=== PATIENT | female | born 1955 | race Caucasian/White ===

== ENCOUNTER 2016-09-21 11:36 | Observation (INO) | payer MEDICARE, BC ==
[2016-09-21] VITALS (11 sets, daily range): BP systolic 104–149; BP diastolic 71–83; PULSE 62–73; RESP 16–20; TEMP 96.6–98; O2SAT 94–98
[~2016-09-21] VITALS: Ht 156.2 cm; Wt 74.0 kg
[~2016-09-21 11:36] MED LIST: ALBUAER3 INH; ATOR20TA15 PO; AZIT500T2 PO; CARV12.52 PO; CHOL1CHW5 CHEW; CLOP75TA PO; DULO1CAP3 PO; FERR325T PO; GABA300C5 PO; LANTUS2P; LISI-515 PO; NIFE15TA PO; NOVOLOGP2 SQ; OMEP40CA2 PO; PRED20 PO; ROPI0.5T PO; TIZA4TAB PO
[2016-09-21] MEDS ORDERED: SODIUM CHLORIDE 0.9% FLUSH 10 ML FLUSH IVF PRN (12:00)
[2016-09-21 12:11] LABS: AUTOMATED NEUTROPHIL # 2.7 TH/MM3 (1.8-7.7); BASOPHIL # 0.1 TH/MM3 (0-0.2); BASOPHIL % 1.2 % (0.0-2.0); EOSINOPHIL # 1.2 TH/MM3 (0-0.4); EOSINOPHIL % 20.8 % (0.0-4.0); HEMATOCRIT 37.7 % (35.0-46.0); HEMO FLAGS DIFF FINAL; LYMPH % 20.9 % (9.0-44.0); LYMPHOCYTE # 1.2 TH/MM3 (1.0-4.8); MEAN CELL VOLUME 84.8 FL (80.0-100.0); MEAN CORPUSCULAR HEMOGLOBIN 28.9 PG (27.0-34.0); MEAN CORPUSCULAR HGB CONC 34.1 % (32.0-36.0); MONO % 7.6 % (0.0-8.0); NEUT % 49.5 % (16.0-70.0); PLATELET COUNT 179 TH/MM3 (150-450); RED BLOOD COUNT 4.45 MIL/MM3 (4.00-5.30); RED CELL DISTRIBUTION WIDTH 13.2 % (11.6-17.2); WHITE BLOOD COUNT 5.6 TH/MM3 (4.0-11.0)
--- NOTE | 2016-09-21 12:12 | PD ---
HPI Chief Complaint: Chest Pain Time Seen by Provider: 11:53 Travel History International Travel<30 days: No Contact w/Intl Traveler<30days: No Traveled to known affect area: No History of Present Illness HPI 60-year-old female states over the past for 5 years she's had multiple syncopal episodes that she has not had worked up for. She states that a couple days ago she felt funny and fell. She states she hit her head and blacked out. She states yesterday a day after she had the fall she developed central chest pain. She states she did not hit her chest when she fell. She states that she has no other concurrent complaints other than mild pain to her left head. Quality is pressure. Severity is moderate. Pain is worse with movement and deep breaths. She states that she had a heart catheterization at [facility] a couple years ago when she was here on vacation that damaged her kidneys and had a small area but they did not place a heart stent. She denies any prior heart stents. She currently moved here from [place] in october and is working on setting up a primary care physician. She has been taking her medications through refills with her prior physician. PFSH Past Medical History Hx Anticoagulant Therapy: Yes (PLAVIX) Cancer: No Cardiovascular Problems: Yes (HTN, CHOL, CHF) Congestive Heart Failure: Yes Cerebrovascular Accident: Yes (TIA) Diabetes: Yes Patient Takes Glucophage: No Diminished Hearing: No Endocrine: No Gastrointestinal Disorders: Yes Genitourinary: No Hypertension: Yes Immune Disorder: No Neurologic: Yes Psychiatric: No Reproductive: No Respiratory: No Immunizations Current: Yes Renal Failure: Yes Ulcer: Yes ?: Not Menopausal: Yes Past Surgical History Abdominal Surgery: Yes (GASTRIC BYPASS) Endocrine Surgery: Yes Gynecologic Surgery: Yes (C SECTIONS) Hysterectomy: No Oral Surgery: Yes (TONSILECTOMY) Other Surgery: Yes Social History Alcohol Use: Yes (occasional) Tobacco Use: No Substance Use: No Allergies-Medications (Allergen,Severity, Reaction): Coded Allergies: Egg Allergy (Verified Allergy, Severe, Swelling, 09/21/16) Sulfa (Verified Allergy, Severe, Swelling, 09/21/16) Reported Meds & Prescriptions Reported Meds & Active Scripts Active Proair Hfa 8.5 GM Inh (Albuterol Sulfate) 90 Mcg/Act Aer 2 Puff INH Q4-6H PRN 108 mcg/actuation Reported Zyrtec Allergy (Cetirizine HCl) 10 Mg Cap 10 Mg PO DAILY Melatonin 5 Mg Tab 5 Mg PO HS Furosemide 40 Mg Tab 40 Mg PO DAILY PRN Novolog Inj (Insulin Aspart) 1,000 Unit/10 Ml Vial 10 Units SQ DAILY Lantus Inj (Insulin Glargine) 100 Unit/Ml Inj 30 Tizanidine (Tizanidine HCl) 4 Mg Tab 4 Mg PO DAILY Ropinirole 0.5 Mg Tab 0.5 Mg PO ONCE Clopidogrel (Clopidogrel Bisulfate) 75 Mg Tab 75 Mg PO DAILY Omeprazole 40 Mg Cap 40 Mg PO DAILY Atorvastatin (Atorvastatin Calcium) 20 Mg Tab 20 Mg PO HS Gabapentin 300 Mg Cap 300 Mg PO DAILY Vitamin D3 (Cholecalciferol) 2,000 Unit Chew 2,000 Units CHEW DAILY Lisinopril 20 Mg Tab 20 Mg PO DAILY Carvedilol 12.5 Mg Tab 12.5 Mg PO BID Ferrous Sulfate 325 Mg Tab 325 Mg PO DAILY Nifedical XL (Nifedipine) 60 Mg Tab 60 Mg PO DAILY Duloxetine DR (Duloxetine HCl) 60 Mg Capdr 60 Mg PO DAILY Review of Systems Except as stated in HPI: all other systems reviewed are Neg Physical Exam Narrative GENERAL: Well-nourished, well-developed patient. SKIN: Warm and dry. HEAD: Normocephalic and small amount of swelling to left forehead EYES: No injection or drainage. Pupils equal ENT: No nasal drainage noted. NECK: Supple, trachea midline. No pain in midline CARDIOVASCULAR: Regular rate and rhythm RESPIRATORY: Breath sounds equal bilaterally. No accessory muscle use. GASTROINTESTINAL: Abdomen soft, non-tender, nondistended. EXTREMITIES: No edema. NEUROLOGICAL: Awake and alert. Motor and sensory grossly within normal limits. Normal speech. Data Data Last Documented VS Vital Signs Date Time Temp Pulse Resp B/P Pulse Ox O2 Delivery O2 Flow Rate FiO2 09/21/16 12:17 66 18 135/82 97 Room Air 09/21/16 11:46 98.0 Orders Electrocardiogram (09/21/16 12:00) Complete Blood Count With Diff (09/21/16 12:00) Comprehensive Metabolic Panel (09/21/16 12:00) Magnesium (Mg) (09/21/16 12:00) B-Type Natriuretic Peptide (09/21/16 12:00) Ckmb (Isoenzyme) Profile (09/21/16 12:00) Troponin I (09/21/16 12:00) Act Partial Throm Time (Ptt) (09/21/16 12:00) Prothrombin Time / Inr (Pt) (09/21/16 12:00) Chest, Single Ap (09/21/16 12:00) Ct Brain W/O Iv Contrast(Rout) (09/21/16 12:00) Ecg Monitoring (09/21/16 12:00) Iv Access Insert/Monitor (09/21/16 12:00) Oximetry (09/21/16 12:00) Sodium Chloride 0.9% Flush (Ns Flush) (09/21/16 12:00) CKMB (09/21/16 12:04) CKMB% (09/21/16 12:04) Aspirin (Aspirin) (09/21/16 13:30) Admit Order (Ed Use Only) (09/21/16 13:31) Labs Laboratory Tests Test 09/21/16 12:04 White Blood Count 5.6 TH/MM3 Red Blood Count 4.45 MIL/MM3 Hemoglobin 12.9 GM/DL Hematocrit 37.7 % Mean Corpuscular Volume 84.8 FL Mean Corpuscular Hemoglobin 28.9 PG Mean Corpuscular Hemoglobin 34.1 % Concent Red Cell Distribution Width 13.2 % Platelet Count 179 TH/MM3 Mean Platelet Volume 8.0 FL Neutrophils (%) (Auto) 49.5 % Lymphocytes (%) (Auto) 20.9 % Monocytes (%) (Auto) 7.6 % Eosinophils (%) (Auto) 20.8 % Basophils (%) (Auto) 1.2 % Neutrophils # (Auto) 2.7 TH/MM3 Lymphocytes # (Auto) 1.2 TH/MM3 Monocytes # (Auto) 0.4 TH/MM3 Eosinophils # (Auto) 1.2 TH/MM3 Basophils # (Auto) 0.1 TH/MM3 CBC Comment DIFF FINAL Differential Comment Prothrombin Time 10.9 SEC Prothromb Time International 1.0 RATIO Ratio Activated Partial 33.3 SEC Thromboplast Time Sodium Level 143 MEQ/L Potassium Level 4.4 MEQ/L Chloride Level 107 MEQ/L Carbon Dioxide Level 23.6 MEQ/L Anion Gap 12 MEQ/L Blood Urea Nitrogen 63 MG/DL Creatinine 3.30 MG/DL Estimat Glomerular Filtration 14 ML/MIN Rate Random Glucose 125 MG/DL Calcium Level 9.5 MG/DL Magnesium Level 2.6 MG/DL Total Bilirubin 0.4 MG/DL Aspartate Amino Transf 38 U/L (AST/SGOT) Alanine Aminotransferase 40 U/L (ALT/SGPT) Alkaline Phosphatase 191 U/L Total Creatine Kinase 176 U/L Creatine Kinase MB 4.8 NG/ML Troponin I LESS THAN 0.02 NG/ML B-Type Natriuretic Peptide 112 PG/ML Total Protein 7.8 GM/DL Albumin 3.7 GM/DL MDM Medical Decision Making Medical Screen Exam Complete: Yes Emergency Medical Condition: Yes Medical Record Reviewed: Yes (past history confirmed) Interpretation(s) EKG shows NSR, no ST elevation or depression, and no arrhythmias. No significant T-wave inversions. Last [address] 09/21/16 1200 Signed Impressions: Service Date/Time: Wednesday, September 21, 2016 12:56 - CONCLUSION: 1. No acute infarct, acute hemorrhage, mass effect or extra-axial fluid collections. 2. Old lacunar infarcts within the head of the left caudate nucleus and anterior limb of the right internal capsule. 3. Calcified extra-axial mass within the left frontal region measuring 1.8 cm consistent with possible meningioma. 4. Mucosal thickening within the right frontal sinus and anterior ethmoid air cells. Cody Gonsales MD Chest X-Ray 09/21/16 1200 Signed Impressions: Service Date/Time: Wednesday, September 21, 2016 12:07 - CONCLUSION: The lungs are clear. Oneil Ervin MD CBC & BMP Diagram 09/21/16 12:04 Differential Diagnosis Intracranial bleed, fracture, pneumothorax, strain, [place], vasovagal Narrative Course Will check blood work, imaging and reevaluate ed workup with mild ckmb elevation with normal troponin, creatinine is near baseline, patient without traumatic injury, will dose with aspirin and nitro and place in observation for further testing, patient agrees to this Physician Communication Physician Communication dr sage agrees to admit Diagnosis Primary Impression: Syncope Qualified Code: R55 - Syncope, unspecified syncope type Additional Impressions: Chest pain Qualified Code: R07.9 - Chest pain, unspecified type Chronic renal insufficiency Qualified Code: N18.9 - Chronic renal insufficiency, unspecified stage Admitting Information Admitting Physician Requests: Observation Kinza Orozco MD Sep 21, 2016 12:11
[2016-09-21] MEDS ORDERED: FURO40TA PO (12:15)
[2016-09-21] MEDS ORDERED: ZYRT10CA PO (12:15)
[2016-09-21] MEDS ORDERED: MELA5TAB15 PO (12:15)
[2016-09-21 12:17] LABS: CHLORIDE 107 MEQ/L (98-107); POTASSIUM 4.4 MEQ/L (3.5-5.1); SODIUM (NA) 143 MEQ/L (136-145)
[2016-09-21 12:21] LABS: ANION GAP 12 MEQ/L (5-15); APTT (PATIENT) 33.3 SEC (24.3-30.1); BICARBONATE 23.6 MEQ/L (21.0-32.0); BLOOD UREA NITROGEN 63 MG/DL (7-18); MAGNESIUM 2.6 MG/DL (1.5-2.5); PROTHROMBIN TIME - PATIENT 10.9 SEC (9.8-11.6)
[2016-09-21 12:24] LABS: ALT (GPT) 40 U/L (10-53); AST (GOT) 38 U/L (15-37); GLOMERULAR FILTRATION RATE 14 ML/MIN (>89)
[2016-09-21 12:25] LABS: TOTAL BILIRUBIN ADULT 0.4 MG/DL (0.2-1.0)
[2016-09-21 12:27] LABS: ALKALINE PHOSPHATASE 191 U/L (45-117); CREATINE KINASE 176 U/L (26-192)
[2016-09-21 12:39] LABS: CKMB 4.8 NG/ML (0.5-3.6)
--- NOTE | 2016-09-21 13:13 | RADHPO ---
EXAM DATE/TIME: 09/21/2016 12:07 [facility] COMPARISON: CHEST SINGLE AP, October 16, 2015, 0:09. INDICATIONS : Chest pain on respiration post fall 1 week ago. MEDICAL HISTORY : Congestive heart failure. Hypertension. Ulcers. Stage 3 Renal failure.Cerebrovascular accident. Neuro courtney. Diabetes. SURGICAL HISTORY : Tonsillectomy. section. Gastric bypass. Endocrine surgery. ENCOUNTER: Initial ACUITY: 1 week PAIN SCORE: 8/10 LOCATION: chest FINDINGS: A single view of the chest demonstrates the lungs to be symmetrically aerated without evidence of mas s, infiltrate or effusion. No evidence of pneumothorax. The cardiomediastinal contours are unremark able. Osseous structures are intact. CONCLUSION: The lungs are clear. Oneil Ervin MD on September 21, 2016 at 13:11 Board Certified Radiologist. This report was verified electronically.
--- NOTE | 2016-09-21 13:22 | RADHPO ---
EXAM DATE/TIME: 09/21/2016 12:56 [facility] COMPARISON: No previous studies available for comparison. INDICATIONS : Fall. Left frontal pain. RADIATION DOSE: 58.72 CTDIvol (mGy) MEDICAL HISTORY : Cerebrovascular disease. Hypertension. SURGICAL HISTORY : Tonsillectomy. ENCOUNTER: Initial ACUITY: 1 day PAIN SCALE: 1/10 LOCATION: Left frontal TECHNIQUE: Multiple contiguous axial images were obtained of the head. Using automated exposure control and adj ustment of the mA and/or kV according to patient size, radiation dose was kept as low as reasonably a chievable to obtain optimal diagnostic quality images. FINDINGS: CEREBRUM: The ventricles are normal for age. No evidence of midline shift, mass lesion, hemorrhage or acute in farction. There are old lacunar infarcts within the head of the left caudate nucleus and the anterio r limb of the right internal capsule. No extra-axial fluid collections are seen. There is a calcified extra-axial mass within the left frontal region measuring 1.8 cm in greatest dimension consistent wi th possible meningioma. POSTERIOR FOSSA: The cerebellum and brainstem are intact. The 4th ventricle is midline. The cerebellopontine angle i s unremarkable. EXTRACRANIAL: The visualized portion of the orbits is intact. Mucosal thickening is noted within the right frontal sinus and anterior ethmoid air cells. SKULL: The calvaria is intact. No evidence of skull fracture. CONCLUSION: 1. No acute infarct, acute hemorrhage, mass effect or extra-axial fluid collections. 2. Old lacunar infarcts within the head of the left caudate nucleus and anterior limb of the right in ternal capsule. 3. Calcified extra-axial mass within the left frontal region measuring 1.8 cm consistent with possibl e meningioma. 4. Mucosal thickening within the right frontal sinus and anterior ethmoid air cells. Cody Gonsales MD on September 21, 2016 at 13:17 Board Certified Radiologist. This report was verified electronically.
[2016-09-21] MEDS ORDERED: ASPIRIN 325 MG TAB PO ONE (13:30)
[2016-09-21] MEDS ORDERED: NITROGLYCERIN 0.4 MG SL 25 TABS/BTL SL ONE (13:45)
[2016-09-21] MEDS ORDERED: DEXTROSE 50% IN WATER 50 ML VIAL(D50) IV PUSH PRN (14:00)
[2016-09-21] MEDS ORDERED: ALBUTEROL SULFATE 90 MCG/ACT HFA 8 GM INHALER INH PRN (14:00)
[2016-09-21] MEDS ORDERED: ACETAMINOPHEN 325 MG TAB PO PRN (14:00)
[2016-09-21] MEDS ORDERED: GLUCAGON 1 MG/ML VIAL OTHER PRN (14:00)
[2016-09-21] MEDS ORDERED: CALCIUM CARBONATE 500 MG CHEWABLE TAB CHEW PRN (14:00)
[2016-09-21] MEDS ORDERED: SODIUM CHLORIDE 0.9% FLUSH 10 ML FLUSH IV FLUSH PRN (14:00)
[2016-09-21] MEDS ORDERED: NITROGLYCERIN 0.4 MG SL 25 TABS/BTL SL PRN (14:00)
[2016-09-21] MEDS ORDERED: DOCUSATE SODIUM 100 MG CAP PO PRN (14:00)
[2016-09-21 15:34] LABS: CREATINE KINASE 107 U/L (26-192)
--- NOTE | 2016-09-21 15:51 | RADHPO ---
EXAM DATE/TIME: 09/21/2016 15:11 [facility] COMPARISON: No previous studies available for comparison. INDICATIONS : Syncope and frequent falls. MEDICAL HISTORY : Diabetes mellitus type 2. Hypertension. SURGICAL HISTORY : section. Tonsillectomy. Gastric bypass. Lumbar surgery. 2 foot surgeries. ENCOUNTER: Subsequent ACUITY: 3 day PAIN SCORE: 0/10 LOCATION: head. TECHNIQUE: Multiplanar, multisequence MRI of the brain was performed without contrast. FINDINGS: CEREBRUM: The ventricles are normal for age. No evidence of midline shift, mass lesion, hemorrhage or acute in farction. No extraaxial fluid collections are seen. The pituitary gland and suprasellar cistern are normal in configuration. WHITE MATTER: Small scattered signal abnormalities are seen in the white matter. POSTERIOR FOSSA: T2 hyperintensity is seen centrally in the brainstem The cerebellum and brainstem are otherwise unrem arkable. The 4th ventricle is midline. The cerebellopontine angle is unremarkable. The cerebellar to nsils are normal in position. DIFFUSION IMAGING: No focal areas of restricted diffusion are seen. No evidence of acute infarction. EXTRACRANIAL: The visualized portions of the orbits and paranasal sinuses are unremarkable. CONCLUSION: T2 hyperintense changes in the cerebral white matter and brain stem characteristic of chronic microvascular ischemic disease. No evidence of acute infarct, hemorrhage, mass or edema. Gary Bentley MD on September 21, 2016 at 15:47 Board Certified Radiologist. This report was verified electronically.
[2016-09-21 15:54] LABS: AMPHETAMINE, URINE NEG (NEG)
[2016-09-21 15:55] LABS: BARBITURATES, URINE NEG (NEG); COCAINE, URINE NEG (NEG)
[2016-09-21] MEDS: INSULIN ASPART SUPPLEMENTAL SCALE SQ SCH ×2 (16:00→21:21)
--- NOTE | 2016-09-21 16:48 | EC ---
Study Study Date:09/21/2016 STUDY CONCLUSIONS SUMMARY - Left ventricle: The cavity size was normal. Wall thickness was normal. Systolic function was normal. The estimated ejection fraction was in the range of 55% to 60%. Wall motion was normal; there were no regional wall motion abnormalities. - Aortic valve: Valve area: 2.13cm^2 (Vmax). If LV function is below 40, please consider prescribing an ACEI or ARB or document rationale for non-use. PROCEDURE DATA STUDY STATUS: Elective. Procedure: Transthoracic echocardiography. Image quality was good. Scanning was performed from the parasternal, apical, and subcostal acoustic windows. Study completion: The patient tolerated the procedure well. Transthoracic echocardiography. M-mode, complete 2D, complete spectral Doppler, and color Doppler. Height: Height: 62in. Weight: Weight: 162.7lb. Body mass index: BMI: 29.8kg/m^2. Body surface area: BSA: 1.75m^2. Patient status: Inpatient. CARDIAC ANATOMY LEFT VENTRICLE: The cavity size was normal. Wall thickness was normal. Systolic function was normal. The estimated ejection fraction was in the range of 55% to 60%. Wall motion was normal; there were no regional wall motion abnormalities. AORTIC VALVE: Trileaflet; normal thickness leaflets. Doppler: Transvalvular velocity was within the normal range. There was no stenosis. No regurgitation. Valve area: 2.13cm^2 (Vmax). Indexed valve area: 1.22cm^2/m^2 (Vmax). AORTA: Aortic root: The aortic root was normal in size. MITRAL VALVE: Structurally normal valve. Doppler: Transvalvular velocity was within the normal range. There was no evidence for stenosis. No regurgitation. LEFT ATRIUM: The atrium was normal in size. RIGHT VENTRICLE: The cavity size was normal. Wall thickness was normal. PULMONIC VALVE: Doppler: Transvalvular velocity was within the normal range. There was no evidence for stenosis. No regurgitation. TRICUSPID VALVE: Structurally normal valve. Doppler: Transvalvular velocity was within the normal range. Trace regurgitation. PULMONARY ARTERY: The main pulmonary artery was normal-sized. Systolic pressure was within the normal range. RIGHT ATRIUM: The atrium was normal in size. PERICARDIUM: There was no pericardial effusion. SYSTEMIC VEINS: Inferior vena cava: The vessel was normal in size. Patient weight: 162.7lb _Ejection fraction:_ 65-75% _Fractional shortening:_ 32% up to 5Kg 5-11.5Kg 11.6-22.9Kg 23-45Kg 45-57Kg Aortic Root 7-13 <17 13-22 17-27 17-27 LA diam 6-13 <23 24-38 33-47 37-40 RVID 10-17 7-15 7-15 7-18 8-17 LVIDd 12-22 <32 24-38 33-47 37-40 LVPW 2-4 3-6 5-7 6-8 7-8 IVS 2-4 3-6 5-7 6-8 7-8 BASIC MEASUREMENTS ADULT NORMAL Left ventricle LV internal dimension, ED, chordal *42.4 mm 43-52 level, PLAX LV internal dimension, ES, chordal 32.3 mm 23-38 level, PLAX Fractional shortening, chordal level, *24 % >29 PLAX LV posterior wall thickness, ED 10.6 mm IVS/LVPW ratio, ED 1.01 <1.3 Ventricular septum Septal thickness, ED 10.7 mm Aortic valve Leaflet separation 18 mm 15-26 BASIC MEASUREMENTS ADULT NORMAL Aortic valve Leaflet separation 18 mm 15-26 Aorta Root diameter, ED 27 mm 20-37 Left atrium Anterior-posterior dimension, ES 33 mm 19-40 Anterior-posterior dimension index, ES 1.89 cm/m^2 <2.2 LA/aortic root ratio 1.22 DOPPLER MEASUREMENTS ADULT NORMAL Main pulmonary artery Pressure, S 27 mm Hg =30 Aortic valve Peak velocity, S 126 cm/s Valve area, Vmax 2.13 cm^2 Valve area index, Vmax 1.22 cm^2/m^2 Mitral valve Peak E-wave velocity 57.8 cm/s Peak A-wave velocity 92.3 cm/s Deceleration time *275 ms 150-230 Peak E/A ratio 0.6 Tricuspid valve Regurgitant peak velocity 194 cm/s Peak RV-RA gradient, S 15 mm Hg Maximal regurgitant velocity 194 cm/s Systemic veins Estimated CVP 10 mm Hg Right ventricle RV pressure, S *32 mm Hg <30 Pulmonic valve Peak velocity, S 110 cm/s LEGEND: Mean values are shown as u=mean value. Asterisk (*) jones values outside specified normal range. Prepared and signed by Avis Lucio [id number]
--- NOTE | 2016-09-21 16:55 | RADHPO ---
EXAM DATE/TIME: 09/21/2016 14:17 [facility] COMPARISON: No previous studies available for comparison. INDICATIONS : TIA. MEDICAL HISTORY : Hypercholesterolemia. Hypertension. Congestive heart failure. CVA. Neuropathy. Ulcer. Renal failure. Diabetes. TIA. SURGICAL HISTORY : Tonsillectomy. Gastric bypass. Back surgery. ENCOUNTER: Initial ACUITY: 1 week PAIN SCORE: 2/10 LOCATION: Bilateral neck PEAK SYSTOLIC VELOCITIES (cm/sec): ICA/CCA RATIO: Right: 0.9 Left: 1.2 ICA: Right: 98 Left: 103 CCA: Right: 114 Left: 87 ECA: Right: 69 Left: 63 VERTEBRAL: Right: 63 antegrade Left: 32 antegrade Elevated flow velocities and ICA/CCA ratios have been found to correlate with increased degrees of vessel stenosis, calculated as percentage of diameter relative to a normal segment of distal ICA/CCA FINDINGS: RIGHT CAROTID: Minimal calcified plaque in the carotid bulb. The waveforms are within normal limits. LEFT CAROTID: No significant stenosis is visualized. The waveforms are within normal limits. VERTEBRAL ARTERIES: Antegrade flow is seen in both vertebral arteries. MISCELLANEOUS: None. CONCLUSION: 1. Minimal calcified plaquing in the right carotid bulb with no sonographic or Doppler findings of a hemodynamically significant stenosis in either carotid. 2. Antegrade flow in both vertebral arteries. High resistance waveform on the left suggest distal occ lusion or termination in a PICA branch. Ryan Ernst MD on September 21, 2016 at 16:51 Board Certified Radiologist. This report was verified electronically.
[2016-09-21] MEDS ORDERED: LANTUS2P (17:10)
--- NOTE | 2016-09-21 17:29 | HHI.HP ---
[facility] No Primary Care Physician Admission Diagnosis chest pain, syncope Diagnoses: Chief Complaint: Falls with chest wall pain Travel History International Travel<30 Days: No Contact w/Intl Traveler <30 Da: No Traveled to Known Affected Are: No History of Present Illness 60-year-old female with a past medical history of CKD/5, HTN, HLD, DM, TIA, CHF , neuropathy who presented with chest wall pain after a fall 1 week ago. The patient states that last week she had a fall where she felt faint, tried to catch herself on the refrigerator, and fell to the ground. She denies any loss of consciousness. She states this is the third episode with falling after she has a "funny feeling" with associated lightheadedness, blurred vision, poor balance, but never any loss of consciousness. The patient states she presented because after her most recent fall she's been having midsternal chest discomfort that hurts when she moves or when she touches her chest. She doesn' t recall any direct chest trauma whenever she fell last. She denies any associated shortness of breath. Of note, she also reports waking up in the middle of the night with episodes of hallucinations and seeing things and people that she knows are not there. She denies any depression. She does take Requip and Zanaflex at night before she goes to sleep. She takes aspirin for history of TIA, and unable to take aspirin due to gastric bypass. Review of Systems Except as stated in HPI: all other systems reviewed are Neg Past Family Social History Past Medical History CKD stage V Hypertension Hyperlipidemia Diabetes mellitus TIA CHF Peripheral neuropathy Past Surgical History Gastric bypass Tonsillectomy Reported Medications Proair Hfa 8.5 GM Inh (Albuterol Sulfate) 90 Mcg/Act Aer 2 Puff INH Q4-6H PRN 108 mcg/actuation Lantus Inj (Insulin Glargine) 100 Unit/Ml Inj Units Zyrtec Allergy (Cetirizine HCl) 10 Mg Cap 10 Mg PO DAILY Melatonin 5 Mg Tab 5 Mg PO HS Furosemide 40 Mg Tab 40 Mg PO DAILY PRN Novolog Inj (Insulin Aspart) 1,000 Unit/10 Ml Vial 10 Units SQ DAILY Tizanidine (Tizanidine HCl) 4 Mg Tab 4 Mg PO DAILY Ropinirole 0.5 Mg Tab 0.5 Mg PO ONCE Clopidogrel (Clopidogrel Bisulfate) 75 Mg Tab 75 Mg PO DAILY Omeprazole 40 Mg Cap 40 Mg PO DAILY Atorvastatin (Atorvastatin Calcium) 20 Mg Tab 20 Mg PO HS Gabapentin 300 Mg Cap 300 Mg PO DAILY Vitamin D3 (Cholecalciferol) 2,000 Unit Chew 2,000 Units CHEW DAILY Lisinopril 20 Mg Tab 20 Mg PO DAILY Carvedilol 12.5 Mg Tab 12.5 Mg PO BID Ferrous Sulfate 325 Mg Tab 325 Mg PO DAILY Nifedical XL (Nifedipine) 60 Mg Tab 60 Mg PO DAILY Duloxetine DR (Duloxetine HCl) 60 Mg Capdr 60 Mg PO DAILY Allergies: Coded Allergies: Egg Allergy (Verified Allergy, Severe, Swelling, 09/21/16) Sulfa (Verified Allergy, Severe, Swelling, 09/21/16) Active Ordered Medications Current Medications Medications (Trade) Dose Ordered Sig/Barbara Route Start Time Stop Time Status Last Admin (NS Flush) 2 ml UNSCH PRN IVF 09/21/16 12:00 (D50w (Vial) Inj) 25 ml UNSCH PRN IV PUSH 09/21/16 14:00 (Glucagon Inj) 1 mg UNSCH PRN OTHER 09/21/16 14:00 (Aspirin) 325 mg DAILY PO 09/23/16 09:00 (Nitrostat Sl) 0.4 mg Q5M PRN SL 09/21/16 14:00 (NS Flush) 2 ml UNSCH PRN IV FLUSH 09/21/16 14:00 (NS Flush) 2 ml BID IV FLUSH 09/21/16 21:00 (Tylenol) 650 mg Q4H PRN PO 09/21/16 14:00 (Colace) 100 mg BID PRN PO 09/21/16 14:00 (Tums Chew) 1,000 mg TID PRN CHEW 09/21/16 14:00 (Proair Hfa Inh) 2 puff Q4HR PRN INH 09/21/16 14:00 (Lipitor) 20 mg HS PO 09/21/16 21:00 (Coreg) 12.5 mg BID PO 09/21/16 21:00 (ZyrTEC) 10 mg DAILY PO 09/22/16 09:00 (Plavix) 75 mg DAILY PO 09/22/16 09:00 (Cymbalta Dr) 60 mg DAILY PO 09/22/16 09:00 (Ferrous Sulfate) 325 mg DAILY PO 09/22/16 09:00 (Neurontin) 300 mg DAILY PO 09/22/16 09:00 (Procardia Xl) 60 mg DAILY PO 09/22/16 09:00 (Zanaflex) 4 mg DAILY PO 09/22/16 09:00 (Melatonin) 5 mg HS PO 09/21/16 21:00 Pantoprazole Sodium 40 mg 40 mg DAILY PO 09/22/16 09:00 (NS 1000 ml Inj) 1,000 ml @ 42 mls/hr [id number] IV 09/21/16 17:15 UNV Family History Father and mother had heart problems Social History Rare alcohol use Denies any tobacco or drug use Physical Exam Vital Signs Vital Signs Date Time Temp Pulse Resp B/P Pulse Ox O2 Delivery O2 Flow Rate FiO2 09/21/16 16:41 97.3 63 18 110/76 95 09/21/16 16:10 96 21 09/21/16 16:00 96.6 64 20 116/75 96 09/21/16 14:46 62 18 131/79 96 Room Air 09/21/16 13:34 64 18 149/83 98 Room Air 09/21/16 12:17 66 18 135/82 97 Room Air 09/21/16 12:07 98 Room Air 09/21/16 11:53 98 Room Air 09/21/16 11:46 98.0 71 16 125/76 98 Physical Exam GENERAL: Well-developed well-nourished. In no acute distress. SKIN: Warm and dry. No lesions noted. HEENT: Normocephalic. Pupils equal and round. Mucous membranes pink and moist. CARDIOVASCULAR: Regular rate and rhythm. No murmur appreciated. Chest wall around the sternum is exquisitely TTP. RESPIRATORY: No accessory muscle use. Clear to auscultation. Breath sounds equal bilaterally. GASTROINTESTINAL: Abdomen soft, non-tender, nondistended. Bowel sounds x4. MUSCULOSKELETAL: No obvious deformities. No clubbing or cyanosis. No edema. NEUROLOGICAL: Awake and alert. No focal neurological deficits. Moves upper and lower extremities spontaneously. Normal speech. PSYCHIATRIC: Appropriate mood and affect; insight and judgment normal. Laboratory Laboratory Tests Test 09/21/16 09/21/16 09/21/16 12:04 14:56 15:30 White Blood Count 5.6 Red Blood Count 4.45 Hemoglobin 12.9 Hematocrit 37.7 Mean Corpuscular Volume 84.8 Mean Corpuscular Hemoglobin 28.9 Mean Corpuscular Hemoglobin 34.1 Concent Red Cell Distribution Width 13.2 Platelet Count 179 Mean Platelet Volume 8.0 Neutrophils (%) (Auto) 49.5 Lymphocytes (%) (Auto) 20.9 Monocytes (%) (Auto) 7.6 Eosinophils (%) (Auto) 20.8 Basophils (%) (Auto) 1.2 Neutrophils # (Auto) 2.7 Lymphocytes # (Auto) 1.2 Monocytes # (Auto) 0.4 Eosinophils # (Auto) 1.2 Basophils # (Auto) 0.1 CBC Comment DIFF FINAL Differential Comment Prothrombin Time 10.9 Prothromb Time International 1.0 Ratio Activated Partial 33.3 Thromboplast Time Sodium Level 143 Potassium Level 4.4 Chloride Level 107 Carbon Dioxide Level 23.6 Anion Gap 12 Blood Urea Nitrogen 63 Creatinine 3.30 Estimat Glomerular Filtration 14 Rate Random Glucose 125 Calcium Level 9.5 Magnesium Level 2.6 Total Bilirubin 0.4 Aspartate Amino Transf 38 (AST/SGOT) Alanine Aminotransferase 40 (ALT/SGPT) Alkaline Phosphatase 191 Total Creatine Kinase 176 107 Creatine Kinase MB 4.8 Troponin I LESS THAN 0.02 LESS THAN 0.02 B-Type Natriuretic Peptide 112 Total Protein 7.8 Albumin 3.7 Urine Opiates Screen NEG Urine Barbiturates Screen NEG Urine Amphetamines Screen NEG Urine Benzodiazepines Screen NEG Urine Cocaine Screen NEG Urine Cannabinoids Screen NEG Result Diagram: 09/21/16 1204 09/21/16 1204 Imaging Last Impressions Head CT 09/21/16 1200 Signed Impressions: Service Date/Time: Wednesday, September 21, 2016 12:56 - CONCLUSION: 1. No acute infarct, acute hemorrhage, mass effect or extra-axial fluid collections. 2. Old lacunar infarcts within the head of the left caudate nucleus and anterior limb of the right internal capsule. 3. Calcified extra-axial mass within the left frontal region measuring 1.8 cm consistent with possible meningioma. 4. Mucosal thickening within the right frontal sinus and anterior ethmoid air cells. Cody Gonsales MD Chest X-Ray 09/21/16 1200 Signed Impressions: Service Date/Time: Wednesday, September 21, 2016 12:07 - CONCLUSION: The lungs are clear. Oneil Ervin MD Carotid Artery Ultrasound 09/21/16 0000 Signed Impressions: Service Date/Time: Wednesday, September 21, 2016 14:17 - CONCLUSION: 1. Minimal calcified plaquing in the right carotid bulb with no sonographic or Doppler findings of a hemodynamically significant stenosis in either carotid. 2. Antegrade flow in both vertebral arteries. High resistance waveform on the left suggest distal occlusion or termination in a PICA branch. Ryan Ernst MD Brain MRI 09/21/16 0000 Signed Impressions: Service Date/Time: Wednesday, September 21, 2016 15:11 - CONCLUSION: T2 hyperintense changes in the cerebral white matter and brain stem characteristic of chronic microvascular ischemic disease. No evidence of acute infarct, hemorrhage, mass or edema. Gary Bentley MD Assessment and Plan Assessment and Plan 60-year-old female with a past medical history of CKD/5, HTN, HLD, DM, TIA, CHF , neuropathy who presented with chest wall pain after a fall 1 week ago Near syncope: Unclear etiology, possibly multifactorial; med effect vs uremia/ dehydration vs neuropathy vs orthostasis vs other. Reviewed: Brain MRI with chronic ischemic disease, no acute changes. Carotid ultrasound with suggestion of distal occlusion in a PICA branch. Echocardiogram with normal systolic function EF 5560 %. BUN 63. UDS clean. Plan: Gentle IVF. Check orthostatics. Consult neurology. PT eval. Check brain MRA. Monitor on telemetry. Chest wall pain: Suspect muscle strain secondary to recent fall. Troponin negative 2. EKG reviewed with no ischemic changes. Chest x-ray clear. Check rib x-ray. CKD stage V: Creatinine 3.3, previously 3.4 on 10/17/15. BUN 63, previously 50 on 10/17/15. Gentle IVF. Follow-up BMP. Diabetes mellitus: Resume home baseline insulin 56 units at night. Monitor Accu -Cheks. Cover with SSI. History of TIA/HLD: Continue continue Plavix, statin. Hallucinations: Suspect secondary to medication effect. Counseled on use regarding Requip and Zanaflex. We would avoid abrupt discontinuing of these medications, follow-up with PCP. History of CHF/HTN: Continue carvedilol. Continue nifedipine. DVT prophylaxis: SCDs Written by Geoff Birch, acting as scribe for Dr. Del Rio on 09/21/16 at 17:29. This note was transcribed by scribe []. I, Dr. Brodie Del Rio personally performed the history, physical exam, and medical decision making; and confirmed the accuracy of the information in the transcribed note. Authenticated by Dr. Brodie Del Rio on 09/21/16 at 21:53. Discussed Condition With Patient with and RN at bedside Geoff Birch Sep 21, 2016 17:29 Brodie Del Rio MD Sep 21, 2016 21:53
[2016-09-21] MEDS ORDERED: INSULIN DETEMIR 100 UNITS/ML VIAL SQ SCH (21:00)
[2016-09-21] MEDS: CARVEDILOL 12.5 MG TAB PO SCH (21:20)
[2016-09-21] MEDS: ATORVASTATIN 20 MG TAB PO SCH (21:20)
[2016-09-21] MEDS: MELATONIN 5 MG TAB PO SCH (21:20)
[2016-09-21] MEDS: SODIUM CHLORIDE 0.9% FLUSH 10 ML FLUSH IV FLUSH SCH (21:23)
[2016-09-21] MEDS: SODIUM CHLOR 0.9% 1000 ML INJ 1,000 ML IV SCH (21:24)
--- NOTE | 2016-09-21 21:45 | RADHPO ---
EXAM DATE/TIME: 09/21/2016 20:35 [facility] COMPARISON: No previous studies available for comparison. INDICATIONS : Upper rib pain in center of chest. Patient states she fell one week ago. MEDICAL HISTORY : Congestive heart failure. Hypertension Diabetes mellitus type II. SURGICAL HISTORY : None. ENCOUNTER: Initial ACUITY: 1 week PAIN SCORE: 7/10 LOCATION: Bilateral upper chest FINDINGS: Multiple views of both ribs were performed. There is no evidence of displaced fracture. No destruct apurva lesions or areas of periosteal thickening are seen. Expiratory view of the chest is negative for pneumothorax. The mediastinal structures are midline. CONCLUSION: Unremarkable examination of the ribs and chest. Isak Turk MD on September 21, 2016 at 21:41 Board Certified Radiologist. This report was verified electronically.
--- NOTE | 2016-09-21 22:33 | MG ---
cc: ADRIANNA BROOKS M.D. Sex: F DATE OF STUDY: 09/21/2016 REQUESTING PHYSICIAN: Dr. Del Rio HISTORY: An EEG was obtained on this 60 year-old being evaluated for fainting and dizziness. DESCRIPTION The patient is described as awake. Hyperventilation was performed. There are no real significant change during hyperventilation. The study shows a lot of low amplitude fast alpha rhythms intermixed with a beta activity. The background appears to be reactive. There is low amplitude beta activity frontally. Photic stimulation shows some bilateral driving response. INTERPRETATION Normal predominantly awake EEG. Adrianna Brooks MD [facility] /9:35 PM /10:31 PM
--- NOTE | 2016-09-21 22:54 | EKG ---
Date Performed: 09/21/2016 Time Performed: 21:00:24 PTAGE: 60 years EKG: Sinus rhythm Possible left anterior fascicular block Borderline ECG PREVIOUS TRACING : 09/21/2016 14.53 Compared to prior tracing no significant change DOCTOR: Parmjit Willoughby Interpretating Date/Time 09/21/2016 22:53:55
--- NOTE | 2016-09-21 23:30 | EKG ---
Date Performed: 09/21/2016 Time Performed: 14:53:02 PTAGE: 60 years EKG: Sinus rhythm Leftward axis Low QRS voltages in precordial leads Borderline ECG PREVIOUS TRACING : 09/21/2016 11.52 Compared to prior tracing no significant change DOCTOR: Parmjit Willoughby Interpretating Date/Time 09/21/2016 23:30:04
--- NOTE | 2016-09-21 23:56 | EKG ---
Date Performed: 09/21/2016 Time Performed: 11:52:24 PTAGE: 60 years EKG: Sinus rhythm Leftward axis Borderline ECG PREVIOUS TRACING : 10/16/2015 00.18 Compared to prior tracing no significant change DOCTOR: Parmjit Willoughby Interpretating Date/Time 09/21/2016 23:54:13
[2016-09-22] VITALS (9 sets, daily range): BP systolic 100–132; BP diastolic 59–87; PULSE 55–90; RESP 16–20; TEMP 96.5–98.5; O2SAT 93–98
[2016-09-22] MEDS: INSULIN ASPART SUPPLEMENTAL SCALE SQ SCH ×4 (06:29→21:22)
[2016-09-22 06:45] LABS: POTASSIUM 4.4 MEQ/L (3.5-5.1)
[2016-09-22 06:52] LABS: BICARBONATE 24.2 MEQ/L (21.0-32.0); MAGNESIUM 2.5 MG/DL (1.5-2.5)
[2016-09-22] MEDS: DULoxetine HCl DR 60 MG CAP PO SCH (08:53)
[2016-09-22] MEDS: GABAPENTIN 300 MG CAP PO SCH (08:54)
[2016-09-22] MEDS: CETIRIZINE HCL 10 MG TAB PO SCH (08:54)
[2016-09-22] MEDS: FERROUS SULFATE 325 MG (65 MG ELEMENTAL IRON) TAB PO SCH (08:54)
[2016-09-22] MEDS: CARVEDILOL 12.5 MG TAB PO SCH ×2 (08:54→21:17)
[2016-09-22] MEDS: CLOPIDOGREL 75 MG TAB PO SCH (08:54)
[2016-09-22] MEDS: PANTOPRAZOLE SOD 40 MG DELAYED RELEASE TAB PO SCH (08:55)
[2016-09-22] MEDS: SODIUM CHLORIDE 0.9% FLUSH 10 ML FLUSH IV FLUSH SCH ×2 (09:00→21:00)
--- NOTE | 2016-09-22 09:24 | HHI.PR ---
Subjective Remarks Follow-up near syncope. No recurrence. She complained of restless leg did not receive Requip last night. No hallucinations refused Zanaflex last night. She wants to go home. Discussed with and RN Objective Vitals Vital Signs Date Time Temp Pulse Resp B/P Pulse Ox O2 Delivery O2 Flow Rate FiO2 09/22/16 08:00 97.6 62 18 95 09/22/16 04:00 97.7 60 16 118/74 93 09/22/16 00:00 98.0 64 16 100/59 98 09/21/16 20:20 94 21 09/21/16 20:08 73 09/21/16 20:00 97.8 64 18 117/80 94 116/78 104/71 09/21/16 16:41 97.3 63 18 110/76 95 09/21/16 16:10 96 21 09/21/16 16:00 96.6 64 20 116/75 96 09/21/16 14:46 62 18 131/79 96 Room Air 09/21/16 13:34 64 18 149/83 98 Room Air 09/21/16 12:17 66 18 135/82 97 Room Air 09/21/16 12:07 98 Room Air 09/21/16 11:53 98 Room Air 09/21/16 11:46 98.0 71 16 125/76 98 I/O 09/21/16 09/21/16 09/21/16 09/22/16 09/22/16 09/22/16 07:00 15:00 23:00 07:00 15:00 23:00 Intake Total 483 ml 368 ml Output Total 450 ml Balance 33 ml 368 ml Intake Oral 400 ml IV Total 83 ml 368 ml Output Urine Total 450 ml # Voids 2 # Bowel Movements 0 Result Diagram: 09/21/16 1204 09/22/16 0520 Imaging Last Impressions Head Magnetic Resonance Angiography 09/22/16 0000 Signed Impressions: Service Date/Time: Thursday, September 22, 2016 11:21 - CONCLUSION: Negative MRA [place] [facility] [place]. Oneil Ervin MD Head CT 09/21/16 1200 Signed Impressions: Service Date/Time: Wednesday, September 21, 2016 12:56 - CONCLUSION: 1. No acute infarct, acute hemorrhage, mass effect or extra-axial fluid collections. 2. Old lacunar infarcts within the head of the left caudate nucleus and anterior limb of the right internal capsule. 3. Calcified extra-axial mass within the left frontal region measuring 1.8 cm consistent with possible meningioma. 4. Mucosal thickening within the right frontal sinus and anterior ethmoid air cells. Cody Gonsales MD Chest X-Ray 09/21/16 1200 Signed Impressions: Service Date/Time: Wednesday, September 21, 2016 12:07 - CONCLUSION: The lungs are clear. Oneil Ervin MD Ribs X-Ray 09/21/16 0000 Signed Impressions: Service Date/Time: Wednesday, September 21, 2016 20:35 - CONCLUSION: Unremarkable examination of the ribs and chest. Isak Turk MD Carotid Artery Ultrasound 09/21/16 0000 Signed Impressions: Service Date/Time: Wednesday, September 21, 2016 14:17 - CONCLUSION: 1. Minimal calcified plaquing in the right carotid bulb with no sonographic or Doppler findings of a hemodynamically significant stenosis in either carotid. 2. Antegrade flow in both vertebral arteries. High resistance waveform on the left suggest distal occlusion or termination in a PICA branch. Ryan Ernst MD Brain MRI 09/21/16 0000 Signed Impressions: Service Date/Time: Wednesday, September 21, 2016 15:11 - CONCLUSION: T2 hyperintense changes in the cerebral white matter and brain stem characteristic of chronic microvascular ischemic disease. No evidence of acute infarct, hemorrhage, mass or edema. Gary Bentley MD Objective Remarks GENERAL: Well-developed well-nourished. In no acute distress. SKIN: Warm and dry. No lesions noted. HEENT: Normocephalic. Pupils equal and round. Mucous membranes pink and moist. CARDIOVASCULAR: Regular rate and rhythm. No murmur appreciated. Chest wall around the sternum is exquisitely TTP. RESPIRATORY: No accessory muscle use. Clear to auscultation. Breath sounds equal bilaterally. GASTROINTESTINAL: Abdomen soft, non-tender, nondistended. Bowel sounds x4. MUSCULOSKELETAL: No obvious deformities. No clubbing or cyanosis. No edema. NEUROLOGICAL: Awake and alert. No focal neurological deficits. Moves upper and lower extremities spontaneously. Normal speech. PSYCHIATRIC: Appropriate mood and affect; insight and judgment normal. Procedures none A/P Problem List: (1) Near syncope ICD Code: R55 Status: Acute Assessment and Plan 60-year-old female with a past medical history of CKD/5, HTN, HLD, DM, TIA, CHF , neuropathy who presented with chest wall pain after a fall 1 week ago Near syncope: Unclear etiology, possibly multifactorial; med effect vs uremia/ dehydration vs neuropathy vs orthostasis vs other. Reviewed: Brain MRI with chronic ischemic disease, no acute changes. Carotid ultrasound with suggestion of distal occlusion in a PICA branch. MRA negative. Echocardiogram with normal systolic function EF 5560 %. BUN 63. UDS clean. She is not orthostatic No recurrence likely this is secondary to medicine Zanaflex and or Requip. Plan: Gentle IVF. Await Consult to neurology. PT eval. Monitor on telemetry unremarkable. Chest wall pain: Suspect muscle strain secondary to recent fall. Troponin negative 2. EKG reviewed with no ischemic changes. Chest x-ray clear. Negative rib x-ray. CKD stage V: Creatinine 3.3, previously 3.4 on 10/17/15. BUN 63, previously 50 on 10/17/15. Improving creatinine down to 2.9 on Gentle IVF. Follow-up BMP. Diabetes mellitus: Hypoglycemic this morning decrease Lantus to 54 units at night. Monitor Accu-Cheks. Cover with SSI. History of TIA/HLD: Continue continue Plavix, statin. Hallucinations: Suspect secondary to medication effect. Counseled on use regarding Requip. She does not want to be on Zanaflex. We would avoid abrupt discontinuing of these medications, follow-up with PCP. History of CHF/HTN: Continue carvedilol. Continue nifedipine. DVT prophylaxis: SCDs Discharge Planning Discharge patient to home Condition on discharge: Improved Regular Diet as tolerated Ad Vika activity Rx written: None Follow-up with primary care physician in one week Spent over 35 minutes arranging discharge jessica RN and Brodie Calixto MD Sep 22, 2016 09:24
[2016-09-22] MEDS: NIFEdipine 60 MG SUSTAINED RELEASE TAB PO SCH (11:11)
--- NOTE | 2016-09-22 11:58 | RADHPO ---
EXAM DATE/TIME: 09/22/2016 11:21 [facility] COMPARISON: US CAROTID ARTERIES, September 21, 2016, 14:17. MRI BRAIN W/O CONTRAST, September 21, 2016, 15:11. INDICATIONS : Abnormal ultrasound. MEDICAL HISTORY : Diabetes mellitus type 2. Hypertension. SURGICAL HISTORY : Tonsillectomy. Gastric bypass. Fusion, lumbar. ENCOUNTER: Initial ACUITY: 2 day PAIN SCORE: 0/10 LOCATION: head Please note a normal MRA of the brain does not entirely exclude the possibility of a small aneurysm, nor the possibility of distal intracranial vessel disease. TECHNIQUE: 3D time of flight MRA was performed. Source images, multiplanar STS MIP, and 3D volume MIP reconstru ctions were reviewed. FINDINGS: There is excellent visualization of the major intracranial arteries out to the second-order branch ve ssels. There is no evidence for aneurysm, vessel truncation or stenosis, and no evidence for vascula r malformation. Thin amount of flow in the left PCOM. No flow the right PCOM. The anterior communi cating artery is not definitively identified. The basilar artery is normal in dimension. Symmetric appearance to the PICA and superior cerebellar arteries. CONCLUSION: Negative MRA [place] [facility] [place]. Oneil Ervin MD on September 22, 2016 at 11:53 Board Certified Radiologist. This report was verified electronically.
--- NOTE | 2016-09-22 13:06 | HHI.DCPOC ---
Discharge Care Plan Diagnosis: (1) Near syncope Your Health Problems Are: Difficulty with ADL Exercise Tolerance Goals to Promote Your Health * To prevent worsening of your condition and complications * To maintain your health at the optimal level Directions to Meet Your Goals Take your medications as prescribed Follow your dietary instruction Follow activity as directed Keep your appointments as scheduled Take your immunizations and boosters as scheduled If your symptoms worsen call your PCP, if no PCP go to Urgent Care Center or Emergency Room Smoking is Dangerous to Your Health. Avoid second hand smoke Call the 24-hour hour crisis hotline for domestic abuse at Brodie Del Rio MD Sep 22, 2016 13:06
[2016-09-22] MEDS: SODIUM CHLOR 0.9% 1000 ML INJ 1,000 ML IV SCH (17:18)
[2016-09-22] MEDS ORDERED: INSULIN DETEMIR 100 UNITS/ML VIAL SQ SCH (21:00)
[2016-09-22] MEDS: ATORVASTATIN 20 MG TAB PO SCH (21:17)
[2016-09-22] MEDS: MELATONIN 5 MG TAB PO SCH (21:17)
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
[2016-09-23] VITALS: BP 110/81; PULSE 70; RESP 20; TEMP 98; O2SAT 92
[2016-09-23 00:25] LABS: FREE T4 0.79 NG/DL (0.76-1.46); HDL CHOLESTEROL 33.1 MG/DL (40.0-60.0)
[2016-09-23 00:33] LABS: BLOOD, URINE NEG (NEG); GLUCOSE,URINE 100 mg/dL (NEG); KETONE, URINE NEG (NEG); NITRITE,URINE NEG (NEG)
[2016-09-23 00:45] LABS: URINE COLOR YELLOW (YELLW/STRAW)
[2016-09-23 00:46] LABS: WBC, URINE 0-2 /hpf (0-5)
[2016-09-23 00:47] LABS: COMMENT (UR) CULT NOT INDICATED; CULTURE IF INDICATED CULT NOT INDICATED; RBC, URINE 0-2 /hpf (0-3); SQUAMOUS EPITHELIAL CELL URINE 0-5 /hpf (0-5)
[2016-09-23 04:00] VITALS: BP 141/81; PULSE 59; RESP 20; TEMP 97.7; O2SAT 96
[2016-09-23] MEDS: INSULIN ASPART SUPPLEMENTAL SCALE SQ SCH (05:50)
[2016-09-23 08:54] VITALS: BP 168/99; PULSE 66; RESP 16; TEMP 97.2; O2SAT 95
[2016-09-23] MEDS: FERROUS SULFATE 325 MG (65 MG ELEMENTAL IRON) TAB PO SCH (08:59)
[2016-09-23] MEDS: CETIRIZINE HCL 10 MG TAB PO SCH (08:59)
[2016-09-23] MEDS: NIFEdipine 60 MG SUSTAINED RELEASE TAB PO SCH (08:59)
[2016-09-23] MEDS: PANTOPRAZOLE SOD 40 MG DELAYED RELEASE TAB PO SCH (08:59)
[2016-09-23] MEDS: CARVEDILOL 12.5 MG TAB PO SCH (09:00)
[2016-09-23] MEDS ORDERED: ASPIRIN 325 MG TAB PO SCH (09:00)
[2016-09-23] MEDS: SODIUM CHLORIDE 0.9% FLUSH 10 ML FLUSH IV FLUSH SCH (09:00)
[2016-09-23] MEDS: GABAPENTIN 300 MG CAP PO SCH (09:01)
[2016-09-23] MEDS: DULoxetine HCl DR 60 MG CAP PO SCH (09:01)
[2016-09-23] MEDS: CLOPIDOGREL 75 MG TAB PO SCH (09:04)
--- NOTE | 2016-09-23 09:34 | HHI.PR ---
Subjective Remarks Follow-up near syncope. No recurrence of syncope. Slept better last night no restless leg. Discussed with cardiology, cleared for discharge and will see patient in one week. Discussed with RN in case management Objective Vitals Vital Signs Date Time Temp Pulse Resp B/P Pulse Ox O2 Delivery O2 Flow Rate FiO2 09/23/16 08:54 09/23/16 08:54 97.2 66 16 168/99 95 09/23/16 04:00 97.7 59 20 141/81 96 09/23/16 00:00 98.0 70 20 110/81 92 09/22/16 20:00 98.1 68 20 120/87 94 09/22/16 20:00 90 09/22/16 19:22 94 Nasal Cannula 21 09/22/16 16:00 98.5 72 20 102/73 96 09/22/16 12:00 96.5 55 16 132/87 97 09/22/16 11:19 96.5 55 18 132/87 97 09/22/16 11:00 96 21 I/O 09/22/16 09/22/16 09/22/16 09/23/16 09/23/16 09/23/16 07:00 15:00 23:00 07:00 15:00 23:00 Intake Total 368 ml 625 ml 599 ml 603 ml Output Total 1150 ml Balance 368 ml 625 ml 599 ml -547 ml Intake Oral 625 ml 0 ml 240 ml IV Total 368 ml 599 ml 363 ml Output Urine Total 1150 ml # Voids 3 1 1 # Bowel Movements 0 0 Result Diagram: 09/21/16 1204 09/22/16 0520 Imaging Last Impressions Head Magnetic Resonance Angiography 09/22/16 0000 Signed Impressions: Service Date/Time: Thursday, September 22, 2016 11:21 - CONCLUSION: Negative MRA [place]. Oneil Ervin MD Head CT 09/21/16 1200 Signed Impressions: Service Date/Time: Wednesday, September 21, 2016 12:56 - CONCLUSION: 1. No acute infarct, acute hemorrhage, mass effect or extra-axial fluid collections. 2. Old lacunar infarcts within the head of the left caudate nucleus and anterior limb of the right internal capsule. 3. Calcified extra-axial mass within the left frontal region measuring 1.8 cm consistent with possible meningioma. 4. Mucosal thickening within the right frontal sinus and anterior ethmoid air cells. Cody Gonsales MD Chest X-Ray 09/21/16 1200 Signed Impressions: Service Date/Time: Wednesday, September 21, 2016 12:07 - CONCLUSION: The lungs are clear. Oneil Ervin MD Ribs X-Ray 09/21/16 0000 Signed Impressions: Service Date/Time: Wednesday, September 21, 2016 20:35 - CONCLUSION: Unremarkable examination of the ribs and chest. Isak Turk MD Carotid Artery Ultrasound 09/21/16 0000 Signed Impressions: Service Date/Time: Wednesday, September 21, 2016 14:17 - CONCLUSION: 1. Minimal calcified plaquing in the right carotid bulb with no sonographic or Doppler findings of a hemodynamically significant stenosis in either carotid. 2. Antegrade flow in both vertebral arteries. High resistance waveform on the left suggest distal occlusion or termination in a PICA branch. Ryan Ernst MD Brain MRI 09/21/16 0000 Signed Impressions: Service Date/Time: Wednesday, September 21, 2016 15:11 - CONCLUSION: T2 hyperintense changes in the cerebral white matter and brain stem characteristic of chronic microvascular ischemic disease. No evidence of acute infarct, hemorrhage, mass or edema. Gary Bentley MD Objective Remarks GENERAL: Well-developed well-nourished. In no acute distress. SKIN: Warm and dry. No lesions noted. HEENT: Normocephalic. Pupils equal and round. Mucous membranes pink and moist. CARDIOVASCULAR: Regular rate and rhythm. No murmur appreciated. Chest wall around the sternum is exquisitely TTP. RESPIRATORY: No accessory muscle use. Clear to auscultation. Breath sounds equal bilaterally. GASTROINTESTINAL: Abdomen soft, non-tender, nondistended. Bowel sounds x4. MUSCULOSKELETAL: No obvious deformities. No clubbing or cyanosis. No edema. NEUROLOGICAL: Awake and alert. No focal neurological deficits. Moves upper and lower extremities spontaneously. Normal speech. Nonfocal PSYCHIATRIC: Appropriate mood and affect; insight and judgment normal. Procedures none A/P Problem List: (1) Near syncope ICD Code: R55 Status: Acute Assessment and Plan 60-year-old female with a past medical history of CKD/5, HTN, HLD, DM, TIA, CHF , neuropathy who presented with chest wall pain after a fall 1 week ago Near syncope: Unclear etiology, possibly multifactorial; med effect vs uremia/ dehydration vs neuropathy vs orthostasis vs other. Reviewed: Brain MRI with chronic ischemic disease, no acute changes. Carotid ultrasound with suggestion of distal occlusion in a PICA branch. MRA negative. Echocardiogram with normal systolic function EF 5560 %. BUN 63. UDS clean. She is not orthostatic No recurrence likely this is secondary to medicine Zanaflex and or Requip. Plan: Gentle IVF. Monitor on telemetry unremarkable. Discussed with neurology cleared for discharge but recommended cardiology consult. Discussed with Dr. Coy, he also cleared patient for discharge and will see her in one week Chest wall pain: Suspect muscle strain secondary to recent fall. Troponin negative 2. EKG reviewed with no ischemic changes. Chest x-ray clear. Negative rib x-ray. CKD stage V: Creatinine 3.3, previously 3.4 on 10/17/15. BUN 63, previously 50 on 10/17/15. Improving creatinine down to 2.9 on Gentle IVF. Follow-up BMP. Diabetes mellitus: Hypoglycemic this morning further decrease Lantus. Hypoglycemia protocol. Monitor Accu-Cheks. Cover with SSI. History of TIA/HLD: Continue continue Plavix, statin. Hallucinations: Suspect secondary to medication effect. Counseled on use regarding Requip. She does not want to be on Zanaflex. We would avoid abrupt discontinuing of these medications, follow-up with PCP. History of CHF/HTN: Continue carvedilol. Continue nifedipine. DVT prophylaxis: SCDs Discharge Planning Stable for discharge Brodie Del Rio MD Sep 23, 2016 09:34
--- NOTE | 2016-09-23 10:50 | HHI.DS ---
Discharge Summary Admission Date Sep 21, 2016 at 13:31 Discharge Date: Sep 23, 2016 Admitting Diagnosis chest pain, syncope (1) Near syncope ICD Code: R55 Diagnosis: Principal Procedures none Brief History - From Admission 60-year-old female with a past medical history of CKD/5, HTN, HLD, DM, TIA, CHF , neuropathy who presented with chest wall pain after a fall 1 week ago. The patient states that last week she had a fall where she felt faint, tried to catch herself on the refrigerator, and fell to the ground. She denies any loss of consciousness. She states this is the third episode with falling after she has a "funny feeling" with associated lightheadedness, blurred vision, poor balance, but never any loss of consciousness. The patient states she presented because after her most recent fall she's been having midsternal chest discomfort that hurts when she moves or when she touches her chest. She doesn' t recall any direct chest trauma whenever she fell last. She denies any associated shortness of breath. Of note, she also reports waking up in the middle of the night with episodes of hallucinations and seeing things and people that she knows are not there. She denies any depression. She does take Requip and Zanaflex at night before she goes to sleep. She takes aspirin for history of TIA, and unable to take aspirin due to gastric bypass. CBC/BMP: 09/21/16 1204 09/22/16 0520 Significant Findings Laboratory Tests Test 09/21/16 09/21/16 09/22/16 09/22/16 12:04 14:56 05:20 19:10 Eosinophils (%) (Auto) 20.8 % (0.0-4.0) Eosinophils # (Auto) 1.2 TH/MM3 (0-0.4) Activated Partial 33.3 SEC Thromboplast Time (24.3-30.1) Blood Urea Nitrogen 63 MG/DL (7-18) 66 MG/DL (7-18) Creatinine 3.30 MG/DL 2.90 MG/DL (0.50-1.00) (0.50-1.00) Estimat Glomerular Filtration 14 ML/MIN (>89) 16 ML/MIN (>89) Rate Random Glucose 125 MG/DL 52 MG/DL (74-106) (74-106) Magnesium Level 2.6 MG/DL (1.5-2.5) Aspartate Amino Transf 38 U/L (15-37) (AST/SGOT) Alkaline Phosphatase 191 U/L (45-117) Creatine Kinase MB 4.8 NG/ML (0.5-3.6) Troponin I LESS THAN 0.02 LESS THAN 0.02 NG/ML NG/ML (0.02-0.05) (0.02-0.05) B-Type Natriuretic Peptide 112 PG/ML (0-100) Sodium Level 147 MEQ/L (136-145) Chloride Level 111 MEQ/L (98-107) Erythrocyte Sedimentation Rate 53 mm/hr (0-30) Triglycerides Level 394 MG/DL (42-150) HDL Cholesterol 33.1 MG/DL (40.0-60.0) Test 09/23/16 00:05 Urine Protein 100 mg/dL (NEG-TRACE) Urine Glucose (UA) 100 mg/dL (NEG) Imaging Last Impressions Head Magnetic Resonance Angiography 09/22/16 0000 Signed Impressions: Service Date/Time: Thursday, September 22, 2016 11:21 - CONCLUSION: Negative MRA [facility] [facility] [place]. Oneil Ervin MD Head CT 09/21/16 1200 Signed Impressions: Service Date/Time: Wednesday, September 21, 2016 12:56 - CONCLUSION: 1. No acute infarct, acute hemorrhage, mass effect or extra-axial fluid collections. 2. Old lacunar infarcts within the head of the left caudate nucleus and anterior limb of the right internal capsule. 3. Calcified extra-axial mass within the left frontal region measuring 1.8 cm consistent with possible meningioma. 4. Mucosal thickening within the right frontal sinus and anterior ethmoid air cells. Cody Gonsales MD Chest X-Ray 09/21/16 1200 Signed Impressions: Service Date/Time: Wednesday, September 21, 2016 12:07 - CONCLUSION: The lungs are clear. Oneil Ervin MD Ribs X-Ray 09/21/16 0000 Signed Impressions: Service Date/Time: Wednesday, September 21, 2016 20:35 - CONCLUSION: Unremarkable examination of the ribs and chest. Isak Turk MD Carotid Artery Ultrasound 09/21/16 0000 Signed Impressions: Service Date/Time: Wednesday, September 21, 2016 14:17 - CONCLUSION: 1. Minimal calcified plaquing in the right carotid bulb with no sonographic or Doppler findings of a hemodynamically significant stenosis in either carotid. 2. Antegrade flow in both vertebral arteries. High resistance waveform on the left suggest distal occlusion or termination in a PICA branch. Ryan Ernst MD Brain MRI 09/21/16 0000 Signed Impressions: Service Date/Time: Wednesday, September 21, 2016 15:11 - CONCLUSION: T2 hyperintense changes in the cerebral white matter and brain stem characteristic of chronic microvascular ischemic disease. No evidence of acute infarct, hemorrhage, mass or edema. Gary Bentley MD PE at Discharge GENERAL: Well-developed well-nourished. In no acute distress. SKIN: Warm and dry. No lesions noted. HEENT: Normocephalic. Pupils equal and round. Mucous membranes pink and moist. CARDIOVASCULAR: Regular rate and rhythm. No murmur appreciated. Chest wall around the sternum is exquisitely TTP. RESPIRATORY: No accessory muscle use. Clear to auscultation. Breath sounds equal bilaterally. GASTROINTESTINAL: Abdomen soft, non-tender, nondistended. Bowel sounds x4. MUSCULOSKELETAL: No obvious deformities. No clubbing or cyanosis. No edema. NEUROLOGICAL: Awake and alert. No focal neurological deficits. Moves upper and lower extremities spontaneously. Normal speech. Nonfocal PSYCHIATRIC: Appropriate mood and affect; insight and judgment normal. Hospital Course 60-year-old female with a past medical history of CKD/5, HTN, HLD, DM, TIA, CHF , neuropathy who presented with chest wall pain after a fall 1 week ago Near syncope: Unclear etiology, possibly multifactorial; med effect vs uremia/ dehydration vs neuropathy vs orthostasis vs other. Reviewed: Brain MRI with chronic ischemic disease, no acute changes. Carotid ultrasound with suggestion of distal occlusion in a PICA branch. MRA negative. Echocardiogram with normal systolic function EF 5560 %. BUN 63. UDS clean. She is not orthostatic No recurrence likely this is secondary to medicine Zanaflex and or Requip. Plan: Gentle IVF. Monitor on telemetry unremarkable. Discussed with neurology cleared for discharge but recommended cardiology consult. Discussed with Dr. Coy, he also cleared patient for discharge and will see her in one week Chest wall pain: Suspect muscle strain secondary to recent fall. Troponin negative 2. EKG reviewed with no ischemic changes. Chest x-ray clear. Negative rib x-ray. CKD stage V: Creatinine 3.3, previously 3.4 on 10/17/15. BUN 63, previously 50 on 10/17/15. Improving creatinine down to 2.9 on Gentle IVF. Follow-up BMP. Diabetes mellitus: Hypoglycemic this morning further decrease Lantus. Hypoglycemia protocol. Monitor Accu-Cheks. Cover with SSI. History of TIA/HLD: Continue continue Plavix, statin. Hallucinations: Suspect secondary to medication effect. Counseled on use regarding Requip. She does not want to be on Zanaflex. We would avoid abrupt discontinuing of these medications, follow-up with PCP. History of CHF/HTN: Continue carvedilol. Continue nifedipine. DVT prophylaxis: SCDs Pt Condition on Discharge: Stable Discharge Disposition: Discharge Home Discharge Time: > 30 minutes Discharge Instructions DIET: Follow Instructions for: Heart Healthy Diet, Diabetic Diet Activities you can perform: Regular-No Restrictions Activities to Avoid: Driving Follow up Referrals: Cardiology - 1 Week with Yolanda Trinidad MD PCP Follow-up - 1 Week Continued Medications: Albuterol 8.5 GM Inh (Proair Hfa 8.5 GM Inh) 90 Mcg/Act Aer 2 PUFF INH Q4-6H 108 mcg/actuation PRN SHORTNESS OF BREATH #1 Ref 0 INHALER Atorvastatin (Atorvastatin) 20 Mg Tab 20 MG PO HS Cholesterol Management #30 Ref 0 TAB Carvedilol (Carvedilol) 12.5 Mg Tab 12.5 MG PO BID #60 Ref 0 TAB Cetirizine (Zyrtec Allergy) 10 Mg Cap 10 MG PO DAILY Allergies Ref 0 CAP Cholecalciferol (Vitamin D3) 2,000 Unit Chew 2000 UNITS CHEW DAILY #1 BOTTLE Clopidogrel (Clopidogrel) 75 Mg Tab 75 MG PO DAILY Blood Clot Prevention #30 Ref [address] (Dul[address]etine [address]) 60 Mg Capdr 60 MG PO DAILY #30 Ref 0 CAP Ferrous Sulfate (Ferrous Sulfate) 325 Mg Tab 325 MG PO DAILY Nutritional Supplement #30 Ref 0 TAB Furosemide (Furosemide) 40 Mg Tab 40 MG PO DAILY PRN EDEMA #30 Ref 0 TAB Gabapentin (Gabapentin) 300 Mg Cap 300 MG PO DAILY #90 Ref 0 CAP Insulin Aspart Inj (Novolog Inj) 1,000 Unit/10 Ml Vial 10 UNITS SQ DAILY Blood Sugar Management #10 Ref 0 ML Insulin Glargine Inj (Lantus Inj) 100 Unit/Ml Inj UNITS Melatonin (Melatonin) 5 Mg Tab 5 MG PO HS Provide Good Sleep Ref 0 TAB Nifedipine ER 24 HR (Nifedical XL) 60 Mg Tab 60 MG PO DAILY #30 Ref 0 TAB Omeprazole (Omeprazole) 40 Mg Cap 40 MG PO DAILY #30 Ref 0 CAP Ropinirole (Ropinirole) 0.5 Mg Tab 0.5 MG PO ONCE #1 Ref 0 TAB Brodie Del Rio MD Sep 23, 2016 10:50
--- NOTE | 2016-09-26 15:00 | HM ---
Date Performed: 09/22/2016 Time Performed: 19:06:00 HOOKUP DATE: 09/22/16 07:06:00 PM Wed ANALYSIS START TIME: 09/22/2016 7:11:00 PM ANALYSIS END TIME: 09/23/2016 7:15:00 PM PATIENT AGE: 60 PATIENT HEIGHT PATIENT WEIGHT DRUG LIST PATIENT DIAGNOSIS TEST NARRATIVE: The patient's average heart rate was 69 BPM. No episodes of tachycardia wer e noted. No episodes of bradycardia were noted. No pauses exceeding 2.0 seconds were noted. 2 ventricular ectopics, which represented < 1% of the total beat count, were noted. The highest vent ricular ectopic frequency occurred from 01:00 AM to 02:00 AM Leslie. During this time 1 VE(s) occurred. Ventricular ectopics were observed as 2 isolated beat(s) only. No couplets or runs were noted. 28 supraventricular ectopics, which represented < 1% of the total beat count, were noted. The highe st supraventricular ectopic frequency occurred from 05:00 PM to 06:00 PM Leslie. During this time 18 SV E(s) occurred. No episodes of ST depression (defined as -1.0 mm or more) were noted in channel 1. No episodes of ST depression (defined as -1.0 mm or more) were noted in channel 2. No episodes of ST depression (defined as -1.0 mm or more) were noted in channel 3. PT DIARY WAS NOT RETURNED WITH HO LTER MONITOR. TEST INTERPRETATION: Patient's underlying rhythm is Sinus rhythm , running from 53 to 107 beats per minute. There are rare isolated PVCs (2) and relatively few superv entricular ectopic events and 2 couplets. There are no dropped beats or prolonged pauses. Signed by : Karthikeyan Sanders
== END 2016-09-23 10:45 | disposition home or self-care (01) ==
LOC: PHED 11:36 → PHEDA 13:31 → PH3A 15:27
PROVIDERS: ADMIT Internal Medicine; ATTEND Internal Medicine
DX: R07.9 Chest pain, unspecified (principal); R55 Syncope and collapse; W18.30XA Fall on same level, unspecified, initial encounter; Z79.01 Long term (current) use of anticoagulants; I50.9 Heart failure, unspecified; Z86.73 Personal history of transient ischemic attack (TIA), and cerebral infarction without residual deficits; Z79.4 Long term (current) use of insulin; Z79.899 Other long term (current) drug therapy; E78.5 Hyperlipidemia, unspecified; R44.3 Hallucinations, unspecified; E11.22 Type 2 diabetes mellitus with diabetic chronic kidney disease; N18.5 Chronic kidney disease, stage 5; G62.9 Polyneuropathy, unspecified; R42 Dizziness and giddiness; H53.8 Other visual disturbances; I12.0 Hypertensive chronic kidney disease with stage 5 chronic kidney disease or end stage renal disease
CPT/HCPCS: 70450; 70544; 70551; 71010; 71111; 80048; 80053; 80061; 80307; 81001; 82550; 82552; 82607; 82948; 83735; 83880; 84425; 84439; 84443; 84484; 85025; 85610; 85652; 85730; 86038; 93005; 93225; 93226; 93306; 93880; 95819; 97163; 99285; G0378; G8987; G8988; J1815; J7030

== ENCOUNTER 2017-08-01 16:18 | Inpatient (IN) | payer MEDICARE, BC ==
[~2017-08-01 16:18] MED LIST changes: -AZIT500T2 PO; +FURO40TA PO; -LANTUS2P; +LANTUS2P SQ; +MELA5 PO; -PRED20 PO; +ZYRT10CA PO
[2017-08-01 16:32] VITALS: BP 245/109; PULSE 75; RESP 18; TEMP 98.8; O2SAT 99
[2017-08-01 17:30] VITALS: BP 177/84; PULSE 72; RESP 18; O2SAT 96; O2SAT 98
[2017-08-01] MEDS ORDERED: FERR325T18 PO (17:53)
[2017-08-01] MEDS ORDERED: NIFE60TA58 PO (17:53)
[2017-08-01] MEDS ORDERED: VITA100064 PO (17:53)
[2017-08-01] MEDS ORDERED: OLOP.1%O EACH EYE (17:53)
[2017-08-01] MEDS ORDERED: diphenhydrAMINE HCL 50 MG/ML VIAL IV PUSH ONE (18:00)
--- NOTE | 2017-08-01 18:12 | RADRPT ---
EXAM DATE/TIME: 08/01/2017 17:47 [facility] COMPARISON: CHEST SINGLE AP, September 21, 2016, 12:07. INDICATIONS : Short of breath. MEDICAL HISTORY : Diabetes mellitus type II. Hypertension SURGICAL HISTORY : Tonsillectomy. Fusion, lumbar. Gastric bypass. ENCOUNTER: Initial ACUITY: 1 day PAIN SCORE: 0/10 LOCATION: Bilateral chest FINDINGS: A single view of the chest demonstrates the lungs to be symmetrically aerated without evidence of mas s, infiltrate or effusion. The cardiomediastinal contours are unremarkable. Osseous structures are intact. CONCLUSION: 1. No active disease. Isak Turk MD on August 01, 2017 at 18:11 Board Certified Radiologist. This report was verified electronically.
[2017-08-01 18:25] LABS: AUTOMATED NEUTROPHIL # 2.9 TH/MM3 (1.8-7.7); BASOPHIL # 0.1 TH/MM3 (0-0.2); BASOPHIL % 1.9 % (0.0-2.0); EOSINOPHIL # 0.2 TH/MM3 (0-0.4); EOSINOPHIL % 5.3 % (0.0-4.0); HEMATOCRIT 38.3 % (35.0-46.0); HEMOGLOBIN 12.9 GM/DL (11.6-15.3); LYMPH % 17.6 % (9.0-44.0); LYMPHOCYTE # 0.8 TH/MM3 (1.0-4.8); MEAN CELL VOLUME 89.1 FL (80.0-100.0); MEAN CORPUSCULAR HEMOGLOBIN 30.1 PG (27.0-34.0); MEAN CORPUSCULAR HGB CONC 33.7 % (32.0-36.0); MONO % 9.8 % (0.0-8.0); MONOCYTE # 0.4 TH/MM3 (0-0.9); NEUT % 65.4 % (16.0-70.0); PLATELET COUNT 167 TH/MM3 (150-450); RED CELL DISTRIBUTION WIDTH 14.7 % (11.6-17.2); WHITE BLOOD COUNT 4.4 TH/MM3 (4.0-11.0)
[2017-08-01 18:27] VITALS: BP 155/83; PULSE 84; RESP 18; O2SAT 92
[2017-08-01 18:42] LABS: ALKALINE PHOSPHATASE 377 U/L (45-117); TOTAL BILIRUBIN ADULT 0.7 MG/DL (0.2-1.0); TOTAL PROTEIN 7.2 GM/DL (6.4-8.2)
[2017-08-01 18:58] LABS: ALT (GPT) 79 U/L (10-53); AST (GOT) 62 U/L (15-37); BICARBONATE 22.1 MEQ/L (21.0-32.0); BLOOD UREA NITROGEN 50 MG/DL (7-18); CALCIUM 9.5 MG/DL (8.5-10.1); CHLORIDE 113 MEQ/L (98-107); CREATININE 4.39 MG/DL (0.50-1.00); GLOMERULAR FILTRATION RATE 10 ML/MIN (>89); GLUCOSE,RANDOM 73 MG/DL (74-106); SODIUM (NA) 142 MEQ/L (136-145)
--- NOTE | 2017-08-01 19:04 | PD ---
HPI Chief Complaint: Abnormal Results Time Seen by Provider: 17:16 Travel History International Travel<30 days: No Contact w/Intl Traveler<30days: No Traveled to known affect area: No History of Present Illness HPI 61-year-old female with history of stage IV kidney disease, liver disease, who presents here at the request of her equipment service associate, Dr. Efren Casanova for admission for worsening kidney function. The creatinine is for the patient's gone from 2.56-4.39. She was called by Dr. Edilberto Rain's nurse practitioner and told to come for admission. She denies any fluid overload. She does report that she has had severe urticaria over the last several days. There is no other complaints at the time of my examination. PFSH Past Medical History Hx Anticoagulant Therapy: Yes (PLAVIX) Arthritis: Yes Cancer: No Cardiovascular Problems: Yes High Cholesterol: Yes Chest Pain: Yes (for 1 week) Congestive Heart Failure: Yes Cerebrovascular Accident: Yes Diabetes: Yes Patient Takes Glucophage: No Diminished Hearing: No Endocrine: No Gastrointestinal Disorders: Yes Genitourinary: No Headaches: Yes Hypertension: Yes Immune Disorder: No Implanted Vascular Access Dvce: No Musculoskeletal: Yes Neurologic: Yes Psychiatric: No Reproductive: No Respiratory: Yes Immunizations Current: Yes Renal Failure: Yes Seizures: No Ulcer: Yes ?: Not Menopausal: Yes Past Surgical History Abdominal Surgery: Yes (GASTRIC BYPASS) Endocrine Surgery: Yes Gynecologic Surgery: Yes (C SECTIONS) Hysterectomy: No Oral Surgery: Yes (TONSILECTOMY) Other Surgery: Yes Social History Alcohol Use: Yes (occasional) Tobacco Use: No Substance Use: No Allergies-Medications (Allergen,Severity, Reaction): Coded Allergies: Sulfa (Sulfonamide Antibiotics) (Unverified Allergy, Severe, Swelling, ) egg (Unverified Allergy, Severe, Swelling, 01/18/17) Reported Meds & Prescriptions Reported Meds & Active Scripts Active Reported Nifedipine ER 24 HR (Nifedipine) 60 Mg Tab 60 Mg PO DAILY Vitamin D3 (Cholecalciferol) 1,000 Unit Tab 1,000 Units PO DAILY Ferrous Sulfate 325 Mg (65 Mg Iron) Tablet 325 Mg PO DAILY Patanol Opth 0.1% (Olopatadine HCl) 0.1 % Drops 1 Drop EACH EYE BID Lantus Inj (Insulin Glargine) 100 Unit/Ml Inj 52 Units SQ HS Melatonin 5 Mg Tab 5 Mg PO HS PRN Furosemide 40 Mg Tab 40 Mg PO DAILY Novolog Inj (Insulin Aspart) 1,000 Unit/10 Ml Vial 8 Units SQ TID With Meals Ropinirole 0.5 Mg Tab 0.5 Mg PO HS Clopidogrel (Clopidogrel Bisulfate) 75 Mg Tab 75 Mg PO DAILY Omeprazole 40 Mg Cap 40 Mg PO DAILY Atorvastatin (Atorvastatin Calcium) 20 Mg Tab 20 Mg PO HS Gabapentin 300 Mg Cap 300 Mg PO BID Lisinopril 20 Mg Tab 20 Mg PO DAILY Carvedilol 12.5 Mg Tab 12.5 Mg PO DAILY Duloxetine DR (Duloxetine HCl) 60 Mg Capdr 60 Mg PO DAILY Review of Systems Except as stated in HPI: all other systems reviewed are Neg General / Constitutional: No: Fever, Chills Eyes: No: Diploplia, Blurred Vision HENT: No: Headaches, Lightheadedness, Neck Pain Cardiovascular: No: Chest Pain or Discomfort, Palpitations, Irregular Rhythm Respiratory: No: Cough, Shortness of Breath Gastrointestinal: Positive: Nausea, No: Vomiting, Abdominal Pain Genitourinary: No: Dysuria, Decreased Urinary Output Musculoskeletal: Positive: Weakness, No: Pain Skin: Positive Itching, No Rash Neurologic: No: Weakness Psychiatric: No: Anxiety, Mood Disorder Physical Exam Narrative GENERAL: Well-developed well nourished female in no acute respiratory distress. SKIN: Focused skin assessment warm/dry. HEAD: Atraumatic. Normocephalic. EYES: Pupils equal and round. No scleral icterus. No injection or drainage. ENT: No nasal bleeding or discharge. Mucous membranes pink and moist. NECK: Trachea midline. Supple. CARDIOVASCULAR: Regular rate and rhythm. No murmur appreciated. RESPIRATORY: No accessory muscle use. Clear to auscultation. Breath sounds equal bilaterally. GASTROINTESTINAL: Abdomen soft, non-tender, nondistended. Hepatic and splenic margins not palpable. MUSCULOSKELETAL: No obvious deformities. No clubbing. No cyanosis. No edema. Multiple ecchymotic areas to her arms that appear old. NEUROLOGICAL: Awake and alert. No obvious cranial nerve deficits. Motor grossly within normal limits. Normal speech. PSYCHIATRIC: Appropriate mood and affect; insight and judgment normal. Data Data Last Documented VS Vital Signs Date Time Temp Pulse Resp B/P (MAP) Pulse Ox O2 Delivery O2 Flow Rate FiO2 08/01/17 18:27 84 18 155/83 (107) 92 Room Air 08/01/17 16:32 98.8 Orders Orders Complete Blood Count With Diff (08/01/17 17:18) Comprehensive Metabolic Panel (08/01/17 17:18) Chest, Single Ap (08/01/17 17:18) Iv Access Insert/Monitor (08/01/17 17:18) Ecg Monitoring (08/01/17 17:18) Oximetry (08/01/17 17:18) Diphenhydramine Inj (Benadryl Inj) (08/01/17 18:00) Admit Order (Ed Use Only) (08/01/17 19:08) Labs Laboratory Tests Test 08/01/17 17:20 White Blood Count 4.4 TH/MM3 Red Blood Count 4.30 MIL/MM3 Hemoglobin 12.9 GM/DL Hematocrit 38.3 % Mean Corpuscular Volume 89.1 FL Mean Corpuscular Hemoglobin 30.1 PG Mean Corpuscular Hemoglobin Concent 33.7 % Red Cell Distribution Width 14.7 % Platelet Count 167 TH/MM3 Mean Platelet Volume 8.0 FL Neutrophils (%) (Auto) 65.4 % Lymphocytes (%) (Auto) 17.6 % Monocytes (%) (Auto) 9.8 % Eosinophils (%) (Auto) 5.3 % Basophils (%) (Auto) 1.9 % Neutrophils # (Auto) 2.9 TH/MM3 Lymphocytes # (Auto) 0.8 TH/MM3 Monocytes # (Auto) 0.4 TH/MM3 Eosinophils # (Auto) 0.2 TH/MM3 Basophils # (Auto) 0.1 TH/MM3 CBC Comment DIFF FINAL Differential Comment Blood Urea Nitrogen 50 MG/DL Creatinine 4.39 MG/DL Random Glucose 73 MG/DL Total Protein 7.2 GM/DL Albumin 3.0 GM/DL Calcium Level 9.5 MG/DL Alkaline Phosphatase 377 U/L Aspartate Amino Transf (AST/SGOT) 62 U/L Alanine Aminotransferase (ALT/SGPT) 79 U/L Total Bilirubin 0.7 MG/DL Sodium Level 142 MEQ/L Potassium Level 4.7 MEQ/L Chloride Level 113 MEQ/L Carbon Dioxide Level 22.1 MEQ/L Anion Gap 7 MEQ/L Estimat Glomerular Filtration Rate 10 ML/MIN MDM Medical Decision Making Medical Screen Exam Complete: Yes Emergency Medical Condition: Yes Differential Diagnosis Acute on chronic kidney injury versus elevated liver enzymes versus metabolic derangement. Narrative Course 61-year-old female presents at the request of her renal doctors nurse practitioner. Patient evidently had labs drawn that showed a significant increase in her creatinine from her baseline. Patient was noted to have a creatinine of 4.39. This is up from her baseline of 2.5 level. The patient's BUN is also elevated at 50. She has been given a 500 cc fluid bolus. She will be admitted to the hospital with a renal consult. The case was discussed with Dr. Nuria Cortes, [facility], who is agreeable to the admission. Given her significant change in creatinine, this will be an inpatient admission. Diagnosis Primary Impression: [id number] kidney injury Additional Impressions: Weakness Urticaria Diabetes Hyperlipidemia Admitting Information Admitting Physician Requests: Admit Bashir Casey MD Aug 01, 2017 19:04
[2017-08-01] MEDS ORDERED: GLUCAGON 1 MG/ML VIAL OTHER PRN (19:30)
[2017-08-01] MEDS ORDERED: ACETAMINOPHEN 325 MG TAB PO PRN (19:30)
[2017-08-01] MEDS ORDERED: ONDANSETRON HCL 4 MG/2 ML VIAL IVP PRN (19:30)
[2017-08-01] MEDS ORDERED: MELATONIN 5 MG TAB PO PRN (19:30)
[2017-08-01] MEDS ORDERED: SODIUM CHLORIDE 0.9% FLUSH 10 ML FLUSH IV FLUSH PRN (19:30)
[2017-08-01] MEDS ORDERED: NALOXONE HCL 0.4 MG/ML AMP IV PUSH PRN (19:30)
--- NOTE | 2017-08-01 20:49 | HHI.HP ---
HPI Service [facility] Primary Care Physician Thaddeus Maynard MD Admission Diagnosis acute on chronic kidney injury, uticaria, weakness. Diagnoses: Travel History International Travel<30 Days: No Contact w/Intl Traveler <30 Da: No Traveled to Known Affected Are: No History of Present Illness 60-year-old female with a past medical history of CKD/5, HTN, HLD, DM, TIA, CHF , neuropathy, and newly diagnosed liver failure presents to the emergency department at the request of her clinical manager home care, Dr. Casanova. The patient reports she had lab work done and it showed a creatinine of 4. She states her baseline is usually 2.1 she also reports a two-week history of being incredibly itchy. She denies any other symptoms. No fever/chills. No chest pain or shortness of breath. No edema. No fatigue. Review of Systems Except as stated in HPI: all other systems reviewed are Neg Past Family Social History Past Medical History 60-year-old female with a past medical history of CKD/5, HTN, HLD, DM, TIA, CHF , neuropathy, and newly diagnosed liver failure (the patient does not know the etiology of her liver failure and states she was just informed on Tuesday by her primary care physician that she has liver failure) Past Surgical History 2 Gastric bypass Back surgery Tonsillectomy Allergies: Coded Allergies: Sulfa (Sulfonamide Antibiotics) (Unverified Allergy, Severe, Swelling, ) egg (Unverified Allergy, Severe, Swelling, 01/18/17) Physical Exam Vital Signs Vital Signs Date Time Temp Pulse Resp B/P (MAP) Pulse Ox O2 Delivery O2 Flow Rate FiO2 08/01/17 18:27 84 18 155/83 (107) 92 Room Air 08/01/17 17:30 72 18 177/84 (115) 96 Room Air 08/01/17 17:30 18 98 Room Air 08/01/17 16:32 98.8 75 18 245/109 (154) 99 Physical Exam GENERAL: female lying in bed SKIN: No rashes, ecchymoses or lesions. Cool and dry. HEAD: Atraumatic. Normocephalic. No temporal or scalp tenderness. EYES: Pupils equal round and reactive. Extraocular motions intact. No scleral icterus. No injection or drainage. ENT: Nose without bleeding, purulent drainage or septal hematoma. Throat without erythema, tonsillar hypertrophy or exudate. Uvula midline. Airway patent. NECK: Trachea midline. No JVD or lymphadenopathy. Supple, nontender, no meningeal signs. CARDIOVASCULAR: Regular rate and rhythm without murmurs, gallops, or rubs. RESPIRATORY: Clear to auscultation. Breath sounds equal bilaterally. No wheezes , rales, or rhonchi. GASTROINTESTINAL: Abdomen protuberant, soft, non-tender, nondistended. No hepato -splenomegaly, or palpable masses. No guarding. MUSCULOSKELETAL: Extremities without clubbing, cyanosis, or edema. No joint tenderness, effusion, or edema noted. No calf tenderness. NEUROLOGICAL: Awake and alert. Cranial nerves II through XII intact. Motor and sensory grossly within normal limits. Normal speech. Laboratory Laboratory Tests Test 08/01/17 17:20 White Blood Count 4.4 Red Blood Count 4.30 Hemoglobin 12.9 Hematocrit 38.3 Mean Corpuscular Volume 89.1 Mean Corpuscular Hemoglobin 30.1 Mean Corpuscular Hemoglobin Concent 33.7 Red Cell Distribution Width 14.7 Platelet Count 167 Mean Platelet Volume 8.0 Neutrophils (%) (Auto) 65.4 Lymphocytes (%) (Auto) 17.6 Monocytes (%) (Auto) 9.8 Eosinophils (%) (Auto) 5.3 Basophils (%) (Auto) 1.9 Neutrophils # (Auto) 2.9 Lymphocytes # (Auto) 0.8 Monocytes # (Auto) 0.4 Eosinophils # (Auto) 0.2 Basophils # (Auto) 0.1 CBC Comment DIFF FINAL Differential Comment Blood Urea Nitrogen 50 Creatinine 4.39 Random Glucose 73 Total Protein 7.2 Albumin 3.0 Calcium Level 9.5 Alkaline Phosphatase 377 Aspartate Amino Transf (AST/SGOT) 62 Alanine Aminotransferase (ALT/SGPT) 79 Total Bilirubin 0.7 Sodium Level 142 Potassium Level 4.7 Chloride Level 113 Carbon Dioxide Level 22.1 Anion Gap 7 Estimat Glomerular Filtration Rate 10 Result Diagram: 08/01/17 1720 08/01/17 1720 Caprini VTE Risk Assessment Caprini VTE Risk Assessment: Mod/High Risk (score >= 2) Caprini Risk Assessment Model Point Value = 1 Point Value = 2 Point Value = 3 Point Value = 5 Age 41-60 Minor surgery BMI > 25 kg/m2 Swollen legs Varicose veins or History of unexplained or recurrent spontaneous Oral contraceptives or hormone replacement Sepsis (< 1 month) Serious lung disease, including pneumonia (< 1 month) Abnormal pulmonary function Acute myocardial infarction Congestive heart failure (< 1 month) History of inflammatory bowel disease Medical patient at bed rest Age 61-74 Arthroscopic surgery Major open surgery (> 45 min) Laparoscopic surgery (> 45 min) Malignancy Confined to bed (> 72 hours) Immobilizing plaster cast Central venous access Age >= 75 History of VTE Family history of VTE Factor V Leiden Prothrombin [id number] Lupus anticoagulant Anticardiolipin antibodies Elevated serum homocysteine Heparin-induced thrombocytopenia Other congenital or acquired thrombophilia Stroke (< 1 month) Elective arthroplasty Hip, pelvis, or leg fracture Acute spinal cord injury (< 1 month) Prophylaxis Regimen Total Risk Factor Score Risk Level Prophylaxis Regimen 0-1 Low Early ambulation 2 Moderate Order ONE of the following: *Sequential Compression Device (SCD) *Heparin 5000 units SQ BID 3-4 Higher Order ONE of the following medications: *Heparin 5000 units SQ TID *Enoxaparin/Lovenox 40 mg SQ daily (WT < 150 kg, CrCl > 30 mL/min) *Enoxaparin/Lovenox 30 mg SQ daily (WT < 150 kg, CrCl > 10-29 mL/min) *Enoxaparin/Lovenox 30 mg SQ BID (WT < 150 kg, CrCl > 30 mL/min) AND/OR *Sequential Compression Device (SCD) 5 or more Highest Order ONE of the following medications: *Heparin 5000 units SQ TID (Preferred with Epidurals) *Enoxaparin/Lovenox 40 mg SQ daily (WT < 150 kg, CrCl > 30 mL/min) *Enoxaparin/Lovenox 30 mg SQ daily (WT < 150 kg, CrCl > 10-29 mL/min) *Enoxaparin/Lovenox 30 mg SQ BID (WT < 150 kg, CrCl > 30 mL/min) AND *Sequential Compression Device (SCD) Assessment and Plan Assessment and Plan Assessment/plan: 1. Acute on chronic renal insufficiency Creatinine in the ED 4.39, per patient her baseline is 2.1 Patient's clinical manager home care, Dr. Casanova, consulted. Appreciate recommendations 2. Liver failure Diagnosed by patient's PCP Patient with a transaminitis Monitor Continue outpatient workup 3. Diabetes mellitus Continue home Levemir Sliding scale insulin Monitor blood glucose 4. Hypertension/hyperlipidemia/CHF Continue home medications FEN Renal diet Electrolytes: Monitor and replete when necessary Heparin Physician Certification 2 Midnight Certification Type: Admission for Inpatient Services Order for Inpatient Services The services are ordered in accordance with Medicare regulations or non- Medicare payer requirements, as applicable. In the case of services not specified as inpatient-only, they are appropriately provided as inpatient services in accordance with the 2-midnight benchmark. Estimated LOS (days): 2 2 days is the estimated time the patient will need to remain in the hospital, assuming treatment plan goals are met and no additional complications. Post-Hospital Plan: Not yet determined Nuria Cortes MD Aug 01, 2017 20:49
[2017-08-01] MEDS: OLOPATADINE HCL 0.1% OPHT SOLN 5 ML BTL EACH EYE SCH (21:00)
[2017-08-01] MEDS ORDERED: ATORVASTATIN 20 MG TAB PO SCH (21:00)
[2017-08-01 21:13] VITALS: BP 150/90; PULSE 66; RESP 22; TEMP 96.5; O2SAT 95
[2017-08-01] MEDS: GABAPENTIN 300 MG CAP PO SCH (23:57)
[2017-08-01] MEDS: HEPARIN SODIUM - SQ 10,000 UNITS/ML VIAL SQ SCH (23:57)
[2017-08-01] MEDS: INSULIN DETEMIR 100 UNITS/ML VIAL SQ SCH (23:58)
[2017-08-01] MEDS: INSULIN ASPART SUPPLEMENTAL SCALE SQ SCH (23:59)
[2017-08-02] VITALS: BP 165/78; PULSE 64; RESP 20; TEMP 96.5; O2SAT 97
[2017-08-02 04:00] VITALS: BP 179/91; PULSE 60; RESP 18; TEMP 96.3; O2SAT 97
[2017-08-02] MEDS: DEXTROSE 50% IN WATER 50 ML VIAL(D50) IV PUSH PRN ×2 (06:45→08:29)
[2017-08-02] MEDS: HEPARIN SODIUM - SQ 10,000 UNITS/ML VIAL SQ SCH ×3 (06:46→21:31)
[2017-08-02 07:39] LABS: AUTOMATED NEUTROPHIL # 2.2 TH/MM3 (1.8-7.7); BASOPHIL % 1.4 % (0.0-2.0); EOSINOPHIL # 0.2 TH/MM3 (0-0.4); EOSINOPHIL % 5.5 % (0.0-4.0); HEMATOCRIT 35.2 % (35.0-46.0); HEMOGLOBIN 11.8 GM/DL (11.6-15.3); LYMPH % 20.9 % (9.0-44.0); LYMPHOCYTE # 0.7 TH/MM3 (1.0-4.8); MEAN CELL VOLUME 88.5 FL (80.0-100.0); MEAN CORPUSCULAR HEMOGLOBIN 29.6 PG (27.0-34.0); MEAN CORPUSCULAR HGB CONC 33.4 % (32.0-36.0); MEAN PLATELET VOLUME 7.7 FL (7.0-11.0); MONOCYTE # 0.4 TH/MM3 (0-0.9); NEUT % 62.2 % (16.0-70.0); PLATELET COUNT 139 TH/MM3 (150-450); RED BLOOD COUNT 3.98 MIL/MM3 (4.00-5.30); RED CELL DISTRIBUTION WIDTH 14.7 % (11.6-17.2); WHITE BLOOD COUNT 3.5 TH/MM3 (4.0-11.0)
--- NOTE | 2017-08-02 07:41 | PD.CONS ---
HPI Service Nephrology Consult Requested By Reason for Consult Acute on chronic kidney disease Primary Care Physician Thaddeus Maynard MD History of Present Illness Ms. Matthews is a 61 year old with history of stage IV CKD, thought to be due to diabetic nephropathy. She had been seen by our LANCE CREWMEMBER in our office in June when her creatinine was around 2, with GFR of 25. She has been admitted with history of itching, elevated LFTS and nausea. Her creatinine has increased to 4.39. Patient complaints of frequent bowel movements and poor appetite, some abdominal pain and nausea. No vomiting. No history of use of NSAIDs. Review of Systems Constitutional: COMPLAINS OF: Fatigue, DENIES: Fever, Weight gain Endocrine: DENIES: Abnorml menstrual pattern, Heat/cold intolerance Ears, nose, mouth, throat: DENIES: Hearing loss Respiratory: DENIES: Cough, Wheezing, Hemoptysis, Sputum production, Shortness of breath Cardiovascular: DENIES: Chest pain, Palpitations Gastrointestinal: COMPLAINS OF: Abdominal pain, Nausea, DENIES: Black stools, Bloody stools, Vomiting, Difficulty Swallowing Genitourinary: DENIES: Abnormal vaginal bleeding Integumentary: DENIES: Abnormal pigmentation Hematologic/lymphatic: DENIES: Bruising Neurologic: DENIES: Localized weakness Past Family Social History Allergies: Coded Allergies: Sulfa (Sulfonamide Antibiotics) (Unverified Allergy, Severe, Swelling, ) egg (Unverified Allergy, Severe, Swelling, 01/18/17) Past Medical History CKD Type 2 diabetes Hypertension History of TIA Depression CHF Past Surgical History Gastric bypass in 2005 C section x 2 tonsillectomy Foot surgery Back surgery Reported Medications Nifedipine ER 24 HR (Nifedipine) 60 Mg Tab 60 Mg PO DAILY Vitamin D3 (Cholecalciferol) 1,000 Unit Tab 1,000 Units PO DAILY Ferrous Sulfate 325 Mg (65 Mg Iron) Tablet 325 Mg PO DAILY Patanol Opth 0.1% (Olopatadine HCl) 0.1 % Drops 1 Drop EACH EYE BID Lantus Inj (Insulin Glargine) 100 Unit/Ml Inj 52 Units SQ HS Melatonin 5 Mg Tab 5 Mg PO HS PRN Furosemide 40 Mg Tab 40 Mg PO DAILY Novolog Inj (Insulin Aspart) 1,000 Unit/10 Ml Vial 8 Units SQ TID With Meals Ropinirole 0.5 Mg Tab 0.5 Mg PO HS Clopidogrel (Clopidogrel Bisulfate) 75 Mg Tab 75 Mg PO DAILY Omeprazole 40 Mg Cap 40 Mg PO DAILY Atorvastatin (Atorvastatin Calcium) 20 Mg Tab 20 Mg PO HS Gabapentin 300 Mg Cap 300 Mg PO BID Lisinopril 20 Mg Tab 20 Mg PO DAILY Carvedilol 12.5 Mg Tab 12.5 Mg PO DAILY Duloxetine DR (Duloxetine HCl) 60 Mg Capdr 60 Mg PO DAILY Active Ordered Medications Current Medications Medications (Trade) Dose Ordered Sig/Barbara Route Start Time Stop Time Status Last Admin (NS Flush) 2 ml UNSCH PRN IV FLUSH 08/01/17 19:30 08/02/17 06:45 (NS Flush) 2 ml BID IV FLUSH 08/01/17 21:00 08/02/17 00:00 (Tylenol) 650 mg Q4H PRN PO 08/01/17 19:30 (Zofran Inj) 4 mg Q6H PRN IVP 08/01/17 19:30 (Heparin Inj) 5,000 units Q8H SQ 08/01/17 22:00 08/02/17 06:46 (Narcan Inj) 0.4 mg UNSCH PRN IV PUSH 08/01/17 19:30 (Lipitor) 20 mg HS PO 08/01/17 21:00 08/01/17 23:57 (Coreg) 12.5 mg DAILY PO 08/02/17 09:00 (Plavix) 75 mg DAILY PO 08/02/17 09:00 (Cymbalta Dr) 60 mg DAILY PO 08/02/17 09:00 (Ferrous Sulfate) 325 mg DAILY PO 08/02/17 09:00 (Lasix) 40 mg DAILY PO 08/02/17 09:00 (Neurontin) 300 mg BID PO 08/01/17 21:00 08/01/17 23:57 (Levemir Inj) 52 units HS SQ 08/01/17 21:00 08/01/17 23:58 (Prinivil) 20 mg DAILY PO 08/02/17 09:00 (Melatonin) 5 mg HS PRN PO 08/01/17 19:30 (Procardia Xl) 60 mg DAILY PO 08/02/17 09:00 (Patanol 0.1% Opth) 1 drop BID EACH EYE 08/01/17 21:00 (Requip) 0.5 mg HS PO 08/01/17 21:00 (Protonix) 40 mg DAILY PO 08/02/17 09:00 (D50w (Vial) Inj) 50 ml UNSCH PRN IV PUSH 08/01/17 19:30 08/02/17 06:45 (Glucagon Inj) 1 mg UNSCH PRN OTHER 08/01/17 19:30 (NovoLOG SUPPLEMENTAL SCALE) 1 ACHS SLIDING SCALE SQ 08/01/17 21:00 08/01/17 23:59 Family History sibling: diabetes mother, and father with CAD Father had CABG x 5 Social History , moved to [facility] from [place] No smoking or ETOH Physical Exam Vital Signs Vital Signs Date Time Temp Pulse Resp B/P (MAP) Pulse Ox O2 Delivery O2 Flow Rate FiO2 08/02/17 04:00 96.3 60 18 179/91 (120) 97 08/02/17 00:00 96.5 64 20 165/78 (107) 97 08/01/17 21:13 96.5 66 22 150/90 (110) 95 08/01/17 18:27 84 18 155/83 (107) 92 Room Air 08/01/17 17:30 72 18 177/84 (115) 96 Room Air 08/01/17 17:30 18 98 Room Air 08/01/17 16:32 98.8 75 18 245/109 (154) 99 Physical Exam GENERAL: alert, oriented, no distress. SKIN: Warm and dry. HEAD: Normocephalic. EYES: No scleral icterus. No injection or drainage. NECK: Supple, trachea midline. No JVD or lymphadenopathy. CARDIOVASCULAR: Regular rate and rhythm without murmurs, gallops, or rubs. RESPIRATORY: Breath sounds equal bilaterally. No accessory muscle use. GASTROINTESTINAL: Abdomen soft, non-tender, nondistended. MUSCULOSKELETAL: No cyanosis, or edema. BACK: Nontender without obvious deformity. No CVA tenderness. Laboratory Laboratory Tests Test 08/01/17 17:20 White Blood Count 4.4 Red Blood Count 4.30 Hemoglobin 12.9 Hematocrit 38.3 Mean Corpuscular Volume 89.1 Mean Corpuscular Hemoglobin 30.1 Mean Corpuscular Hemoglobin Concent 33.7 Red Cell Distribution Width 14.7 Platelet Count 167 Mean Platelet Volume 8.0 Neutrophils (%) (Auto) 65.4 Lymphocytes (%) (Auto) 17.6 Monocytes (%) (Auto) 9.8 Eosinophils (%) (Auto) 5.3 Basophils (%) (Auto) 1.9 Neutrophils # (Auto) 2.9 Lymphocytes # (Auto) 0.8 Monocytes # (Auto) 0.4 Eosinophils # (Auto) 0.2 Basophils # (Auto) 0.1 CBC Comment DIFF FINAL Differential Comment Blood Urea Nitrogen 50 Creatinine 4.39 Random Glucose 73 Total Protein 7.2 Albumin 3.0 Calcium Level 9.5 Alkaline Phosphatase 377 Aspartate Amino Transf (AST/SGOT) 62 Alanine Aminotransferase (ALT/SGPT) 79 Total Bilirubin 0.7 Sodium Level 142 Potassium Level 4.7 Chloride Level 113 Carbon Dioxide Level 22.1 Anion Gap 7 Estimat Glomerular Filtration Rate 10 Result Diagram: 08/01/17 1720 08/01/17 1720 Assessment and Plan Problem List: (1) [id number] kidney injury ICD Codes: N17.9 - Acute kidney failure, unspecified; N18.9 - Chronic kidney disease, unspecified Status: Acute Plan: Renal function has declined rapidly in the past 1 month. Etiology is not known. We will obtain abdominal US. Avoid nephrotoxic agents. Cautious IVF, suspend Lasix for the time being. Obtain UA. Monitor renal function. May need to initiate dialysis if no improvement in renal function. (2) Transaminitis ICD Codes: R74.0 - Nonspecific elevation of levels of transaminase and lactic acid dehydrogenase [LDH] Plan: Suspend potential hepatotoxic agents. I have suspended Lipitor and acetaminophen. She likely has PETERS: apparently liver biopsies were taken when she had gastric bypass surgery in 2005. Obtain hepatitis profile. (3) Diabetes ICD Codes: E11.9 - Type 2 diabetes mellitus without complications Status: Acute Plan: she is hypoglycemic this morning. Start D51/2NS. Monitor. (4) Hypertension ICD Codes: I10 - Essential (primary) hypertension Status: Acute Plan: BP is high, continue her home medications. Assessment and Plan Thanks for the consult. Mj Shelley MD Aug 02, 2017 07:41
[2017-08-02 08:00] VITALS: BP 184/91; PULSE 57; RESP 17; TEMP 95.8; O2SAT 97
[2017-08-02] MEDS: INSULIN ASPART SUPPLEMENTAL SCALE SQ SCH ×4 (08:00→21:29)
[2017-08-02] MEDS ORDERED: DEXT 5%-NACL 0.45% 500 ML INJ 500 ML IV SCH (08:00)
[2017-08-02 08:06] LABS: ALBUMIN 2.7 GM/DL (3.4-5.0); ALT (GPT) 60 U/L (10-53); AST (GOT) 47 U/L (15-37); BICARBONATE 24.9 MEQ/L (21.0-32.0); BLOOD UREA NITROGEN 48 MG/DL (7-18); CALCIUM 9.5 MG/DL (8.5-10.1); CHLORIDE 112 MEQ/L (98-107); CREATININE 3.36 MG/DL (0.50-1.00); GLOMERULAR FILTRATION RATE 14 ML/MIN (>89); SODIUM (NA) 145 MEQ/L (136-145)
[2017-08-02 08:10] LABS: GLUCOSE,RANDOM 39 MG/DL (74-106)
[2017-08-02 08:12] LABS: ALKALINE PHOSPHATASE 342 U/L (45-117); TOTAL BILIRUBIN ADULT 0.6 MG/DL (0.2-1.0); TOTAL PROTEIN 6.2 GM/DL (6.4-8.2)
[2017-08-02] MEDS: SODIUM CHLORIDE 0.9% FLUSH 10 ML FLUSH IV FLUSH SCH ×3 (08:29→21:33)
[2017-08-02] MEDS: OLOPATADINE HCL 0.1% OPHT SOLN 5 ML BTL EACH EYE SCH ×2 (09:00→21:00)
[2017-08-02] MEDS ORDERED: FUROSEMIDE 40 MG TAB PO SCH (09:00)
[2017-08-02] MEDS: DULoxetine HCl DR 60 MG CAP PO SCH (10:06)
[2017-08-02] MEDS: LISINOPRIL 20 MG TAB PO SCH (10:07)
[2017-08-02] MEDS: PANTOPRAZOLE SOD 40 MG DELAYED RELEASE TAB PO SCH (10:07)
[2017-08-02] MEDS: CARVEDILOL 12.5 MG TAB PO SCH (10:07)
[2017-08-02] MEDS: FERROUS SULFATE 325 MG (65 MG ELEMENTAL IRON) TAB PO SCH (10:07)
[2017-08-02] MEDS: CLOPIDOGREL 75 MG TAB PO SCH (10:07)
[2017-08-02] MEDS: NIFEdipine 60 MG SUSTAINED RELEASE TAB PO SCH (10:07)
[2017-08-02] MEDS: GABAPENTIN 300 MG CAP PO SCH ×2 (10:07→21:32)
[2017-08-02] MEDS: DEXT 5%-NACL 0.45% 1000 ML INJ 1,000 ML IV SCH (11:07)
[2017-08-02 12:00] VITALS: BP 167/79; PULSE 65; RESP 18; TEMP 96.5; O2SAT 97
[2017-08-02] MEDS ORDERED: hydrALAZINE HCL 25 MG TAB PO PRN (15:00)
--- NOTE | 2017-08-02 15:01 | HHI.PR ---
Subjective Remarks Follow-up acute on chronic kidney disease stage IV/transaminitis 08/02/17-patient seen and examined, she had episode of hypoglycemia without any symptoms overnight. Currently complaining of itchy. Objective Vitals Vital Signs Date Time Temp Pulse Resp B/P (MAP) Pulse Ox O2 Delivery O2 Flow Rate FiO2 08/02/17 12:00 96.5 65 18 167/79 (108) 97 08/02/17 08:00 95.8 57 17 184/91 (122) 97 08/02/17 04:00 96.3 60 18 179/91 (120) 97 08/02/17 00:00 96.5 64 20 165/78 (107) 97 08/01/17 21:13 96.5 66 22 150/90 (110) 95 08/01/17 18:27 84 18 155/83 (107) 92 Room Air 08/01/17 17:30 72 18 177/84 (115) 96 Room Air 08/01/17 17:30 18 98 Room Air 08/01/17 16:32 98.8 75 18 245/109 (154) 99 I/O 08/01/17 08/01/17 08/01/17 08/02/17 08/02/17 08/02/17 07:00 15:00 23:00 07:00 15:00 23:00 Intake Total 360 ml Balance 360 ml Intake Oral 360 ml # Voids 1 # Bowel Movements 0 Result Diagram: 08/02/17 0512 08/02/17 0512 Imaging Last Impressions Chest X-Ray 08/01/17 1718 Signed Impressions: Service Date/Time: Tuesday, August 01, 2017 17:47 - CONCLUSION: 1. No active disease. Isak Turk MD Objective Remarks GENERAL: NAD SKIN: Warm and dry. HEAD: Normocephalic. EYES: No scleral icterus. No injection or drainage. NECK: Supple, trachea midline. No JVD or lymphadenopathy. CARDIOVASCULAR: Regular rate and rhythm without murmurs, gallops, or rubs. RESPIRATORY: Breath sounds equal bilaterally. No accessory muscle use. GASTROINTESTINAL: Abdomen soft, non-tender, nondistended. MUSCULOSKELETAL: No cyanosis, or edema. BACK: Nontender without obvious deformity. No CVA tenderness. A/P Problem List: (1) [id number] kidney injury ICD Code: N17.9 - Acute kidney failure, unspecified; N18.9 - Chronic kidney disease, unspecified Status: Acute (2) Transaminitis ICD Code: R74.0 - Nonspecific elevation of levels of transaminase and lactic acid dehydrogenase [LDH] (3) Hypertension ICD Code: I10 - Essential (primary) hypertension Status: Acute (4) Hyperlipidemia ICD Code: E78.5 - Hyperlipidemia, unspecified Status: Acute (5) Diabetes ICD Code: E11.9 - Type 2 diabetes mellitus without complications Status: Acute Assessment and Plan 61-year-old female with 1. Acute on chronic renal insufficiency Appreciate input from nephrology Hold all nephrotoxic drugs 2. Liver failure/elevated transaminitis Check hepatitis profile, autoimmune Hold Lipitor 3. Diabetes mellitus with episode of hypoglycemia Secondary to episode of hypoglycemia, hold Levemir for blood glucose less than 110 Continue with insulin sliding scale, D5 water 4. Hypertension/hyperlipidemia/CHF Continue home medications Dung Vazquez MD Aug 02, 2017 15:01
[2017-08-02] MEDS: diphenhydrAMINE HCL 25 MG CAP PO PRN ×2 (15:13→21:32)
[2017-08-02 16:00] VITALS: BP 173/85; PULSE 67; RESP 17; TEMP 97.1; O2SAT 98
[2017-08-02 20:00] VITALS: BP 172/92; PULSE 82; RESP 17; TEMP 97.8; O2SAT 98
[2017-08-02] MEDS: INSULIN DETEMIR 100 UNITS/ML VIAL SQ SCH (21:29)
[2017-08-02 22:10] LABS: BACTERIA, URINE RARE /hpf; BILIRUBIN, URINE NEG (NEG); BLOOD, URINE SMALL (NEG); GLUCOSE,URINE 1000 mg/dL (NEG); KETONE, URINE NEG (NEG); NITRITE,URINE NEG (NEG); SQUAMOUS EPITHELIAL CELL URINE 7 /hpf (0-5); URINE COLOR YELLOW (YELLW/STRAW); URINE LEUKOCYTE ESTERASE NEG (NEG)
[2017-08-03] VITALS: BP 144/77; PULSE 69; RESP 17; TEMP 96.3; O2SAT 96
[2017-08-03 04:00] VITALS: BP 158/86; PULSE 60; RESP 16; TEMP 96.4; O2SAT 100
[2017-08-03] MEDS: diphenhydrAMINE HCL 25 MG CAP PO PRN ×3 (04:21→21:38)
[2017-08-03] MEDS: DEXT 5%-NACL 0.45% 1000 ML INJ 1,000 ML IV SCH (04:21)
[2017-08-03] MEDS: HEPARIN SODIUM - SQ 10,000 UNITS/ML VIAL SQ SCH ×3 (06:47→21:31)
[2017-08-03 08:00] VITALS: BP 184/91; PULSE 59; PULSE 65; PULSE 70; RESP 16; TEMP 96.4; O2SAT 96
[2017-08-03] MEDS: INSULIN ASPART SUPPLEMENTAL SCALE SQ SCH ×4 (08:00→21:39)
[2017-08-03] MEDS: LISINOPRIL 20 MG TAB PO SCH (08:40)
[2017-08-03] MEDS: SODIUM CHLORIDE 0.9% FLUSH 10 ML FLUSH IV FLUSH SCH ×2 (08:41→21:30)
[2017-08-03] MEDS: CLOPIDOGREL 75 MG TAB PO SCH (08:41)
[2017-08-03] MEDS: NIFEdipine 60 MG SUSTAINED RELEASE TAB PO SCH (08:41)
[2017-08-03] MEDS: GABAPENTIN 300 MG CAP PO SCH ×2 (08:41→21:29)
[2017-08-03] MEDS: PANTOPRAZOLE SOD 40 MG DELAYED RELEASE TAB PO SCH (08:41)
[2017-08-03] MEDS: FERROUS SULFATE 325 MG (65 MG ELEMENTAL IRON) TAB PO SCH (08:41)
[2017-08-03] MEDS: DULoxetine HCl DR 60 MG CAP PO SCH (08:41)
[2017-08-03] MEDS: OLOPATADINE HCL 0.1% OPHT SOLN 5 ML BTL EACH EYE SCH ×3 (08:41→21:30)
[2017-08-03] MEDS: CARVEDILOL 12.5 MG TAB PO SCH (08:41)
[2017-08-03 08:48] LABS: ALBUMIN 2.6 GM/DL (3.4-5.0); ALKALINE PHOSPHATASE 350 U/L (45-117); ALT (GPT) 58 U/L (10-53); AST (GOT) 51 U/L (15-37); BICARBONATE 26.7 MEQ/L (21.0-32.0); BLOOD UREA NITROGEN 37 MG/DL (7-18); CALCIUM 9.1 MG/DL (8.5-10.1); CHLORIDE 109 MEQ/L (98-107); CREATININE 2.51 MG/DL (0.50-1.00); GLOMERULAR FILTRATION RATE 19 ML/MIN (>89); GLUCOSE,RANDOM 61 MG/DL (74-106); SODIUM (NA) 141 MEQ/L (136-145); TOTAL BILIRUBIN ADULT 0.6 MG/DL (0.2-1.0); TOTAL PROTEIN 6.3 GM/DL (6.4-8.2)
[2017-08-03] MEDS: DILTIAZEM-CD 120 MG CAP ER PO SCH (10:28)
[2017-08-03 11:43] LABS: HEPATITIS A AB IGM NEGATIVE (NEGATIVE); HEPATITIS B CORE AB IGM NEGATIVE (NEGATIVE); HEPATITIS B SURFACE ANTIGEN NEGATIVE (NEGATIVE); HEPATITIS C AB IgG NEGATIVE (NEGATIVE)
--- NOTE | 2017-08-03 12:24 | HHI.NPPN ---
Subjective Renal Failure: Chronic, Stage IV Interval History Renal function is much better. Still on IVF, NPO for US today. Not in distress. Making adequate urine. (Alexandra Lizarraga) Review of Systems Gastrointestinal Gastrointestinal: Nausea & Vomiting (Alexandra Lizarraga) Objective Data Data Vital Signs Date Time Temp Pulse Resp B/P (MAP) Pulse Ox O2 Delivery O2 Flow Rate FiO2 08/03/17 08:00 65 08/03/17 08:00 96.4 70 16 184/91 (122) 96 08/03/17 04:00 96.4 60 16 158/86 (110) 100 08/03/17 00:00 96.3 69 17 144/77 (99) 96 08/02/17 20:00 97.8 82 17 172/92 (118) 98 08/02/17 16:00 97.1 67 17 173/85 (114) 98 (Alexandra Lizarraga) -: 08/02/17 0512 08/03/17 0739 Imaging Last 72 hours Impressions Chest X-Ray 08/01/17 1718 Signed Impressions: Service Date/Time: Tuesday, August 01, 2017 17:47 - CONCLUSION: 1. No active disease. Isak Turk MD (Alexandra Lizarraga) Physical Exam General Appearance: Well Developed, Well Nourished, Comfortable (Alexandra Lizarraga) Eyes Eye Exam: Pupils Equal (Alexandra Lizarraga) Throat Throat Exam: Oral Mucosa [place] & Moist (Alexandra Lizarraga) Pulmonary Resp Exam: Clear Bilaterally, Breath Sounds Equal (Alexandra Lizarraga) Cardiology CV Exam: Regular, Normal Sinus Rhythm (Alexandra Lizarraga) Gastrointestinal/Abdomen GI Exam: Soft, Non-Tender, Bowel Sounds Present (Alexandra Lizarraga) Musculoskeletal MS Exam: Joints Intact, Normal Gait, Normal Tone (Alexandra Lizarraga) Integumentary Skin Exam: Clear, Warm, Dry (Alexandra Lizarraga) Extremeties Extremities Exam: No Edema, Pedal Pulses Palpable (Alexandra Lizarraga) Neurologic Neuro Exam: Alert, Awake, Oriented, Speech Clear, Moving All Extremities (Alexandra Lizarraga) Psychiatric Psych Exam: Appropriate Responses (Alexandra Lizarraga) Assessment/Plan Discussed Condition With: Patient Assessment Summary: ROZINA/Acute Renal Failure, Proteinuria, Hypertension, Diabetes Mellitus, CKD Stage IV Problem List: (1) Tgovp-mo-muotfnw kidney injury ICD Codes: N17.9 - Acute kidney failure, unspecified; N18.9 - Chronic kidney disease, unspecified Status: Acute Plan: Basline CKD 4, creatinine 2.05, GFR 25; Underlying diabetic nephropathy, 5 g proteinuria ROZINA from prerenal azotemia. She is improving with IVF US done last week with no evidence of obstruction. Continue IVF until no longer NPO Avoid nephrotoxic agents. Repeat labs in AM Repeat UA as it reported over 1000 glucose although she is hypoglycemic Also check uric acid. May have proximal RTA (2) Transaminitis ICD Codes: R74.0 - Nonspecific elevation of levels of transaminase and lactic acid dehydrogenase [LDH] Plan: Suspend potential hepatotoxic agents including Lipitor and acetaminophen. She likely has PETERS: apparently liver biopsies were taken when she had gastric bypass surgery in 2005. Hepatitis profile in process. Has gall stones on imaging, may need cholecystectomy. (3) Diabetes ICD Codes: E11.9 - Type 2 diabetes mellitus without complications Status: Acute Plan: she has been hypoglycemic PO intake encouraged. On D51/2NS. Monitor. (4) Hypertension ICD Codes: I10 - Essential (primary) hypertension Status: Acute Plan: BP is still high. On Coreg. Lisinopril dose increased. Also on Nifedipine. Add Cardizem CD 120 daily. (Alexandra Lizarraga) Plan patient was seen and examined. Renal function has improved. Taper off fluids. Repeat UA ordered as she has glucosuria in spite of normal blood sugar. (Mj Shelley MD) Problem Qualifiers (1) Diabetes: Alexandra Lizarraga Aug 03, 2017 12:24 Mj Shelley MD Aug 04, 2017 10:12
--- NOTE | 2017-08-03 13:42 | HHI.PR ---
Subjective Remarks Follow-up acute on chronic kidney disease stage IV/transaminitis 08/02/17-patient seen and examined, she had episode of hypoglycemia without any symptoms overnight. Currently complaining of itchy. 08/03/17-patient seen and examined, Currently nothing by mouth pending abdominal ultrasound. Renal indices improving Objective Vitals Vital Signs Date Time Temp Pulse Resp B/P (MAP) Pulse Ox O2 Delivery O2 Flow Rate FiO2 08/03/17 08:00 65 08/03/17 08:00 96.4 70 16 184/91 (122) 96 08/03/17 04:00 96.4 60 16 158/86 (110) 100 08/03/17 00:00 96.3 69 17 144/77 (99) 96 08/02/17 20:00 97.8 82 17 172/92 (118) 98 08/02/17 16:00 97.1 67 17 173/85 (114) 98 I/O 08/02/17 08/02/17 08/02/17 08/03/17 08/03/17 08/03/17 07:00 15:00 23:00 07:00 15:00 23:00 Intake Total 360 ml 660 ml 0 ml Output Total 600 ml Balance 360 ml 60 ml 0 ml Intake Oral 360 ml 660 ml 0 ml Output Urine Total 600 ml # Voids 1 2 # Bowel Movements 0 0 0 Result Diagram: 08/02/17 0512 08/03/17 0739 Imaging Last Impressions Chest X-Ray 08/01/17 1718 Signed Impressions: Service Date/Time: Tuesday, August 01, 2017 17:47 - CONCLUSION: 1. No active disease. Isak Turk MD Objective Remarks GENERAL: NAD SKIN: Warm and dry. HEAD: Normocephalic. EYES: No scleral icterus. No injection or drainage. NECK: Supple, trachea midline. No JVD or lymphadenopathy. CARDIOVASCULAR: Regular rate and rhythm without murmurs, gallops, or rubs. RESPIRATORY: Breath sounds equal bilaterally. No accessory muscle use. GASTROINTESTINAL: Abdomen soft, non-tender, nondistended. MUSCULOSKELETAL: No cyanosis, or edema. BACK: Nontender without obvious deformity. No CVA tenderness. A/P Problem List: (1) Rslgo-sq-unfnmer kidney injury ICD Code: N17.9 - Acute kidney failure, unspecified; N18.9 - Chronic kidney disease, unspecified Status: Acute (2) Transaminitis ICD Code: R74.0 - Nonspecific elevation of levels of transaminase and lactic acid dehydrogenase [LDH] (3) Hypertension ICD Code: I10 - Essential (primary) hypertension Status: Acute (4) Hyperlipidemia ICD Code: E78.5 - Hyperlipidemia, unspecified Status: Acute (5) Diabetes ICD Code: E11.9 - Type 2 diabetes mellitus without complications Status: Acute Assessment and Plan 61-year-old female with 1. Acute on chronic renal insufficiency Renal indices improving with IV fluid hydration Appreciate input from nephrology Hold all nephrotoxic drugs 2. Liver failure/elevated transaminitis Check hepatitis profile, abdominal ultrasound. May likely need cholecystectomy Hold Lipitor 3. Diabetes mellitus with episode of hypoglycemia Decrease Levemir to 42 units at bedtime Continue with insulin sliding scale, D5 water 4. Hypertension/hyperlipidemia/CHF Continue home medications Problem Qualifiers (1) Diabetes: Dung Vazquez MD Aug 03, 2017 13:42
--- NOTE | 2017-08-03 17:13 | RADRPT ---
EXAM DATE/TIME: 08/03/2017 16:04 [facility] COMPARISON: No previous studies available for comparison. INDICATIONS : Abdomen pain. MEDICAL HISTORY : Congestive heart failure. Hypercholesterolemia. Hypertension. Neuropathy. Gallbladder disease. Chroni c renal failure. UTI. Diabetes. Neuropathy. SURGICAL HISTORY : section. Bilateral cateracts. Back surgery. Gastric Bypass. ENCOUNTER: Initial ACUITY: 1 day PAIN SCORE: 5/10 LOCATION: abdomen. MEASUREMENTS: LIVER: 17.1 cm length COMMON DUCT: 6 mm RIGHT KIDNEY: 10.8 x 5.2 x 4.5 cm LEFT KIDNEY: 10.1 x 4.7 x 5.2 cm SPLEEN: 10.3 cm length AORTA: 2.4 cm maximal FINDINGS: LIVER: Normal echotexture without focal lesion or ductal dilatation. COMMON DUCT: No intraluminal mass or stone visualized. GALLBLADDER: Multiple tiny stones. PANCREAS: The visualized portions are within normal limits. RIGHT KIDNEY: No hydronephrosis, stone or mass. LEFT KIDNEY: No hydronephrosis, stone or mass. SPLEEN: No focal lesion. AORTA: Non aneurysmal. IVC: Within normal limits. CONCLUSION: Gallstones. Otherwise focal unremarkable sonographic appearance of the abdomen Wesley Sherwood MD on August 03, 2017 at 17:10 Board Certified Radiologist. This report was verified electronically.
[2017-08-03 17:55] LABS: BACTERIA, URINE RARE /hpf; BILIRUBIN, URINE NEG (NEG); BLOOD, URINE TRACE (NEG); GLUCOSE,URINE 150 mg/dL (NEG); HYALINE CAST, URINE 1 /lpf (RARE); KETONE, URINE NEG (NEG); NITRITE,URINE NEG (NEG); SQUAMOUS EPITHELIAL CELL URINE 1 /hpf (0-5); URINE COLOR YELLOW (YELLW/STRAW); URINE LEUKOCYTE ESTERASE NEG (NEG)
[2017-08-03 20:00] VITALS: BP 146/84; PULSE 77; RESP 16; TEMP 97.3; O2SAT 100
[2017-08-03] MEDS ORDERED: INSULIN DETEMIR 100 UNITS/ML VIAL SQ SCH (21:00)
[2017-08-04] VITALS: BP 126/76; PULSE 72; PULSE 84; RESP 16; TEMP 97.4; O2SAT 95
[2017-08-04] MEDS: DEXT 5%-NACL 0.45% 1000 ML INJ 1,000 ML IV SCH (02:03)
[2017-08-04 04:00] VITALS: BP 126/67; PULSE 71; RESP 16; TEMP 97.4; O2SAT 91
[2017-08-04] MEDS: HEPARIN SODIUM - SQ 10,000 UNITS/ML VIAL SQ SCH ×2 (04:48→14:10)
[2017-08-04] MEDS: diphenhydrAMINE HCL 25 MG CAP PO PRN (04:50)
[2017-08-04 07:17] LABS: ALBUMIN 2.7 GM/DL (3.4-5.0); BICARBONATE 23.1 MEQ/L (21.0-32.0); CALCIUM 9.1 MG/DL (8.5-10.1); CREATININE 2.57 MG/DL (0.50-1.00); PHOSPHORUS 2.9 MG/DL (2.5-4.9)
[2017-08-04] MEDS: INSULIN ASPART SUPPLEMENTAL SCALE SQ SCH ×2 (07:26→12:00)
[2017-08-04 08:00] VITALS: BP 127/67; PULSE 71; RESP 16; TEMP 97.9; O2SAT 92
[2017-08-04] MEDS: GABAPENTIN 300 MG CAP PO SCH (08:29)
[2017-08-04] MEDS: DILTIAZEM-CD 120 MG CAP ER PO SCH (08:29)
[2017-08-04] MEDS: CARVEDILOL 12.5 MG TAB PO SCH (08:29)
[2017-08-04] MEDS: FERROUS SULFATE 325 MG (65 MG ELEMENTAL IRON) TAB PO SCH (08:29)
[2017-08-04] MEDS: DULoxetine HCl DR 60 MG CAP PO SCH (08:29)
[2017-08-04] MEDS: CLOPIDOGREL 75 MG TAB PO SCH (08:29)
[2017-08-04] MEDS: NIFEdipine 60 MG SUSTAINED RELEASE TAB PO SCH (08:29)
[2017-08-04] MEDS: PANTOPRAZOLE SOD 40 MG DELAYED RELEASE TAB PO SCH (08:29)
[2017-08-04] MEDS: SODIUM CHLORIDE 0.9% FLUSH 10 ML FLUSH IV FLUSH SCH (08:29)
[2017-08-04] MEDS: OLOPATADINE HCL 0.1% OPHT SOLN 5 ML BTL EACH EYE SCH (08:31)
[2017-08-04] MEDS ORDERED: LISINOPRIL 20 MG TAB PO SCH (09:00)
--- NOTE | 2017-08-04 11:07 | HHI.PR ---
Subjective Remarks Follow-up acute on chronic kidney disease stage IV/transaminitis 08/02/17-patient seen and examined, she had episode of hypoglycemia without any symptoms overnight. Currently complaining of itchy. 08/03/17-patient seen and examined, Currently nothing by mouth pending abdominal ultrasound. Renal indices improving 08/04/17-patient seen and examined, denies any abdominal pain, no acute event overnight. Plan for HIDA scan Objective Vitals Vital Signs Date Time Temp Pulse Resp B/P (MAP) Pulse Ox O2 Delivery O2 Flow Rate FiO2 08/04/17 08:00 97.9 71 16 127/67 (87) 92 08/04/17 04:00 71 08/04/17 04:00 97.4 71 16 126/67 (86) 91 08/04/17 00:00 84 08/04/17 00:00 97.4 72 16 126/76 (93) 95 08/03/17 20:00 97.3 77 16 146/84 (104) 100 I/O 08/03/17 08/03/17 08/03/17 08/04/17 08/04/17 08/04/17 07:00 15:00 23:00 07:00 15:00 23:00 Intake Total 0 ml 920 ml 0 ml Balance 0 ml 920 ml 0 ml Intake Oral 0 ml 120 ml 0 ml IV Total 800 ml # Voids 2 3 3 # Bowel Movements 0 1 1 Result Diagram: 08/02/17 0512 08/04/17 0533 Objective Remarks GENERAL: NAD SKIN: Warm and dry. HEAD: Normocephalic. EYES: No scleral icterus. No injection or drainage. NECK: Supple, trachea midline. No JVD or lymphadenopathy. CARDIOVASCULAR: Regular rate and rhythm without murmurs, gallops, or rubs. RESPIRATORY: Breath sounds equal bilaterally. No accessory muscle use. GASTROINTESTINAL: Abdomen soft, non-tender, nondistended. MUSCULOSKELETAL: No cyanosis, or edema. BACK: Nontender without obvious deformity. No CVA tenderness. A/P Problem List: (1) Ejduo-nj-duwxyrq kidney injury ICD Code: N17.9 - Acute kidney failure, unspecified; N18.9 - Chronic kidney disease, unspecified Status: Acute (2) Transaminitis ICD Code: R74.0 - Nonspecific elevation of levels of transaminase and lactic acid dehydrogenase [LDH] (3) Hypertension ICD Code: I10 - Essential (primary) hypertension Status: Acute (4) Hyperlipidemia ICD Code: E78.5 - Hyperlipidemia, unspecified Status: Acute (5) Diabetes ICD Code: E11.9 - Type 2 diabetes mellitus without complications Status: Acute Assessment and Plan 61-year-old female with 1. Acute on chronic renal insufficiency Renal indices improving with IV fluid hydration Appreciate input from nephrology Hold all nephrotoxic drugs 2. Liver failure/elevated transaminitis Hepatitis profile negative Hold Lipitor 3. Diabetes mellitus with episode of hypoglycemia Continue Levemir 42 units at bedtime Continue with insulin sliding scale, D5 water 4. Hypertension/hyperlipidemia/CHF Continue home medications 5. Cholelithiasis per abdominal ultrasound General surgery has been consulted for evaluation for possible elective cholecystectomy Plan for HIDA today Problem Qualifiers (1) Diabetes: Dung Vazquez MD Aug 04, 2017 11:07
--- NOTE | 2017-08-04 11:41 | HHI.NPPN ---
Subjective Renal Failure: Chronic, Stage IV Interval History Stable renal function. NPO for HIDA scan today. (Alexandra Lizarraga) Review of Systems Gastrointestinal Gastrointestinal: Nausea & Vomiting (Alexandra Lizarraga) Objective Data Data Vital Signs Date Time Temp Pulse Resp B/P (MAP) Pulse Ox O2 Delivery O2 Flow Rate FiO2 08/04/17 08:00 97.9 71 16 127/67 (87) 92 08/04/17 04:00 71 08/04/17 04:00 97.4 71 16 126/67 (86) 91 08/04/17 00:00 84 08/04/17 00:00 97.4 72 16 126/76 (93) 95 08/03/17 20:00 97.3 77 16 146/84 (104) 100 (Alexandra Lizarraga) -: 08/02/17 0512 08/04/17 0533 Physical Exam General Appearance: Well Developed, Well Nourished, Comfortable (Alexandra Lizarraga) Eyes Eye Exam: Pupils Equal (Alexandra Lizarraga) Throat Throat Exam: Oral Mucosa [place] & Moist (Alexandra Lizarraga) Pulmonary Resp Exam: Clear Bilaterally, Breath Sounds Equal (Alexandra Lizarraga) Cardiology CV Exam: Regular, Normal Sinus Rhythm (Alexandra Lizarraga) Gastrointestinal/Abdomen GI Exam: Soft, Non-Tender, Bowel Sounds Present (Alexandra Lizarraga) Musculoskeletal MS Exam: Joints Intact, Normal Gait, Normal Tone (Alexandra Lizarraga) Integumentary Skin Exam: Clear, Warm, Dry (Alexandra Lizarraga) Extremeties Extremities Exam: No Edema, Pedal Pulses Palpable (Alexandra Lizarraga) Neurologic Neuro Exam: Alert, Awake, Oriented, Speech Clear, Moving All Extremities (Alexandra Lizarraga) Psychiatric Psych Exam: Appropriate Responses (Alexandra Lizarraga) Assessment/Plan Discussed Condition With: Patient Assessment Summary: ROZINA/Acute Renal Failure, Proteinuria, Hypertension, Diabetes Mellitus, CKD Stage IV Problem List: (1) Teala-ou-xyemcqk kidney injury ICD Codes: N17.9 - Acute kidney failure, unspecified; N18.9 - Chronic kidney disease, unspecified Status: Acute Plan: Baseline CKD 4, creatinine 2.05, GFR 25; Underlying diabetic nephropathy , 5 g proteinuria ROZINA from prerenal azotemia. Stable renal function Continue IVF until no longer NPO Avoid nephrotoxic agents. Repeat labs daily. Repeat UA still with less glucose but still high for her serum glucose levels. May have proximal tubule disorder. If discharged, we will follow in CKD clinic. (2) Transaminitis ICD Codes: R74.0 - Nonspecific elevation of levels of transaminase and lactic acid dehydrogenase [LDH] Plan: Suspend potential hepatotoxic agents including Lipitor and acetaminophen. She likely has PETERS: apparently liver biopsies were taken when she had gastric bypass surgery in 2005. Hepatitis profile negative. Has gall stones on imaging, pending HIDA scan today. May need surgery vs. outpatient follow up. (3) Diabetes ICD Codes: E11.9 - Type 2 diabetes mellitus without complications Status: Acute Plan: she has been hypoglycemic PO intake encouraged. On D51/2NS. Monitor. (4) Hypertension ICD Codes: I10 - Essential (primary) hypertension Status: Acute Plan: BP improved. On Coreg, Lisinopril, Nifedipine, and Cardizem. Plan Cleared for discharge from renal perspective. (Alexandra Lizarraga) Plan patient was seen and examined. Renal function has stabilized. No plans for dialysis. She can be discharged from my standpoint. (Mj Shelley MD) Problem Qualifiers (1) Diabetes: Alexandra Lizarraga Aug 04, 2017 11:41 Mj Shelley MD Aug 04, 2017 20:45
[2017-08-04 12:00] VITALS: BP 128/77; PULSE 65; RESP 17; TEMP 96.7; O2SAT 93
[2017-08-04] MEDS ORDERED: SINCALIDE 5 MCG/5 ML VIAL IV ONE (12:23)
--- NOTE | 2017-08-04 12:38 | MB ---
cc: Yakov Barillas MD DATE OF CONSULT: 08/03/2017 PERSON REQUESTING CONSULTATION: Dung Vazquez MD REASON FOR CONSULTATION: Gallstones. HISTORY OF PRESENT ILLNESS: The patient is a 61-year-old female who was admitted to [facility] with acute on chronic renal failure. The patient states that she has CHF and chronic renal failure and was taking Lasix as needed for swelling. The patient developed increasing swelling that was refractory to Lasix and she continued to take it. The patient was sent to the hospital per her rewards consultant, Dr. Casanova. Since that time, the patient has undergone IV rehydration, as well as Renal consultation. The patient has had improvement in her creatinine. Her baseline creatinine is low 2s. The patient states that during the time of her admission and currently, she has not had any abdominal pain. She does give a history of a week ago having 24 hours of epigastric abdominal pain that was not relieved with antacids, but was self-limited. She denies that the pain was caused by any fatty food or intake. She describes the pain as epigastric in nature, without radiation. She has had the pain in prior episodes. She has never had it evaluated before. REVIEW OF SYSTEMS: A 12-point review of systems was conducted with the patient and was negative, except for the pertinent positives and negatives as mentioned above in the HPI. PAST MEDICAL HISTORY: Chronic kidney disease, hypertension, hyperlipidemia, diabetes mellitus, history of TIA, CHF. PAST SURGICAL HISTORY: section, gastric bypass and abdominoplasty. ALLERGIES: EGGS AND SULFA. SOCIAL HISTORY: The patient denies alcohol, tobacco or illicit drug use. FAMILY HISTORY: Noncontributory. PHYSICAL EXAMINATION: VITAL SIGNS: Temperature 97.3 degrees, heart rate 77, blood pressure 146/84. GENERAL: The patient is a well developed, well nourished female, in no acute distress. HEENT: Head is normocephalic, atraumatic. Pupils round, reactive and accommodate to light. Sclerae is anicteric. Oral cavity is clear. Airway is patent. NECK: Supple, no JVD. PULMONARY: Breath sounds present bilaterally, nonlabored breathing pattern. CARDIOVASCULAR: Regular rate and rhythm. No murmurs. ABDOMEN: Soft, nontender to palpation. No organomegaly, no ascites. Negative Murray sign. Normal bowel sounds. BACK: No CVA tenderness. EXTREMITIES: Some chronic and acute edema, 1+. NEUROLOGIC: The patient is awake, alert and oriented x 3. Mood, judgement and insight are intact. Cranial nerves II through XII are grossly intact. Nonfocal peripheral exam. LABORATORY VALUES: Last creatinine is 2.51, white blood cell count is 3.5, hemoglobin 11.8. IMAGING: Ultrasound shows a gallstone, with no inflammation or paracystic fluid or signs of cholecystitis. ASSESSMENT AND PLAN: The patient is a 61-year-old female who likely had some symptomatic cholelithiasis per history, with no evidence acute cholecystitis at this time. The patient is at high risk for surgery and again has acute medical decompensation, so elective surgery would be poorly timed at this time. I will go ahead an order a HIDA scan to evaluate the patient's gallbladder more specifically. I discussed this with her and the rationale for this. If the HIDA scan were to show signs of an acute process, inpatient medical optimization and either cholecystostomy tube or possibly cholecystectomy should be considered. If the patient has symptomatic gallstones with no signs of acute cholecystitis, the patient could be discharged for continued outpatient optimization and consideration of elective cholecystectomy when the patient is optimized medically. She is in agreement with this plan. We will follow along with the patient. Thank you very much for this consultation. MD DEBI Olsen/JAVIER , 11:45 PM , 12:38 AM
--- NOTE | 2017-08-04 14:04 | RADRPT ---
EXAM DATE/TIME: 08/04/2017 10:52 [facility] COMPARISON: No previous studies available for comparison. INDICATIONS : Abdominal pain. DOSE: 4.3 mCi Tc99m Mebrofenin IV MEDICATION: 1.5 mcg Cholecystokinin IV; No symptomatic response. Cholecystokinin was administered by slow infusion over 8 minutes beginning at 90 minutes. MEDICAL HISTORY : Congestive hearrt failure. Hypercholesterolemia. Renal failure, chronic. Diabetes. Hypertension. Gall stones. SURGICAL HISTORY : section. Gastric bypass. Back. ENCOUNTER: Initial ACUITY: 1 day PAIN SCALE: 5/10 LOCATION: Right upper quadrant TECHNIQUE: Following the intravenous administration of radiotracer, dynamic sequential image were performed with continuous acquisition. Time-activity curves were generated. FINDINGS: HEPATIC KINETICS: There is prompt uptake of radiotracer in the liver. No focal defects are seen. There is normal rate of washout from the hepatic parenchyma. BILIARY CLEARANCE: Activity is first seen in the extrahepatic biliary system at 55 minutes. There is normal excretion i nto the small bowel. GALLBLADDER: Activity is first seen in the gallbladder at 25 minutes. POST CHOLECYSTOKININ: After Cholecystokinin administration, there is prompt emptying of the gallbladder with a 50 % ejectio n fraction. Common bile duct kinetics are normal and there is no evidence of biliary obstruction. BILIARY ENTERIC REFLUX: None observed. CLINICAL: The patient was asymptomatic after Cholecystokinin administration. CONCLUSION: 1. Negative biliary scan Alvarado Stark MD on August 04, 2017 at 14:02 Board Certified Radiologist. This report was verified electronically.
--- NOTE | 2017-08-04 15:06 | HHI.DS ---
Discharge Summary Admission Date Aug 01, 2017 at 19:10 Discharge Date: Aug 04, 2017 Admitting Diagnosis acute on chronic kidney injury, uticaria, weakness. (1) [id number] kidney injury ICD Code: N17.9 - Acute kidney failure, unspecified; N18.9 - Chronic kidney disease, unspecified Status: Acute (2) Transaminitis ICD Code: R74.0 - Nonspecific elevation of levels of transaminase and lactic acid dehydrogenase [LDH] (3) Hypertension ICD Code: I10 - Essential (primary) hypertension Status: Acute (4) Hyperlipidemia ICD Code: E78.5 - Hyperlipidemia, unspecified Status: Acute (5) Diabetes ICD Code: E11.9 - Type 2 diabetes mellitus without complications Status: Acute Procedures None Brief History - From Admission 60-year-old female with a past medical history of CKD/5, HTN, HLD, DM, TIA, CHF , neuropathy, and newly diagnosed liver failure presents to the emergency department at the request of her merchandise coordinator, Dr. Casanova. The patient reports she had lab work done and it showed a creatinine of 4. She states her baseline is usually 2.1 she also reports a two-week history of being incredibly itchy. She denies any other symptoms. No fever/chills. No chest pain or shortness of breath. No edema. No fatigue. CBC/BMP: 08/02/17 0512 08/04/17 0533 Significant Findings Laboratory Tests Test 08/01/17 17:20 08/02/17 05:12 08/02/17 16:46 08/02/17 21:45 Monocytes (%) (Auto) 9.8 % (0.0-8.0) 10.0 % (0.0-8.0) Eosinophils (%) (Auto) 5.3 % (0.0-4.0) 5.5 % (0.0-4.0) Lymphocytes # (Auto) 0.8 TH/MM3 (1.0-4.8) 0.7 TH/MM3 (1.0-4.8) Blood Urea Nitrogen 50 MG/DL (7-18) 48 MG/DL (7-18) Creatinine 4.39 MG/DL (0.50-1.00) 3.36 MG/DL (0.50-1.00) Random Glucose 73 MG/DL (74-106) 39 MG/DL (74-106) Albumin 3.0 GM/DL (3.4-5.0) 2.7 GM/DL (3.4-5.0) Alkaline Phosphatase 377 U/L (45-117) 342 U/L (45-117) Aspartate Amino Transf (AST/SGOT) 62 U/L (15-37) 47 U/L (15-37) Alanine Aminotransferase (ALT/SGPT) 79 U/L (10-53) 60 U/L (10-53) Chloride Level 113 MEQ/L (98-107) 112 MEQ/L (98-107) Estimat Glomerular Filtration Rate 10 ML/MIN (>89) 14 ML/MIN (>89) White Blood Count 3.5 TH/MM3 (4.0-11.0) Red Blood Count 3.98 MIL/MM3 (4.00-5.30) Platelet Count 139 TH/MM3 (150-450) Total Protein 6.2 GM/DL (6.4-8.2) Urine Turbidity HAZY (CLEAR) Urine Protein 300 mg/dL (NEG-TRACE) Urine Glucose (UA) 1000 mg/dL (NEG) Urine Occult Blood SMALL (NEG) Urine WBC 7 /hpf (0-5) Urine Bacteria RARE /hpf (NONE) Urine Random Total Protein 347 MG/DL (0-11.8) Urine Protein/Creatinine Ratio 5.03 (0.00-0.14) Test 08/03/17 07:39 08/03/17 15:20 08/04/17 05:33 Blood Urea Nitrogen 37 MG/DL (7-18) 42 MG/DL (7-18) Creatinine 2.51 MG/DL (0.50-1.00) 2.57 MG/DL (0.50-1.00) Random Glucose 61 MG/DL (74-106) Total Protein 6.3 GM/DL (6.4-8.2) Albumin 2.6 GM/DL (3.4-5.0) 2.7 GM/DL (3.4-5.0) Alkaline Phosphatase 350 U/L (45-117) Aspartate Amino Transf (AST/SGOT) 51 U/L (15-37) Alanine Aminotransferase (ALT/SGPT) 58 U/L (10-53) Chloride Level 109 MEQ/L (98-107) 110 MEQ/L (98-107) Estimat Glomerular Filtration Rate 19 ML/MIN (>89) 19 ML/MIN (>89) Uric Acid 7.3 MG/DL (2.6-6.0) Urine Protein 300 mg/dL (NEG-TRACE) Urine Glucose (UA) 150 mg/dL (NEG) Urine Occult Blood TRACE (NEG) Urine Bacteria RARE /hpf (NONE) Imaging Last Impressions Hepatobiliary Scan Nuclear Medicine 08/03/17 0000 Signed Impressions: Service Date/Time: August 10:52 - CONCLUSION: 1. Negative biliary scan Alvarado Stark MD Abdomen Ultrasound 08/03/17 0000 Signed Impressions: Service Date/Time: Thursday, August 03, 2017 16:04 - CONCLUSION: Gallstones. Otherwise focal unremarkable sonographic appearance of the abdomen Wesley Sherwood MD Chest X-Ray 08/01/17 1718 Signed Impressions: Service Date/Time: Tuesday, August 01, 2017 17:47 - CONCLUSION: 1. No active disease. Isak Turk MD PE at Discharge GENERAL: NAD SKIN: Warm and dry. HEAD: Normocephalic. EYES: No scleral icterus. No injection or drainage. NECK: Supple, trachea midline. No JVD or lymphadenopathy. CARDIOVASCULAR: Regular rate and rhythm without murmurs, gallops, or rubs. RESPIRATORY: Breath sounds equal bilaterally. No accessory muscle use. GASTROINTESTINAL: Abdomen soft, non-tender, nondistended. MUSCULOSKELETAL: No cyanosis, or edema. BACK: Nontender without obvious deformity. No CVA tenderness. Hospital Course While in hospital, patient was treated for 1. Acute on chronic renal insufficiency Renal indices improved with IV fluid hydration Nephrology was consulted Hold all nephrotoxic drugs 2. Liver failure/elevated transaminitis Hepatitis profile negative Lipitor was discontinued 3. Diabetes mellitus with episode of hypoglycemia Patient had episode of hypoglycemia for which she was treated per protocol. Her regiment of basal insulin was subsequently resumed however adjusted accordingly 4. Hypertension/hyperlipidemia/CHF Her medication for other chronic medical conditions were continued 5. Cholelithiasis per abdominal ultrasound General surgery was consulted for evaluation for possible elective cholecystectomy, however patient had a normal HIDA and she will follow outpatient with general surgery. Pt Condition on Discharge: Good Discharge Disposition: Discharge Home Discharge Time: <= 30 minutes Discharge Instructions DIET: Follow Instructions for: Diabetic Diet Activities you can perform: Regular-No Restrictions Follow up Referrals: Nephrology PCP Follow-up - 1 Week Surgical Continued Medications: Carvedilol (Carvedilol) 12.5 Mg Tab 12.5 MG PO DAILY, #60 TAB 0 Refills Cholecalciferol (Vitamin D3) 1,000 Unit Tab 1000 UNITS PO DAILY for Nutritional Supplement, #1 BOTTLE 0 Refills Clopidogrel (Clopidogrel) 75 Mg Tab 75 MG PO DAILY for Blood Clot Prevention, #30 TAB [address] (Duloxetine DR) 60 Mg Capdr 60 MG PO DAILY, #30 CAP 0 Refills Ferrous Sulfate (Ferrous Sulfate) 325 Mg (65 Mg Iron) Tablet 325 MG PO DAILY for Nutritional Supplement, #30 TAB 0 Refills Furosemide (Furosemide) 40 Mg Tab 40 MG PO DAILY, #30 TAB 0 Refills Gabapentin (Gabapentin) 300 Mg Cap 300 MG PO BID, #90 CAP 0 Refills Insulin Aspart Inj (Novolog Inj) 1,000 Unit/10 Ml Vial 8 UNITS SQ TID for Blood Sugar Management, #10 ML 0 Refills With Meals Insulin Glargine Inj (Lantus Inj) 100 Unit/Ml Inj 52 UNITS SQ HS Lisinopril (Lisinopril) 20 Mg Tab 20 MG PO DAILY, #30 TAB 0 Refills Melatonin (Melatonin) 5 Mg Tab 5 MG PO HS PRN for SLEEP, TAB 0 Refills Nifedipine ER 24 HR (Nifedipine ER 24 HR) 60 Mg Tab 60 MG PO DAILY, #30 TAB 0 Refills Olopatadine Opth 0.1% (Patanol Opth 0.1%) 0.1 % Drops 1 DROP EACH EYE BID for Allergies, #1 BOTTLE 0 Refills Omeprazole (Omeprazole) 40 Mg Cap 40 MG PO DAILY, #30 CAP 0 Refills Ropinirole (Ropinirole) 0.5 Mg Tab 0.5 MG PO HS, #1 TAB 0 Refills Discontinued Medications: Atorvastatin (Atorvastatin) 20 Mg Tab 20 MG PO HS for Cholesterol Management, #30 TAB 0 Refills Dung Vazquez MD Aug 04, 2017 15:06
[2017-08-04 16:00] VITALS: BP 125/70; PULSE 72; RESP 16; TEMP 96.3; O2SAT 92
== END 2017-08-04 17:03 | disposition home or self-care (01) | DRG 683 ==
LOC: NEPC 16:18 → NEDA 19:10 → N07B 21:05
PROVIDERS: ADMIT Hospitalist; ATTEND Hospitalist
DX: N17.9 Acute kidney failure, unspecified (principal); I13.0 Hypertensive heart and chronic kidney disease with heart failure and stage 1 through stage 4 chronic kidney disease, or unspecified chronic kidney disease; I50.9 Heart failure, unspecified; E11.21 Type 2 diabetes mellitus with diabetic nephropathy; E11.40 Type 2 diabetes mellitus with diabetic neuropathy, unspecified; E11.22 Type 2 diabetes mellitus with diabetic chronic kidney disease; N18.4 Chronic kidney disease, stage 4 (severe); L50.9 Urticaria, unspecified; M19.90 Unspecified osteoarthritis, unspecified site; E78.5 Hyperlipidemia, unspecified; K72.90 Hepatic failure, unspecified without coma; K80.20 Calculus of gallbladder without cholecystitis without obstruction; K75.81 Nonalcoholic steatohepatitis (NASH); E11.649 Type 2 diabetes mellitus with hypoglycemia without coma; F32.9 Major depressive disorder, single episode, unspecified; Z79.4 Long term (current) use of insulin; Z83.3 Family history of diabetes mellitus; Z86.73 Personal history of transient ischemic attack (TIA), and cerebral infarction without residual deficits; Z88.2 Allergy status to sulfonamides; Z91.012 Allergy to eggs; Z98.84 Bariatric surgery status
CPT/HCPCS: 71045; 76700; 78227; 80053; 80069; 80074; 81001; 82570; 82948; 84100; 84156; 84550; 85025; 96374; A9537; J1200; J1644; J1815; J2805

== ENCOUNTER 2017-08-19 09:28 | Inpatient (IN) | payer MEDICARE, BC ==
[~2017-08-19] VITALS: Ht 154.9 cm; Wt 79.5 kg
[~2017-08-19 09:28] MED LIST changes: -ALBUAER3 INH; -ATOR20TA15 PO; -CHOL1CHW5 CHEW; -FERR325T PO; +FERR325T18 PO; -NIFE15TA PO; +NIFE60TA58 PO; +OLOP.1%O EACH EYE; -TIZA4TAB PO; +VITA100064 PO; -ZYRT10CA PO
[2017-08-19] MEDS ORDERED: DEXTROSE 50% IN WATER 50 ML SYRINGE ONE ×2 (10:11→14:24)
[2017-08-19] MEDS ORDERED: CHLORHEXIDINE GLUCONATE 2 % 1 PACK (2 CLOTHS) TOPICAL PRN (10:30)
[2017-08-19] MEDS ORDERED: METOPROLOL TARTRATE 25 MG TAB PO PRN (10:30)
[2017-08-19] MEDS ORDERED: SODIUM CHLORID 0.9% 500 ML IV PRN (10:30)
[2017-08-19] MEDS ORDERED: ceFAZolin 2 GM PREMIX 50 ML IV SCH (10:30)
[2017-08-19] MEDS ORDERED: POVIDONE IODINE 5% (ANTISEPSIS KIT) 4 APPLICATIONS EACH NARE PRN (10:30)
[2017-08-19] MEDS ORDERED: LACTATED RINGER'S 1000 ML IV PRN (10:30)
[2017-08-19 10:40] LABS: AUTOMATED NEUTROPHIL # 6.5 TH/MM3 (1.8-7.7); BASOPHIL # 0.1 TH/MM3 (0-0.2); BASOPHIL % 1.1 % (0.0-2.0); EOSINOPHIL # 0.2 TH/MM3 (0-0.4); EOSINOPHIL % 2.4 % (0.0-4.0); HEMATOCRIT 38.3 % (35.0-46.0); HEMOGLOBIN 13.1 GM/DL (11.6-15.3); LYMPH % 10.2 % (9.0-44.0); LYMPHOCYTE # 0.8 TH/MM3 (1.0-4.8); MEAN CELL VOLUME 87.4 FL (80.0-100.0); MEAN CORPUSCULAR HEMOGLOBIN 29.8 PG (27.0-34.0); MEAN CORPUSCULAR HGB CONC 34.1 % (32.0-36.0); MEAN PLATELET VOLUME 7.6 FL (7.0-11.0); MONO % 7.6 % (0.0-8.0); MONOCYTE # 0.6 TH/MM3 (0-0.9); NEUT % 78.7 % (16.0-70.0); PLATELET COUNT 248 TH/MM3 (150-450); RED BLOOD COUNT 4.39 MIL/MM3 (4.00-5.30); RED CELL DISTRIBUTION WIDTH 14.6 % (11.6-17.2); WHITE BLOOD COUNT 8.3 TH/MM3 (4.0-11.0)
[2017-08-19 11:09] LABS: ALBUMIN 2.9 GM/DL (3.4-5.0); ALKALINE PHOSPHATASE 297 U/L (45-117); ALT (GPT) 66 U/L (10-53); BICARBONATE 23.7 MEQ/L (21.0-32.0); BLOOD UREA NITROGEN 35 MG/DL (7-18); CALCIUM 9.4 MG/DL (8.5-10.1); CHLORIDE 107 MEQ/L (98-107); CREATININE 2.11 MG/DL (0.50-1.00); GLOMERULAR FILTRATION RATE 24 ML/MIN (>89); SODIUM (NA) 140 MEQ/L (136-145); TOTAL BILIRUBIN ADULT 0.7 MG/DL (0.2-1.0); TOTAL PROTEIN 7.1 GM/DL (6.4-8.2)
[2017-08-19 11:14] LABS: AST (GOT) 82 U/L (15-37)
[2017-08-19 11:16] LABS: GLUCOSE,RANDOM 42 MG/DL (74-106)
[2017-08-19] MEDS ORDERED: ePHEDrine/NS 25 MG/5 ML SYRINGE IV ONE (12:00)
[2017-08-19] MEDS ORDERED: ROCURONIUM INJ 50 MG/5 ML SYRINGE IV PUSH ONE (12:00)
[2017-08-19] MEDS ORDERED: NEOSTIGMINE 5 MG/5 ML SYRINGE IV PUSH ONE (12:00)
[2017-08-19] MEDS ORDERED: ONDANSETRON HCL 4 MG/2 ML VIAL IV ONE (12:00)
[2017-08-19] MEDS ORDERED: DEXAMETHASONE SOD PHOS 4 MG/ML VIAL IV ONE (12:00)
[2017-08-19] MEDS ORDERED: GLYCOPYRROLATE 1 MG/5 ML SYRINGE IV PUSH ONE (12:00)
[2017-08-19] MEDS ORDERED: LIDOCAINE HCL 1% PF 5 ML SYRINGE OTHER ONE (12:00)
[2017-08-19] MEDS ORDERED: SODIUM CHLORID 0.9% 500 ML INJ 1,500 ML IV ONE (12:00)
[2017-08-19] MEDS ORDERED: ceFAZolin INJ 1,000 MG VIAL IV ONE (12:00)
[2017-08-19] MEDS ORDERED: PROPOFOL 200 MG/20 ML AMP IV ONE (12:00)
[2017-08-19] MEDS ORDERED: ACETAMINOPHEN 1000 MG/100 ML 100 ML IV ONE (12:53)
[2017-08-19] MEDS ORDERED: HYDROmorphone HCL PF 2 MG/ML VIAL ONE (12:53)
[2017-08-19] MEDS ORDERED: KETAMINE HCL 500 MG/5 ML VIAL ONE (12:53)
[2017-08-19] MEDS ORDERED: BUPIVACAINE/EPINEPHRINE 0.5% PF 30 ML VIAL ONE (12:57)
[2017-08-19] MEDS ORDERED: GLUCAGON 1 MG/ML VIAL IV ONE (16:45)
[2017-08-19] MEDS: ceFAZolin 2 GM PREMIX 50 ML IV ONE ×2 (17:17→17:48)
[2017-08-19] MEDS ORDERED: DO NOT ADM ANY ANTICOAGULANT DRUGS PRN (19:00)
[2017-08-19] MEDS ORDERED: MIDAZOLAM HCL 2 MG/2 ML VIAL ONE (19:02)
[2017-08-19] MEDS: SODIUM CHLOR 0.9% 1000 ML INJ 1,000 ML IV SCH (19:52)
[2017-08-19] MEDS: ACETAMINOPHEN 1000 MG/100 ML 100 ML IV SCH (20:00)
[2017-08-19] MEDS ORDERED: GLUCAGON 1 MG/ML VIAL OTHER PRN ×2 (20:00→22:30)
[2017-08-19] MEDS ORDERED: BENZOCAINE 20% ORAL SPR 60 ML CAN MT PRN (20:00)
[2017-08-19] MEDS ORDERED: NALOXONE HCL 0.4 MG/ML AMP IV PUSH PRN ×2 (20:00)
[2017-08-19] MEDS ORDERED: SODIUM CHLORIDE 0.9% FLUSH 10 ML FLUSH IV FLUSH PRN (20:00)
[2017-08-19] MEDS ORDERED: Post-op Orders (for Pharmacy) XX ONE (20:00)
[2017-08-19] MEDS ORDERED: diphenhydrAMINE HCL 50 MG/ML VIAL IV PUSH PRN (20:00)
[2017-08-19] MEDS ORDERED: ONDANSETRON HCL 4 MG/2 ML VIAL IV PUSH PRN (20:00)
[2017-08-19] MEDS ORDERED: DEXTROSE 50% IN WATER 50 ML VIAL(D50) IV PUSH PRN ×2 (20:00→22:30)
--- NOTE | 2017-08-19 20:18 | PD.CONS ---
HPI Service Critical Care Medicine Consult Requested By Primary Care Physician Thaddeus Maynard MD History of Present Illness 61-year-old female with past medical history of CKD/5, HTN, HLD, DM, TIA, CHF, neuropathy, and newly diagnosed liver failure underwent Laparoscopic cholecystectomy, Intraoperative cholangiogram, Laparoscopic common bile duct exploration with removal of multiple choledocholithiasis, Converted to open common bile duct exploration and Open liver biopsy. The procedure was uncomplicated and the patient is admitted to ICU postoperatively. Review of Systems Constitutional: DENIES: Diaphoretic episodes, Fatigue, Fever, Weight gain, Weight loss, Chills, Dizziness, Change in appetite, Night Sweats Endocrine: DENIES: Abnorml menstrual pattern, Heat/cold intolerance, Polydipsia , Polyuria, Polyphagia Eyes: DENIES: Blurred vision, Diplopia, Eye inflammation, Eye pain, Vision loss , Photosensitivity, Double Vision Ears, nose, mouth, throat: DENIES: Tinnitus, Hearing loss, Vertigo, Nasal discharge, Oral lesions, Throat pain, Hoarseness, Ear Pain, Running Nose, Epistaxis, Sinus Pain, Toothache, Odynophagia Respiratory: DENIES: Apneas, Cough, Snoring, Wheezing, Hemoptysis, Sputum production, Shortness of breath Cardiovascular: DENIES: Chest pain, Palpitations, Syncope, Dyspnea on Exertion , PND, Lower Extremity Edema, Orthopnea, Claudication Gastrointestinal: COMPLAINS OF: Abdominal pain, DENIES: Black stools, Bloody stools, Constipation, Diarrhea, Nausea, Vomiting, Difficulty Swallowing, Anorexia Genitourinary: DENIES: Abnormal vaginal bleeding, Dysmenorrhea, Dyspareunia, Sexual dysfunction, Urinary frequency, Urinary incontinence, Urgency, Hematuria , Dysuria, Nocturia, Vaginal discharge Musculoskeletal: DENIES: Joint pain, Muscle aches, Stiffness, Joint Swelling, Back pain, Neck pain Integumentary: DENIES: Abnormal pigmentation, Pruritus, Rash, Nail changes, Breast masses, Breast skin changes, Nipple discharge Hematologic/lymphatic: DENIES: Bruising, Lymphadenopathy Immunologic/allergic: DENIES: Eczema, Urticaria Neurologic: DENIES: Abnormal gait, Headache, Localized weakness, Paresthesias, Seizures, Speech Problems, Tremor, Poor Balance Psychiatric: DENIES: Anxiety, Confusion, Mood changes, Depression, Hallucinations, Agitation, Suicidal Ideation, Homicidal Ideation, Delusions Past Family Social History Allergies: Coded Allergies: Sulfa (Sulfonamide Antibiotics) (Unverified Allergy, Severe, Swelling, ) egg (Unverified Allergy, Severe, Swelling, 01/18/17) Past Medical History Chronic kidney disease Hypertension Dyslipidemia Diabetes mellitus TIA Congestive heart failure Neuropathy Newly diagnosed liver failure Past Surgical History 2 Gastric bypass Back surgery Tonsillectomy Reported Medications Reported Meds & Active Scripts Active Reported Nifedipine ER 24 HR (Nifedipine) 60 Mg Tab 60 Mg PO DAILY Vitamin D3 (Cholecalciferol) 1,000 Unit Tab 1,000 Units PO DAILY Ferrous Sulfate 325 Mg (65 Mg Iron) Tablet 325 Mg PO DAILY Patanol Opth 0.1% (Olopatadine HCl) 0.1 % Drops 1 Drop EACH EYE BID Lantus Inj (Insulin Glargine) 100 Unit/Ml Inj 52 Units SQ HS Melatonin 5 Mg Tab 5 Mg PO HS PRN Furosemide 40 Mg Tab 40 Mg PO DAILY Novolog Inj (Insulin Aspart) 1,000 Unit/10 Ml Vial 8 Units SQ TID With Meals Ropinirole 0.5 Mg Tab 0.5 Mg PO HS Clopidogrel (Clopidogrel Bisulfate) 75 Mg Tab 75 Mg PO DAILY Omeprazole 40 Mg Cap 40 Mg PO DAILY Gabapentin 300 Mg Cap 300 Mg PO BID Lisinopril 20 Mg Tab 20 Mg PO DAILY Carvedilol 12.5 Mg Tab 12.5 Mg PO DAILY Duloxetine DR (Duloxetine HCl) 60 Mg Capdr 60 Mg PO DAILY Active Ordered Medications Current Medications Medications (Trade) Dose Ordered Sig/Barbara Route PRN Reason Start Time Stop Time Status Last Admin Dose Admin Sodium Chloride 1,000 ml @ 100 mls/hr Q10H IV 08/19/17 19:52 08/19/17 19:52 Sodium Chloride (NS Flush) 2 ml UNSCH PRN IV FLUSH FLUSH AFTER USING IV ACCESS 08/19/17 20:00 Sodium Chloride (NS Flush) 2 ml BID IV FLUSH 08/19/17 21:00 Ondansetron HCl (Zofran Inj) 4 mg Q6H PRN IV PUSH NAUSEA OR VOMITING 08/19/17 20:00 Famotidine (Pepcid Inj) 20 mg Q12HR IV PUSH 08/19/17 21:00 Diphenhydramine HCl (Benadryl Inj) 25 mg Q6H PRN IV PUSH ITCHING 08/19/17 20:00 Benzocaine (Hurricaine 20% Oral Spr) 1 spray UNSCH X1 PRN MT SEE LABEL COMMENTS 08/19/17 20:00 08/21/17 19:59 Acetaminophen 100 ml @ 400 mls/hr Q6H IV 08/19/17 20:00 08/20/17 14:14 08/19/17 20:00 Naloxone HCl (Narcan Inj) 0.4 mg UNSCH PRN IV PUSH SEE LABEL COMMENTS 08/19/17 20:00 Enoxaparin Sodium (Lovenox Inj) 30 mg Q24H SQ 08/20/17 18:00 Naloxone HCl (Narcan Inj) 0.4 mg UNSCH PRN IV PUSH RESPIRATORY RATE LESS THAN 10 08/19/17 20:00 Morphine Sulfate (Morphine 1 Mg/ ml ENDODONTICS DENTIST) 30 mg UNSCH IV 08/19/17 20:00 08/19/17 20:24 ENDODONTICS DENTIST Dosage Infused (Pha) 1 Q8HR .XX 08/19/17 22:00 Carvedilol (Coreg) 12.5 mg DAILY PO 08/20/17 09:00 Duloxetine HCl (Cymbalta Dr) 60 mg DAILY PO 08/20/17 09:00 Gabapentin (Neurontin) 300 mg BID PO 08/19/17 21:00 Nifedipine (Procardia Xl) 60 mg DAILY PO 08/20/17 09:00 Olopatadine HCl (Patanol 0.1% Opth) 1 drop BID EACH EYE 08/19/17 21:00 Ropinirole HCl (Requip) 0.5 mg HS PO 08/19/17 21:00 Dextrose (D50w (Vial) Inj) 50 ml UNSCH PRN IV PUSH HYPOGLYCEMIA-SEE COMMENTS 08/19/17 20:00 Glucagon (Glucagon Inj) 1 mg UNSCH PRN OTHER HYPOGLYCEMIA-SEE COMMENTS 08/19/17 20:00 Insulin Human Regular (NovoLIN R SUPPLEMENTAL SCALE) 1 ACHS SLIDING SCALE SQ 08/19/17 21:00 Miscellaneous Information ALL NURSING DEPARTME... UNSCH PRN .XX SEE LABEL COMMENTS 08/19/17 19:00 08/20/17 18:59 Family History No family history significant of malignancy Social History Denies alcohol or illicit drug abuse Physical Exam Vital Signs Vital Signs Date Time Temp Pulse Resp B/P (MAP) Pulse Ox O2 Delivery O2 Flow Rate FiO2 08/19/17 19:46 98.2 84 16 112/72 (85) 98 Nasal Cannula 4 08/19/17 10:20 98.5 64 16 196/99 (131) 96 Physical Exam GENERAL: Well-nourished, well-developed patient. SKIN: Warm and dry. HEAD: Normocephalic. EYES: No scleral icterus. No injection or drainage. NECK: Supple, trachea midline. No JVD or lymphadenopathy. CARDIOVASCULAR: Regular rate and rhythm without murmurs, gallops, or rubs. RESPIRATORY: Breath sounds equal bilaterally. No accessory muscle use. GASTROINTESTINAL: Abdomen soft, non-tender, nondistended. MUSCULOSKELETAL: No cyanosis, or edema. BACK: Nontender without obvious deformity. NEURO EXAM: GCS: 15 Mental Status: The patient is alert and oriented to person, place, and time with normal speech. Cranial Nerves: Visual acuity intact bilaterally. Visual hernandez normal in all quadrants. Pupils are round, reactive to light. Extraocular movements are intact without ptosis. Hearing is normal bilaterally. Voice is normal. Tongue protrudes midline and moves symmetrically. Laboratory Laboratory Tests Test 08/19/17 10:10 White Blood Count 8.3 Red Blood Count 4.39 Hemoglobin 13.1 Hematocrit 38.3 Mean Corpuscular Volume 87.4 Mean Corpuscular Hemoglobin 29.8 Mean Corpuscular Hemoglobin Concent 34.1 Red Cell Distribution Width 14.6 Platelet Count 248 Mean Platelet Volume 7.6 Neutrophils (%) (Auto) 78.7 Lymphocytes (%) (Auto) 10.2 Monocytes (%) (Auto) 7.6 Eosinophils (%) (Auto) 2.4 Basophils (%) (Auto) 1.1 Neutrophils # (Auto) 6.5 Lymphocytes # (Auto) 0.8 Monocytes # (Auto) 0.6 Eosinophils # (Auto) 0.2 Basophils # (Auto) 0.1 CBC Comment DIFF FINAL Differential Comment Blood Urea Nitrogen 35 Creatinine 2.11 Random Glucose 42 Total Protein 7.1 Albumin 2.9 Calcium Level 9.4 Alkaline Phosphatase 297 Aspartate Amino Transf (AST/SGOT) 82 Alanine Aminotransferase (ALT/SGPT) 66 Total Bilirubin 0.7 Sodium Level 140 Potassium Level 5.4 Chloride Level 107 Carbon Dioxide Level 23.7 Anion Gap 9 Estimat Glomerular Filtration Rate 24 Result Diagram: 08/19/17 1010 08/19/17 1010 Imaging Last 24 hours Impressions Cholangiogram 08/19/17 0000 Signed Impressions: Service Date/Time: Saturday, August 19, 2017 15:16 - CONCLUSION: 1. Questionable distal hepatic duct stone just above the cystic duct. 2. Distended common bile duct. Wesley Weems MD Septic Shock Reassessment Septic shock perfusion: reassessment completed Assessment and Plan Assessment and Plan Acute cholecystitis - Status post Laparoscopic cholecystectomy - Intraoperative cholangiogram - Laparoscopic common bile duct exploration with removal of multiple choledocholithiasis - Converted to open common bile duct exploration - Open liver biopsy - Further management per general surgery Chronic kidney disease - Strict I's and O's - Monitor electrolytes and creatinine levels Hypertension - Coreg - Procardia Dyslipidemia - Hold statins due to liver failure Diabetes mellitus - Hold long acting insulins due to hypoglycemia - Insulin sliding scale Neuropathy - Gabapentin Newly diagnosed liver failure - Status post open liver biopsy - Pathology pending DVT GI prophylaxis - Teds SCDs - Pharmacological DVT prophylaxis per surgeon - Pepcid Critical Care: The total critical care time was 35 minutes. Time to perform other separately billable procedures was not included in the critical care time. Josr Sullivan MD Aug 19, 2017 8:18 pm
[2017-08-19] MEDS: MORPHINE SULFATE 30 MG/30 ML PCA IV SCH (20:24)
--- NOTE | 2017-08-19 20:42 | MP ---
cc: Yakov Barillas MD DATE OF OPERATION: 08/19/2017 PREOPERATIVE DIAGNOSES: 1. Cholecystitis. 2. Elevated bilirubin and transaminases concerning for choledocholithiasis. 3. History of gastric bypass surgery. POSTOPERATIVE DIAGNOSES: 1. Cholelithiasis. 2. Multiple choledocholithiasis. 3. History of gastric bypass surgery. PROCEDURE PERFORMED: 1. Laparoscopic cholecystectomy. 2. Intraoperative cholangiogram. 3. Laparoscopic common bile duct exploration with removal of multiple choledocholithiasis. 4. Converted to open common bile duct exploration. 5. Open liver biopsy. ATTENDING SURGEON: Yakov Barillas MD [employer] SALES: Bandar Pate MD ESTIMATED BLOOD LOSS: 300 mL COMPLICATIONS: None. FINDINGS: 1. Cirrhotic appearing liver. 2. Gallbladder with multiple gallstones. 3. Choledocholithiasis, multiple on cholangiogram. INDICATIONS FOR PROCEDURE: The patient is a 61-year-old female who was experiencing severe right upper quadrant pain with fatty food intake. The patient underwent evaluation including ultrasound and laboratory values, which showed some elevated T bilirubin and elevated transaminases. Also, common bile duct was over 2 cm on ultrasound concerning for choledocholithiasis. The patient has history of Jose David-en-Y gastric bypass surgery and was not a candidate for ERCP. I discussed with the patient the treatment options including laparoscopic cholecystectomy with IOC. If her liver function tests were normalized the patient would likely have passed the stone. Preoperatively, the patient did have almost normal or more normal LFTs and bilirubin and proceeded with laparoscopic cholecystectomy, possible cholangiogram, possible common bile duct exploration if choledocholithiasis was found. DESCRIPTION OF PROCEDURE: After the risks, benefits, alternatives were discussed with the patient, the patient was brought to the operating room, placed in a supine position and placed under general endotracheal anesthesia. The patient's abdomen was prepped and draped in sterile fashion. Timeout was performed. The abdomen was entered through a Fanny type entry just below the umbilicus. I opened the fascia under direct visualization and placed a 10 mm trocar into the abdomen under direct visualization. We insufflated the abdomen and surveyed the abdomen with a 5 mm camera. There was no evidence of complication from our entry. We placed multiple ports, which were approximately three 5 mm ports in the epigastric area under direct visualization. We proceeded with a cholecystectomy. I did notice that the liver did have some cirrhotic changes. We dissected the gallbladder and it was very redundant and dilated. We did perform a dome down technique using the Harmonic scalpel ultimately to take the gallbladder. We just came down to what looked like a very wide infundibulum and the anatomy was unclear as we were in the area of the kenneth hepatis. We did perform initial cholangiogram, which showed that we were in the infundibulum and there was a relatively normal anatomy other than a long redundant gallbladder. We continued our dissection until we reached the cystic duct and cystic artery. These were separately dissected with the [place] dissector and the critical view of safety was obtained. We did divide the artery with two clips proximal and one clip distal and divided this with Harmonic scalpel. We made a small ductotomy in the cystic duct and did a cholangiogram a second time and did show that we were in the cystic duct. There was a short cystic duct, but well defined and we showed multiple choledocholithiasis in the distal common bile duct with a dilated common bile duct. Of note, the cholangiogram was performed with a Cook catheter through a separate needle incision. At this point in time, we did place a separate 5 mm port in the left upper quadrant and used a Sophie-Flex retractor that tracked up to liver to gain better exposure. We did a laparoscopic common bile duct exploration. We took down the cystic duct and opened this longitudinally. This started to widen as it entered into the common bile duct. We were able to pass the choledochoscope initially down this limb through one of the port sites and this confirmed that multiple stones, including pigment stones as well as one large yellow type stone. We were able to use the basket with several sweeps and were able to remove all of the pigment stones, however, the large yellow type stone was so large the basket was not able to extract this, despite it being the largest size available. We did also try 2 other catheters, one of which was the ERCP choledochal balloon sweep and the other was the Duy balloon. Again, this seemed to initially possibly clear the duct or potentially push the stone distally so we performed a third cholangiogram at this time. This did show that all small stones were removed with a large stone remained in the common bile duct. At this point in time, we exhausted reasonable efforts laparoscopically to remove the stone and felt it was in the patient's best interest to have the stone removed even with conversion to open. So we then unfortunately had to convert to an open procedure. A right upper quadrant Toña type incision was made with a 10 blade scalpel in a standard fashion. I dissected the subcutaneous tissue and through the fascia on the lateral rectus sheath laterally with the Bovie electrocautery. Kade extra large retractor was placed. We placed the Bookwalter retractor to gain better exposure of the liver and retract down the transverse colon. We were able to then divide the cystic duct basically just at the common bile duct with the Harmonic scalpel and the gallbladder was passed off for permanent processing as specimen. We did open up the cystic duct common bile duct junction further with the Bovie electrocautery approximately 5 mm. This gave us a common bile duct ductotomy in longitudinal fashion. We were able to pass a Duy balloon as well as some forceps proximally and distally until we were able to retract the stone into the field and the forceps were used to remove the choledocholithiasis. We irrigated out the bile duct, and we had again confirmed that there was only one remaining stone which was removed so felt an additional cholangiogram was not necessary and increased the patient's risk for pancreatitis. We then closed the common bile duct ductotomy with a running 4-0 PDS suture. We placed a 19-Algerian round Ziyad drain in the right upper quadrant through a separate stab incision. Surgicel was used at the surgical site for hemostasis. We had excellent hemostasis. We then did a small liver biopsy of the left lobe using the Harmonic scalpel and sent this for processing as the patient had an abnormal appearing liver grossly and this was a new diagnosis and was not in her history. We closed the Toña incision with two #1 looped PDS sutures. We closed the skin and all port sites with allegra. The NEHAL dressing was applied to the right upper quadrant incision. We placed a Ziyad drain to bulb suction and sutured this in place with a nylon suture. The patient tolerated the procedure well and was taken to the PACU in stable condition. No apparent complications. All counts were correct. Myself and Dr. Pate was present and scrubbed for the entire procedure. MD DEBI Olsen/rt , 07:51 PM , 08:40 PM TIFF
[2017-08-19] MEDS: SODIUM CHLORIDE 0.9% FLUSH 10 ML FLUSH IV FLUSH SCH (21:00)
--- NOTE | 2017-08-19 21:26 | RADRPT ---
EXAM DATE/TIME: 08/19/2017 15:16 [facility] COMPARISON: BILIARY QUANTITATIVE (HIDA), August 04, 2017, 10:52. US ABDOMEN - COMPLETE, August 03, 2017, 16:04. INDICATIONS : Gallstones. Cholecystectomy. FLUORO TIME: 1.18 minutes IMAGE COUNT: 7 MEDICAL HISTORY : Hypertension. Diabetes mellitus type II. Renal failure, chronic. Congestive Heart Failure. SURGICAL HISTORY : Cholecystectomy. section. Gastric bypass. ENCOUNTER: Initial ACUITY: 1 day PAIN SCORE: Non-responsive. LOCATION: Abdomen. PROCEDURE: CHOLANGIOGRAM, OPERATIVE 1. Intraoperative cholangiogram. In the operating room, the cystic duct stump was injected and radiographs obtained. The examination demonstrates questionable filling defect in the distal hepatic duct just above the cy stic duct. No other filling defects are demonstrated. The common bile duct is distended. Contrast pas ses into the duodenum. CONCLUSION: 1. Questionable distal hepatic duct stone just above the cystic duct. 2. Distended common bile duct. Wesley Weems MD on August 19, 2017 at 21:22 Board Certified Radiologist. This report was verified electronically.
[2017-08-19] MEDS: PCA - TOTAL MG MORPHINE DELIVERED PER SHIFT SCH (22:00)
[2017-08-19] MEDS: GABAPENTIN 300 MG CAP PO SCH (22:30)
[2017-08-19] MEDS: INSULIN NovoLIN REGULAR SUPPLEMENTAL SCALE SQ SCH (22:30)
[2017-08-19] MEDS: OLOPATADINE HCL 0.1% OPHT SOLN 5 ML BTL EACH EYE SCH (22:50)
[2017-08-19] MEDS: FAMOTIDINE 20 MG/2 ML VIAL IV PUSH SCH (22:50)
[2017-08-20] VITALS (12 sets, daily range): BP systolic 95–146; BP diastolic 65–85; PULSE 68–84; RESP 9–18; TEMP 96–99; O2SAT 92–99
[2017-08-20] MEDS: ACETAMINOPHEN 1000 MG/100 ML 100 ML IV SCH ×3 (02:52→13:29)
[2017-08-20] MEDS: MORPHINE SULFATE 30 MG/30 ML PCA IV SCH (03:07)
[2017-08-20] MEDS: SODIUM CHLOR 0.9% 1000 ML INJ 1,000 ML IV SCH ×2 (05:04→13:29)
[2017-08-20 06:00] LABS: AUTOMATED NEUTROPHIL # 17.4 TH/MM3 (1.8-7.7); BASOPHIL % 0.2 % (0.0-2.0); HEMOGLOBIN 12.8 GM/DL (11.6-15.3); LYMPH % 1.3 % (9.0-44.0); LYMPHOCYTE # 0.2 TH/MM3 (1.0-4.8); MEAN CELL VOLUME 90.1 FL (80.0-100.0); MEAN CORPUSCULAR HEMOGLOBIN 29.7 PG (27.0-34.0); MEAN CORPUSCULAR HGB CONC 32.9 % (32.0-36.0); MONO % 4.6 % (0.0-8.0); MONOCYTE # 0.9 TH/MM3 (0-0.9); NEUT % 93.9 % (16.0-70.0); PLATELET COUNT 236 TH/MM3 (150-450); RED BLOOD COUNT 4.32 MIL/MM3 (4.00-5.30); RED CELL DISTRIBUTION WIDTH 15.4 % (11.6-17.2); WHITE BLOOD COUNT 18.5 TH/MM3 (4.0-11.0)
[2017-08-20] MEDS: PCA - TOTAL MG MORPHINE DELIVERED PER SHIFT SCH ×3 (06:00→21:50)
[2017-08-20 07:03] LABS: ALBUMIN 2.3 GM/DL (3.4-5.0); ALKALINE PHOSPHATASE 216 U/L (45-117); ALT (GPT) 62 U/L (10-53); AST (GOT) 88 U/L (15-37); BICARBONATE 21.4 MEQ/L (21.0-32.0); BLOOD UREA NITROGEN 37 MG/DL (7-18); CALCIUM 7.9 MG/DL (8.5-10.1); CHLORIDE 111 MEQ/L (98-107); CREATININE 2.37 MG/DL (0.50-1.00); DIRECT BILIRUBIN ADULT 0.2 MG/DL (0.0-0.2); GLOMERULAR FILTRATION RATE 21 ML/MIN (>89); GLUCOSE,RANDOM 103 MG/DL (74-106); MAGNESIUM 1.9 MG/DL (1.5-2.5); PHOSPHORUS 5.9 MG/DL (2.5-4.9); SODIUM (NA) 143 MEQ/L (136-145); TOTAL BILIRUBIN ADULT 0.5 MG/DL (0.2-1.0)
[2017-08-20] MEDS: INSULIN ASPART SUPPLEMENTAL SCALE SQ SCH ×4 (08:00→22:04)
[2017-08-20] MEDS: INSULIN NovoLIN REGULAR SUPPLEMENTAL SCALE SQ SCH (08:00)
[2017-08-20] MEDS: OLOPATADINE HCL 0.1% OPHT SOLN 5 ML BTL EACH EYE SCH ×2 (09:00→21:00)
[2017-08-20] MEDS: SODIUM CHLORIDE 0.9% FLUSH 10 ML FLUSH IV FLUSH SCH ×2 (09:00→21:50)
[2017-08-20] MEDS: NIFEdipine 60 MG SUSTAINED RELEASE TAB PO SCH (09:47)
[2017-08-20] MEDS: DULoxetine HCl DR 60 MG CAP PO SCH (09:47)
[2017-08-20] MEDS: GABAPENTIN 300 MG CAP PO SCH ×2 (09:47→21:48)
[2017-08-20] MEDS: CARVEDILOL 12.5 MG TAB PO SCH (09:47)
[2017-08-20] MEDS: FAMOTIDINE 20 MG/2 ML VIAL IV PUSH SCH ×2 (09:48→21:49)
--- NOTE | 2017-08-20 16:25 | HHI.PR ---
Subjective Remarks The patient said that she has been rather sleepy. She says this is a chronic problem for her. She says her pain is well-controlled. Her family was at bedside. Their questions were answered. Objective Vitals Vital Signs Date Time Temp Pulse Resp B/P (MAP) Pulse Ox O2 Delivery O2 Flow Rate FiO2 08/20/17 13:30 97.1 79 18 142/81 (101) 95 08/20/17 13:29 18 08/20/17 13:18 Nasal Cannula 2.00 08/20/17 12:00 81 08/20/17 10:18 12 08/20/17 10:00 82 08/20/17 09:58 99 Nasal Cannula 3.00 08/20/17 08:00 83 08/20/17 08:00 99.0 83 9 146/85 (105) 97 08/20/17 07:00 97 Nasal Cannula 3.00 08/20/17 06:00 84 08/20/17 06:00 16 08/20/17 04:00 98.5 78 18 137/65 (89) 96 08/20/17 04:00 78 08/20/17 03:56 18 08/20/17 03:07 18 08/20/17 02:00 80 08/20/17 00:27 96 Nasal Cannula 3.00 08/20/17 00:00 82 08/20/17 00:00 98.1 82 18 139/72 (94) 95 08/19/17 23:46 97.8 82 14 139/68 (91) 96 Nasal Cannula 4 08/19/17 23:00 81 18 137/73 (94) 97 Nasal Cannula 4 08/19/17 22:00 18 08/19/17 22:00 74 14 126/70 (88) 95 Nasal Cannula 4 08/19/17 21:15 73 14 131/74 (93) 95 Nasal Cannula 4 08/19/17 21:00 74 14 132/74 (93) 95 Nasal Cannula 4 08/19/17 20:30 75 16 138/58 (84) 94 Nasal Cannula 4 08/19/17 20:24 16 08/19/17 20:15 77 18 133/57 (82) 93 Nasal Cannula 4 08/19/17 20:00 79 18 132/80 (97) 94 Nasal Cannula 4 08/19/17 19:46 98.2 84 16 112/72 (85) 98 Nasal Cannula 4 I/O 08/19/17 08/19/17 08/19/17 08/20/17 08/20/17 08/20/17 07:00 15:00 23:00 07:00 15:00 23:00 Intake Total 2200 ml 1806 ml Output Total 500 ml 530 ml 25 ml Balance 1700 ml 1276 ml -25 ml Intake IV Total 1806 ml Other 2200 ml Output Urine Total 200 ml 240 ml Drainage Total 290 ml 25 ml Estimated Blood Loss 300 ml Result Diagram: 08/20/17 0504 08/20/17 0504 Imaging Last Impressions Cholangiogram 08/19/17 0000 Signed Impressions: Service Date/Time: Saturday, August 19, 2017 15:16 - CONCLUSION: 1. Questionable distal hepatic duct stone just above the cystic duct. 2. Distended common bile duct. Wesley Weems MD Objective Remarks GENERAL: Well-nourished, well-developed patient. SKIN: Warm and dry. HEAD: Normocephalic. EYES: No scleral icterus. No injection or drainage. NECK: Supple, trachea midline. No JVD or lymphadenopathy. CARDIOVASCULAR: Regular rate and rhythm without murmurs, gallops, or rubs. RESPIRATORY: Breath sounds equal bilaterally. No accessory muscle use. GASTROINTESTINAL: Abdomen soft, non-tender, nondistended. MUSCULOSKELETAL: No cyanosis, or edema. BACK: Nontender without obvious deformity. NEURO: No gross deficits. Medications and IVs Current Medications Medications (Trade) Dose Ordered Sig/Barbara Route Start Time Stop Time Status Last Admin Sodium Chloride 1,000 ml @ 100 mls/hr Q10H IV 08/19/17 19:52 08/20/17 13:29 (NS Flush) 2 ml UNSCH PRN IV FLUSH 08/19/17 20:00 (NS Flush) 2 ml BID IV FLUSH 08/19/17 21:00 08/20/17 09:00 (Zofran Inj) 4 mg Q6H PRN IV PUSH 08/19/17 20:00 (Benadryl Inj) 25 mg Q6H PRN IV PUSH 08/19/17 20:00 (Hurricaine 20% Oral Spr) 1 spray UNSCH X1 PRN MT 08/19/17 20:00 08/21/17 19:59 (Narcan Inj) 0.4 mg UNSCH PRN IV PUSH 08/19/17 20:00 (Lovenox Inj) 30 mg Q24H SQ 08/20/17 18:00 (Narcan Inj) 0.4 mg UNSCH PRN IV PUSH 08/19/17 20:00 (Morphine 1 Mg/ ml SERVICE OPERATIONS MANAGER) 30 mg UNSCH IV 08/19/17 20:00 08/20/17 03:07 SERVICE OPERATIONS MANAGER Dosage Infused (Pha) 1 Q8HR .XX 08/19/17 22:00 08/20/17 13:29 (Coreg) 12.5 mg DAILY PO 08/20/17 09:00 08/20/17 09:47 (Cymbalta Dr) 60 mg DAILY PO 08/20/17 09:00 08/20/17 09:47 (Neurontin) 300 mg BID PO 08/19/17 21:00 08/20/17 09:47 (Procardia Xl) 60 mg DAILY PO 08/20/17 09:00 08/20/17 09:47 (Patanol 0.1% Opth) 1 drop BID EACH EYE 08/19/17 21:00 08/20/17 09:00 (Requip) 0.5 mg HS PO 08/19/17 21:00 08/19/17 22:30 Miscellaneous Information ALL NURSING DEPARTME... UNSCH PRN .XX 08/19/17 19:00 08/20/17 18:59 (D50w (Vial) Inj) 50 ml UNSCH PRN IV PUSH 08/19/17 22:30 (Glucagon Inj) 1 mg UNSCH PRN OTHER 08/19/17 22:30 (NovoLOG SUPPLEMENTAL SCALE) 1 ACHS SLIDING SCALE SQ 08/20/17 08:00 (Pepcid Inj) 10 mg Q12HR IV PUSH 08/20/17 21:00 A/P Assessment and Plan Acute cholecystitis Status post laparoscopic cholecystectomy, intraoperative cholangiogram and laparoscopic common bile duct exploration with removal of multiple choledocholithiasis by general surgery. It was converted to an open common bile duct exploration and liver biopsy. - Further management per general surgery. - Pain control with a bowel regimen. Currently on a SERVICE OPERATIONS MANAGER. - incentive spirometry. - Physical therapy. Newly diagnosed liver failure Status post open liver biopsy. - Pathology pending. - check an INR and follow LFTs. Chronic kidney disease Creatinine appears stable. - Monitor BMP and avoid nephrotoxins. Lethargy Chronic problem. - check B12 level and TSH. Hypertension Blood pressure exacerbated by pain. - Continue Coreg and Procardia. - Pain control. Dyslipidemia On a statin. - Hold statin due to liver failure. Diabetes mellitus Glucose has been well controlled and low at times. - Insulin sliding scale. - Check a hemoglobin A1c. - Continue gabapentin for neuropathy. Leukocytosis Afebrile. Likely reactive secondary to surgery. - Check a chest x-ray and UA. - Follow CBC. PPx: Per surgery Alverto Kingston DO Aug 20, 2017 16:25
[2017-08-20] MEDS: DOCUSATE SODIUM 50 MG/SENNA 8.6 MG TAB PO SCH ×2 (16:49→21:49)
[2017-08-20 17:27] LABS: BACTERIA, URINE MOD /hpf; BILIRUBIN, URINE NEG (NEG); BLOOD, URINE MOD (NEG); GLUCOSE,URINE TRACE mg/dL (NEG); KETONE, URINE NEG (NEG); MUCUS URINE FEW /lpf (OCC); NITRITE,URINE NEG (NEG); PH, URINE 5.5 (5.0-8.5); SQUAMOUS EPITHELIAL CELL URINE 17 /hpf (0-5); URINE COLOR YELLOW (YELLW/STRAW); URINE LEUKOCYTE ESTERASE LARGE (NEG); WHITE BLOOD CELL CLUMPS MANY
--- NOTE | 2017-08-20 17:50 | RADRPT ---
EXAM DATE/TIME: 08/20/2017 17:08 [facility] COMPARISON: CHEST SINGLE AP, August 01, 2017, 17:47. INDICATIONS : Evaluate for pneumonia. MEDICAL HISTORY : Diabetes mellitus type II. Hypertension. SURGICAL HISTORY : Tonsillectomy. Fusion, lumbar. Gastric bypass. ENCOUNTER: Subsequent ACUITY: 2 days PAIN SCORE: 0/10 LOCATION: chest FINDINGS: There is linear scarring or atelectasis at the lung bases. No effusion. No pneumothorax. Heart size m ildly enlarged. CONCLUSION: 1. Cardiomegaly. Linear atelectasis or scarring at the bases. Isak Turk MD on August 20, 2017 at 17:46 Board Certified Radiologist. This report was verified electronically.
[2017-08-20] MEDS ORDERED: ENOXAPARIN SODIUM 30 MG/0.3 ML SYRINGE SQ SCH (18:00)
--- NOTE | 2017-08-20 18:06 | EKG ---
Date Performed: 08/19/2017 Time Performed: 10:33:13 PTAGE: 61 years EKG: SINUS BRADYCARDIA BORDERLINE LEFT AXIS DEVIATION VOLTAGE CRITERIA FOR LVH NONSPECIFIC T-WAV E ABNORMALITY ABNORMAL ECG Compared to PREVIOUS TRACING , QRS voltage is more prominent otherwise no significant change. PREVIOU S TRACIN09/21/2016 21.00 DOCTOR: Serjio Rodgers Interpretating Date/Time 08/20/2017 18:06:05
--- NOTE | 2017-08-20 20:10 | HHI.PR ---
Subjective Subjective Notes Still painful, sleepy Objective Vitals/I&O Vital Signs Date Time Temp Pulse Resp B/P (MAP) Pulse Ox O2 Delivery O2 Flow Rate FiO2 08/20/17 16:59 Room Air 08/20/17 16:00 96.0 69 16 95/67 (76) 94 08/20/17 13:18 2.00 Labs Laboratory Tests Test 08/20/17 00:15 08/20/17 05:04 08/20/17 16:54 Nasal Screen MRSA (PCR) MRSA NOT DETECTED White Blood Count 18.5 Red Blood Count 4.32 Hemoglobin 12.8 Hematocrit 39.0 Mean Corpuscular Volume 90.1 Mean Corpuscular Hemoglobin 29.7 Mean Corpuscular Hemoglobin Concent 32.9 Red Cell Distribution Width 15.4 Platelet Count 236 Mean Platelet Volume 8.0 Neutrophils (%) (Auto) 93.9 Lymphocytes (%) (Auto) 1.3 Monocytes (%) (Auto) 4.6 Eosinophils (%) (Auto) 0.0 Basophils (%) (Auto) 0.2 Neutrophils # (Auto) 17.4 Lymphocytes # (Auto) 0.2 Monocytes # (Auto) 0.9 Eosinophils # (Auto) 0.0 Basophils # (Auto) 0.0 CBC Comment DIFF FINAL Differential Comment Blood Urea Nitrogen 37 Creatinine 2.37 Random Glucose 103 Total Protein 6.0 Albumin 2.3 Calcium Level 7.9 Phosphorus Level 5.9 Magnesium Level 1.9 Alkaline Phosphatase 216 Aspartate Amino Transf (AST/SGOT) 88 Alanine Aminotransferase (ALT/SGPT) 62 Total Bilirubin 0.5 Direct Bilirubin 0.2 Sodium Level 143 Potassium Level 4.7 Chloride Level 111 Carbon Dioxide Level 21.4 Anion Gap 11 Estimat Glomerular Filtration Rate 21 Vitamin B12 Level 1309 Thyroid Stimulating Hormone 3rd Gen 1.810 Urine Color YELLOW Urine Turbidity CLOUDY Urine pH 5.5 Urine Specific [place] 1.027 Urine Protein 300 Urine Glucose (UA) TRACE Urine Ketones NEG Urine Occult Blood MOD Urine Nitrite NEG Urine Bilirubin NEG Urine Urobilinogen LESS THAN 2.0 Urine Leukocyte Esterase LARGE Urine RBC 147 Urine WBC Urine WBC Clumps MANY Urine Squamous Epithelial Cells 17 Urine Bacteria MOD Urine Mucus FEW Microscopic Urinalysis Comment CULTURE INDICATED Date/Time Source Procedure Growth Status 08/20/17 16:54 Urine Clean Catch Urine Culture Pending Received Abdomen: Non-distended, Post-op tenderness Narrative Exam NEHAL dressing intact and dry A/P Assessment and Plan POD #1 cholecystectomy with CBD exploration and stone extraction; Stable Slowly recovering Start diet Monitor NANY output (reddish-green) Alverto Young MD Aug 20, 2017 20:10
[2017-08-21] VITALS (8 sets, daily range): BP systolic 117–147; BP diastolic 65–80; PULSE 75–88; RESP 16–18; TEMP 97–97.9; O2SAT 93–97
[2017-08-21] MEDS: SODIUM CHLOR 0.9% 1000 ML INJ 1,000 ML IV SCH ×3 (01:52→21:43)
[2017-08-21] MEDS: PCA - TOTAL MG MORPHINE DELIVERED PER SHIFT SCH ×3 (06:00→21:42)
[2017-08-21 07:12] LABS: INTERNATIONAL NORMALIZED RATIO 1.1 RATIO; PROTHROMBIN TIME - PATIENT 10.8 SEC (9.8-11.6)
[2017-08-21 07:31] LABS: HEMATOCRIT 34.3 % (35.0-46.0); HEMOGLOBIN 11.2 GM/DL (11.6-15.3); MEAN CELL VOLUME 91.1 FL (80.0-100.0); MEAN CORPUSCULAR HEMOGLOBIN 29.8 PG (27.0-34.0); MEAN CORPUSCULAR HGB CONC 32.8 % (32.0-36.0); MEAN PLATELET VOLUME 8.1 FL (7.0-11.0); PLATELET COUNT 192 TH/MM3 (150-450); RED BLOOD COUNT 3.77 MIL/MM3 (4.00-5.30); RED CELL DISTRIBUTION WIDTH 15.5 % (11.6-17.2); WHITE BLOOD COUNT 13.9 TH/MM3 (4.0-11.0)
[2017-08-21 07:37] LABS: ALBUMIN 2.3 GM/DL (3.4-5.0); BICARBONATE 20.2 MEQ/L (21.0-32.0); CALCIUM 8.2 MG/DL (8.5-10.1); CREATININE 3.37 MG/DL (0.50-1.00); DIRECT BILIRUBIN ADULT 0.3 MG/DL (0.0-0.2); INDIRECT BILIRUBIN 0.3 MG/DL (0.0-0.8); MAGNESIUM 2.1 MG/DL (1.5-2.5); TOTAL BILIRUBIN ADULT 0.6 MG/DL (0.2-1.0); TOTAL PROTEIN 6.2 GM/DL (6.4-8.2)
[2017-08-21] MEDS: MORPHINE SULFATE 30 MG/30 ML PCA IV SCH (07:57)
[2017-08-21] MEDS: FAMOTIDINE 20 MG/2 ML VIAL IV PUSH SCH ×2 (08:00→21:41)
[2017-08-21] MEDS: NIFEdipine 60 MG SUSTAINED RELEASE TAB PO SCH (08:00)
[2017-08-21] MEDS: DULoxetine HCl DR 60 MG CAP PO SCH (08:00)
[2017-08-21] MEDS: DOCUSATE SODIUM 50 MG/SENNA 8.6 MG TAB PO SCH ×2 (08:00→21:40)
[2017-08-21] MEDS: GABAPENTIN 300 MG CAP PO SCH (08:00)
[2017-08-21] MEDS: CARVEDILOL 12.5 MG TAB PO SCH (08:00)
[2017-08-21] MEDS: INSULIN ASPART SUPPLEMENTAL SCALE SQ SCH ×4 (08:00→21:40)
[2017-08-21] MEDS: OLOPATADINE HCL 0.1% OPHT SOLN 5 ML BTL EACH EYE SCH ×2 (08:01→21:00)
[2017-08-21] MEDS: SODIUM CHLORIDE 0.9% FLUSH 10 ML FLUSH IV FLUSH SCH ×2 (08:01→21:43)
[2017-08-21 10:05] LABS: HEMOGLOBIN A1C 8.8 % (4.3-6.0)
[2017-08-21] MEDS ORDERED: SODIUM POLYSTYRENE SULFONATE SUSP 15 GM/60 ML CUP PO ONE (10:30)
--- NOTE | 2017-08-21 11:08 | HHI.PR ---
Subjective Subjective Notes resting comfortably, pain controlled, no flatus Objective Vitals/I&O Vital Signs Date Time Temp Pulse Resp B/P (MAP) Pulse Ox O2 Delivery O2 Flow Rate FiO2 08/21/17 08:13 Nasal Cannula 2.00 08/21/17 08:00 97.9 88 16 147/80 (102) 96 Labs Laboratory Tests Test 08/20/17 16:54 08/21/17 06:15 Urine Color YELLOW Urine Turbidity CLOUDY Urine pH 5.5 Urine Specific [place] 1.027 Urine Protein 300 Urine Glucose (UA) TRACE Urine Ketones NEG Urine Occult Blood MOD Urine Nitrite NEG Urine Bilirubin NEG Urine Urobilinogen LESS THAN 2.0 Urine Leukocyte Esterase LARGE Urine RBC 147 Urine WBC Urine WBC Clumps MANY Urine Squamous Epithelial Cells 17 Urine Bacteria MOD Urine Mucus FEW Microscopic Urinalysis Comment CULTURE INDICATED White Blood Count 13.9 Red Blood Count 3.77 Hemoglobin 11.2 Hematocrit 34.3 Mean Corpuscular Volume 91.1 Mean Corpuscular Hemoglobin 29.8 Mean Corpuscular Hemoglobin Concent 32.8 Red Cell Distribution Width 15.5 Platelet Count 192 Mean Platelet Volume 8.1 Prothrombin Time 10.8 Prothromb Time International Ratio 1.1 Blood Urea Nitrogen 56 Creatinine 3.37 Random Glucose 155 Total Protein 6.2 Albumin 2.3 Calcium Level 8.2 Magnesium Level 2.1 Alkaline Phosphatase 185 Aspartate Amino Transf (AST/SGOT) 55 Alanine Aminotransferase (ALT/SGPT) 26 Total Bilirubin 0.6 Direct Bilirubin 0.3 Sodium Level 139 Potassium Level 5.3 Chloride Level 107 Carbon Dioxide Level 20.2 Anion Gap 12 Estimat Glomerular Filtration Rate 14 Indirect Bilirubin 0.3 Date/Time Source Procedure Growth Status 08/20/17 16:54 Urine Clean Catch Urine Culture Pending Received Abdomen: Other (small yovani leak, delisa bile, soft incisional tenderness ) A/P Assessment and Plan POD #2 cholecystectomy with CBD exploration and stone extraction; Stable, clinically looks good, cr increasing cr increasing, avoid nephrotoxic agents- nephro following Slowly recovering keep clears Monitor DELISA output bilious pain control dvt ppx await bx results Bandar Pate MD Aug 21, 2017 11:08
[2017-08-21] MEDS: cefTRIAXone INJ 1,000 MG in SODIUM CHLORIDE 0.9% INJ 100 ML IV SCH (11:26)
--- NOTE | 2017-08-21 12:45 | RADRPT ---
EXAM DATE/TIME: 08/21/2017 12:12 [facility] COMPARISON: US ABDOMEN - COMPLETE, August 03, 2017, 16:04. EXTERNAL COMPARISON : [facility], US ABDOMEN COMPLETE, July 27, 2017 INDICATIONS : Increased BUN/creatinine. MEDICAL HISTORY : Congestive heart failure. Hypercholesterolemia. Neuropathy. HTN. GERD. Ulcer. Gallstones. Stage IV renal failure. UTI. Degenerative disc disease. Liver disease. Diabetes. Anticoagulant therapy, Plavix . SURGICAL HISTORY : section. Bilateral cataract surgery. Cardiac cath. Gastric bypass. Lumber laminectomy. M ultiple foot surgeries. Back surgery. ENCOUNTER: Initial ACUITY: 1 day PAIN SCORE: 0/10 LOCATION: Bilateral flank MEASUREMENTS: RIGHT KIDNEY: 10.1 x 4.9 x 4.5 cm LEFT KIDNEY: 10.6 x 5.0 x 5.2 cm FINDINGS: RIGHT KIDNEY: The kidney appears normal in size. There is no hydronephrosis. The echogenicity of the renal cortex a ppears within normal limits. No mass is seen. LEFT KIDNEY: Renal cortex is normal in thickness and echotexture. No hydronephrosis, stone, or mass. BLADDER: Within normal limits given the degree of distension. CONCLUSION: 1. No hydronephrosis identified. 2. Echogenicity of the renal cortex appears to be at the upper limits of normal. Jimy Rosario MD on August 21, 2017 at 12:42 Board Certified Radiologist. This report was verified electronically.
[2017-08-21] MEDS: HEPARIN SODIUM - SQ 10,000 UNITS/ML VIAL SQ SCH ×2 (13:41→21:42)
--- NOTE | 2017-08-21 16:06 | HHI.PR ---
Subjective Remarks The patient was resting comfortably in bed. She denied any shortness of breath. She said she worked with physical therapy. She has been sleeping at night. She had questions pertaining to her liver. Discussed with nursing. Objective Vitals Vital Signs Date Time Temp Pulse Resp B/P (MAP) Pulse Ox O2 Delivery O2 Flow Rate FiO2 08/21/17 11:35 Nasal Cannula 1.00 08/21/17 11:29 97.4 87 16 129/71 (90) 97 08/21/17 11:26 16 08/21/17 09:47 96 Nasal Cannula 2.00 08/21/17 08:13 Nasal Cannula 2.00 08/21/17 08:00 97.9 88 16 147/80 (102) 96 08/21/17 07:57 16 08/21/17 06:00 17 08/21/17 04:35 97.5 79 18 141/75 (97) 94 08/21/17 00:30 97.4 75 18 117/69 (85) 94 08/20/17 21:50 18 08/20/17 20:30 96.8 68 17 101/65 (77) 92 08/20/17 16:59 Room Air I/O 08/20/17 08/20/17 08/20/17 08/21/17 08/21/17 08/21/17 07:00 15:00 23:00 07:00 15:00 23:00 Intake Total 1806 ml 100 ml 360 ml Output Total 530 ml 25 ml 140 ml 300 ml 205 ml Balance 1276 ml 75 ml -140 ml 60 ml -205 ml Intake Oral 360 ml IV Total 1806 ml 100 ml Output Urine Total 240 ml 300 ml Drainage Total 290 ml 25 ml 140 ml 205 ml # Bowel Movements 0 Result Diagram: 08/21/17 0615 08/21/17 0615 Imaging Last Impressions Chest X-Ray 08/20/17 0000 Signed Impressions: Service Date/Time: Sunday, August 20, 2017 17:08 - CONCLUSION: 1. Cardiomegaly. Linear atelectasis or scarring at the bases. Isak Turk MD Cholangiogram 08/19/17 0000 Signed Impressions: Service Date/Time: Saturday, August 19, 2017 15:16 - CONCLUSION: 1. Questionable distal hepatic duct stone just above the cystic duct. 2. Distended common bile duct. Wesley Weems MD Objective Remarks GENERAL: Well-nourished, well-developed patient. SKIN: Warm and dry. HEAD: Normocephalic. EYES: No scleral icterus. No injection or drainage. NECK: Supple, trachea midline. No JVD or lymphadenopathy. CARDIOVASCULAR: Regular rate and rhythm without murmurs, gallops, or rubs. RESPIRATORY: Breath sounds equal bilaterally. No accessory muscle use. GASTROINTESTINAL: Abdomen soft, non-tender, nondistended. MUSCULOSKELETAL: No cyanosis, or edema. BACK: Nontender without obvious deformity. NEURO: No gross deficits. Medications and IVs Current Medications Medications (Trade) Dose Ordered Sig/Barbara Route Start Time Stop Time Status Last Admin Sodium Chloride 1,000 ml @ 100 mls/hr Q10H IV 08/19/17 19:52 08/21/17 07:58 (NS Flush) 2 ml UNSCH PRN IV FLUSH 08/19/17 20:00 (NS Flush) 2 ml BID IV FLUSH 08/19/17 21:00 08/20/17 21:50 (Zofran Inj) 4 mg Q6H PRN IV PUSH 08/19/17 20:00 (Benadryl Inj) 25 mg Q6H PRN IV PUSH 08/19/17 20:00 (Hurricaine 20% Oral Spr) 1 spray UNSCH X1 PRN MT 08/19/17 20:00 08/21/17 19:59 (Narcan Inj) 0.4 mg UNSCH PRN IV PUSH 08/19/17 20:00 (Morphine 1 Mg/ ml SENIOR PROJECT ENGINEER) 30 mg UNSCH IV 08/19/17 20:00 08/21/17 07:57 SENIOR PROJECT ENGINEER Dosage Infused (Pha) 1 Q8HR .XX 08/19/17 22:00 08/21/17 11:26 (Coreg) 12.5 mg DAILY PO 08/20/17 09:00 08/21/17 08:00 (Cymbalta Dr) 60 mg DAILY PO 08/20/17 09:00 08/21/17 08:00 (Neurontin) 300 mg BID PO 08/19/17 21:00 Future Hold 08/21/17 08:00 (Procardia Xl) 60 mg DAILY PO 08/20/17 09:00 08/21/17 08:00 (Patanol 0.1% Opth) 1 drop BID EACH EYE 08/19/17 21:00 08/21/17 08:01 (Requip) 0.5 mg HS PO 08/19/17 21:00 08/20/17 21:00 (D50w (Vial) Inj) 50 ml UNSCH PRN IV PUSH 08/19/17 22:30 (Glucagon Inj) 1 mg UNSCH PRN OTHER 08/19/17 22:30 (NovoLOG SUPPLEMENTAL SCALE) 1 ACHS SLIDING SCALE SQ 08/20/17 08:00 08/21/17 11:34 (Pepcid Inj) 10 mg Q12HR IV PUSH 08/20/17 21:00 08/21/17 08:00 (Charity-Colace) 1 tab BID PO 08/20/17 16:15 08/21/17 08:00 Ceftriaxone Sodium 1000 mg/ Sodium Chloride 100 ml @ 200 mls/hr Q24H IV 08/21/17 11:00 08/21/17 11:26 (Heparin Inj) 5,000 units Q8HR SQ 08/21/17 14:00 08/21/17 13:41 A/P Assessment and Plan Acute cholecystitis Status post laparoscopic cholecystectomy, intraoperative cholangiogram and laparoscopic common bile duct exploration with removal of multiple choledocholithiasis by general surgery. It was converted to an open common bile duct exploration and liver biopsy. - Further management per general surgery. - Pain control with a bowel regimen. Currently on a SENIOR PROJECT ENGINEER. Add oxycodone. - incentive spirometry. - Physical therapy. Newly diagnosed liver failure Status post open liver biopsy. INR 1.1. Albumin is low. - Pathology pending. - follow LFTs. Acute on chronic kidney disease Creatinine increased overnight. Possibly prerenal. Renal ultrasound unremarkable. - Monitor BMP and avoid nephrotoxins. - Continue IV fluids. - Calculate FENa. - nephrology consult requested. - Kayexalate for hyperkalemia. Lethargy Chronic problem. B12 and TSH within normal limits. - Encourage ambulation. - Advance diet as tolerated. Hypertension Blood pressure exacerbated by pain. Well-controlled at this time. - Continue Coreg and Procardia. - Pain control. Dyslipidemia On a statin. - Hold statin due to liver failure. Diabetes mellitus Glucose has been well controlled and low at times. A1c 8.8%. - Insulin sliding scale. Add Levemir 10 units daily. - Continue gabapentin for neuropathy. Leukocytosis Afebrile. Likely reactive secondary to surgery. Chest x-ray unremarkable. UA indicative of an infection. - IV ceftriaxone. - Follow urine culture. - Follow CBC. PPx: Per surgery Alverto Kingston DO Aug 21, 2017 16:06
[2017-08-21] MEDS ORDERED: INSULIN DETEMIR 100 UNITS/ML VIAL SQ SCH (16:15)
[2017-08-21] MEDS ORDERED: FUROSEMIDE 40 MG/4 ML VIAL IV PUSH ONE (16:45)
[2017-08-21] MEDS: ALBUMIN HUMAN 25% 25 GM/100 ML BAGP IV SCH (16:52)
--- NOTE | 2017-08-21 17:26 | MB ---
cc: Jimy Casanova MD DATE OF CONSULT: 08/21/2017 REASON FOR CONSULTATION: [id number] renal failure management. HISTORY OF PRESENT ILLNESS: This is a 61-year-old female with history of CKD stage 4-5. She has followed up with Dr. Shelley in the past. She also has history of liver disease, which is a relatively new diagnosis. This was attributed to PETERS in the past. She also has history of hypertension, diabetes, TIA and CHF. The patient was admitted here on 08/19. On that day, she underwent a laparoscopic cholecystectomy and had a laparoscopic common bile duct exploration with multiple stone removals. This was converted to an open bile duct exploration and open stone removal. At the time, she also had a liver biopsy. The patient had an uncomplicated procedure otherwise. Her blood pressure remained relatively stable. She did have a slight drop in her systolic blood pressure to the 90s postoperatively; however, this improved to a level in the 130s to 140s now. She is resting in bed comfortably; however, over the course of her hospital stay, she has had deteriorating renal function. Her creatinine at time of admission on 08/19 was 2.11 corresponding to a GFR of 24. His creatinine steadily decreased from a level of 2.1-2.3 down to 3.3 today. The patient is only on 300 mL of urine output over the last 24 hours. She continues on IV fluids with normal saline at 100 mL per hour. At this point, the patient is resting in bed comfortably. She complains of some soreness and some throat soreness postoperatively; however, otherwise has been relatively stable post surgery. She otherwise has been somewhat lethargic post surgery. Her diabetes has been controlled with insulin sliding scale. She continues on antibiotic coverage with ceftriaxone at this time. Nephrology was consulted for further evaluation. REVIEW OF SYSTEMS: The patient reports having some fatigue and some soreness from surgery. No nausea, no vomiting, no diarrhea. No chest pains. No dizziness or loss of consciousness. Otherwise, review of systems negative. The patient has a Owens catheter in place with clear yellow drainage. PAST MEDICAL HISTORY: Includes CKD stage 4-[address] Shelley, hypertension, dyslipidemia, diabetes, TIA, CHF, neuropathy, apparent new diagnosis of liver failure, which has been attributed to possible PETERS in the past. PAST SURGICAL HISTORY: Includes x2, gastric bypass, back surgery and tonsillectomy. MEDICATIONS: At home, included: 1. Nifedipine ER 60 mg daily. 2. Ferrous sulfate. 3. Vitamin D3. 4. Lantus 52 units subcutaneously at bedtime. 5. Melatonin. 6. Lasix 40 mg p.o. daily. 7. NovoLog insulin. 8. Ropinirole. 9. Plavix. 10. Omeprazole. 11. Gabapentin. 12. Lisinopril 20 mg p.o. daily. 13. Coreg. 14. Duloxetine. SOCIAL HISTORY: No alcohol or drug use. FAMILY HISTORY: Noncontributory. No history of malignancy. PHYSICAL EXAMINATION: VITAL SIGNS: At time of evaluation, temperature 97.4, pulse 87, respiratory rate 16, blood pressure 129/71 with pulse oximetry 97% on 1 liter nasal cannula. GENERAL: Awake, alert, oriented, in no apparent distress. NECK: Soft, supple. CARDIAC: Regular rate and rhythm. PULMONARY: Clear to auscultation. Decreased breath sounds at bases. ABDOMEN: Soft. Mild tenderness. EXTREMITIES: No edema. LABORATORY DATA: Sodium 139, potassium 5.3, chloride 107, bicarbonate 20.2, BUN of 56, creatinine 3.3, glucose 155. White count 13.9, hemoglobin 11.2, hematocrit 34.3 with a platelet count of 192,000. ASSESSMENT AND PLAN: 1. Acute kidney injury on chronic kidney disease stage 4-5. The patient had chronic kidney disease attributed to diabetic nephropathy in the past. follows up with Dr. Shelley. The patient was recently admitted here At that time, she had acute renal failure with a creatinine that nallely as high as a level of 4.3. This improved down to a level of 2.57 at time of discharge on 08/04. Upon presentation here for surgery, her creatinine was 2.1. This steadily increased over several days up to a level of 3.3 with diminishing urine output and only 300 mL of urine output in the last 24 hours. At this point, I suspect the patient may have some acute kidney injury postoperatively with some relative hypotension. She had a systolic blood pressure that dropped to the 90s post surgery, however, this has improved to a level of 130s. This may be contributing to some element of her renal dysfunction with some possible acute tubular necrosis here. She has poor underlying renal function to begin, and it had been discussed with her she may be a candidate for dialysis in the past. At this point, continue to monitor closely. She has remained on IV fluids since surgery with 100 mL of normal saline per hour. She has no signs of any volume overload at this point, it is possible thate she may be developing some sort of hepatorenal syndrome. The etiology for her liver dysfunction is unclear at this point, and a liver biopsy was performed. Those results are pending. She also has a slightly low albumin, which suggests some poor nutrition versus intrinsic hepatic disease. At this point, I will go ahead and give a trial of some Lasix. I will give 40 mg of Lasix IV x1 and start an infusion of albumin. This may further help with renal perfusion and help draw fluid within the vascular space. We will go ahead and keep the IV fluids running for now and continue to monitor. She is still tolerating only limited p.o. intake. Should her p.o. intake improve, IV fluids may be stopped. Continue to closely monitor renal function. No immediate need for any hemodialysis at this point; however, continue medical management. 2. Status post cholecystectomy with open bile duct exploration and open liver biopsy and removal of stones. The patient is doing well postoperatively. Continue with pain management. Avoid any NSAIDs. Continue to closely monitor. 3. Diabetes. Continue with glucose control with insulin. 4. Hypertension. Blood pressure stable. Continue to monitor. SRINIVASAN inhibitors are on hold given renal failure. 5. Hyperkalemia. The patient had some mild hyperkalemia with a potassium of 5.3. She was given Kayexalate earlier. Continue to closely monitor. Hopefully, urine output will improve and this should improve. MD MICHAEL Nichols/CLARITA , 04:50 PM , 05:24 PM TIFF
[2017-08-22] VITALS (8 sets, daily range): BP systolic 133–181; BP diastolic 72–87; PULSE 81–94; RESP 17–19; TEMP 96.1–97.8; O2SAT 91–94
[2017-08-22] MEDS: SODIUM CHLOR 0.9% 1000 ML INJ 1,000 ML IV SCH (05:11)
[2017-08-22] MEDS: ALBUMIN HUMAN 25% 25 GM/100 ML BAGP IV SCH ×2 (05:53→17:00)
[2017-08-22] MEDS: PCA - TOTAL MG MORPHINE DELIVERED PER SHIFT SCH ×3 (05:53→22:00)
[2017-08-22] MEDS: HEPARIN SODIUM - SQ 10,000 UNITS/ML VIAL SQ SCH ×3 (05:53→22:13)
[2017-08-22 07:56] LABS: AUTOMATED NEUTROPHIL # 9.6 TH/MM3 (1.8-7.7); BASOPHIL % 0.5 % (0.0-2.0); EOSINOPHIL # 0.1 TH/MM3 (0-0.4); EOSINOPHIL % 0.9 % (0.0-4.0); HEMATOCRIT 33.5 % (35.0-46.0); HEMOGLOBIN 11.1 GM/DL (11.6-15.3); LYMPHOCYTE # 0.4 TH/MM3 (1.0-4.8); MEAN CELL VOLUME 89.9 FL (80.0-100.0); MEAN CORPUSCULAR HEMOGLOBIN 29.7 PG (27.0-34.0); MEAN CORPUSCULAR HGB CONC 33.1 % (32.0-36.0); MEAN PLATELET VOLUME 8.3 FL (7.0-11.0); MONO % 5.6 % (0.0-8.0); MONOCYTE # 0.6 TH/MM3 (0-0.9); PLATELET COUNT 173 TH/MM3 (150-450); RED BLOOD COUNT 3.73 MIL/MM3 (4.00-5.30); RED CELL DISTRIBUTION WIDTH 15.2 % (11.6-17.2); WHITE BLOOD COUNT 10.8 TH/MM3 (4.0-11.0)
[2017-08-22] MEDS: INSULIN ASPART SUPPLEMENTAL SCALE SQ SCH ×4 (08:00→22:15)
[2017-08-22 08:30] LABS: ALBUMIN 2.7 GM/DL (3.4-5.0); ALKALINE PHOSPHATASE 155 U/L (45-117); ALT (GPT) 20 U/L (10-53); AST (GOT) 32 U/L (15-37); BLOOD UREA NITROGEN 57 MG/DL (7-18); CALCIUM 8.4 MG/DL (8.5-10.1); CHLORIDE 109 MEQ/L (98-107); CREATININE 2.99 MG/DL (0.50-1.00); GLOMERULAR FILTRATION RATE 16 ML/MIN (>89); GLUCOSE,RANDOM 103 MG/DL (74-106); MAGNESIUM 2.1 MG/DL (1.5-2.5); SODIUM (NA) 142 MEQ/L (136-145); TOTAL BILIRUBIN ADULT 0.6 MG/DL (0.2-1.0); TOTAL PROTEIN 6.9 GM/DL (6.4-8.2)
[2017-08-22] MEDS: INSULIN DETEMIR 100 UNITS/ML VIAL SQ SCH (08:52)
[2017-08-22] MEDS: SODIUM CHLORIDE 0.9% FLUSH 10 ML FLUSH IV FLUSH SCH ×2 (08:54→21:00)
[2017-08-22] MEDS: NIFEdipine 60 MG SUSTAINED RELEASE TAB PO SCH (08:54)
[2017-08-22] MEDS: OLOPATADINE HCL 0.1% OPHT SOLN 5 ML BTL EACH EYE SCH ×2 (08:54→21:00)
[2017-08-22] MEDS: DULoxetine HCl DR 60 MG CAP PO SCH (08:54)
[2017-08-22] MEDS: DOCUSATE SODIUM 50 MG/SENNA 8.6 MG TAB PO SCH ×2 (08:54→22:14)
[2017-08-22] MEDS: CARVEDILOL 12.5 MG TAB PO SCH (08:54)
[2017-08-22] MEDS: FAMOTIDINE 20 MG/2 ML VIAL IV PUSH SCH ×2 (08:57→22:14)
--- NOTE | 2017-08-22 11:00 | HHI.NPPN ---
Subjective Complaints: Abdominal Pain Renal Failure: Chronic, Acute, Stage IV Interval History She is awake, alert. Having some drainage from drain site. Creatinine improved. (Alexandra Lizarraga) Objective Data Data Vital Signs Date Time Temp Pulse Resp B/P (MAP) Pulse Ox O2 Delivery O2 Flow Rate FiO2 08/22/17 08:25 93 Nasal Cannula 2.00 08/22/17 07:31 97.3 88 19 160/72 (101) 91 08/22/17 04:10 97.1 84 17 154/76 (102) 94 08/22/17 00:35 96.9 81 18 133/73 (93) 93 08/21/17 21:42 17 08/21/17 20:40 97.4 82 17 133/70 (91) 93 08/21/17 19:44 94 21 08/21/17 18:03 Room Air 08/21/17 17:07 94 Room Air 08/21/17 16:46 97.0 78 16 122/65 (84) 94 08/21/17 11:35 Nasal Cannula 1.00 08/21/17 11:29 97.4 87 16 129/71 (90) 97 08/21/17 11:26 16 (Alexandra Lizarraga) -: 08/22/17 0555 08/22/17 0555 Imaging Last 72 hours Impressions Renal Ultrasound 08/21/17 0000 Signed Impressions: Service Date/Time: Monday, August 21, 2017 12:12 - CONCLUSION: 1. No hydronephrosis identified. 2. Echogenicity of the renal cortex appears to be at the upper limits of normal. Jimy Rosario MD Chest X-Ray 08/20/17 0000 Signed Impressions: Service Date/Time: Sunday, August 20, 2017 17:08 - CONCLUSION: 1. Cardiomegaly. Linear atelectasis or scarring at the bases. Isak Turk MD Tubes & Lines Comment GB drain (Alexandra Lizarraga) Physical Exam General Appearance: Well Developed, Well Nourished, Comfortable (Alexandra Lizarraga) Eyes Eye Exam: Pupils Equal (Alexandra Lizarraga) Throat Throat Exam: Oral Mucosa [place] & Moist (Alexandra Lizarraga) Neck Neck Exam: Neck Supple (Alexandra Lizarraga) Cardiology CV Exam: Regular, Normal Sinus Rhythm (Alexandra Lizarraga) Gastrointestinal/Abdomen GI Exam: Soft, Non-Tender (Alexandra Lizarraga) Musculoskeletal MS Exam: Joints Intact, Normal Gait, Normal Tone (Alexandra Lizarraga) Integumentary Skin Exam: Warm, Dry (Alexandra Lizarraga) Extremeties Extremities Exam: No Edema, Pedal Pulses Palpable (Alexandra Lizarraga) Neurologic Neuro Exam: Alert, Awake, Oriented, Speech Clear, Moving All Extremities (Alexandra Lizarraga) Psychiatric Psych Exam: Appropriate Responses (Alexandra Lizarraga) Assessment/Plan Discussed Condition With: Patient Assessment Summary: ROZINA/Acute Renal Failure, Hypertension, Diabetes Mellitus, CKD Stage III Problem List: (1) Acute renal failure ICD Codes: N17.9 - Acute kidney failure, unspecified Status: Acute Plan: Baseline CKD 4, creatinine 2.05-2.1, GFR 25; Underlying diabetic nephropathy, 5 g proteinuria ROZINA may be due to post operative hypotension Renal function is improving Reduce IVF (NS) to 50 cc/hr She is making urine Repeat labs in am Avoid nephrotoxic agents PO fluids encouraged (2) Cholelithiasis ICD Codes: K80.20 - Calculus of gallbladder without cholecystitis without obstruction Plan: s/p lap cholecystectomy Drain in place, surgery to follow (Alexandra Lizarraga) Plan patient was seen and examined. Renal function has improved. Taper off fluids. Agree with above assessment and plan. (Mj Shelley MD) Alexandra Lizarraga Aug 22, 2017 10:59 Mj Shelley MD Aug 22, 2017 19:50
[2017-08-22] MEDS: cefTRIAXone INJ 1,000 MG in SODIUM CHLORIDE 0.9% INJ 100 ML IV SCH (12:35)
[2017-08-22] MEDS: cloNIDine HCL 0.1 MG TAB PO PRN (14:33)
--- NOTE | 2017-08-22 15:59 | HHI.PR ---
Subjective Remarks The patient was resting comfortably in bed. She had family at the bedside. She was complaining of some abdominal swelling and some increased shortness of breath with ambulation. She says the breathing treatments have been helpful. Otherwise she had no acute complaints. Objective Vitals Vital Signs Date Time Temp Pulse Resp B/P (MAP) Pulse Ox O2 Delivery O2 Flow Rate FiO2 08/22/17 15:38 96.1 81 19 140/72 (94) 91 08/22/17 13:16 18 08/22/17 11:27 97.8 94 19 181/87 (118) 92 08/22/17 08:25 93 Nasal Cannula 2.00 08/22/17 07:31 97.3 88 19 160/72 (101) 91 08/22/17 04:10 97.1 84 17 154/76 (102) 94 08/22/17 00:35 96.9 81 18 133/73 (93) 93 08/21/17 21:42 17 08/21/17 20:40 97.4 82 17 133/70 (91) 93 08/21/17 19:44 94 21 08/21/17 18:03 Room Air 08/21/17 17:07 94 Room Air 08/21/17 16:46 97.0 78 16 122/65 (84) 94 I/O 08/21/17 08/21/17 08/21/17 08/22/17 08/22/17 08/22/17 07:00 15:00 23:00 07:00 15:00 23:00 Intake Total 360 ml 100 ml 360 ml 1500 ml Output Total 300 ml 205 ml 60 ml 990 ml 80 ml Balance 60 ml -105 ml -60 ml -630 ml 1420 ml Intake Oral 360 ml 360 ml 700 ml IV Total 100 ml 800 ml Output Urine Total 300 ml 950 ml Drainage Total 205 ml 60 ml 40 ml 80 ml # Voids 3 # Bowel Movements 0 0 Result Diagram: 08/22/17 0555 08/22/17 0555 Imaging Last Impressions Renal Ultrasound 08/21/17 0000 Signed Impressions: Service Date/Time: Monday, August 21, 2017 12:12 - CONCLUSION: 1. No hydronephrosis identified. 2. Echogenicity of the renal cortex appears to be at the upper limits of normal. Jimy Rosario MD Chest X-Ray 08/20/17 0000 Signed Impressions: Service Date/Time: Sunday, August 20, 2017 17:08 - CONCLUSION: 1. Cardiomegaly. Linear atelectasis or scarring at the bases. Isak Turk MD Cholangiogram 08/19/17 0000 Signed Impressions: Service Date/Time: Saturday, August 19, 2017 15:16 - CONCLUSION: 1. Questionable distal hepatic duct stone just above the cystic duct. 2. Distended common bile duct. Wesley Weems MD Objective Remarks GENERAL: Well-nourished, well-developed patient. SKIN: Warm and dry. HEAD: Normocephalic. EYES: No scleral icterus. No injection or drainage. NECK: Supple, trachea midline. No JVD or lymphadenopathy. CARDIOVASCULAR: Regular rate and rhythm without murmurs, gallops, or rubs. RESPIRATORY: Breath sounds equal bilaterally. No accessory muscle use. GASTROINTESTINAL: Abdomen distended but soft, non-tender. MUSCULOSKELETAL: No cyanosis, or edema. BACK: Nontender without obvious deformity. NEURO: No gross deficits. PSYCH: Mood and affect appropriate. Medications and IVs Current Medications Medications (Trade) Dose Ordered Sig/Barbara Route Start Time Stop Time Status Last Admin (NS Flush) 2 ml UNSCH PRN IV FLUSH 08/19/17 20:00 (NS Flush) 2 ml BID IV FLUSH 08/19/17 21:00 08/21/17 21:43 (Zofran Inj) 4 mg Q6H PRN IV PUSH 08/19/17 20:00 (Benadryl Inj) 25 mg Q6H PRN IV PUSH 08/19/17 20:00 08/21/17 21:41 (Narcan Inj) 0.4 mg UNSCH PRN IV PUSH 08/19/17 20:00 (Morphine 1 Mg/ ml WIRER HELPER) 30 mg UNSCH IV 08/19/17 20:00 08/21/17 07:57 WIRER HELPER Dosage Infused (Pha) 1 Q8HR .XX 08/19/17 22:00 08/22/17 13:16 (Coreg) 12.5 mg DAILY PO 08/20/17 09:00 08/22/17 08:54 (Cymbalta Dr) 60 mg DAILY PO 08/20/17 09:00 08/22/17 08:54 (Neurontin) 300 mg BID PO 08/19/17 21:00 Future Hold 08/21/17 08:00 (Procardia Xl) 60 mg DAILY PO 08/20/17 09:00 08/22/17 08:54 (Patanol 0.1% Opth) 1 drop BID EACH EYE 08/19/17 21:00 08/21/17 08:01 (Requip) 0.5 mg HS PO 08/19/17 21:00 08/21/17 21:40 (D50w (Vial) Inj) 50 ml UNSCH PRN IV PUSH 08/19/17 22:30 (Glucagon Inj) 1 mg UNSCH PRN OTHER 08/19/17 22:30 (NovoLOG SUPPLEMENTAL SCALE) 1 ACHS SLIDING SCALE SQ 08/20/17 08:00 08/22/17 12:36 (Pepcid Inj) 10 mg Q12HR IV PUSH 08/20/17 21:00 08/22/17 08:57 (Charity-Colace) 1 tab BID PO 08/20/17 16:15 08/22/17 08:54 Ceftriaxone Sodium 1000 mg/ Sodium Chloride 100 ml @ 200 mls/hr Q24H IV 08/21/17 11:00 08/22/17 12:35 (Heparin Inj) 5,000 units Q8HR SQ 08/21/17 14:00 08/22/17 12:35 (Roxicodone) 5 mg Q4H PRN PO 08/21/17 16:00 (Roxicodone) 10 mg Q4H PRN PO 08/21/17 16:00 (Levemir Inj) 10 units DAILY SQ 08/22/17 09:00 (Albumin 25% Inj) 25 gm Q12H IV 08/21/17 17:00 08/22/17 05:53 (Catapres) 0.1 mg Q6H PRN PO 08/22/17 14:00 08/22/17 14:33 A/P Assessment and Plan Acute cholecystitis Status post laparoscopic cholecystectomy, intraoperative cholangiogram and laparoscopic common bile duct exploration with removal of multiple choledocholithiasis by general surgery. It was converted to an open common bile duct exploration and liver biopsy. - Further management per general surgery. - Pain control with a bowel regimen. - incentive spirometry. - Physical therapy. Newly diagnosed liver failure Status post open liver biopsy. INR 1.1. Albumin is low. - Pathology pending. - follow LFTs. Acute on chronic kidney disease Appreciate nephrology consult. Creatinine improved. - Monitor BMP and avoid nephrotoxins. - d/c IV fluids as patient appears somewhat overloaded. - Calculate FENa. - nephrology following. Lethargy Chronic problem. B12 and TSH within normal limits. - Encourage ambulation. - Advance diet as tolerated. Hypertension Blood pressure exacerbated by pain. - Continue Coreg and Procardia. - Pain control. - Clonidine as needed. Dyslipidemia On a statin. - Hold statin due to liver failure. Diabetes mellitus Glucose has been well controlled. A1c 8.8%. - Insulin sliding scale. Added Levemir 10 units daily. - Continue gabapentin for neuropathy. Leukocytosis Afebrile. Likely reactive secondary to surgery. Chest x-ray unremarkable. UA indicative of an infection. Urine culture was negative. Leukocytosis resolved. - d/c ceftriaxone. PPx: Per surgery Discharge Planning Per surgery Alverto Kingston DO Aug 22, 2017 15:59
--- NOTE | 2017-08-22 17:03 | HHI.PR ---
Subjective Subjective Notes Resting in bed Has been OOB today Objective Vitals/I&O Vital Signs Date Time Temp Pulse Resp B/P (MAP) Pulse Ox O2 Delivery O2 Flow Rate FiO2 08/22/17 15:38 96.1 81 19 140/72 (94) 91 08/22/17 08:25 Nasal Cannula 2.00 08/21/17 19:44 21 Labs Laboratory Tests Test 08/22/17 05:55 White Blood Count 10.8 Red Blood Count 3.73 Hemoglobin 11.1 Hematocrit 33.5 Mean Corpuscular Volume 89.9 Mean Corpuscular Hemoglobin 29.7 Mean Corpuscular Hemoglobin Concent 33.1 Red Cell Distribution Width 15.2 Platelet Count 173 Mean Platelet Volume 8.3 Neutrophils (%) (Auto) 89.0 Lymphocytes (%) (Auto) 4.0 Monocytes (%) (Auto) 5.6 Eosinophils (%) (Auto) 0.9 Basophils (%) (Auto) 0.5 Neutrophils # (Auto) 9.6 Lymphocytes # (Auto) 0.4 Monocytes # (Auto) 0.6 Eosinophils # (Auto) 0.1 Basophils # (Auto) 0.0 CBC Comment DIFF FINAL Differential Comment Blood Urea Nitrogen 57 Creatinine 2.99 Random Glucose 103 Total Protein 6.9 Albumin 2.7 Calcium Level 8.4 Phosphorus Level 5.0 Magnesium Level 2.1 Alkaline Phosphatase 155 Aspartate Amino Transf (AST/SGOT) 32 Alanine Aminotransferase (ALT/SGPT) 20 Total Bilirubin 0.6 Sodium Level 142 Potassium Level 3.9 Chloride Level 109 Carbon Dioxide Level 22.0 Anion Gap 11 Estimat Glomerular Filtration Rate 16 Date/Time Source Procedure Growth Status 08/20/17 16:54 Urine Clean Catch Urine Culture - Final NO GROWTH IN 48 HOURS. Complete Cardiovascular: Regular Lungs: Clear Abdomen: Other (NEHAL in place to RUQ; NANY with bilious output ), Post-op tenderness Extremities: No edema A/P Assessment and Plan 61 year old female POD3 cholecystectomy with CBD exploration and stone extraction -Acute on chronic renal failure-- numbers improving -Clear liquids -OOB as tolerated -Continue routine NANY care -IS -Repeat labs tomorrow Micheline Tadeo. TAMIE/First Cj WILLETT Aug 22, 2017 17:03
[2017-08-23] VITALS (9 sets, daily range): BP systolic 148–182; BP diastolic 74–89; PULSE 74–90; RESP 16–19; TEMP 96.2–97.2; O2SAT 90–93
[2017-08-23] MEDS: PCA - TOTAL MG MORPHINE DELIVERED PER SHIFT SCH ×3 (05:27→21:47)
[2017-08-23] MEDS: ALBUMIN HUMAN 25% 25 GM/100 ML BAGP IV SCH ×2 (05:27→17:31)
[2017-08-23] MEDS: HEPARIN SODIUM - SQ 10,000 UNITS/ML VIAL SQ SCH ×3 (05:28→21:48)
[2017-08-23 06:18] LABS: AUTOMATED NEUTROPHIL # 6.1 TH/MM3 (1.8-7.7); BASOPHIL % 0.3 % (0.0-2.0); EOSINOPHIL # 0.1 TH/MM3 (0-0.4); EOSINOPHIL % 1.6 % (0.0-4.0); HEMATOCRIT 29.6 % (35.0-46.0); LYMPH % 5.3 % (9.0-44.0); LYMPHOCYTE # 0.4 TH/MM3 (1.0-4.8); MEAN CELL VOLUME 88.9 FL (80.0-100.0); MEAN CORPUSCULAR HGB CONC 33.8 % (32.0-36.0); MEAN PLATELET VOLUME 8.2 FL (7.0-11.0); MONO % 6.5 % (0.0-8.0); MONOCYTE # 0.5 TH/MM3 (0-0.9); NEUT % 86.3 % (16.0-70.0); PLATELET COUNT 155 TH/MM3 (150-450); RED BLOOD COUNT 3.33 MIL/MM3 (4.00-5.30); RED CELL DISTRIBUTION WIDTH 14.7 % (11.6-17.2); WHITE BLOOD COUNT 7.1 TH/MM3 (4.0-11.0)
[2017-08-23 06:22] LABS: ALBUMIN 2.9 GM/DL (3.4-5.0); BICARBONATE 20.5 MEQ/L (21.0-32.0); CALCIUM 9.1 MG/DL (8.5-10.1); CREATININE 2.5 MG/DL (0.50-1.00)
[2017-08-23 06:32] LABS: DIRECT BILIRUBIN ADULT 0.3 MG/DL (0.0-0.2); INDIRECT BILIRUBIN 0.4 MG/DL (0.0-0.8); PHOSPHORUS 3.8 MG/DL (2.5-4.9); TOTAL BILIRUBIN ADULT 0.7 MG/DL (0.2-1.0); TOTAL PROTEIN 6.7 GM/DL (6.4-8.2)
[2017-08-23] MEDS: INSULIN ASPART SUPPLEMENTAL SCALE SQ SCH ×4 (08:00→21:00)
[2017-08-23] MEDS: DOCUSATE SODIUM 50 MG/SENNA 8.6 MG TAB PO SCH ×2 (08:26→21:46)
[2017-08-23] MEDS: FAMOTIDINE 20 MG/2 ML VIAL IV PUSH SCH ×2 (08:26→21:46)
[2017-08-23] MEDS: CARVEDILOL 12.5 MG TAB PO SCH (08:26)
[2017-08-23] MEDS: NIFEdipine 60 MG SUSTAINED RELEASE TAB PO SCH (08:26)
[2017-08-23] MEDS: DULoxetine HCl DR 60 MG CAP PO SCH (08:26)
[2017-08-23] MEDS: INSULIN DETEMIR 100 UNITS/ML VIAL SQ SCH (08:27)
[2017-08-23] MEDS: SODIUM CHLORIDE 0.9% FLUSH 10 ML FLUSH IV FLUSH SCH ×2 (08:27→21:00)
[2017-08-23] MEDS: OLOPATADINE HCL 0.1% OPHT SOLN 5 ML BTL EACH EYE SCH ×2 (08:27→21:00)
[2017-08-23] MEDS ORDERED: POTASSIUM CHLORIDE 20 MEQ CONTROLLED RELEASE TAB PO ONE (09:15)
--- NOTE | 2017-08-23 10:19 | HHI.PR ---
Subjective Remarks Follow-up visit cholecystitis, status post lap cholecystectomy, liver failure, acute and chronic kidney disease. Patient seen and examined today laying in bed. Reports she is doing slightly better. Complaints of shortness of breath but now worsening. Complaints of constipation states she has small bowel movement yesterday but states she continues to feel constipated. She has been tolerating clear liquid diet. Continues to be on CYBER SECURITY ADMINISTRATOR. Denies chest pain, palpitations, headaches, dizziness. Denies nausea, vomiting. Denies dysuria. Continues to be on Owens catheter. Objective Vitals Vital Signs Date Time Temp Pulse Resp B/P (MAP) Pulse Ox O2 Delivery O2 Flow Rate FiO2 08/23/17 08:42 93 Nasal Cannula 2.00 08/23/17 07:47 97.0 77 19 152/78 (102) 91 08/23/17 05:27 18 08/23/17 03:35 97.0 83 17 148/80 (102) 90 08/23/17 00:10 97.2 85 16 150/74 (99) 91 08/22/17 22:13 Nasal Cannula 2.00 21 08/22/17 22:00 18 08/22/17 21:21 93 2.00 08/22/17 20:25 96.4 82 17 146/76 (99) 91 08/22/17 17:00 92 Nasal Cannula 2.00 08/22/17 15:38 96.1 81 19 140/72 (94) 91 08/22/17 13:16 18 08/22/17 11:27 97.8 94 19 181/87 (118) 92 I/O 08/22/17 08/22/17 08/22/17 08/23/17 08/23/17 08/23/17 07:00 15:00 23:00 07:00 15:00 23:00 Intake Total 360 ml 1500 ml 413 ml 960 ml Output Total 990 ml 730 ml 170 ml 90 ml 650 ml Balance -630 ml 770 ml -170 ml 323 ml 310 ml Intake Oral 360 ml 700 ml 960 ml IV Total 800 ml 413 ml Output Urine Total 950 ml 650 ml 650 ml Drainage Total 40 ml 80 ml 170 ml 90 ml # Bowel Movements 0 2 Result Diagram: 08/23/17 0445 08/23/17 0445 Imaging Last Impressions Renal Ultrasound 08/21/17 0000 Signed Impressions: Service Date/Time: Monday, August 21, 2017 12:12 - CONCLUSION: 1. No hydronephrosis identified. 2. Echogenicity of the renal cortex appears to be at the upper limits of normal. Jimy Rosario MD Chest X-Ray 08/20/17 0000 Signed Impressions: Service Date/Time: Sunday, August 20, 2017 17:08 - CONCLUSION: 1. Cardiomegaly. Linear atelectasis or scarring at the bases. Isak Turk MD Cholangiogram 08/19/17 0000 Signed Impressions: Service Date/Time: Saturday, August 19, 2017 15:16 - CONCLUSION: 1. Questionable distal hepatic duct stone just above the cystic duct. 2. Distended common bile duct. Wesley Weems MD Objective Remarks GENERAL: This is an obese, well-developed patient, in no apparent distress. SKIN: Warm and dry. HEENT: Normocephalic. Pupils equal round and reactive. Nose without bleeding. Airway patent. NECK: Trachea midline. No JVD. Supple. CARDIOVASCULAR: Regular rate and rhythm without murmurs, gallops, or rubs. RESPIRATORY: Diminished bases, no wheezes, rales, or rhonchi. GASTROINTESTINAL: Abdomen nondistended. Bowel Sounds hypoactive. Abdominal incision in place with dressing clean dry and intact. NANY right quadrant draining bilious drain moderate amount. MUSCULOSKELETAL: Extremities without clubbing, cyanosis, or edema. NEUROLOGICAL: Awake and alert. Oriented to place, person. No focal neuro deficit. Moves all extremities. Normal speech. Procedures Status post laparoscopic cholecystectomy, intraoperative cholangiogram and laparoscopic common bile duct exploration with removal of multiple choledocholithiasis by general surgery. It was converted to an open common bile duct exploration and liver biopsy. A/P Problem List: (1) Acute renal failure ICD Code: N17.9 - Acute kidney failure, unspecified Status: Acute (2) Cholelithiasis ICD Code: K80.20 - Calculus of gallbladder without cholecystitis without obstruction (3) Transaminitis ICD Code: R74.0 - Nonspecific elevation of levels of transaminase and lactic acid dehydrogenase [LDH] (4) Hypertension ICD Code: I10 - Essential (primary) hypertension Status: Acute (5) Hyperlipidemia ICD Code: E78.5 - Hyperlipidemia, unspecified Status: Acute (6) Diabetes ICD Code: E11.9 - Type 2 diabetes mellitus without complications Status: Acute Assessment and Plan Patient is a 61-year-old female with primary medical history of HTN, CKD who came into the hospital for laparoscopic cholecystectomy. Acute cholecystitis Status post laparoscopic cholecystectomy, intraoperative cholangiogram and laparoscopic common bile duct exploration with removal of multiple choledocholithiasis by general surgery. It was converted to an open common bile duct exploration and liver biopsy. - Further management per general surgery. - Pain control with a bowel regimen. - Incentive spirometry. Duonebs. - Physical therapy increase activity Newly diagnosed liver failure Status post open liver biopsy. INR 1.1. Albumin is low. - Pathology pending. - follow LFTs. Acute on chronic kidney disease Appreciate nephrology consult. Creatinine improved. - Monitor BMP and avoid nephrotoxins. - d/c IV fluids as patient appears somewhat overloaded. - Calculate FENa. - Nephrology following, appreciate recommendation - Renal ultrasound does not show hydronephrosis Lethargy Chronic problem. B12 and TSH within normal limits. - Encourage ambulation. - Advance diet as tolerated. Hypertension Blood pressure exacerbated by pain. - Continue Coreg and Procardia. - Pain control. On CYBER SECURITY ADMINISTRATOR pump - Clonidine as needed. Dyslipidemia On a statin. - Hold statin due to liver failure. Diabetes mellitus Glucose has been well controlled. A1c 8.8%. -Insulin sliding scale. Levemir 10 units daily. -Continue gabapentin for neuropathy. -Monitor Accu-Cheks Leukocytosis Afebrile. Likely reactive secondary to surgery. Chest x-ray unremarkable. UA indicative of an infection. Urine culture was negative. -Leukocytosis resolved. -DC Owens DVT heparin GI famotidine Pam Menjivar Aug 23, 2017 10:18 am
--- NOTE | 2017-08-23 12:19 | HHI.NPPN ---
Subjective Complaints: Abdominal Pain Renal Failure: Chronic, Acute, Stage IV Interval History She is doing better. Renal function improved. Tolerating diet. Still with NANY output. (Alexandra Lizarraga) Objective Data Data 08/23/17 08/24/17 19:00 07:00 Intake Total 960 ml Output Total 650 ml Balance 310 ml Intake Oral 960 ml Output Urine Total 650 ml # Bowel Movements 2 Vital Signs Date Time Temp Pulse Resp B/P (MAP) Pulse Ox O2 Delivery O2 Flow Rate FiO2 08/23/17 11:31 96.7 77 19 173/84 (113) 91 08/23/17 08:42 93 Nasal Cannula 2.00 08/23/17 07:47 97.0 77 19 152/78 (102) 91 08/23/17 05:27 18 08/23/17 03:35 97.0 83 17 148/80 (102) 90 08/23/17 00:10 97.2 85 16 150/74 (99) 91 08/22/17 22:13 Nasal Cannula 2.00 21 08/22/17 22:00 18 08/22/17 21:21 93 2.00 08/22/17 20:25 96.4 82 17 146/76 (99) 91 08/22/17 17:00 92 Nasal Cannula 2.00 08/22/17 15:38 96.1 81 19 140/72 (94) 91 08/22/17 13:16 18 (Alexandra Lizarraga) -: 08/23/17 0445 08/23/17 0445 Imaging Last 72 hours Impressions Renal Ultrasound 08/21/17 0000 Signed Impressions: Service Date/Time: Monday, August 21, 2017 12:12 - CONCLUSION: 1. No hydronephrosis identified. 2. Echogenicity of the renal cortex appears to be at the upper limits of normal. Jimy Rosario MD Tubes & Lines: Riddle Tubes & Lines Comment NANY drain (Alexandra Lizarraga) Physical Exam General Appearance: Well Developed, Well Nourished, Comfortable (Alexandra Lizarraga) Eyes Eye Exam: Pupils Equal (Alexandra Lizarraga) Throat Throat Exam: Oral Mucosa [place] & Moist (Alexandra Lizarraga) Neck Neck Exam: Neck Supple (Alexandra Lizarraga) Cardiology CV Exam: Regular, Normal Sinus Rhythm (Alexandra Lizarraga) Gastrointestinal/Abdomen GI Exam: Soft, Non-Tender (Alexandra Lizarraga) Musculoskeletal MS Exam: Joints Intact, Normal Gait, Normal Tone (Alexandra Lizarraga) Integumentary Skin Exam: Warm, Dry (Alexandra Lizarraga) Extremeties Extremities Exam: No Edema, Pedal Pulses Palpable (Alexandra Lizarraga) Neurologic Neuro Exam: Alert, Awake, Oriented, Speech Clear, Moving All Extremities (Alexandra Lizarraga) Psychiatric Psych Exam: Appropriate Responses (Alexandra Lizarraga) Assessment/Plan Discussed Condition With: Patient Assessment Summary: ROZINA/Acute Renal Failure, Hypertension, Diabetes Mellitus, CKD Stage III Problem List: (1) Acute renal failure ICD Codes: N17.9 - Acute kidney failure, unspecified Status: Acute Plan: Baseline CKD 4, creatinine 2.05-2.1, GFR 25; Underlying diabetic nephropathy, 5 g proteinuria ROZINA may be due to post operative hypotension Renal function is improving Off IVF Remove riddle , non oliguric currently Replace Potassium orally Repeat labs daily Avoid nephrotoxic agents PO fluids encouraged We will follow in CKD clinic when discharged, cleared from our perspective (2) Cholelithiasis ICD Codes: K80.20 - Calculus of gallbladder without cholecystitis without obstruction Plan: s/p lap cholecystectomy Drain in place, surgery to follow (Alexandra Lizarraga) Plan patient was seen and examined. Agree with above assessment and plan. Renal function has improved. She can be discharged from renal standpoint. (Mj Shelley MD) Alexandra Lizarraga Aug 23, 2017 12:19 Mj Shelley MD Aug 23, 2017 20:45
--- NOTE | 2017-08-23 17:37 | HHI.PR ---
Subjective Subjective Notes Resting in bed Has been OOB several times today Not feeling too hungry; would like to try some cream of wheat Objective Vitals/I&O Vital Signs Date Time Temp Pulse Resp B/P (MAP) Pulse Ox O2 Delivery O2 Flow Rate FiO2 08/23/17 15:37 96.2 74 19 151/80 (103) 92 08/23/17 08:42 Nasal Cannula 2.00 08/22/17 22:13 21 Labs Laboratory Tests Test 08/23/17 04:45 White Blood Count 7.1 Red Blood Count 3.33 Hemoglobin 10.0 Hematocrit 29.6 Mean Corpuscular Volume 88.9 Mean Corpuscular Hemoglobin 30.0 Mean Corpuscular Hemoglobin Concent 33.8 Red Cell Distribution Width 14.7 Platelet Count 155 Mean Platelet Volume 8.2 Neutrophils (%) (Auto) 86.3 Lymphocytes (%) (Auto) 5.3 Monocytes (%) (Auto) 6.5 Eosinophils (%) (Auto) 1.6 Basophils (%) (Auto) 0.3 Neutrophils # (Auto) 6.1 Lymphocytes # (Auto) 0.4 Monocytes # (Auto) 0.5 Eosinophils # (Auto) 0.1 Basophils # (Auto) 0.0 CBC Comment DIFF FINAL Differential Comment Blood Urea Nitrogen 54 Creatinine 2.50 Random Glucose 197 Total Protein 6.7 Albumin 2.9 Calcium Level 9.1 Phosphorus Level 3.8 Alkaline Phosphatase 128 Aspartate Amino Transf (AST/SGOT) 19 Alanine Aminotransferase (ALT/SGPT) 16 Total Bilirubin 0.7 Direct Bilirubin 0.3 Sodium Level 142 Potassium Level 3.4 Chloride Level 109 Carbon Dioxide Level 20.5 Anion Gap 13 Estimat Glomerular Filtration Rate 19 Indirect Bilirubin 0.4 Date/Time Source Procedure Growth Status 08/20/17 16:54 Urine Clean Catch Urine Culture - Final NO GROWTH IN 48 HOURS. Complete Cardiovascular: Regular Lungs: Clear Abdomen: Other (distended; dressing in place; NANY with bilious output ) Extremities: No edema A/P Assessment and Plan 61 year old female POD4 cholecystectomy with CBD exploration and stone extraction -Acute on chronic renal failure-- numbers improving -Owens out -Advance to full liquid---okay for crackers too -OOB as tolerated -Continue routine NANY care -IS Attending Statement The exam, history, and the medical decision-making described in the above note were completed with the assistance of the mid-level provider. I reviewed and agree with the findings presented. I attest that I had a [id number] encounter with the patient on the same day, and personally performed and documented my assessment and findings in the medical record. abdomen soft, postop tenderness NANY bile likely small bile leak from CBD closure s/p open CBD exploration keep drain await bowel function Micheline Tadeo/Oil Field Roustabout WIRE COILER Aug 23, 2017 17:37 Yakov Barillas MD Aug 24, 2017 09:54
[2017-08-24] MEDS: cloNIDine HCL 0.1 MG TAB PO PRN ×2 (02:25→08:03)
[2017-08-24 04:10] VITALS: BP 191/84; PULSE 78; RESP 17; TEMP 97; O2SAT 94
[2017-08-24] MEDS: HEPARIN SODIUM - SQ 10,000 UNITS/ML VIAL SQ SCH ×3 (05:30→22:39)
[2017-08-24] MEDS: ALBUMIN HUMAN 25% 25 GM/100 ML BAGP IV SCH (05:32)
[2017-08-24] MEDS: PCA - TOTAL MG MORPHINE DELIVERED PER SHIFT SCH ×3 (05:37→22:00)
[2017-08-24 08:00] VITALS: BP_SYST 187; BP_SYST 213; BP_DIAS 86; BP_DIAS 95; PULSE 100; PULSE 71; RESP 16; RESP 19; TEMP 95.7; TEMP 98.4; O2SAT 92
[2017-08-24] MEDS: INSULIN ASPART SUPPLEMENTAL SCALE SQ SCH ×4 (08:00→21:00)
[2017-08-24] MEDS: DULoxetine HCl DR 60 MG CAP PO SCH (08:02)
[2017-08-24] MEDS: CARVEDILOL 12.5 MG TAB PO SCH ×2 (08:02→22:39)
[2017-08-24] MEDS: FAMOTIDINE 20 MG/2 ML VIAL IV PUSH SCH ×2 (08:03→22:39)
[2017-08-24] MEDS: DOCUSATE SODIUM 50 MG/SENNA 8.6 MG TAB PO SCH ×2 (08:03→21:00)
[2017-08-24] MEDS: NIFEdipine 60 MG SUSTAINED RELEASE TAB PO SCH (08:03)
[2017-08-24] MEDS: SODIUM CHLORIDE 0.9% FLUSH 10 ML FLUSH IV FLUSH SCH ×2 (08:03→21:00)
[2017-08-24] MEDS: OLOPATADINE HCL 0.1% OPHT SOLN 5 ML BTL EACH EYE SCH ×2 (08:04→21:00)
[2017-08-24] MEDS: INSULIN DETEMIR 100 UNITS/ML VIAL SQ SCH (09:00)
[2017-08-24 11:24] VITALS: BP 192/92; PULSE 68; RESP 19; TEMP 98.7; O2SAT 92
[2017-08-24 12:00] VITALS: BP 170/84; PULSE 66; RESP 17; TEMP 98; O2SAT 88
--- NOTE | 2017-08-24 12:13 | HHI.NPPN ---
Subjective Complaints: Abdominal Pain Renal Failure: Chronic, Acute, Stage IV Interval History NANY drain in place. Labs from today are pending. She is ambulatory in room and down hallway, had BM. No difficulty urinating. (Aleaxndra Lizarraga) Objective Data Data Vital Signs Date Time Temp Pulse Resp B/P (MAP) Pulse Ox O2 Delivery O2 Flow Rate FiO2 08/24/17 11:24 98.7 68 19 192/92 (125) 92 08/24/17 08:00 95.7 100 19 187/86 (119) 92 08/24/17 04:10 97.0 78 17 191/84 (119) 94 08/23/17 23:45 96.9 84 17 182/89 (120) 92 08/23/17 21:35 Room Air 08/23/17 20:00 97.2 90 17 165/87 (113) 92 08/23/17 19:50 92 Nasal Cannula 2.00 08/23/17 15:37 96.2 74 19 151/80 (103) 92 (Alexandra Lizarraga) -: 08/23/17 0445 08/23/17 0445 Tubes & Lines: Riddle Tubes & Lines Comment NANY drain (Alexandra Lizarraga) Physical Exam General Appearance: Well Developed, Well Nourished, Comfortable (Alexandra Lizarraga) Eyes Eye Exam: Pupils Equal (Alexandra Lizarraga) Throat Throat Exam: Oral Mucosa [place] & Moist (Alexandra Lizarraga) Neck Neck Exam: Neck Supple (Alexandra Lizarraga) Cardiology CV Exam: Regular, Normal Sinus Rhythm (Alexandra Lizarraga) Gastrointestinal/Abdomen GI Exam: Soft, Non-Tender (Alexandra Lizarraga) Musculoskeletal MS Exam: Joints Intact, Normal Gait, Normal Tone (Alexandra Lizarraga) Integumentary Skin Exam: Warm, Dry (Alexandra Lizarraga) Extremeties Extremities Exam: No Edema, Pedal Pulses Palpable (Alexandra Lizarraga) Neurologic Neuro Exam: Alert, Awake, Oriented, Speech Clear, Moving All Extremities (Alexandra Lizarraga) Psychiatric Psych Exam: Appropriate Responses (Alexandra Lizarraga) Assessment/Plan Discussed Condition With: Patient Assessment Summary: ROZINA/Acute Renal Failure, Hypertension, Diabetes Mellitus, CKD Stage III Electrolyte Assessment: Hypokalemia Problem List: (1) Acute renal failure ICD Codes: N17.9 - Acute kidney failure, unspecified Status: Acute Plan: Baseline CKD 4, creatinine 2.05-2.1, GFR 25; Underlying diabetic nephropathy, 5 g proteinuria ROZINA may be due to post operative hypotension Pending repeat labs from today Off IVF non oliguric without riddle Repeat labs daily Avoid nephrotoxic agents PO fluids encouraged Stop Albumin We will follow in CKD clinic when discharged, cleared from our perspective (2) Cholelithiasis ICD Codes: K80.20 - Calculus of gallbladder without cholecystitis without obstruction Plan: s/p lap cholecystectomy Drain in place, surgery to follow advance diet as tolerated on MACHINE OPERATOR CANE CUTTER (3) Hypertension ICD Codes: I10 - Essential (primary) hypertension Status: Acute Plan: Increase nifedipine to 90 mg increase Coreg to BID follow blood pressure (Alexandra Lizarraga) Plan patient was seen and examined. Renal function has improved. BP is high, Coreg increased to twice daily, the dose of Nifedipine increased. She can be discharged from renal standpoint. Replace potassium. (Mj Shelley MD) Alexandra Lizarraga Aug 24, 2017 12:13 Mj Shelley MD Aug 24, 2017 21:03
--- NOTE | 2017-08-24 13:02 | HHI.PR ---
Subjective Subjective Notes Doing well; no issues Feels hungry Objective Vitals/I&O Vital Signs Date Time Temp Pulse Resp B/P (MAP) Pulse Ox O2 Delivery O2 Flow Rate FiO2 08/24/17 11:24 98.7 68 19 192/92 (125) 92 08/23/17 21:35 Room Air 08/23/17 19:50 2.00 08/22/17 22:13 21 Labs Date/Time Source Procedure Growth Status 08/20/17 16:54 Urine Clean Catch Urine Culture - Final NO GROWTH IN 48 HOURS. Complete Cardiovascular: Regular Lungs: Clear Abdomen: Other (NEHAL in place; NANY with bilious drainage ) Extremities: No edema A/P Assessment and Plan 61 year old female POD5 cholecystectomy with CBD exploration and stone extraction -Acute on chronic renal failure-- numbers improving -Owens out -Renal diet -OOB as tolerated -Continue routine NANY care -IS -CM consult for HHC -Likely home tomorrow Micheline Tadeo/Special Class Welder TAMIE Aug 24, 2017 13:02
--- NOTE | 2017-08-24 13:03 | HHI.FF ---
Face to Face Verification Diagnosis: (1) Cholecystitis with cholelithiasis (2) Chronic kidney disease Home Health Nursing Order: Wound care and dressing changes Nursing assessment with vital signs Instructions: Routine NANY care I have seen patient Caitlin Matthews on 08/24/17. My clinical findings support the need for the requested home health care services because: Limited ability to care for self High risk of falls I certify that my clinical findings support that this patient is homebound because: Post-op weakness Micheline Tadeo/Pulp Operator TAMIE Aug 24, 2017 13:03
[2017-08-24 13:50] LABS: ALBUMIN 3.9 GM/DL (3.4-5.0); BICARBONATE 22.3 MEQ/L (21.0-32.0); CALCIUM 9.5 MG/DL (8.5-10.1); CREATININE 1.93 MG/DL (0.50-1.00); PHOSPHORUS 2.3 MG/DL (2.5-4.9)
[2017-08-24] MEDS ORDERED: POTASSIUM CHLORIDE 20 MEQ CONTROLLED RELEASE TAB PO ONE (15:15)
[2017-08-24 15:30] VITALS: BP 195/93; PULSE 74; RESP 19; TEMP 96.1; O2SAT 92
[2017-08-24] MEDS: cloNIDine HCL 0.1 MG TAB PO SCH ×2 (16:42→22:39)
[2017-08-24] MEDS ORDERED: NIFEdipine 30 MG SUSTAINED RELEASE TAB PO ONE (22:15)
[2017-08-24] MEDS ORDERED: GABAPENTIN 400 MG CAP PO ONE (22:15)
--- NOTE | 2017-08-24 22:19 | HHI.PR ---
Subjective Remarks Patient says that shortness of breath is improving, still with some global distention denies any nausea or vomiting. Objective Vital Signs Date Time Temp Pulse Resp B/P (MAP) Pulse Ox O2 Delivery O2 Flow Rate FiO2 08/24/17 15:30 96.1 74 19 195/93 (127) 92 08/24/17 11:24 98.7 68 19 192/92 (125) 92 08/24/17 08:00 95.7 100 19 187/86 (119) 92 08/24/17 04:10 97.0 78 17 191/84 (119) 94 08/23/17 23:45 96.9 84 17 182/89 (120) 92 I/O 08/23/17 08/23/17 08/23/17 08/24/17 08/24/17 08/24/17 07:00 15:00 23:00 07:00 15:00 23:00 Intake Total 413 ml 1910 ml 720 ml 850 ml Output Total 90 ml 1250 ml 150 ml 200 ml Balance 323 ml 660 ml 570 ml 650 ml Intake Oral 1910 ml 720 ml 850 ml IV Total 413 ml Output Urine Total 1100 ml Drainage Total 90 ml 150 ml 150 ml 200 ml # Voids 2 4 # Bowel Movements 2 1 Result Diagram: 08/23/17 0445 08/24/17 1216 Objective Remarks GENERAL: patient sitting up in bed. Appears comfortable. SKIN: Warm and dry. HEAD: Normocephalic. EYES: No scleral icterus. No injection or drainage. NECK: Supple, trachea midline. No JVD. CARDIOVASCULAR: Regular rate and rhythm without murmurs, gallops, or rubs. RESPIRATORY: Breath sounds equal bilaterally. No accessory muscle use. GASTROINTESTINAL: Abdomen soft, non-tender, nondistended. MUSCULOSKELETAL: No cyanosis, or edema. abdominal NANY drain in place BACK: Nontender without obvious deformity. No CVA tenderness. A/P Assessment and Plan Patient is a 61-year-old female with primary medical history of HTN, CKD who came into the hospital for laparoscopic cholecystectomy. //Acute cholecystitis Status post laparoscopic cholecystectomy, intraoperative cholangiogram and laparoscopic common bile duct exploration with removal of multiple choledocholithiasis by general surgery. It was converted to an open common bile duct exploration and liver biopsy. - Further management per general surgery. - Pain control with a bowel regimen. - Incentive spirometry. Duonebs. - Physical therapy increase activity //Newly diagnosed liver failure Status post open liver biopsy. INR 1.1. Albumin is low. - Pathology pending. - follow LFTs. //Acute on chronic kidney disease Appreciate nephrology consult. Creatinine improved. - Monitor BMP and avoid nephrotoxins. - d/c IV fluids as patient appears somewhat overloaded. - Calculate FENa. - Nephrology following, appreciate recommendation - Renal ultrasound does not show hydronephrosis //Lethargy Chronic problem. B12 and TSH within normal limits. - Encourage ambulation. - Advance diet as tolerated. //Hypertension Blood pressure exacerbated by pain. - Continue Coreg and Procardia. - Pain control. On FOXPRO DEVELOPER pump - Clonidine as needed. = 08/24. Increase nifedipine. Restart gabapentin due to possible withdrawal. Continue to monitor. //Dyslipidemia On a statin. - Hold statin due to liver failure. //Diabetes mellitus Glucose has been well controlled. A1c 8.8%. -Insulin sliding scale. Levemir 10 units daily. -Continue gabapentin for neuropathy. -Monitor Accu-Cheks = 08/24. Hyperglycemic in the 200s. Start diabetic diet. Increase Levemir. //Leukocytosis Afebrile. Likely reactive secondary to surgery. Chest x-ray unremarkable. UA indicative of an infection. Urine culture was negative. -Leukocytosis resolved. -DC Owens //Hypokalemia = 08/24. Potassium 3.2. Replace. Continue to monitor //DVT heparin GI famotidine Discharge Planning we will continue to follow. Samy South MD Aug 24, 2017 22:19
[2017-08-24 22:32] VITALS: BP 186/82
[2017-08-24] MEDS: GABAPENTIN 300 MG CAP PO SCH (22:38)
[2017-08-25 00:22] VITALS: BP 213/95; PULSE 71; RESP 16; TEMP 98.4; O2SAT 92
[2017-08-25 04:00] VITALS: BP 167/85; PULSE 68; RESP 16; TEMP 97.5; O2SAT 86
[2017-08-25] MEDS: PCA - TOTAL MG MORPHINE DELIVERED PER SHIFT SCH ×3 (06:00→20:10)
[2017-08-25] MEDS: HEPARIN SODIUM - SQ 10,000 UNITS/ML VIAL SQ SCH ×3 (06:41→22:33)
[2017-08-25] MEDS: cloNIDine HCL 0.1 MG TAB PO SCH ×3 (06:41→22:32)
[2017-08-25 07:07] LABS: AUTOMATED NEUTROPHIL # 4.7 TH/MM3 (1.8-7.7); BASOPHIL % 0.3 % (0.0-2.0); EOSINOPHIL # 0.1 TH/MM3 (0-0.4); EOSINOPHIL % 2.3 % (0.0-4.0); HEMOGLOBIN 10.2 GM/DL (11.6-15.3); LYMPH % 8.9 % (9.0-44.0); LYMPHOCYTE # 0.5 TH/MM3 (1.0-4.8); MEAN CELL VOLUME 87.5 FL (80.0-100.0); MEAN CORPUSCULAR HEMOGLOBIN 29.8 PG (27.0-34.0); MEAN CORPUSCULAR HGB CONC 34.1 % (32.0-36.0); MEAN PLATELET VOLUME 8.6 FL (7.0-11.0); MONO % 9.1 % (0.0-8.0); MONOCYTE # 0.5 TH/MM3 (0-0.9); NEUT % 79.4 % (16.0-70.0); PLATELET COUNT 136 TH/MM3 (150-450); RED BLOOD COUNT 3.43 MIL/MM3 (4.00-5.30); RED CELL DISTRIBUTION WIDTH 14.3 % (11.6-17.2); WHITE BLOOD COUNT 5.9 TH/MM3 (4.0-11.0)
[2017-08-25 07:31] LABS: ALBUMIN 2.9 GM/DL (3.4-5.0); BICARBONATE 23.7 MEQ/L (21.0-32.0); CREATININE 1.65 MG/DL (0.50-1.00); MAGNESIUM 1.9 MG/DL (1.5-2.5); PHOSPHORUS 1.9 MG/DL (2.5-4.9)
[2017-08-25] MEDS: INSULIN ASPART SUPPLEMENTAL SCALE SQ SCH ×4 (07:39→20:10)
[2017-08-25 08:00] VITALS: BP 188/92; PULSE 59; RESP 18; TEMP 96; O2SAT 95
[2017-08-25] MEDS ORDERED: POTASSIUM PHOSPHATE INJ 15 MMOL in SODIUM CHLORIDE 0.9% INJ 150 ML IV ONE (09:00)
[2017-08-25] MEDS ORDERED: INSULIN DETEMIR 100 UNITS/ML VIAL SQ SCH (09:00)
[2017-08-25] MEDS: OLOPATADINE HCL 0.1% OPHT SOLN 5 ML BTL EACH EYE SCH ×2 (09:00→20:09)
[2017-08-25] MEDS: DOCUSATE SODIUM 50 MG/SENNA 8.6 MG TAB PO SCH ×2 (09:00→20:09)
[2017-08-25] MEDS ORDERED: SODIUM CHLOR 0.45% 1000 ML INJ 1,000 ML IV SCH (09:00)
[2017-08-25] MEDS ORDERED: POTASSIUM PHOSPHATE MONOBASIC 500 MG TAB PO ONE (09:15)
[2017-08-25] MEDS: CARVEDILOL 12.5 MG TAB PO SCH ×2 (09:23→20:09)
[2017-08-25] MEDS: cloNIDine HCL 0.1 MG TAB PO PRN (09:23)
[2017-08-25] MEDS: GABAPENTIN 300 MG CAP PO SCH ×2 (09:23→20:09)
[2017-08-25] MEDS: NIFEdipine 90 MG SUSTAINED RELEASE TAB PO SCH (09:23)
[2017-08-25] MEDS: DULoxetine HCl DR 60 MG CAP PO SCH (09:23)
[2017-08-25] MEDS: SODIUM CHLORIDE 0.9% FLUSH 10 ML FLUSH IV FLUSH SCH ×2 (09:24→20:09)
[2017-08-25] MEDS: FAMOTIDINE 20 MG/2 ML VIAL IV PUSH SCH ×2 (09:27→20:09)
[2017-08-25] MEDS ORDERED: SODIUM CHLOR 0.45% IV ONE (09:30)
[2017-08-25] MEDS ORDERED: LEVOFLOXACIN 500 MG TAB PO ONE (10:00)
[2017-08-25 12:00] VITALS: BP 187/89; PULSE 60; RESP 20; TEMP 96; O2SAT 95
[2017-08-25] MEDS: LOSARTAN 25 MG TAB PO SCH (12:00)
--- NOTE | 2017-08-25 12:41 | HHI.NPPN ---
Subjective Complaints: Abdominal Pain Renal Failure: Chronic, Acute, Stage IV Interval History IV access was lost. Placed on IVF for mild hypernatremia. However her water intake has improved. Renal function has improved. Now with unilateral (R) lower ext edema, atraumatic. Most likely will be discharged tomorrow. NANY drain in place. (Alexandra Lizarraga) Review of Systems Musculoskeletal MS Remarks right leg edema (Alexandra Lizarraga) Objective Data Data 08/25/17 08/26/17 19:00 07:00 Output Total 50 ml Balance -50 ml Drainage Total 50 ml Vital Signs Date Time Temp Pulse Resp B/P (MAP) Pulse Ox O2 Delivery O2 Flow Rate FiO2 08/25/17 08:00 96.0 59 18 188/92 (124) 95 08/25/17 04:00 97.5 68 16 167/85 (112) 86 08/25/17 00:22 98.4 71 16 213/95 (134) 92 08/24/17 22:32 Room Air 08/24/17 22:32 186/82 (116) Automatic Cuff 08/24/17 22:18 21 08/24/17 15:30 96.1 74 19 195/93 (127) 92 (Alexandra Lizarraga) -: 08/25/17 0534 08/25/17 0534 Tubes & Lines: Owens Tubes & Lines Comment NANY drain (Alexandra Lizarraga) Physical Exam General Appearance: Well Developed, Well Nourished, Comfortable (Alexandra Lizarraga) Eyes Eye Exam: Pupils Equal (Alexandra Lizarraga) Throat Throat Exam: Oral Mucosa [place] & Moist (Alexandra Lizarraga) Neck Neck Exam: Neck Supple (Alexandra Lizarraga) Cardiology CV Exam: Regular, Normal Sinus Rhythm (Alexandra Lizarraga) Gastrointestinal/Abdomen GI Exam: Soft, Non-Tender, Bowel Sounds Present (Alexandra Lizarraga) Musculoskeletal MS Exam: Joints Intact, Normal Gait, Normal Tone MS Remarks RLE 1-2+ edema (Alexandra Lizarraga) Integumentary Skin Exam: Warm, Dry (Alexandra Lizarraga) Extremeties Extremities Exam: No Edema, Pedal Pulses Palpable (Alexandra Lizarraga) Neurologic Neuro Exam: Alert, Awake, Oriented, Speech Clear, Moving All Extremities (Alexandra Lizarraga) Psychiatric Psych Exam: Appropriate Responses (Alexandra Lizarraga) VTE Prophylaxis Meds: Heparin (Alexandra Lizarraga) Assessment/Plan Discussed Condition With: Patient Assessment Summary: ROZINA/Acute Renal Failure, Hypertension, Diabetes Mellitus, CKD Stage III Electrolyte Assessment: Hypokalemia Problem List: (1) Acute renal failure ICD Codes: N17.9 - Acute kidney failure, unspecified Status: Acute Plan: Baseline CKD 4, creatinine 2.05-2.1, GFR 25; Underlying diabetic nephropathy, 5 g proteinuria ROZINA may be due to post operative hypotension Renal function is improving Phosphorus and potassium are low, most likely due to poor food intake, appetite is sub par IV access is lost. Change IV K Phos to PO. Advised to increase PO fluids, IVF not required, repeoat sodium level in AM non oliguric Repeat labs daily Avoid nephrotoxic agents We will follow in CKD clinic when discharged (2) Cholelithiasis ICD Codes: K80.20 - Calculus of gallbladder without cholecystitis without obstruction Plan: s/p lap cholecystectomy Drain in place, surgery to follow advance diet as tolerated off SWITCH BOX INSTALLER check doppler RLE given post op status, immobility to rule out DVT (3) Hypertension ICD Codes: I10 - Essential (primary) hypertension Status: Acute Plan: On: - nifedipine 90 mg daily - Coreg to BID -start losartan 25 mg daily follow blood pressure , elevated today (Alexandra Lizarraga) Plan patient was seen and examined. Needs to drink more water. Replace potassium and phosphorus. (Mj Shelley MD) Alexandra Lizarraga Aug 25, 2017 12:41 Mj Shelley MD Aug 25, 2017 15:39
--- NOTE | 2017-08-25 13:13 | HHI.PR ---
Subjective Remarks Patient says she is feeling still better than yesterday. Denies any chest pain or shortness of breath. Continues to report some epigastric discomfort. This is improving. Positive bowel movement yesterday. Objective Vital Signs Date Time Temp Pulse Resp B/P (MAP) Pulse Ox O2 Delivery O2 Flow Rate FiO2 08/25/17 08:00 96.0 59 18 188/92 (124) 95 08/25/17 04:00 97.5 68 16 167/85 (112) 86 08/25/17 00:22 98.4 71 16 213/95 (134) 92 08/24/17 22:32 Room Air 08/24/17 22:32 186/82 (116) Automatic Cuff 08/24/17 22:18 21 08/24/17 15:30 96.1 74 19 195/93 (127) 92 I/O 08/24/17 08/24/17 08/24/17 08/25/17 08/25/17 08/25/17 06:59 14:59 22:59 06:59 14:59 22:59 Intake Total 720 ml 850 ml Output Total 150 ml 200 ml 50 ml Balance 570 ml 650 ml -50 ml Intake Oral 720 ml 850 ml Drainage Total 150 ml 200 ml 50 ml # Voids 2 4 # Bowel Movements 1 Result Diagram: 08/25/1734 08/25/17 0534 Objective Remarks GENERAL: patient sitting up in bed. Appears comfortable. no chnage SKIN: Warm and dry. HEAD: Normocephalic. EYES: No scleral icterus. No injection or drainage. NECK: Supple, trachea midline. No JVD. CARDIOVASCULAR: Regular rate and rhythm without murmurs, gallops, or rubs. RESPIRATORY: Breath sounds equal bilaterally. No accessory muscle use. GASTROINTESTINAL: Abdomen soft, non-tender, nondistended. MUSCULOSKELETAL: No cyanosis, or edema. abdominal NANY drain in place BACK: Nontender without obvious deformity. No CVA tenderness. A/P Assessment and Plan Patient is a 61-year-old female with primary medical history of HTN, CKD who came into the hospital for laparoscopic cholecystectomy. //Acute cholecystitis Status post laparoscopic cholecystectomy, intraoperative cholangiogram and laparoscopic common bile duct exploration with removal of multiple choledocholithiasis by general surgery. It was converted to an open common bile duct exploration and liver biopsy. - Further management per general surgery. - Pain control with a bowel regimen. - Incentive spirometry. Duonebs. - Physical therapy increase activity //Newly diagnosed liver failure Status post open liver biopsy. INR 1.1. Albumin is low. - Pathology pending. - follow LFTs. //Acute on chronic kidney disease Appreciate nephrology consult. Creatinine improved. - Monitor BMP and avoid nephrotoxins. - d/c IV fluids as patient appears somewhat overloaded. - Calculate FENa. - Nephrology following, appreciate recommendation - Renal ultrasound does not show hydronephrosis =CR improving //Lethargy Chronic problem. B12 and TSH within normal limits. - Encourage ambulation. - Advance diet as tolerated. //Hypertension Blood pressure exacerbated by pain. - Continue Coreg and Procardia. - Pain control. On CHOIR SINGER pump - Clonidine as needed. = 08/24. Increase nifedipine. Restart gabapentin due to possible withdrawal. Continue to monitor. = 08/25. Blood pressure still markedly elevated. Will start hydralazine 3 times daily. //Dyslipidemia On a statin. - Hold statin due to liver failure. //Diabetes mellitus Glucose has been well controlled. A1c 8.8%. -Insulin sliding scale. Levemir 10 units daily. -Continue gabapentin for neuropathy. -Monitor Accu-Cheks = 08/24. Hyperglycemic in the 200s. Start diabetic diet. Increase Levemir. =08/25 //Leukocytosis Afebrile. Likely reactive secondary to surgery. Chest x-ray unremarkable. UA indicative of an infection. Urine culture was negative. -Leukocytosis resolved. -DC Owens //Hypokalemia = 08/24. Potassium 3.2. Replace. Continue to monitor //DVT heparin GI famotidine Discharge Planning we will continue to follow. Samy South MD Aug 25, 2017 13:12
[2017-08-25] MEDS: hydrALAZINE HCL 50 MG TAB PO SCH ×2 (13:35→22:32)
--- NOTE | 2017-08-25 14:44 | HHI.PR ---
Subjective Subjective Notes Resting in bed She states she is feeling better today Was extremely hypertensive overnight Objective Vitals/I&O Vital Signs Date Time Temp Pulse Resp B/P (MAP) Pulse Ox O2 Delivery O2 Flow Rate FiO2 08/25/17 12:00 96.0 60 20 187/89 (121) 95 08/24/17 22:32 Room Air 08/24/17 22:18 21 08/23/17 19:50 2.00 Labs Laboratory Tests Test 08/25/17 05:34 White Blood Count 5.9 Red Blood Count 3.43 Hemoglobin 10.2 Hematocrit 30.0 Mean Corpuscular Volume 87.5 Mean Corpuscular Hemoglobin 29.8 Mean Corpuscular Hemoglobin Concent 34.1 Red Cell Distribution Width 14.3 Platelet Count 136 Mean Platelet Volume 8.6 Neutrophils (%) (Auto) 79.4 Lymphocytes (%) (Auto) 8.9 Monocytes (%) (Auto) 9.1 Eosinophils (%) (Auto) 2.3 Basophils (%) (Auto) 0.3 Neutrophils # (Auto) 4.7 Lymphocytes # (Auto) 0.5 Monocytes # (Auto) 0.5 Eosinophils # (Auto) 0.1 Basophils # (Auto) 0.0 CBC Comment DIFF FINAL Differential Comment Blood Urea Nitrogen 33 Creatinine 1.65 Random Glucose 107 Albumin 2.9 Calcium Level 9.0 Phosphorus Level 1.9 Magnesium Level 1.9 Sodium Level 147 Potassium Level 3.4 Chloride Level 114 Carbon Dioxide Level 23.7 Anion Gap 9 Estimat Glomerular Filtration Rate 31 Date/Time Source Procedure Growth Status 08/20/17 16:54 Urine Clean Catch Urine Culture - Final NO GROWTH IN 48 HOURS. Complete Cardiovascular: Regular Lungs: Clear Abdomen: Other (NEHAL in place; NANY with bilious drainage; abd mildly tender ) Extremities: No edema A/P Assessment and Plan 61 year old female POD6 cholecystectomy with CBD exploration and stone extraction -Acute on chronic renal failure-- numbers improving; hypernatremic today -Renal diet -+BM -OOB as tolerated -Continue routine NANY care -IS -CM consult for C for NANY care -Likely home Tuesday if stable -Appreciate consults from Medicine and Nephrology Micheline Tadeo/First Cj WILLETT Aug 25, 2017 14:44
--- NOTE | 2017-08-25 14:58 | RADRPT ---
EXAM DATE/TIME: 08/25/2017 13:29 [place] COMPARISON: No previous studies available for comparison. EXTERNAL COMPARISON : [facility], US LEG VENOUS DOPPLER, LEFT, October 17, 2014 INDICATIONS : Right leg edema. MEDICAL HISTORY : Congestive heart failure. Hypercholesterolemia. Numbness in hand and feet. Neuropathy. HTN. GERD. Ulcer. Gallstones. Stage IV renal failure. Degenerative disc disease. UTI. Diabetes. Liver disease. Anticoagulant therapy, Plavix. SURGICAL HISTORY : section. Bilateral cataract surgery. Cardiac cath. Gastric bypass. D&C. Lumbar laminectom y. Multiple foot surgeries. ENCOUNTER: Initial ACUITY: 1 day PAIN SCORE: 2/10 LOCATION: Right leg. TECHNIQUE: Venous ultrasound of the leg was performed from the inguinal ligament to the proximal calf. Real-meme e, color Doppler and spectral tracing, compression and augmentation techniques were used. FINDINGS: There is normal compressibility of the deep venous system from the inguinal region to the proximal ca lf. No echogenic clot is seen in the lumen of the common femoral, femoral, popliteal, and posterior tibial veins. There is a normal response of the venous system to proximal and distal augmentation an d respiration. CONCLUSION: Normal examination. Wseley Sherwood MD on August 25, 2017 at 14:56 Board Certified Radiologist. This report was verified electronically.
[2017-08-25 16:00] VITALS: BP 135/69; PULSE 54; RESP 18; TEMP 96; O2SAT 94
[2017-08-25 20:00] VITALS: BP 170/91; PULSE 64; RESP 22; TEMP 96.6; O2SAT 95
[2017-08-26] VITALS: BP 163/72; PULSE 60; RESP 20; TEMP 97.4; O2SAT 94
[2017-08-26] MEDS: PCA - TOTAL MG MORPHINE DELIVERED PER SHIFT SCH (02:20)
[2017-08-26 04:00] VITALS: BP 149/75; PULSE 62; RESP 20; TEMP 96.9; O2SAT 93
[2017-08-26] MEDS: hydrALAZINE HCL 50 MG TAB PO SCH ×2 (06:24→15:51)
[2017-08-26] MEDS: cloNIDine HCL 0.1 MG TAB PO SCH ×2 (06:24→15:51)
[2017-08-26] MEDS: HEPARIN SODIUM - SQ 10,000 UNITS/ML VIAL SQ SCH ×2 (06:25→15:51)
[2017-08-26 06:49] LABS: ALBUMIN 2.7 GM/DL (3.4-5.0); BICARBONATE 22.8 MEQ/L (21.0-32.0); CALCIUM 9.1 MG/DL (8.5-10.1); CREATININE 1.95 MG/DL (0.50-1.00); PHOSPHORUS 2.5 MG/DL (2.5-4.9)
[2017-08-26 08:00] VITALS: BP 155/77; PULSE 65; RESP 16; TEMP 96.6; O2SAT 94
[2017-08-26] MEDS: INSULIN ASPART SUPPLEMENTAL SCALE SQ SCH ×2 (08:00→12:00)
[2017-08-26] MEDS: LOSARTAN 25 MG TAB PO SCH (08:55)
[2017-08-26] MEDS: DULoxetine HCl DR 60 MG CAP PO SCH (08:55)
[2017-08-26] MEDS: CARVEDILOL 12.5 MG TAB PO SCH (08:56)
[2017-08-26] MEDS: NIFEdipine 90 MG SUSTAINED RELEASE TAB PO SCH (08:56)
[2017-08-26] MEDS: GABAPENTIN 300 MG CAP PO SCH (08:56)
[2017-08-26] MEDS: DOCUSATE SODIUM 50 MG/SENNA 8.6 MG TAB PO SCH (08:56)
[2017-08-26] MEDS: OLOPATADINE HCL 0.1% OPHT SOLN 5 ML BTL EACH EYE SCH (09:00)
[2017-08-26] MEDS ORDERED: INSULIN DETEMIR 100 UNITS/ML VIAL SQ SCH (09:00)
[2017-08-26] MEDS: SODIUM CHLORIDE 0.9% FLUSH 10 ML FLUSH IV FLUSH SCH (09:00)
[2017-08-26] MEDS: FAMOTIDINE 20 MG/2 ML VIAL IV PUSH SCH (09:00)
[2017-08-26] MEDS ORDERED: NIFE90TA2 PO (09:50)
[2017-08-26] MEDS ORDERED: HYDR-3800 PO (09:50)
[2017-08-26] MEDS ORDERED: LEVA250T14 PO (09:50)
[2017-08-26] MEDS ORDERED: COZA25TA PO (09:50)
[2017-08-26] MEDS ORDERED: LEVOFLOXACIN 250 MG TAB PO SCH (10:00)
[2017-08-26] MEDS ORDERED: FUROSEMIDE 20 MG TAB PO ONE (10:00)
[2017-08-26] MEDS ORDERED: FUROSEMIDE 40 MG TAB PO ONE (10:00)
[2017-08-26 11:14] VITALS: BP 173/84; PULSE 60; RESP 18; TEMP 97.9; O2SAT 94
--- NOTE | 2017-08-26 11:26 | HHI.DS ---
Discharge Summary Admission Date Aug 19, 2017 at 19:55 Discharge Date: Aug 26, 2017 Admitting Diagnosis Brief History 61 year old female POD7 cholecystectomy with CBD exploration and stone extraction CBC/BMP: 08/25/17 0534 08/26/17 0530 Significant Findings Laboratory Tests Test 08/24/17 12:16 08/25/17 05:34 08/26/17 05:30 Blood Urea Nitrogen 41 MG/DL (7-18) 33 MG/DL (7-18) 37 MG/DL (7-18) Creatinine 1.93 MG/DL (0.50-1.00) 1.65 MG/DL (0.50-1.00) 1.95 MG/DL (0.50-1.00) Random Glucose 137 MG/DL (74-106) 107 MG/DL (74-106) 174 MG/DL (74-106) Phosphorus Level 2.3 MG/DL (2.5-4.9) 1.9 MG/DL (2.5-4.9) Potassium Level 3.2 MEQ/L (3.5-5.1) 3.4 MEQ/L (3.5-5.1) Chloride Level 109 MEQ/L (98-107) 114 MEQ/L (98-107) 110 MEQ/L (98-107) Estimat Glomerular Filtration Rate 26 ML/MIN (>89) 31 ML/MIN (>89) 26 ML/MIN (>89) Red Blood Count 3.43 MIL/MM3 (4.00-5.30) Hemoglobin 10.2 GM/DL (11.6-15.3) Hematocrit 30.0 % (35.0-46.0) Platelet Count 136 TH/MM3 (150-450) Neutrophils (%) (Auto) 79.4 % (16.0-70.0) Lymphocytes (%) (Auto) 8.9 % (9.0-44.0) Monocytes (%) (Auto) 9.1 % (0.0-8.0) Lymphocytes # (Auto) 0.5 TH/MM3 (1.0-4.8) Albumin 2.9 GM/DL (3.4-5.0) 2.7 GM/DL (3.4-5.0) Sodium Level 147 MEQ/L (136-145) PE at Discharge Alert and awake Cardio: RRR Resp: CTAB Abd: RUQ incision with allegra; NANY with bilious drainage Hospital Course This is a 61 year old female POD7 cholecystectomy with CBD exploration and stone extraction. The patient's hospitalization included Medicine and Renal consults for her chronic medical conditions. She was able to tolerate a regular diet. Her pain was controlled using oral pain medications. She will go home with the NANY drain; HHC has been arranged. She will follow up with Dr. Barillas on September 08. Pt Condition on Discharge: Good Discharge Disposition: Disch w/ Home Health Serv Discharge Instructions DIET: Follow Instructions for: As Tolerated, No Restrictions Activities you can perform: See Additionl Instruction Other Activity Instructions: Okay to shower; pat incison dry; make sure to secure NANY drain Avoid heavy pushing pulling or lifitng Micheline Tadeo/First Cj WILLETT Aug 26, 2017 11:26
--- NOTE | 2017-08-26 13:30 | HHI.NPPN ---
Subjective Complaints: Abdominal Pain Renal Failure: Chronic, Acute, Stage IV Interval History Pending discharge today. Creatinine slightly higher today. (Alexandra Lizarraga) Review of Systems Musculoskeletal MS Remarks right leg edema (Alexandra Lizarraga) Objective Data Data Vital Signs Date Time Temp Pulse Resp B/P (MAP) Pulse Ox O2 Delivery O2 Flow Rate FiO2 08/26/17 11:14 97.9 60 18 173/84 (113) 94 08/26/17 08:00 96.6 65 16 155/77 (103) 94 08/26/17 04:00 96.9 62 20 149/75 (99) 93 08/26/17 00:00 97.4 60 20 163/72 (102) 94 08/25/17 20:05 Room Air 08/25/17 20:00 96.6 64 22 170/91 (117) 95 08/25/17 16:00 96.0 54 18 135/69 (91) 94 (Alexandra Lizarraga) -: 08/25/17 0534 08/26/17 0530 Imaging Last 72 hours Impressions Lower Extremity Ultrasound 08/25/17 0000 Signed Impressions: Service Date/Time: August 13:29 - CONCLUSION: Normal examination. Wesley Sherwood MD Tubes & Lines: Owens (Alexandra Lizarraga) Physical Exam General Appearance: Well Developed, Well Nourished, Comfortable (Alexandra Lizarraga) Eyes Eye Exam: Pupils Equal (Alexandra Lizarraga) Throat Throat Exam: Oral Mucosa [place] & Moist (Alexandra Lizarraga) Neck Neck Exam: Neck Supple (Alexandra Lizarraga) Cardiology CV Exam: Regular, Normal Sinus Rhythm (Alexandra Lizarraga) Gastrointestinal/Abdomen GI Exam: Soft, Non-Tender, Bowel Sounds Present (Alexandra Lizarraga) Musculoskeletal MS Exam: Joints Intact, Normal Gait, Normal Tone MS Remarks RLE 1-2+ edema (Alexandra Lizarraga) Integumentary Skin Exam: Warm, Dry (Alexandra Lizarraga) Extremeties Extremities Exam: Pedal Pulses Palpable, Trace Edema (Alexandra Lizarraga) Neurologic Neuro Exam: Alert, Awake, Oriented, Speech Clear, Moving All Extremities (Alexandra Lizarraga) Psychiatric Psych Exam: Appropriate Responses (Alexandra Lizarraga) Assessment/Plan Discussed Condition With: Patient Assessment Summary: ROZINA/Acute Renal Failure, Hypertension, Diabetes Mellitus, CKD Stage III Electrolyte Assessment: Hypokalemia Problem List: (1) Acute renal failure ICD Codes: N17.9 - Acute kidney failure, unspecified Status: Acute Plan: Baseline CKD 4, creatinine 2.05-2.1, GFR 25; Underlying diabetic nephropathy, 5 g proteinuria ROZINA was most likely due to post operative hypotension Renal function is slightly worse today, electrolytes have normalized. Tolerating PO fluids/food non oliguric Repeat labs daily Avoid nephrotoxic agents We will follow in CKD clinic when discharged. Appt is already scheduled. (2) Cholelithiasis ICD Codes: K80.20 - Calculus of gallbladder without cholecystitis without obstruction Plan: s/p lap cholecystectomy follow up with surgery post discharge RLE doppler study negative for DVT (3) Hypertension ICD Codes: I10 - Essential (primary) hypertension Status: Acute Plan: On: - nifedipine 90 mg daily - Coreg 12.5 mg BID - losartan 25 mg daily -hydralazine 25 QQ8h Advised to stop lisinopril once home Not given Rx for clonidine. She will call our office to discuss her blood pressure readings once home, may need dose adjustments (Alexandra Lizarraga) Problem List: (1) Acute renal failure ICD Codes: N17.9 - Acute kidney failure, unspecified Status: Acute Plan: Baseline CKD 4, creatinine 2.05-2.1, GFR 25; Underlying diabetic nephropathy, 5 g proteinuria ROZINA was most likely due to post operative hypotension Renal function is slightly worse today, electrolytes have normalized. Tolerating PO fluids/food non oliguric Repeat labs daily Avoid nephrotoxic agents We will follow in CKD clinic when discharged. Appt is already scheduled. (2) Cholelithiasis ICD Codes: K80.20 - Calculus of gallbladder without cholecystitis without obstruction Plan: s/p lap cholecystectomy follow up with surgery post discharge RLE doppler study negative for DVT (3) Hypertension ICD Codes: I10 - Essential (primary) hypertension Status: Acute Plan: On: - nifedipine 90 mg daily - Coreg 12.5 mg BID - losartan 25 mg daily -hydralazine 25 QQ8h Advised to stop lisinopril once home Not given Rx for clonidine. She will call our office to discuss her blood pressure readings once home, may need dose adjustments Plan patient was seen and examined. Renal function at baseline. To be discharged today. (Mj Shelley MD) Alexandra Lizarraga Aug 26, 2017 13:30 Mj Shelley MD Aug 26, 2017 15:14
[2017-08-26 15:46] VITALS: BP 180/86; PULSE 61; RESP 17; TEMP 97.7; O2SAT 98
--- NOTE | 2017-08-26 17:41 | HHI.PR ---
Subjective Remarks Patient seen this morning. Denies any chest pain or shortness of breath denies any nausea or vomiting. Says she feels well. Objective Vital Signs Date Time Temp Pulse Resp B/P (MAP) Pulse Ox O2 Delivery O2 Flow Rate FiO2 08/26/17 15:46 97.7 61 17 180/86 (117) 98 08/26/17 11:14 97.9 60 18 173/84 (113) 94 08/26/17 08:00 96.6 65 16 155/77 (103) 94 08/26/17 04:00 96.9 62 20 149/75 (99) 93 08/26/17 00:00 97.4 60 20 163/72 (102) 94 08/25/17 20:05 Room Air 08/25/17 20:00 96.6 64 22 170/91 (117) 95 I/O 08/25/17 08/25/17 08/25/17 08/26/17 08/26/17 08/26/17 07:00 15:00 23:00 07:00 15:00 23:00 Intake Total 1065 ml 320 ml Output Total 50 ml 175 ml 100 ml Balance 1015 ml -175 ml 220 ml Intake Oral 720 ml 320 ml IV Total 345 ml Drainage Total 50 ml 175 ml 100 ml # Voids 3 3 # Bowel Movements 0 0 Result Diagram: 08/25/17 0534 08/26/17 0530 Objective Remarks GENERAL: patient sitting up in bed. Appears comfortable. no change SKIN: Warm and dry. HEAD: Normocephalic. EYES: No scleral icterus. No injection or drainage. NECK: Supple, trachea midline. No JVD. CARDIOVASCULAR: Regular rate and rhythm without murmurs, gallops, or rubs. RESPIRATORY: Breath sounds equal bilaterally. No accessory muscle use. GASTROINTESTINAL: Abdomen soft, non-tender, nondistended. MUSCULOSKELETAL: No cyanosis, or edema. abdominal NANY drain in place BACK: Nontender without obvious deformity. No CVA tenderness. A/P Assessment and Plan Patient is a 61-year-old female with primary medical history of HTN, CKD who came into the hospital for laparoscopic cholecystectomy. //Acute cholecystitis Status post laparoscopic cholecystectomy, intraoperative cholangiogram and laparoscopic common bile duct exploration with removal of multiple choledocholithiasis by general surgery. It was converted to an open common bile duct exploration and liver biopsy. - Further management per general surgery. - Pain control with a bowel regimen. - Incentive spirometry. Duonebs. - Physical therapy increase activity = Continue Levaquin to complete treatment course //Newly diagnosed liver failure Status post open liver biopsy. INR 1.1. Albumin is low. - Pathology pending. - follow LFTs. = Patiently will need follow-up with gastroenterology as outpatient. //Acute on chronic kidney disease Appreciate nephrology consult. Creatinine improved. - Monitor BMP and avoid nephrotoxins. - d/c IV fluids as patient appears somewhat overloaded. - Calculate FENa. - Nephrology following, appreciate recommendation - Renal ultrasound does not show hydronephrosis =CR at baseline //Lethargy Chronic problem. B12 and TSH within normal limits. - Encourage ambulation. - Advance diet as tolerated. //Hypertension Blood pressure exacerbated by pain. - Continue Coreg and Procardia. - Pain control. On SEWING MACHINE OPERATOR ZIPPER pump - Clonidine as needed. = 08/24. Increase nifedipine. Restart gabapentin due to possible withdrawal. Continue to monitor. = 08/25. Blood pressure still markedly elevated. Will start hydralazine 3 times daily. = Continue hydralazine, losartan, nifedipine //Dyslipidemia On a statin. - Hold statin due to liver failure. //Diabetes mellitus Glucose has been well controlled. A1c 8.8%. -Insulin sliding scale. Levemir 10 units daily. -Continue gabapentin for neuropathy. -Monitor Accu-Cheks = 08/24. Hyperglycemic in the 200s. Start diabetic diet. Increase Levemir. = Blood sugars acceptable. //Leukocytosis Afebrile. Likely reactive secondary to surgery. Chest x-ray unremarkable. UA indicative of an infection. Urine culture was negative. -Leukocytosis resolved. -DC Owens //Hypokalemia = 08/24. Potassium 3.2. Replace. Continue to monitor =resolved. //DVT heparin GI famotidine Discharge Planning we'll need follow-up with GI as outpatient due to findings on liver biopsy. Samy South MD Aug 26, 2017 17:41
[2017-08-27] MEDS ORDERED: FUROSEMIDE 20 MG TAB PO SCH (09:00)
== END 2017-08-26 17:08 | disposition home health service (06) | DRG 412 ==
LOC: HSDC 09:28 → N03B 19:55 → N03A 23:55 → N06A 08-20 13:49
PROVIDERS: ADMIT Surgery; ATTEND Surgery
PROC: 0FC90ZZ Extirpation of Matter from Common Bile Duct, Open Approach (ICD-10-PCS; 2017-08-19)
PROC: 0FB20ZX Excision of Left Lobe Liver, Open Approach, Diagnostic (ICD-10-PCS; 2017-08-19)
PROC: 0FJB4ZZ Inspection of Hepatobiliary Duct, Percutaneous Endoscopic Approach (ICD-10-PCS; 2017-08-19)
PROC: BF101ZZ Fluoroscopy of Bile Ducts using Low Osmolar Contrast (ICD-10-PCS; 2017-08-19)
PROC: 0FT44ZZ Resection of Gallbladder, Percutaneous Endoscopic Approach (ICD-10-PCS; principal; 2017-08-19 13:21)
DX: K80.62 Calculus of gallbladder and bile duct with acute cholecystitis without obstruction (principal); N17.9 Acute kidney failure, unspecified; E87.0 Hyperosmolality and hypernatremia; E11.21 Type 2 diabetes mellitus with diabetic nephropathy; K72.90 Hepatic failure, unspecified without coma; N18.4 Chronic kidney disease, stage 4 (severe); I50.9 Heart failure, unspecified; I13.0 Hypertensive heart and chronic kidney disease with heart failure and stage 1 through stage 4 chronic kidney disease, or unspecified chronic kidney disease; E11.22 Type 2 diabetes mellitus with diabetic chronic kidney disease; K74.60 Unspecified cirrhosis of liver; E78.5 Hyperlipidemia, unspecified; E11.40 Type 2 diabetes mellitus with diabetic neuropathy, unspecified; E87.5 Hyperkalemia; K59.00 Constipation, unspecified; E11.65 Type 2 diabetes mellitus with hyperglycemia; E87.6 Hypokalemia; I95.81 Postprocedural hypotension; Z98.84 Bariatric surgery status; Z79.899 Other long term (current) drug therapy; Z53.31 Laparoscopic surgical procedure converted to open procedure; Z86.73 Personal history of transient ischemic attack (TIA), and cerebral infarction without residual deficits; Z79.4 Long term (current) use of insulin
CPT/HCPCS: 71045; 74300; 76775; 80048; 80053; 80069; 80076; 81001; 82248; 82607; 82948; 83036; 83735; 84100; 84443; 85025; 85027; 85610; 87086; 87641; 88300; 88304; 88307; 88313; 93005; 93971; 94150; C1757; C1769; J0131; J0690; J0696; J1100; J1170; J1200; J1610; J1644; J1650; J1815; J1940; J2250; J2270; J2405; J2710; J3010; J7030; J7040; P9047

== ENCOUNTER 2018-03-21 11:07 | Inpatient (IN) ==
[2018-03-21] MEDS ORDERED: Sod Chloride 0.9% Inj 1,000 ML IV.SIG ONE (11:52)
--- NOTE | 2018-03-21 11:59 | ED ---
HPI General Chief Complaint: Syncope Stated Complaint: weakness/dizziness Time Seen by Provider: 03/21/18 11:24 Source: patient Mode of arrival: ambulatory Limitations: no limitations History of Present Illness HPI narrative: Patient is a 62-year-old female with history of end-stage renal disease, diabetes, history of nonalcoholic liver cirrhosis, hypertension, returns to the emergency room for evaluation of dizziness as well as syncope. Patient reports that over the course of the past 2 days, she has had 5 syncopal episodes. Patient reports that she is unsure if she had loss of consciousness during the syncopal episodes, she does report waking up on the floor and not remembering what happens. Patient reports that along with her syncopal episodes , she has been feeling dizzy. Patient reports that her blood pressure has also been labile, reports that she used to be on 3 blood pressure medications, her blood pressure has been lower than normal, she currently is taking only 2 of her medications, none of her blood pressure medications were taken today. Patient denies any chest pain or shortness of breath, patient reports that she just is not feeling right. Patient does take a Plavix daily as an anticoagulant. Reports that last night, around 2 AM she found herself passed out on the ground -reports that she was unsure why she got up in the first place. Reports that she had another 2 syncopal episodes today. MD complaint: Reports loss of consciousness, felt faint and collapsed Onset (ago): day(s) (Past 2 days) Prodromal symptoms: Reports none Witnessed: no Context: Reports during exertion and standing up Injuries sustained associated with event: Reports none Current symptoms: Reports lightheaded, vertigo and weakness Related Data Home Medications Medication Instructions Recorded Confirmed carvedilol 12.5 mg PO BID 01/07/18 03/21/18 cholecalciferol (vitamin D3) 1,000 unit PO DAILY 01/07/18 03/21/18 clopidogrel 75 mg PO DAILY 01/07/18 03/21/18 ferrous sulfate 1,000 mg PO DAILY 01/07/18 03/21/18 furosemide 40 mg PO BID 01/07/18 03/21/18 gabapentin 300 mg PO BID 01/07/18 03/21/18 insulin glargine [Lantus U-100 36 unit SUB-Q ONCE PM 01/07/18 03/21/18 Insulin] losartan 50 mg PO BID 01/07/18 03/21/18 melatonin 5 mg PO HS PRN 01/07/18 03/21/18 metolazone 5 mg PO DAILY 01/07/18 03/21/18 nifedipine 90 mg PO DAILY 01/07/18 03/21/18 omeprazole 40 mg PO DAILY 01/07/18 03/21/18 rifaximin [Xifaxan] 550 mg PO BID 01/07/18 03/21/18 duloxetine 60 mg PO DAILY 03/16/18 03/21/18 insulin aspart U-100 [Novolog 1 unit SUBCUT TID 03/16/18 03/21/18 U-100 Insulin aspart] tizanidine 4 mg PO DAILY 03/21/18 03/21/18 Allergies Allergy/AdvReac Type Severity Reaction Status Date / Time egg Allergy Severe Swelling Verified 03/21/18 11:18 Sulfa (Sulfonamide Allergy Severe Swelling Verified 03/21/18 11:18 Antibiotics) Review of Systems ROS: all other systems reviewed are negative [facility] Medical History Medical History Back injuries (Acute) CKD (chronic kidney disease) stage 5, GFR less than 15 ml/min (Acute) Cirrhosis of liver (Acute) Diabetes (Acute) HTN (hypertension) (Acute) Surgical History Surgical History H/O section (Acute) H/O gastric bypass (Acute) History of tonsillectomy (Acute) Social History Social History Substance History: No History of Abuse Second Hand Smoke Exposure: No Smoking Status: Never smoker How Often Do You Have a Drink Containing Alcohol: Never Recent Out of Country Travel within the Last 8 Weeks: No Immunization History Tetanus Immunization: <5 Years Exam Narrative Exam Narrative: GENERAL: Mild distress SKIN: Focused skin assessment warm/dry. HEAD: Atraumatic. Normocephalic. EYES: Pupils equal and round. No scleral icterus. No injection or drainage. ENT: No nasal bleeding or discharge. Mucous membranes pink and moist. NECK: Trachea midline. No JVD. CARDIOVASCULAR: Regular rate and rhythm. No murmur appreciated. RESPIRATORY: No accessory muscle use. Clear to auscultation. Breath sounds equal bilaterally. GASTROINTESTINAL: Abdomen soft, non-tender, nondistended. Hepatic and splenic margins not palpable. MUSCULOSKELETAL: No obvious deformities. No clubbing. No cyanosis. No edema. NEUROLOGICAL: Awake and alert. No obvious cranial nerve deficits. Motor grossly within normal limits. Normal speech. Patient with no obvious CN deficits PSYCHIATRIC: Appropriate mood and affect; insight and judgment normal. Course Initial Documented Vital Signs Temperature 97.7 F 03/21/18 11:11 Pulse Rate 74 03/21/18 11:11 Respiratory Rate 13 03/21/18 11:11 Blood Pressure 90/55 L 03/21/18 11:11 Pulse Oximetry 100 03/21/18 11:11 Last Documented Vital Signs Temperature 97.7 F 03/21/18 11:11 Pulse Rate 72 03/21/18 11:32 Respiratory Rate 20 03/21/18 11:32 Blood Pressure 95/63 L 03/21/18 11:32 Pulse Oximetry 100 03/21/18 11:32 Medical Decision Making MDM Narrative Medical decision making narrative: During the course of the patients emergency department visit, the patients history, examination, and differential diagnosis were reviewed with the patient. The patient was placed on a radiation monitor with oximetry and frequent blood pressure monitoring. The patient had an IV access obtained and blood work sent for analysis. The patient was initially provided IVF, she is mildly hypotensive with a blood pressure of 95/63. Orthostatic vital signs were also ordered as I am concerned that she could have orthostatic hypotension causing her syncopal episodes. Patient with orthostatic hypotension - 2 liters of ivf will be ordered and will recheck orthostatic vs after Patient with continued hypotension after 2 ilters of IVF, her hemoglobin is now 8.3, which is a 2 g drop from when she was seen here on March 16, 2018 (10.6) . Patient also with a potassium of 5.7 - she does not have hyperacute T waves on her EKG. Patient was given IV calcium, Kayexalate, IV dextrose as well as insulin as well as sodium bicarb. Patient will require admission to the hospital for further workup of her syncopal episodes. Case reviewed with Dr. Sampson who accepts pt to service Medical Screen Exam Complete: Yes Emergency Medical Condition: Yes Differential Diagnosis Differential Diagnosis: Differential includes ACS, arrhythmia, intracranial hemorrhage, CVA, ESRD Medical Records Medical records reviewed: Yes I reviewed the patient's medical records. Lab Data Result diagrams: 03/21/18 12:01 03/21/18 12:01 Lab Results 03/21/18 03/21/18 03/21/18 Range/Units 11:40 12:01 12:01 WBC 7.9 (4.0-11.0) th/mm3 RBC 3.08 L (4.00-5.30) mil/mm3 Hgb 8.3 L (11.6-15.3) gm/dL Hct 26.1 L (35.0-46.0) % MCV 84.6 (80.0-100.0) fL MCH 26.8 L (27.0-34.0) pg MCHC 31.7 L (32.0-36.0) % RDW 13.7 (11.6-17.2) % Plt Count 273 D (150-450) th/mm3 MPV 8.8 (7.0-11.0) fL Neut % (Auto) 69.0 (16.0-70.0) % Lymph % (Auto) 17.2 (9.0-44.0) % [place] % (Auto) 5.4 (0.0-8.0) % Eos % (Auto) 6.9 H (0.0-4.0) % Baso % (Auto) 1.5 (0.0-2.0) % Neut # (Auto) 5.4 (1.8-7.7) th/mm3 Lymph # (Auto) 1.4 (1.0-4.8) th/mm3 [place] # (Auto) 0.4 (0.0-0.9) th/mm3 Eos # (Auto) 0.5 H (0.0-0.4) th/mm3 Baso # (Auto) 0.1 (0.0-0.2) th/mm3 WBC Differential . Differential Comment Auto diff final PT 10.6 (9.8-11.6) sec INR 1.0 Ratio APTT 20.4 L (24.3-30.1) sec Sodium (136-145) meq/L Potassium (3.5-5.1) meq/L Chloride (98-107) meq/L Carbon Dioxide (21.0-32.0) meq/L Anion Gap (5-15) meq/L BUN (7-18) mg/dL Creatinine (0.50-1.00) mg/dL Estimated GFR (>89) mL/min POC Glucose 213 H (68-110) mg/dl Random Glucose (74-106) mg/dL Calcium (8.5-10.1) mg/dL Magnesium (1.5-2.5) mg/dL Total Bilirubin (0.2-1.0) mg/dL AST (15-37) U/L ALT (10-53) U/L Alkaline Phosphatase (45-117) U/L Troponin I (0.02-0.05) ng/mL B-Natriuretic Peptide (0-100) pg/mL Total Protein (6.4-8.2) g/dL Albumin (3.4-5.0) g/dL 03/21/18 03/21/18 Range/Units 12:01 12:01 WBC (4.0-11.0) th/mm3 RBC (4.00-5.30) mil/mm3 Hgb (11.6-15.3) gm/dL Hct (35.0-46.0) % MCV (80.0-100.0) fL MCH (27.0-34.0) pg MCHC (32.0-36.0) % RDW (11.6-17.2) % Plt Count (150-450) th/mm3 MPV (7.0-11.0) fL Neut % (Auto) (16.0-70.0) % Lymph % (Auto) (9.0-44.0) % [place] % (Auto) (0.0-8.0) % Eos % (Auto) (0.0-4.0) % Baso % (Auto) (0.0-2.0) % Neut # (Auto) (1.8-7.7) th/mm3 Lymph # (Auto) (1.0-4.8) th/mm3 [place] # (Auto) (0.0-0.9) th/mm3 Eos # (Auto) (0.0-0.4) th/mm3 Baso # (Auto) (0.0-0.2) th/mm3 WBC Differential Differential Comment PT (9.8-11.6) sec INR Ratio APTT (24.3-30.1) sec Sodium 132 L (136-145) meq/L Potassium 5.7 H (3.5-5.1) meq/L Chloride 94 L (98-107) meq/L Carbon Dioxide 21.5 (21.0-32.0) meq/L Anion Gap 17 H (5-15) meq/L BUN 161 H (7-18) mg/dL Creatinine 6.14 H (0.50-1.00) mg/dL Estimated GFR 7 L (>89) mL/min POC Glucose (68-110) mg/dl Random Glucose 181 H (74-106) mg/dL Calcium 9.5 (8.5-10.1) mg/dL Magnesium 3.9 H (1.5-2.5) mg/dL Total Bilirubin 0.3 (0.2-1.0) mg/dL AST 28 (15-37) U/L ALT 31 (10-53) U/L Alkaline Phosphatase 218 H (45-117) U/L Troponin I Less than 0.02 L (0.02-0.05) ng/mL B-Natriuretic Peptide 22 (0-100) pg/mL Total Protein 7.6 (6.4-8.2) g/dL Albumin 3.3 L (3.4-5.0) g/dL Imaging Data Radiologist's impression: Head CT 03/21/18 11:52 CONCLUSION: 1. Stable 1.3 cm extra-axial densely calcified mass in the left frontal high convexities consistent with a meningioma. 2. Redemonstration of remote lacunar infarct in the right basal ganglia. 3. No acute intracranial abnormality. . Chest X-Ray 03/21/18 11:53 CONCLUSION: Negative examination. Foot X-Ray 03/21/18 11:59 CONCLUSION: Calcaneal spur. ECG Data EKG Prior to Arrival: No Attestation: I personally reviewed and interpreted this ECG as follows: Interpretation: EKG at 1137: NSR at 70bpm, qt/qtc: 438/458, no acute st or t wave changes Discharge Plan Discharge Disposition Patient Disposition: 30 Still Patient Discharge Condition Condition: Stable Discharge Details Diagnosis: Syncope and collapse, Anemia Physicians Team ED Provider: Nuria Gallardo Primary Care Provider: Thaddeus Maynard Rxs /Orders / Referrals /Forms Prescriptions: No Action losartan 50 mg Tablet 50 mg PO BID RF: 0 furosemide 40 mg Tablet 40 mg PO BID RF: 0 carvedilol 12.5 mg Tablet 12.5 mg PO BID RF: 0 insulin glargine [Lantus U-100 Insulin] 100 unit/mL Solution 36 unit SUB-Q ONCE PM RF: 0 nifedipine 90 mg Tablet Extended Release 90 mg PO DAILY RF: 0 metolazone 5 mg Tablet 5 mg PO DAILY RF: 0 clopidogrel 75 mg Tablet 75 mg PO DAILY RF: 0 omeprazole 40 mg Capsule,Delayed Release(Dr/Ec) 40 mg PO DAILY RF: 0 ferrous sulfate 325 mg (65 mg iron) Tablet 1,000 mg PO DAILY RF: 0 gabapentin 300 mg Capsule 300 mg PO BID RF: 0 cholecalciferol (vitamin D3) 1,000 unit Tablet 1,000 unit PO DAILY RF: 0 melatonin 5 mg Tablet 5 mg PO HS PRN (Reason: SLEEP) RF: 0 rifaximin [Xifaxan] 550 mg Tablet 550 mg PO BID RF: 0 tizanidine 4 mg Tablet 4 mg PO DAILY RF: 0 insulin aspart U-100 [Novolog U-100 Insulin aspart] 100 unit/mL Solution 1 unit SUBCUT TID RF: 0 duloxetine 60 mg Capsule,Delayed Release(Dr/Ec) 60 mg PO DAILY RF: 0 Status ED Status: With Doctor
[2018-03-21 12:20] LABS: Baso # (Auto) 0.1 th/mm3 (0.0-0.2); Baso % (Auto) 1.5 % (0.0-2.0); Eos # (Auto) 0.5 th/mm3 (0.0-0.4); Eos % (Auto) 6.9 % (0.0-4.0); Hematocrit 26.1 % (35.0-46.0); Hemoglobin 8.3 gm/dL (11.6-15.3); Lymph # (Auto) 1.4 th/mm3 (1.0-4.8); Lymph % (Auto) 17.2 % (9.0-44.0); Mean Corpuscular HGB Conc 31.7 % (32.0-36.0); Mean Corpuscular Hemoglobin 26.8 pg (27.0-34.0); Mean Corpuscular Volume 84.6 fL (80.0-100.0); Mean Platelet Volume 8.8 fL (7.0-11.0); Mono # (Auto) 0.4 th/mm3 (0.0-0.9); Mono % (Auto) 5.4 % (0.0-8.0); Neut # (Auto) 5.4 th/mm3 (1.8-7.7); Platelet Count 273 th/mm3 (150-450); Red Blood Count 3.08 mil/mm3 (4.00-5.30); Red Cell Distribution Width 13.7 % (11.6-17.2); White Blood Count 7.9 th/mm3 (4.0-11.0)
[2018-03-21 12:42] LABS: Blood Urea Nitrogen 161 mg/dL (7-18); Total Protein 7.6 g/dL (6.4-8.2)
[2018-03-21 12:45] LABS: Activated Partial Thrombo Time 20.4 sec (24.3-30.1); Alkaline Phosphatase 218 U/L (45-117); Prothrombin Time 10.6 sec (9.8-11.6)
[2018-03-21] MEDS ORDERED: Sod Chloride 0.9% Inj 1,000 ML IV.SIG SCH ×2 (13:00→16:15)
--- NOTE | 2018-03-21 13:10 | XR ---
EXAM DATE: 03/21/2018 11:59 AM EDT AGE/SEX: 62 years / Female INDICATIONS: Vertigo, fell 6 times since yesterday, pain right foot, especially great toe and top of foot CLINICAL DATA: This is the patient's initial encounter. Patient reports that signs and symptoms have been present for 1 day and indicates a pain score of 5/10. MEDICAL/SURGICAL HISTORY: Cirrhosis. Congestive heart failure. Diabetes. renal disease, neur opathy Gastric bypass. Fusion, lumbar. Tonsillectomy. multiple foot surgeries COMPARISON: No prior exams available for comparison. FINDINGS: Bony structures are intact and in normal alignment. Osseous density is normal. Soft tissues are unre markable. No radiopaque foreign bodies seen. Tiny plantar calcaneal spur. CONCLUSION: Calcaneal spur. Electronically signed by: Raleigh Milian MD 03/21/2018 1:09 PM EDT
--- NOTE | 2018-03-21 13:10 | XR ---
EXAM DATE: 03/21/2018 11:53 AM EDT AGE/SEX: 62 years / Female INDICATIONS: Vertigo, weakness, multiple falls, chest pain CLINICAL DATA: This is the patient's initial encounter. Patient reports that signs and symptoms have been present for 1 day and indicates a pain score of 5/10. MEDICAL/SURGICAL HISTORY: Congestive heart failure. Hypertension. Diabetes. renal disease, n europathy Gastric bypass. Fusion, lumbar. Tonsillectomy. multiple foot surgeries COMPARISON: [facility] [place]ST SINGLE AP, 08/20/2017. . FINDINGS: A single AP view of the chest demonstrates the lungs to be symmetrically aerated without evidence of mass, infiltrate or effusion. The cardiomediastinal contours are unremarkable. Osseous structures a re intact. CONCLUSION: Negative examination. Electronically signed by: Raleigh Milian MD 03/21/2018 1:08 PM EDT
--- NOTE | 2018-03-21 13:18 | CT ---
EXAM DATE: 03/21/2018 11:57 AM EDT AGE/SEX: 62 years / Female INDICATIONS: Syncope five times since yesterday. CLINICAL DATA: This is the patient's initial encounter. Patient reports that signs and symptoms have been present for 1 day and indicates a pain score of 0/10. MEDICAL/SURGICAL HISTORY: Cirrhosis. Diabetes. Hypertension. None. RADIATION DOSE: 56.35 CTDI (mGy) COMPARISON: [facility], CT BRAIN W/O CONTRAST, 09/21/2016. . TECHNIQUE: CT of the head without contrast. Using automated exposure control and adjustment of the mA and/or kV according to patient size, radiation dose was kept as low as reasonably achievable to ob tain optimal diagnostic quality images. DICOM format image data is available electronically for revi ew and comparison. FINDINGS: Cerebrum: Densely calcified extra-axial mass in the left frontal high convexities measuring 1.3 cm s table from prior exam. Mild diffuse cerebral atrophy. The ventricles are normal for degree of atrophy . Small hypodensity in the right basal ganglia which may reflect a remote lacunar infarct.. No extra axial fluid collections are seen. Posterior Fossa: The cerebellum and brainstem are intact. The 4th ventricle is midline. The cerebe llopontine angle is unremarkable. Extracranial: The visualized portion of the orbits is intact. Skull: The calvaria is intact. No evidence of skull fracture. CONCLUSION: 1. Stable 1.3 cm extra-axial densely calcified mass in the left frontal high convexities consistent with a meningioma. 2. Redemonstration of remote lacunar infarct in the right basal ganglia. 3. No acute intracranial abnormality. . Electronically signed by: Lucio Messina MD 03/21/2018 1:17 PM EDT
[2018-03-21 13:26] LABS: Anion Gap 17 meq/L (5-15); Carbon Dioxide 21.5 meq/L (21.0-32.0); Chloride 94 meq/L (98-107); Potassium 5.7 meq/L (3.5-5.1); Sodium 132 meq/L (136-145)
[2018-03-21 13:27] LABS: Alanine Aminotransferase 31 U/L (10-53); Albumin 3.3 g/dL (3.4-5.0); Aspartate Aminotransferase 28 U/L (15-37); Calcium 9.5 mg/dL (8.5-10.1); Glomerular Filtration Rate 7 mL/min (>89); Glucose,Random 181 mg/dL (74-106); Magnesium 3.9 mg/dL (1.5-2.5)
[2018-03-21] MEDS ORDERED: Sodium Polystyrene Sulfonate/Sorbitol Liq 15 GM/60 ML UDC PO ONE (15:23)
[2018-03-21] MEDS ORDERED: Dextrose 50% in Water 50 ML Vial IV.PUSH ONE (15:23)
[2018-03-21] MEDS ORDERED: Calcium Gluconate Inj 1 GM in Sodium Chlor 0.9% Inj 100 ML IV.SIG ONE (15:23)
[2018-03-21] MEDS ORDERED: Sod Chloride 0.9% Inj 1,000 ML IV.CONT SCH (16:15)
--- NOTE | 2018-03-21 17:17 | P.HPIM ---
History of Present Illness Service: [facility] Primary Care Physician: Thaddeus Maynard MD Chief Complaint: Syncope and weakness and dizziness History of Present Illness: Patient is a 62-year-old female with a known history of end-stage renal disease not on hemodialysis or peritoneal dialysis yet, diabetes mellitus , history of nonalcoholic liver cirrhosis with Peters, hypertension, who presented to the emergency room today for evaluation of dizziness as well as syncope. Patient reports that over the past couple days she has had at least 5 syncopal episodes. Patient reports that she is not sure if she had loss of conscious during the syncopal episodes but she does report waking up on the floor and not remembering what happened. Patient reports along with her syncopal episode she has had some dizziness. Reports that her blood pressure is also been labile. She reports that she used to be on at least 3 blood pressure medications, and her blood pressures always been lower than normal. Currently only taking 2 of her medications and did not take any of her blood pressure medications today. Denies any chest pain or shortness of breath, not feeling right. Patient did take Plavix daily as an anticoagulant. She reports that last night around 2 AM she found herself passed out on the ground. She reports that she was unsure how she got there in the first place. Reports that she had 2 more syncopal episodes today. She has had this reports of loss of consciousness, and feeling faint and collapsed. No real prodromal events that she can remember. None of these were witnessed. She worse during exertion and standing up. Denies any injuries. Other reported symptoms included lightheadedness and questionable vertigo and weakness Review of Systems All other systems reviewed negative except as stated in HPI PMFSH - History History Provided By: Patient, Significant Other - Medical History Medical History: Medical History (Last Updated 03/21/18 @ 17:40 by Chivo Porter DO) Anxiety Depression GERD (gastroesophageal reflux disease) PETERS (nonalcoholic steatohepatitis) Back injuries CKD (chronic kidney disease) stage 5, GFR less than 15 ml/min Cirrhosis of liver Diabetes HTN (hypertension) - Surgical History Surgical History: Surgical History (Last Reviewed 03/21/18 @ 17:40 by Chivo Porter DO) H/O section H/O gastric bypass History of tonsillectomy - Family History Family History: Family History (Last Updated 03/21/18 @ 17:40 by Chivo Porter DO) Other Family history of diabetes mellitus Family history of hypertension - Social History I have reviewed the patient's Social History: Yes - Tobacco History Second Hand Smoke Exposure: No Tobacco Use In Past 30 Days: No Smoking Status: Never smoker - Alcohol History How Often Do You Have a Drink Containing Alcohol: Never - Substance Use History Substance History: No History of Abuse - Travel History History of Recent Travel: No Recent Travel in the [place] Within the Last 8 Weeks: No Recent Travel Out of the Country Within the Last 8 Weeks: No - Immunization History Tetanus Immunization: <5 Years Medications and Allergies Active Medications: Active Medications Clopidogrel Bisulfate (Plavix) 75 mg PO DAILY KATELYNN Duloxetine HCl (Cymbalta) 60 mg PO DAILY KATELYNN Ferrous Sulfate (Ferosul) 1,000 mg PO DAILY KATELYNN Gabapentin (Neurontin) 300 mg PO BID KATELYNN Sodium Chloride (Ns Inj) 1,000 mls @ 0 mls/hr IV.SIG BOLUS KATELYNN Last Infusion: 03/21/18 14:58 Dose: Infused Sodium Chloride (Ns Inj) 1,000 mls @ 0 mls/hr IV.SIG BOLUS KATELYNN Sodium Bicarbonate 75 meq/ (Sodium Chloride) 1,000 mls @ 100 mls/hr IV.CONT .Q10H KATELYNN Non-Formulary Medication (Insulin Glargine) 36 unit SQ ONCE PM KATELYNN Non-Formulary Medication (Omeprazole [Omeprazole]) 40 mg PO DAILY KATELYNN Rifaximin (Xifaxan) 550 mg PO BID KATELYNN Sodium Chloride (Ns Flush) 2 ml IV.FLUSH PRN PRN PRN Reason: FLUSH AFTER USING IV ACCESS Last Admin: 03/21/18 16:13 Dose: 2 ml Vitamin D (Vitamin D3) 1,000 unit PO DAILY KATELYNN Allergies Allergy/AdvReac Type Severity Reaction Status Date / Time egg Allergy Severe Swelling Verified 03/21/18 11:18 Sulfa (Sulfonamide Allergy Severe Swelling Verified 03/21/18 11:18 Antibiotics) Home Medications Medication Instructions Recorded Confirmed Type carvedilol 12.5 mg PO BID 01/07/18 03/21/18 History cholecalciferol (vitamin D3) 1,000 unit PO DAILY 01/07/18 03/21/18 History clopidogrel 75 mg PO DAILY 01/07/18 03/21/18 History ferrous sulfate 1,000 mg PO DAILY 01/07/18 03/21/18 History furosemide 40 mg PO BID 01/07/18 03/21/18 History gabapentin 300 mg PO BID 01/07/18 03/21/18 History insulin glargine [Lantus U-100 36 unit SUB-Q ONCE PM 01/07/18 03/21/18 History Insulin] losartan 50 mg PO BID 01/07/18 03/21/18 History melatonin 5 mg PO HS PRN 01/07/18 03/21/18 History metolazone 5 mg PO DAILY 01/07/18 03/21/18 History nifedipine 90 mg PO DAILY 01/07/18 03/21/18 History omeprazole 40 mg PO DAILY 01/07/18 03/21/18 History rifaximin [Xifaxan] 550 mg PO BID 01/07/18 03/21/18 History duloxetine 60 mg PO DAILY 03/16/18 03/21/18 History insulin aspart U-100 [Novolog 1 unit SUBCUT TID 03/16/18 03/21/18 History U-100 Insulin aspart] tizanidine 4 mg PO DAILY 03/21/18 03/21/18 History Exam Vital signs: Vital Signs 03/21/18 11:11 03/21/18 11:32 03/21/18 16:27 Temperature 97.7 F Pulse Rate 74 72 83 Respiratory Rate 13 20 17 Blood Pressure 90/55 L 95/63 L 119/59 L Pulse Oximetry 100 100 100 Intake & Output 03/20/18 03/21/18 03/21/18 18:59 06:59 18:59 Intake Total 1999 Balance 1999 Weight 68.492 kg Intake: IV 1999 NS Inj 1,000 ML @ Wide Open IV. 1999 SIG BOLUS KATELYNN Rx#:[id number] Narrative: GENERAL: Awake alert and oriented x3 talkative and cooperative SKIN: Warm and dry. HEAD: Atraumatic. Normocephalic. EYES: Pupils equal and round. No scleral icterus. No injection or drainage. EOMI ENT: No nasal bleeding or discharge. Mucous membranes pink and moist. Tongue is midline NECK: Trachea midline. No JVD. Supple CARDIOVASCULAR: Regular rate and rhythm. S1-S2 no S3 or S4 RESPIRATORY: No accessory muscle use. Clear to auscultation. Breath sounds equal bilaterally. GASTROINTESTINAL: Abdomen soft, non-tender, nondistended. Hepatic and splenic margins not palpable. MUSCULOSKELETAL: Extremities without clubbing, cyanosis, or edema. No obvious deformities. NEUROLOGICAL: Awake and alert. No obvious cranial nerve deficits. Motor grossly within normal limits. 4 out of 5 muscle strength in the arms and legs. Normal speech. PSYCHIATRIC: Appropriate mood and affect; insight and judgment normal. Results - Labs CBC & Chem 7: 03/21/18 12:01 03/21/18 12:01 Labs: Short CBC 03/21/18 Range/Units 12:01 WBC 7.9 (4.0-11.0) th/mm3 Hgb 8.3 L (11.6-15.3) gm/dL Hct 26.1 L (35.0-46.0) % Plt Count 273 D (150-450) th/mm3 BMP 03/21/18 12:01 Sodium 132 L Potassium 5.7 H Chloride 94 L Carbon Dioxide 21.5 BUN 161 H Creatinine 6.14 H Calcium 9.5 Cardiac Enzymes 03/21/18 Range/Units 12:01 Troponin I Less than 0.02 L (0.02-0.05) ng/mL Liver Function 03/21/18 Range/Units 12:01 Total Bilirubin 0.3 (0.2-1.0) mg/dL AST 28 (15-37) U/L ALT 31 (10-53) U/L Alkaline Phosphatase 218 H (45-117) U/L Albumin 3.3 L (3.4-5.0) g/dL - Imaging Impressions Head CT 03/21/18 11:52 CONCLUSION: 1. Stable 1.3 cm extra-axial densely calcified mass in the left frontal high convexities consistent with a meningioma. 2. Redemonstration of remote lacunar infarct in the right basal ganglia. 3. No acute intracranial abnormality. . Chest X-Ray 03/21/18 11:53 CONCLUSION: Negative examination. Foot X-Ray 03/21/18 11:59 CONCLUSION: Calcaneal spur. Caprini VTE Risk Assessment Caprini VTE Risk Assessment: Moderate/High Risk (score >= 2) Caprini Risk Assessment Model: Point Value = 1 Point Value = 2 Point Value = 3 Point Value = 5 Age 41-60 Minor surgery BMI > 25 kg/m2 Swollen legs Varicose veins or History of unexplained or recurrent spontaneous Oral contraceptives or hormone replacement Sepsis (< 1 month) Serious lung disease, including pneumonia (< 1 month) Abnormal pulmonary function Acute myocardial infarction Congestive heart failure (< 1 month) History of inflammatory bowel disease Medical patient at bed rest Age 61-74 Arthroscopic surgery Major open surgery (> 45 min) Laparoscopic surgery (> 45 min) Malignancy Confined to bed (> 72 hours) Immobilizing plaster cast Central venous access Age >= 75 History of VTE Family history of VTE Factor V Leiden Prothrombin [id number] Lupus anticoagulant Anticardiolipin antibodies Elevated serum homocysteine Heparin-induced thrombocytopenia Other congenital or acquired thrombophilia Stroke (< 1 month) Elective arthroplasty Hip, pelvis, or leg fracture Acute spinal cord injury (< 1 month) Prophylaxis Regimen: Total Risk Factor Score Risk Level Prophylaxis Regimen 0-1 Low Early ambulation 2 Moderate Order ONE of the following: *Sequential Compression Device (SCD) *Heparin 5000 units SQ BID 3-4 Higher Order ONE of the following medications: *Heparin 5000 units SQ TID *Enoxaparin/Lovenox 40 mg SQ daily (WT < 150 kg, CrCl > 30 mL/min) *Enoxaparin/Lovenox 30 mg SQ daily (WT < 150 kg, CrCl > 10-29 mL/min) *Enoxaparin/Lovenox 30 mg SQ BID (WT < 150 kg, CrCl > 30 mL/min) AND/OR *Sequential Compression Device (SCD) 5 or more Highest Order ONE of the following medications: *Heparin 5000 units SQ TID (Preferred with Epidurals) *Enoxaparin/Lovenox 40 mg SQ daily (WT < 150 kg, CrCl > 30 mL/min) *Enoxaparin/Lovenox 30 mg SQ daily (WT < 150 kg, CrCl > 10-29 mL/min) *Enoxaparin/Lovenox 30 mg SQ BID (WT < 150 kg, CrCl > 30 mL/min) AND *Sequential Compression Device (SCD) Assessment and Plan - Plan Syncope with positive orthostasis -Consult cardiology -Echocardiogram -Carotid Dopplers -Troponins -A.m. labs -PT and OT to eval and treat -Fluids -Orthostatic blood pressures -Hold blood pressure medication End-stage renal disease stage V plus -Consult nephrology -Fluids -Renal cardiac diabetic diet Diabetes mellitus -Sliding scale coverage with Accu-Cheks before meals and at bedtime -Low-dose sliding scale coverage -Lantus -Diabetic cardiac renal diet Orthostasis -Fluids and PT and OT. History of gastric bypass Anemia -Possibly secondary to intrinsic factor issues due to the gastric bypass -Renal failure -Poor iron absorption Neuropathy -Continue on gabapentin GERD continue on omeprazole Peters/nonalcoholic steatohepatitis/liver cirrhosis Continue on rifaximin twice daily Depression anxiety -Continue on duloxetine History of being on muscle relaxers will obviously hold her TIZANIDINE GI prophylaxis with heparin GI prophylaxis with omeprazole or the equivalent PPI here AM LABS CONSULT CARDIO AND RENAL Code Status: FULL CODE Discussed Condition With: RN AND PT AND FAMILY AND ER PHYSICIAN Discharge Planning: PENDING CARDIAC AND RENAL CLEARANCE And improvement
--- NOTE | 2018-03-21 18:18 | P.CONNP ---
History of Present Illness Service: Nephrology Reason for Consult: Acute on chronic kidney disease Primary Care Provider: Thaddeus Maynard MD Chief Complaint: Syncope and weakness and dizziness History of Present Illness: this is a patient known to me from my chronic kidney disease Clinic. I had seen her on February 13, 2018, around which time her GFR had dropped down to 13. We had discussed dialysis, she had chosen in the center hemodialysis. She was referred to vascular surgery for vascular access placement. Today she was supposed to have an ultrasound of the veins, was noted to have hypotension, later sent to the emergency room. The patient reports that for the past 2 weeks she has felt extremely weak, dizzy and lightheaded. She has had almost syncopal events for the past several days and has fallen a few times. In the emergency room she is noted to have acute worsening of renal function. Also has mild hyperkalemia of 5.7. The patient was on furosemide 40 mg p.o. b.i.d., but she has not taken it for the past 2 days. She also was on metolazone 3 times weekly but she did not take it yesterday or today. The patient has history of cirrhosis of the liver, possibly resulting from nonalcoholic steatohepatitis. Review of Systems Constitutional: Reports anorexia, Reports weakness, Reports weight loss Eyes: Denies blind spots, Denies blurry vision Cardiovascular: Reports lightheadedness, Denies chest pain, Denies chest pain at rest, Denies chest pain with activity, Denies leg swelling Respiratory: Denies chest congestion, Denies cough Gastrointestinal: Denies abdominal pain, Denies loose stools, Denies vomiting Genitourinary: Denies abnormal vaginal bleeding Musculoskeletal: Denies back pain Neurologic: Reports unsteadiness PMFSH - History History Provided By: Patient, Significant Other - Medical History Medical History: Medical History (Last Updated 03/21/18 @ 17:40 by Chivo Porter DO) Anxiety Depression GERD (gastroesophageal reflux disease) PETERS (nonalcoholic steatohepatitis) Back injuries CKD (chronic kidney disease) stage 5, GFR less than 15 ml/min Cirrhosis of liver Diabetes HTN (hypertension) - Surgical History Surgical History: Surgical History (Last Reviewed 03/21/18 @ 17:40 by Chivo Porter DO) H/O section H/O gastric bypass History of tonsillectomy - Family History Family History: Family History (Last Updated 03/21/18 @ 17:40 by Chivo Porter DO) Other Family history of diabetes mellitus Family history of hypertension - Tobacco History Second Hand Smoke Exposure: No Tobacco Use In Past 30 Days: No Smoking Status: Never smoker - Alcohol History How Often Do You Have a Drink Containing Alcohol: Monthly or less - Substance Use History Substance History: No History of Abuse - Travel History History of Recent Travel: No Recent Travel in the [place] Within the Last 8 Weeks: No Recent Travel Out of the Country Within the Last 8 Weeks: No - Immunization History Tetanus Immunization: <5 Years Medications and Allergies Active Medications: Active Medications Clopidogrel Bisulfate (Plavix) 75 mg PO DAILY KATELYNN Duloxetine HCl (Cymbalta) 60 mg PO DAILY KATELYNN Ferrous Sulfate (Ferosul) 1,000 mg PO DAILY KATELYNN Gabapentin (Neurontin) 300 mg PO BID KATELYNN Heparin Sodium (Porcine) (Heparin Inj) 5,000 units SQ Q12HR KATELYNN Sodium Chloride (Ns Inj) 1,000 mls @ 0 mls/hr IV.SIG BOLUS KATELYNN Last Infusion: 03/21/18 14:58 Dose: Infused Sodium Chloride (Ns Inj) 1,000 mls @ 0 mls/hr IV.SIG BOLUS KATELYNN Sodium Bicarbonate 75 meq/ (Sodium Chloride) 1,000 mls @ 100 mls/hr IV.CONT .Q10H KATELYNN Insulin Detemir (Levemir Inj) 36 unit SQ QPM KATELYNN Pantoprazole Sodium (Protonix) 40 mg PO DAILY KATELYNN Rifaximin (Xifaxan) 550 mg PO BID KATELYNN Sodium Chloride (Ns Flush) 2 ml IV.FLUSH PRN PRN PRN Reason: FLUSH AFTER USING IV ACCESS Last Admin: 03/21/18 16:13 Dose: 2 ml Vitamin D (Vitamin D3) 1,000 unit PO DAILY KATELYNN Allergies Allergy/AdvReac Type Severity Reaction Status Date / Time egg Allergy Severe Swelling Verified 03/21/18 11:18 Sulfa (Sulfonamide Allergy Severe Swelling Verified 03/21/18 11:18 Antibiotics) Home Medications Medication Instructions Recorded Confirmed Type carvedilol 12.5 mg PO BID 01/07/18 03/21/18 History cholecalciferol (vitamin D3) 1,000 unit PO DAILY 01/07/18 03/21/18 History clopidogrel 75 mg PO DAILY 01/07/18 03/21/18 History ferrous sulfate 1,000 mg PO DAILY 01/07/18 03/21/18 History furosemide 40 mg PO BID 01/07/18 03/21/18 History gabapentin 300 mg PO BID 01/07/18 03/21/18 History insulin glargine [Lantus U-100 36 unit SUB-Q ONCE PM 01/07/18 03/21/18 History Insulin] losartan 50 mg PO BID 01/07/18 03/21/18 History melatonin 5 mg PO HS PRN 01/07/18 03/21/18 History metolazone 5 mg PO DAILY 01/07/18 03/21/18 History nifedipine 90 mg PO DAILY 01/07/18 03/21/18 History omeprazole 40 mg PO DAILY 01/07/18 03/21/18 History rifaximin [Xifaxan] 550 mg PO BID 01/07/18 03/21/18 History duloxetine 60 mg PO DAILY 03/16/18 03/21/18 History insulin aspart U-100 [Novolog 1 unit SUBCUT TID 03/16/18 03/21/18 History U-100 Insulin aspart] tizanidine 4 mg PO DAILY 03/21/18 03/21/18 History Exam Vital signs: Vital Signs 03/21/18 11:11 03/21/18 11:32 03/21/18 16:27 Temperature 97.7 F Pulse Rate 74 72 83 Respiratory Rate 13 20 17 Blood Pressure 90/55 L 95/63 L 119/59 L Pulse Oximetry 100 100 100 Intake & Output 03/20/18 03/21/18 03/21/18 18:59 06:59 18:59 Intake Total 2109 Balance 2109 Weight 68.492 kg Intake: IV 2109 Calcium Gluconate Inj 1 GM In 110 / 110 NS Inj 100 ML @ 110 mls/hr IV. SIG ONCE ONE Rx#:[id number] NS Inj 1,000 ML @ Wide Open IV. 1999 SIG BOLUS KATELYNN Rx#:[id number] - Constitutional no acute distress - Routine HEENT Exam Head: Present: normocephalic, atraumatic Eye: Present: EOMI, PERRL ENT: Present: mucous membranes moist - Routine Neck Exam Present: supple. Absent: JVD, carotid bruit - Routine Respiratory Exam Present: CTA bilaterally. Absent: rales, rhonchi - Routine Cardiovascular Exam Present: RRR, S1, S2 - Routine Abdominal Exam Present: soft, normoactive bowel sounds. Absent: tenderness, distended - Routine Extremities Exam Present: full ROM. Absent: cyanosis, clubbing, edema - Routine Skin Exam Present: intact - Routine Neurological Exam Present: alert, oriented X3, CN II-XII intact Results - Lab Results 03/21/18 12:01 03/21/18 12:01 Most recent lab results Calcium 9.5 mg/dL (8.5-10.1) 03/21/18 12:01 Magnesium 3.9 mg/dL (1.5-2.5) H 03/21/18 12:01 Assessment and Plan - Assessment (1) Acute kidney injury Code(s): N17.9 - Acute kidney failure, unspecified Status: Acute Plan: The patient is hypotensive, has lightheadedness and dizziness. Was on diuretics at home. It is possible that the patient has prerenal azotemia due to intravascular volume depletion. At this time I will continue IV fluids, add bicarbonate to the fluids. Obtain renal ultrasound. Avoid nephrotoxic agents. If renal function does not improve, the patient will require dialysis. These issues were discussed with the patient, she is in agreement. (2) Chronic kidney disease, stage IV (severe) Code(s): N18.4 - Chronic kidney disease, stage 4 (severe) Status: Acute Plan: Most likely the patient has diabetic nephropathy, she has proteinuria, most recent lab work before this hospital admissions suggested that she had slipped into stage 5 chronic kidney disease. She is very close to needing dialysis. See above. (3) Type 2 diabetes mellitus with diabetic chronic kidney disease Code(s): E11.22 - Type 2 diabetes mellitus with diabetic chronic kidney disease Status: Acute Plan: The patient has type 2 diabetes, diabetic nephropathy. Maintain blood sugar between 140 and 180 while hospitalized. 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 She has been following with GI. (5) Anemia Code(s): D64.9 - Anemia, unspecified Status: Acute Plan: Normocytic anemia, could be due to chronic disease. Rule out iron deficiency. (6) Hyperkalemia Code(s): E87.5 - Hyperkalemia Status: Acute Plan: Due to renal failure and acidosis. Added bicarbonate to the fluids. Continue to monitor. - Attending Attestation Thanks for the consult.
[2018-03-21] MEDS: Sodium Bicarbonate 8.4% Inj 75 MEQ in Sodium Chloride 0.45 % Inj 925 ML IV.CONT SCH (18:21)
[2018-03-21 18:35] LABS: Free T4 (Free Thyroxine) 0.83 ng/dL (0.76-1.46)
[2018-03-21 18:36] LABS: Hemoglobin A1c 7.7 % (4.3-6.0)
[2018-03-21] MEDS: Insulin Detemir Inj 1,000 UNIT/10 ML Vial SQ SCH (18:45)
[2018-03-21 19:10] LABS: % Iron Saturation 14.6 % (20-50)
[2018-03-21] MEDS: Gabapentin 300 MG Capsule PO SCH (21:14)
[2018-03-21] MEDS: rifAXIMin 550 MG Tablet PO SCH (21:15)
[2018-03-21] MEDS: Heparin - SQ 10,000 UNITS/ML Vial SQ SCH (21:15)
--- NOTE | 2018-03-21 22:22 | US ---
EXAM DATE: 03/21/2018 12:00 AM EDT AGE/SEX: 62 years / Female INDICATIONS: Syncope. CLINICAL DATA: This is the patient's initial encounter. Patient reports that signs and symptoms have been present for 1 day and indicates a pain score of 0/10. MEDICAL/SURGICAL HISTORY: Cirrhosis. Chronic renal insufficiency. Diabetes. GERD. Hypertensi on. section. Gastric bypass. Tonsillectomy. COMPARISON: [facility], US CAROTID ARTERIES, 09/21/2016. . VELOCITY PARAMETERS: ICA/CCA Ratio: Right 0.5 , Left 1.2 ICA: Right 63 cm/sec, Left 94 cm/sec CCA: Right 134 cm/sec, Left 76 cm/sec ECA: Right 114 cm/sec, Left 90 cm/sec Vertebral: Right 74 cm/sec antegrade, Left 58 cm/sec antegrade FINDINGS: Right Carotid: Mild arteriosclerotic plaque is visualized.The waveforms are within normal limits. Left Carotid: Mild arteriosclerotic plaque is visualized. The waveforms are within normal limits. Other: None. CONCLUSION: 1. Right Internal Carotid Artery: Mild visible plaque without hemodynamically significant stenosis. 2. Left Internal Carotid Artery: Mild visible plaque without hemodynamically significant stenosis Electronically signed by: Isak Turk MD 03/21/2018 10:21 PM EDT
--- NOTE | 2018-03-21 22:29 | US ---
EXAM DATE: 03/21/2018 4:43 PM EDT AGE/SEX: 62 years / Female INDICATIONS: Increased BUN/Creatinine. CLINICAL DATA: This is the patient's subsequent encounter. Patient reports that signs and symptoms h ave been present for > 1 year and indicates a pain score of 0/10. MEDICAL/SURGICAL HISTORY: Renal disease, end stage. Diabetes. Cirrhosis. Hypertension. GERD . Gastric bypass. section. Tonsillectomy. COMPARISON: No prior exams available for comparison. MEASUREMENTS: Right Kidney:__9.1 x 3.9 x 4.6 cm Left Kidney:__9.2 x 4.9 x 4.7 cm FINDINGS: Right Kidney: Increased echotexture. No mass or hydronephrosis. Left Kidney: Increased echotexture. No mass or hydronephrosis. Bladder: Within normal limits given the degree of distension. Other: None. CONCLUSION: 1. Echogenic kidneys characteristic of medical renal disease. No hydronephrosis. No acute findings. Electronically signed by: Isak Turk MD 03/21/2018 10:27 PM EDT
[2018-03-22 06:42] LABS: Baso # (Auto) 0.1 th/mm3 (0.0-0.2); Baso % (Auto) 0.8 % (0.0-2.0); Eos # (Auto) 0.5 th/mm3 (0.0-0.4); Eos % (Auto) 7.6 % (0.0-4.0); Lymph # (Auto) 1.1 th/mm3 (1.0-4.8); Lymph % (Auto) 17.1 % (9.0-44.0); Mean Corpuscular Hemoglobin 27.9 pg (27.0-34.0); Mean Corpuscular Volume 81.9 fL (80.0-100.0); Mean Platelet Volume 8.1 fL (7.0-11.0); Mono # (Auto) 0.5 th/mm3 (0.0-0.9); Mono % (Auto) 8.5 % (0.0-8.0); Neut # (Auto) 4.2 th/mm3 (1.8-7.7); Platelet Count 200 th/mm3 (150-450); Red Blood Count 2.21 mil/mm3 (4.00-5.30); Red Cell Distribution Width 13.9 % (11.6-17.2); White Blood Count 6.4 th/mm3 (4.0-11.0)
[2018-03-22 07:00] LABS: Hematocrit 18.1 % (35.0-46.0); Hemoglobin 6.2 gm/dL (11.6-15.3)
[2018-03-22 07:08] LABS: Prothrombin Time 10.5 sec (9.8-11.6)
[2018-03-22] MEDS: rifAXIMin 550 MG Tablet PO SCH ×2 (08:25→21:58)
[2018-03-22] MEDS: Gabapentin 300 MG Capsule PO SCH ×2 (08:26→21:58)
[2018-03-22] MEDS: Duloxetine 60 MG DR Capsule PO SCH (08:26)
[2018-03-22] MEDS: Heparin - SQ 10,000 UNITS/ML Vial SQ SCH (08:26)
[2018-03-22 08:28] LABS: Anion Gap 13 meq/L (5-15); Aspartate Aminotransferase 29 U/L (15-37); Blood Urea Nitrogen 140 mg/dL (7-18); Calcium 8.5 mg/dL (8.5-10.1); Carbon Dioxide 24.6 meq/L (21.0-32.0); Chloride 102 meq/L (98-107); Glomerular Filtration Rate 9 mL/min (>89); Glucose,Random 64 mg/dL (74-106); Magnesium 3.4 mg/dL (1.5-2.5); Potassium 3.7 meq/L (3.5-5.1); Sodium 140 meq/L (136-145)
[2018-03-22 08:29] LABS: Alanine Aminotransferase 26 U/L (10-53); Phosphorus 4.9 mg/dL (2.5-4.9)
[2018-03-22 08:34] LABS: Alkaline Phosphatase 173 U/L (45-117); Total Protein 6.7 g/dL (6.4-8.2)
[2018-03-22] MEDS ORDERED: Sodium Chloride 0.9% 2 ML Flush PRN IV.FLUSH (08:35)
[2018-03-22] MEDS ORDERED: Sodium Chlor 0.9% Inj 250 ML IV.SIG SCH (09:00)
[2018-03-22] MEDS ORDERED: Ferrous Sulfate 325 MG Tablet PO SCH (09:00)
[2018-03-22] MEDS: Sodium Bicarbonate 8.4% Inj 75 MEQ in Sodium Chloride 0.45 % Inj 925 ML IV.CONT SCH (09:32)
[2018-03-22] MEDS ORDERED: Iron Sucrose Inj 200 MG in Sodium Chlor 0.9% Inj 100 ML IV.SIG ONE (11:00)
--- NOTE | 2018-03-22 11:11 | P.PN ---
Subjective Interval history: Follow-up for ROZINA on CKD stage V, anemia, GI bleeding. Patient reports an episode of bright red bloody stools overnight. She states she has been following with a nurse practitioner at the [facility], but has not had a recent EGD/colonoscopy. She reports feeling weak and tired today. She denies any chest pain or shortness of breath. Denies any abdominal pain or nausea/vomiting. Denies fevers or chills. Denies any other medical complaints at this time. Physical Exam Vital signs: Vital Signs 03/21/18 11:32 03/21/18 16:27 03/21/18 18:20 Temperature 97.8 F Pulse Rate 72 83 90 Respiratory Rate 20 17 18 Blood Pressure 95/63 L 119/59 L 118/67 Pulse Oximetry 100 100 96 03/21/18 20:00 03/21/18 23:49 03/22/18 04:00 Temperature 98.2 F 98.2 F 98.5 F Pulse Rate 84 81 83 Respiratory Rate Blood Pressure 113/58 L 124/60 126/59 L Pulse Oximetry 96 97 94 L 03/22/18 07:31 03/22/18 09:00 Temperature 98.1 F Pulse Rate 89 86 Respiratory Rate 18 Blood Pressure 147/66 H Pulse Oximetry 97 Intake & Output 03/21/18 03/22/18 03/22/18 18:59 06:59 18:59 Intake Total 2109 1000 / 1000 Balance 2109 1000 / 1000 Weight 68.492 kg 71.1 kg Intake: IV 2109 1000 / 1000 Sodium Bicarbonate 8.4% Inj 75 1000 / 1000 MEQ In 1/2 Normal Saline Inj 925 ML @ 100 mls/hr IV.CONT . Q10H KATELYNN Rx#:[id number] Calcium Gluconate Inj 1 GM In 110 / 110 NS Inj 100 ML @ 110 mls/hr IV. SIG ONCE ONE Rx#:[id number] NS Inj 1,000 ML @ Wide Open IV. 1999 SIG BOLUS KATELYNN Rx#:[id number] Other: # Voids 1 Date of Last Bowel Movement 03/22/18 # Bowel Movements 1 Narrative: GENERAL: Well-nourished, well-developed pleasant middle-age female patient in [facility]. SKIN: Warm and dry. No rash. HEENT: Normocephalic. Atraumatic. Pupils equal and round. Mucous membranes pink and moist. NECK: Supple. Trachea midline. CARDIOVASCULAR: Regular rate and rhythm. No murmur appreciated. RESPIRATORY: No accessory muscle use. Clear to auscultation. Breath sounds equal bilaterally. GASTROINTESTINAL: Abdomen soft, non-tender, nondistended. Normoactive bowel sounds x4. MUSCULOSKELETAL: No obvious deformities. Extremities without clubbing, cyanosis , or edema. NEUROLOGICAL: Awake and alert. No obvious cranial nerve deficits. Motor grossly within normal limits. Moving all extremities spontaneously. Normal speech. PSYCHIATRIC: Appropriate mood and affect; insight and judgment normal. Results - Labs CBC & Chem 7: 03/22/18 07:39 03/22/18 07:39 Laboratory Results - last 24 hr 03/21/18 03/21/18 03/21/18 11:40 12:01 12:01 WBC 7.9 RBC 3.08 L Hgb 8.3 L Hct 26.1 L MCV 84.6 MCH 26.8 L MCHC 31.7 L RDW 13.7 Plt Count 273 D MPV 8.8 Prelim Diff (Auto) Neut % (Auto) 69.0 Lymph % (Auto) 17.2 Jerome % (Auto) 5.4 Eos % (Auto) 6.9 H Baso % (Auto) 1.5 Neut # (Auto) 5.4 Lymph # (Auto) 1.4 Jerome # (Auto) 0.4 Eos # (Auto) 0.5 H Baso # (Auto) 0.1 WBC Differential . Differential Comment Auto diff final PT INR APTT Sodium Potassium Chloride Carbon Dioxide Anion Gap BUN Creatinine Estimated GFR POC Glucose 213 H Random Glucose Cancelled Hemoglobin A1c Calcium Phosphorus Magnesium Iron TIBC % Saturation Total Bilirubin AST ALT Alkaline Phosphatase Troponin I B-Natriuretic Peptide Total Protein Albumin TSH Free T4 03/21/18 03/21/18 03/21/18 12:01 12:01 12:01 WBC RBC Hgb Hct MCV MCH MCHC RDW Plt Count MPV Prelim Diff (Auto) Neut % (Auto) Lymph % (Auto) Jerome % (Auto) Eos % (Auto) Baso % (Auto) Neut # (Auto) Lymph # (Auto) Jerome # (Auto) Eos # (Auto) Baso # (Auto) WBC Differential Differential Comment PT 10.6 INR 1.0 APTT 20.4 L Sodium 132 L Potassium 5.7 H Chloride 94 L Carbon Dioxide 21.5 Anion Gap 17 H BUN 161 H Creatinine 6.14 H Estimated GFR 7 L POC Glucose Random Glucose 181 H Hemoglobin A1c Calcium 9.5 Phosphorus Magnesium 3.9 H Iron TIBC % Saturation Total Bilirubin 0.3 AST 28 ALT 31 Alkaline Phosphatase 218 H Troponin I Less than 0.02 L B-Natriuretic Peptide 22 Total Protein 7.6 Albumin 3.3 L TSH Free T4 03/21/18 03/21/18 03/21/18 16:30 16:30 16:30 WBC RBC Hgb Hct MCV MCH MCHC RDW Plt Count MPV Prelim Diff (Auto) Neut % (Auto) Lymph % (Auto) Jerome % (Auto) Eos % (Auto) Baso % (Auto) Neut # (Auto) Lymph # (Auto) Jerome # (Auto) Eos # (Auto) Baso # (Auto) WBC Differential Differential Comment PT INR APTT Sodium Potassium Chloride Carbon Dioxide Anion Gap BUN Creatinine Estimated GFR POC Glucose Random Glucose Hemoglobin A1c 7.7 H Calcium Phosphorus Magnesium Iron TIBC % Saturation Total Bilirubin AST ALT Alkaline Phosphatase Troponin I Less than 0.02 L Less than 0.02 L B-Natriuretic Peptide Total Protein Albumin TSH 1.520 Free T4 0.83 03/21/18 03/21/18 03/22/18 16:30 18:00 06:00 WBC RBC Hgb Hct MCV MCH MCHC RDW Plt Count MPV Prelim Diff (Auto) Neut % (Auto) Lymph % (Auto) Jerome % (Auto) Eos % (Auto) Baso % (Auto) Neut # (Auto) Lymph # (Auto) Jerome # (Auto) Eos # (Auto) Baso # (Auto) WBC Differential . Differential Comment PT INR APTT Sodium Potassium Chloride Carbon Dioxide Anion Gap BUN Creatinine Estimated GFR POC Glucose 236 H Random Glucose Hemoglobin A1c Calcium Phosphorus Magnesium Iron 48 L TIBC 329 % Saturation 14.6 L Total Bilirubin AST ALT Alkaline Phosphatase Troponin I B-Natriuretic Peptide Total Protein Albumin TSH Free T4 03/22/18 03/22/18 03/22/18 06:00 07:39 07:39 WBC 6.4 RBC 2.21 L Hgb 6.2 L* D Hct 18.1 L* MCV 81.9 MCH 27.9 MCHC 34.0 RDW 13.9 Plt Count 200 MPV 8.1 Prelim Diff (Auto) [employer] Neut % (Auto) 66.0 Lymph % (Auto) 17.1 Jerome % (Auto) 8.5 H Eos % (Auto) 7.6 H Baso % (Auto) 0.8 Neut # (Auto) 4.2 Lymph # (Auto) 1.1 Jerome # (Auto) 0.5 Eos # (Auto) 0.5 H Baso # (Auto) 0.1 WBC Differential Differential Comment Auto diff final PT 10.5 INR 1.0 APTT Sodium 140 Potassium 3.7 D Chloride 102 D Carbon Dioxide 24.6 Anion Gap 13 BUN 140 H Creatinine 5.01 H Estimated GFR 9 L POC Glucose Random Glucose 64 L D Hemoglobin A1c Calcium 8.5 D Phosphorus 4.9 Magnesium 3.4 H Iron TIBC % Saturation Total Bilirubin 0.2 AST 29 ALT 26 Alkaline Phosphatase 173 H Troponin I B-Natriuretic Peptide Total Protein 6.7 D Albumin 3.0 L TSH Free T4 - Imaging Impressions Carotid Doppler Study 03/21/18 00:00 CONCLUSION: 1. Right Internal Carotid Artery: Mild visible plaque without hemodynamically significant stenosis. 2. Left Internal Carotid Artery: Mild visible plaque without hemodynamically significant stenosis Head CT 03/21/18 11:52 CONCLUSION: 1. Stable 1.3 cm extra-axial densely calcified mass in the left frontal high convexities consistent with a meningioma. 2. Redemonstration of remote lacunar infarct in the right basal ganglia. 3. No acute intracranial abnormality. . Chest X-Ray 03/21/18 11:53 CONCLUSION: Negative examination. Foot X-Ray 03/21/18 11:59 CONCLUSION: Calcaneal spur. Abdomen/Bladder Ultrasound 03/21/18 16:43 CONCLUSION: 1. Echogenic kidneys characteristic of medical renal disease. No hydronephrosis. No acute findings. Assessment and Plan - Plan 62-year-old female with history of CKD stage V not yet on dialysis, nonalcoholic steatohepatitis, cirrhosis, hypertension, GERD, anxiety/depression , presents with an episode of syncope. Syncope: Suspect multifactorial secondary to dehydration and anemia. -Head CT reviewed, shows stable 1.3 cm calcified mass consistent with meningioma and remote lacunar infarct right basal ganglia, otherwise no acute findings -Carotid ultrasound reviewed, shows mild visible plaque bilaterally without hemodynamically significant stenosis -Orthostatics positive, SBP dropped from 118 lying to 80 upon standing -Hold patient's antihypertensives including carvedilol, Lasix, losartan, nifedipine -Give IV fluid hydration -Check echocardiogram -Monitor on telemetry -PT consulted -Cardiology consulted, appreciate recommendations Acute anemia secondary to GI bleeding with iron deficiency: acute. Patient with history of cirrhosis. No recent EGD/colonoscopy. -Patient with bright red bloody bowel movement overnight -Hemoglobin dropped from 8.3 to 6.2 today -Transfuse 1 unit PRBC for now -Monitor serial H&H -Iron studies consistent with iron deficiency, give IV Venofer x1 now -Start on Protonix -Consult GI, patient follows with [facility] ROZINA on CKD stage V: Acute, likely secondary to dehydration -Creatinine 6.14 upon arrival, previously around 23 on prior visits -Renal ultrasound showed echogenic kidneys characteristic of medical renal disease; no hydronephrosis; no acute findings -Consult nephrology, appreciate recommendations -Giving gentle IV fluid hydration per nephrology recommendations -Monitor BMP, slowly improving, creatinine 5.01 today Diabetes mellitus with neuropathy: Hemoglobin A1c 7.7 -Sliding scale coverage with Accu-Cheks before meals and at bedtime -Low-dose sliding scale coverage -Continue long-acting insulin with Levemir 36 units at night -Continue patient's gabapentin GERD: Chronic -Continue PPI Rivera/nonalcoholic steatohepatitis/liver cirrhosis: Chronic -Continue on rifaximin twice daily -Holding patient's Lasix with ROZINA, dehydration, and orthostatic hypotension -Consulted GI as above Depression/anxiety -Continue on duloxetine DVT prophylaxis: Teds/SCDs; holding chemical prophylaxis with GI bleed and anemia Discharge Planning: Discharge pending further clinical improvement, blood transfusion, GI evaluation , and nephrology clearance. Discussed with case management to consider inpatient admission.
--- NOTE | 2018-03-22 11:32 | P.PNNP ---
Subjective Interval history: patient is ambulating. Feels very weak. Severe anemia is noted. Possible GI bleeding. Physical Exam Vital signs: Vital Signs 03/21/18 11:32 03/21/18 16:27 03/21/18 18:20 Temperature 97.8 F Pulse Rate 72 83 90 Respiratory Rate 18 Blood Pressure 95/63 L 119/59 L 118/67 Pulse Oximetry 100 100 96 03/21/18 20:00 03/21/18 23:49 03/22/18 04:00 Temperature 98.2 F 98.2 F 98.5 F Pulse Rate 84 81 83 Respiratory Rate Blood Pressure 113/58 L 124/60 126/59 L Pulse Oximetry 96 97 94 L 03/22/18 07:31 03/22/18 09:00 Temperature 98.1 F Pulse Rate 89 86 Respiratory Rate 18 Blood Pressure 147/66 H Pulse Oximetry 97 Intake & Output 03/21/18 03/22/18 03/22/18 18:59 06:59 18:59 Intake Total 2109 / 2109 1000 / 1000 Balance 2109 / 2109 1000 / 1000 Weight 68.492 kg 71.1 kg Intake: IV 2109 / 2109 1000 / 1000 Sodium Bicarbonate 8.4% Inj 75 1000 / 1000 MEQ In 1/2 Normal Saline Inj 925 ML @ 100 mls/hr IV.CONT . Q10H KATELYNN Rx#:[id number] Calcium Gluconate Inj 1 GM In 110 / 110 NS Inj 100 ML @ 110 mls/hr IV. SIG ONCE ONE Rx#:[id number] NS Inj 1,000 ML @ Wide Open IV. 1999 SIG BOLUS KATELYNN Rx#:[id number] Other: # Voids 1 Date of Last Bowel Movement 03/22/18 # Bowel Movements 1 Narrative: GENERAL: Awake alert and oriented x3, no acute distress. SKIN: Warm and dry. HEAD: Atraumatic. Normocephalic. EYES: Pupils equal and round. No scleral icterus. No injection or drainage. EOMI ENT: No nasal bleeding or discharge. Mucous membranes pink and moist. Tongue is midline NECK: Trachea midline. No JVD. Supple CARDIOVASCULAR: Regular rate and rhythm. RESPIRATORY: No accessory muscle use. Clear to auscultation. Breath sounds equal bilaterally. GASTROINTESTINAL: Abdomen soft, non-tender, nondistended. Hepatic and splenic margins not palpable. MUSCULOSKELETAL: Extremities without clubbing, cyanosis, or edema. No obvious deformities. NEUROLOGICAL: Awake and alert. No obvious cranial nerve deficits. Motor grossly within normal limits. 4 out of 5 muscle strength in the arms and legs. Normal speech. Assessment and Plan - Assessment (1) Acute kidney injury Code(s): N17.9 - Acute kidney failure, unspecified Status: Acute Plan: The patient was hypotensive, had lightheadedness and dizziness. Was on diuretics at home. It is possible that the patient has prerenal azotemia due to intravascular volume depletion. Renal function has improved slightly with IV hydration. Reduce IVF. Avoid nephrotoxic agents. No immediate need for dialysis. (2) Chronic kidney disease, stage IV (severe) Code(s): N18.4 - Chronic kidney disease, stage 4 (severe) Status: Acute Plan: Most likely the patient has diabetic nephropathy, she has proteinuria, most recent lab work before this hospital admissions suggested that she had slipped into stage 5 chronic kidney disease. She is very close to needing dialysis. See above. (3) Type 2 diabetes mellitus with diabetic chronic kidney disease Code(s): E11.22 - Type 2 diabetes mellitus with diabetic chronic kidney disease Status: Acute Plan: The patient has type 2 diabetes, diabetic nephropathy. Maintain blood sugar between 140 and 180 while hospitalized. 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 She has been following with GI. (5) Anemia Code(s): D64.9 - Anemia, unspecified Status: Acute Plan: Has some evidence of iron deficiency. One dose of Venofer ordered. In addition, she may have GI bleeding, needs blood transfusion and GI evaluation. (6) Hyperkalemia Code(s): E87.5 - Hyperkalemia Status: Acute Plan: Improved, monitor.
[2018-03-22] MEDS: Sodium Chloride 0.9% 2 ML Flush BID IV.FLUSH SCH ×2 (11:40→22:00)
[2018-03-22] MEDS: Sodium Chloride 0.45 % Inj 1,000 ML IV.CONT SCH (11:40)
--- NOTE | 2018-03-22 16:40 | ECHRPT ---
Indication: Syncope CONCLUSIONS Normal left ventricular size. Wall thickness is measured at the upper limits of normal. The left ventricular systolic function is normal with an estimated ejection fraction of 60%. The left atrial size is upper limits of normal. Trace mitral valve regurgitation. There is trace tricuspid valve regurgitation. The estimated pulmonary arterial pressure is 47 mmHg. BP: / HR: Rhythm: MEASUREMENTS (Male / Female) Normal Values Technical Quality:Good 2D ECHO LV Diastolic Diameter PLAX 4.7 cm 4.2 - 5.9 / 3.9 - 5.3 cm LV Systolic Diameter PLAX 2.7 cm IVS Diastolic Thickness 1.0 cm 0.6 - 1.0 / 0.6 - 0.9 cm LVPW Diastolic Thickness 1.1 cm 0.6 - 1.0 / 0.6 - 0.9 cm LV Relative Wall Thickness 0.4 RV Internal Dim ED PLAX 2.6 cm LVOT Diameter 2.0 cm Aortic Root Diameter 3.1 cm LA Systolic Diameter LX 3.8 cm 3.0 - 4.0 / 2.7 - 3.8 cm M-MODE AV Cusp Separation MM 2.1 cm DOPPLER AV Peak Velocity 194.0 cm/s AV Peak Gradient 15.1 mmHg LVOT Peak Velocity 167.0 cm/s LVOT Peak Gradient 11.2 mmHg AV Area Cont Eq pk 2.7 cm Mitral E Point Velocity 81.4 cm/s Mitral A Point Velocity 111.0 cm/s Mitral E to A Ratio 0.7 LV E' Lateral Velocity 11.0 cm/s Mitral E to LV E' Lateral Ratio 7.4 LV E' Septal Velocity 7.7 cm/s Mitral E to LV E' Septal Ratio 10.6 TR Peak Velocity 304.0 cm/s TR Peak Gradient 37.0 mmHg Right Atrial Pressure 10.0 mmHg Pulmonary Artery Systolic Pressu 47.0 mmHg Right Ventricular Systolic Press 47.0 mmHg PV Peak Velocity 145.0 cm/s PV Peak Gradient 8.4 mmHg FINDINGS LEFT VENTRICLE Normal left ventricular size. Wall thickness is measured at the upper limits of normal. The left ventricular systolic function is normal with an estimated ejection fraction of 60%. RIGHT VENTRICLE Normal right ventricular size and systolic function. LEFT ATRIUM The left atrial size is upper limits of normal. RIGHT ATRIUM The right atrial size is normal. ATRIAL SEPTUM Normal atrial septal thickness without atrial level shunting by limited color doppler interrogation. AORTA The aortic root and proximal ascending aorta are normal in size on limited imaging. MITRAL VALVE Trace mitral valve regurgitation. AORTIC VALVE Trileaflet aortic valve. TRICUSPID VALVE There is trace tricuspid valve regurgitation. The estimated pulmonary arterial pressure is 47 mmHg. PULMONARY VALVE No pulmonary valve regurgitation or stenosis. VESSELS The inferior vena cava is normal in size. PERICARDIUM No pericardial effusion. Yolanda Trinidad MD, FACC (Electronically Signed) Final Date:22 March 2018 16:39
--- NOTE | 2018-03-22 17:11 | P.CONCA ---
History of Present Illness Service: Cardiology Consult date: 03/22/18 Requesting Physician: Chivo Porter Reason for Consult: Syncope Primary Care Provider: Thaddeus Maynard MD Chief Complaint: Syncope and weakness and dizziness History of Present Illness: This is a 62-year-old female known to Dr. Trinidad with a history of syncope, chest pain, benign essential hypertension, hyperlipidemia, congestive heart failure, diabetes, chronic kidney disease, stroke and cirrhosis of the liver. She states that 2 days ago she started getting dizzy that progressively worsened and then yesterday the dizziness continued to worsen and she started having syncopal episodes and falling. Due to the falling she injured her right leg and right foot. She also complains of increased weakness that has hindered her ability to carry out daily living activities. Currently she denies any chest pain, pressure, palpitations, edema or shortness of breath. She does complain of dizziness and weakness. Review of Systems All other systems reviewed negative except as stated in HPI [facility] - History History Provided By: Patient, Significant Other - Medical History Medical History: Medical History (Last Reviewed 03/22/18 @ 08:14 by Gianluca Avila) Anxiety Depression GERD (gastroesophageal reflux disease) PETERS (nonalcoholic steatohepatitis) Back injuries CKD (chronic kidney disease) stage 5, GFR less than 15 ml/min Cirrhosis of liver Diabetes HTN (hypertension) - Surgical History Surgical History: Surgical History (Last Reviewed 03/22/18 @ 08:14 by Gianluca Avila) H/O section H/O gastric bypass History of tonsillectomy - Family History Family History: Family History (Last Reviewed 03/22/18 @ 07:19 by Elizabeth Singletary) Other Family history of diabetes mellitus Family history of hypertension - Tobacco History Second Hand Smoke Exposure: No Tobacco Use In Past 30 Days: No Smoking Status: Never smoker - Alcohol History How Often Do You Have a Drink Containing Alcohol: Monthly or less - Substance Use History Substance History: No History of Abuse - Travel History History of Recent Travel: No Recent Travel in the [place] Within the Last 8 Weeks: No Recent Travel Out of the Country Within the Last 8 Weeks: No - Immunization History Tetanus Immunization: <5 Years Medications and Allergies Allergies Allergy/AdvReac Type Severity Reaction Status Date / Time egg Allergy Severe Swelling Verified 03/21/18 11:18 Sulfa (Sulfonamide Allergy Severe Swelling Verified 03/21/18 11:18 Antibiotics) Home Medications Medication Instructions Recorded Confirmed Type carvedilol 12.5 mg PO BID 01/07/18 03/21/18 History cholecalciferol (vitamin D3) 1,000 unit PO DAILY 01/07/18 03/21/18 History clopidogrel 75 mg PO DAILY 01/07/18 03/21/18 History ferrous sulfate 1,000 mg PO DAILY 01/07/18 03/21/18 History furosemide 40 mg PO BID 01/07/18 03/21/18 History gabapentin 300 mg PO BID 01/07/18 03/21/18 History insulin glargine [Lantus U-100 36 unit SUB-Q ONCE PM 01/07/18 03/21/18 History Insulin] losartan 50 mg PO BID 01/07/18 03/21/18 History melatonin 5 mg PO HS PRN 01/07/18 03/21/18 History metolazone 5 mg PO DAILY 01/07/18 03/21/18 History nifedipine 90 mg PO DAILY 01/07/18 03/21/18 History omeprazole 40 mg PO DAILY 01/07/18 03/21/18 History rifaximin [Xifaxan] 550 mg PO BID 01/07/18 03/21/18 History duloxetine 60 mg PO DAILY 03/16/18 03/21/18 History insulin aspart U-100 [Novolog 1 unit SUBCUT TID 03/16/18 03/21/18 History U-100 Insulin aspart] tizanidine 4 mg PO DAILY 03/21/18 03/21/18 History Active Medications: Active Medications Clopidogrel Bisulfate (Plavix) 75 mg PO DAILY [facility] Last Admin: 03/22/18 08:26 Dose: 75 mg Duloxetine HCl (Cymbalta) 60 mg PO DAILY [facility] Last Admin: 03/22/18 08:26 Dose: 60 mg Ferrous Sulfate (Ferosul) 1,000 mg PO DAILY [facility] Gabapentin (Neurontin) 300 mg PO BID [facility] Last Admin: 03/22/18 08:26 Dose: 300 mg Heparin Sodium (Porcine) (Heparin Inj) 5,000 units SQ Q12HR [facility] Last Admin: 03/22/18 08:26 Dose: 5,000 units Sodium Chloride (Ns Inj) 1,000 mls @ 0 mls/hr IV.SIG BOLUS [facility] Sodium Chloride (Ns Inj) 250 mls @ 15 mls/hr IV.SIG ONCE [facility] Stop: 03/23/18 01:39 Last Admin: 03/22/18 14:42 Dose: 15 mls/hr Sodium Chloride (1/2 Normal Saline Inj) 1,000 mls @ 50 mls/hr IV.CONT .Q20H [facility] Last Admin: 03/22/18 11:40 Dose: 50 mls/hr Insulin Detemir (Levemir Inj) 36 unit SQ QPM [facility] Last Admin: 03/21/18 18:45 Dose: 36 unit Pantoprazole Sodium (Protonix) 40 mg PO DAILY [facility] Last Admin: 03/22/18 08:26 Dose: 40 mg Rifaximin (Xifaxan) 550 mg PO BID [facility] Last Admin: 03/22/18 08:25 Dose: 550 mg Sodium Chloride (Ns Flush) 2 ml IV.FLUSH BID [facility] Last Admin: 03/22/18 11:40 Dose: 2 ml Sodium Chloride (Ns Flush) 2 ml IV.FLUSH PRN PRN PRN Reason: FLUSH AFTER USING IV ACCESS Vitamin D (Vitamin D3) 1,000 unit PO DAILY [facility] Last Admin: 03/22/18 08:26 Dose: 1,000 unit Exam Vital signs: Vital Signs 03/21/18 18:20 03/21/18 20:00 03/21/18 23:49 Temperature 97.8 F 98.2 F 98.2 F Pulse Rate 90 84 81 Respiratory Rate 18 17 17 Blood Pressure 118/67 113/58 L 124/60 Pulse Oximetry 96 96 97 03/22/18 04:00 03/22/18 07:31 03/22/18 09:00 Temperature 98.5 F 98.1 F Pulse Rate 83 89 86 Respiratory Rate 17 18 Blood Pressure 126/59 L 147/66 H Pulse Oximetry 94 L 97 03/22/18 11:46 03/22/18 14:43 03/22/18 15:49 Temperature 98.3 F 98.4 F 98.2 F Pulse Rate 89 88 87 Respiratory Rate 20 18 20 Blood Pressure 136/73 140/73 157/74 H Pulse Oximetry 95 98 Intake & Output 03/21/18 03/22/18 03/22/18 18:59 06:59 18:59 Intake Total 2109 / 2109 1000 / 1000 1610 / 1610 Balance 2109 / 2110 1000 / 1000 1610 / 1610 Weight 68.492 kg 71.1 kg Intake: IV 2109 1000 / 1000 1110 / 1110 Sodium Bicarbonate 8.4% Inj 75 1000 / 1000 1000 / 1000 MEQ In 1/2 Normal Saline Inj 925 ML @ 100 mls/hr IV.CONT . Q10H [facility] Rx#:[id number] Calcium Gluconate Inj 1 GM In 110 / 110 NS Inj 100 ML @ 110 mls/hr IV. SIG ONCE ONE Rx#:[id number] Venofer Inj 200 MG In NS Inj 110 / 110 100 ML @ 110 mls/hr IV.SIG ONCE ONE Rx#:[id number] NS Inj 1,000 ML @ Wide Open IV. 1999 SIG BOLUS [facility]AT[facility]NN Rx#:[id number] Oral 500 / 500 Intake (Blood Product) Amt 0 / 0 Rbc As-3 Leukoreduced Unit 0 / 0 [id number] Other: # Voids 1 Date of Last Bowel Movement 03/22/18 # Bowel Movements 1 - Constitutional no acute distress - Routine HEENT Exam Head: Present: normocephalic Eye: Present: PERRL ENT: Present: mucous membranes moist - Routine Neck Exam Present: supple - Routine Respiratory Exam Present: CTA bilaterally - Routine Cardiovascular Exam Present: S1, S2. Absent: murmur, gallop, rubs - Routine Abdominal Exam Present: normoactive bowel sounds - Routine Extremities Exam Present: edema, full ROM, pulses intact, normal capillary refill. Absent: cyanosis, clubbing - Routine Skin Exam Present: intact, jaundice Comments: slight jaundice. - Routine Neurological Exam Present: oriented X3 Results 03/22/18 07:39 03/22/18 07:39 Cardiac Enzymes 03/21/18 03/21/18 03/21/18 Range/Units 12:01 12:01 16:30 AST 28 (15-37) U/L Troponin I Less than 0.02 L Less than 0.02 L (0.02-0.05) ng/mL B-Natriuretic Peptide 22 (0-100) pg/mL 03/21/18 03/22/18 Range/Units 16:30 07:39 AST 29 (15-37) U/L Troponin I Less than 0.02 L (0.02-0.05) ng/mL B-Natriuretic Peptide (0-100) pg/mL Coagulation 03/21/18 03/21/18 03/22/18 Range/Units 12:01 12:01 06:00 PT 10.6 10.5 (9.8-11.6) sec APTT 20.4 L (24.3-30.1) sec B-Natriuretic Peptide 22 (0-100) pg/mL CBC 03/21/18 03/22/18 Range/Units 12:01 07:39 WBC 7.9 6.4 (4.0-11.0) th/mm3 RBC 3.08 L 2.21 L (4.00-5.30) mil/mm3 Hgb 8.3 L 6.2 L* D (11.6-15.3) gm/dL Hct 26.1 L 18.1 L* (35.0-46.0) % Plt Count 273 D 200 (150-450) th/mm3 Neut # (Auto) 5.4 4.2 (1.8-7.7) th/mm3 Lymph # (Auto) 1.4 1.1 (1.0-4.8) th/mm3 [place] # (Auto) 0.4 0.5 (0.0-0.9) th/mm3 Eos # (Auto) 0.5 H 0.5 H (0.0-0.4) th/mm3 Baso # (Auto) 0.1 0.1 (0.0-0.2) th/mm3 Comprehensive Metabolic Panel 03/21/18 03/22/18 Range/Units 12:01 07:39 Sodium 132 L 140 (136-145) meq/L Potassium 5.7 H 3.7 D (3.5-5.1) meq/L Chloride 94 L 102 D (98-107) meq/L Carbon Dioxide 21.5 24.6 (21.0-32.0) meq/L BUN 161 H 140 H (7-18) mg/dL Creatinine 6.14 H 5.01 H (0.50-1.00) mg/dL Calcium 9.5 8.5 D (8.5-10.1) mg/dL AST 28 29 (15-37) U/L ALT 31 26 (10-53) U/L Alkaline Phosphatase 218 H 173 H (45-117) U/L Total Protein 7.6 6.7 D (6.4-8.2) g/dL Albumin 3.3 L 3.0 L (3.4-5.0) g/dL Intake and Output 03/22/18 03/22/18 03/22/18 06:59 14:59 22:59 Intake Total 1000 / 1000 1610 / 1610 Balance 1000 / 1000 1610 / 1610 Intake: IV 1000 / 1000 1110 / 1110 Sodium Bicarbonate 8.4% Inj 75 1000 / 1000 1000 / 1000 MEQ In 1/2 Normal Saline Inj 925 ML @ 100 mls/hr IV.CONT . Q10H [facility] Rx#:[id number] Venofer Inj 200 MG In NS Inj 110 / 110 100 ML @ 110 mls/hr IV.SIG ONCE ONE Rx#:[id number] Oral 500 / 500 Intake (Blood Product) Amt 0 / 0 Rbc As-3 Leukoreduced Unit 0 / 0 [id number] Other: # Voids 1 Date of Last Bowel Movement 03/22/18 # Bowel Movements 1 Weight 71.1 kg - Imaging and Cardiology Imaging: Impressions Carotid Doppler Study 03/21/18 00:00 CONCLUSION: 1. Right Internal Carotid Artery: Mild visible plaque without hemodynamically significant stenosis. 2. Left Internal Carotid Artery: Mild visible plaque without hemodynamically significant stenosis Head CT 03/21/18 11:52 CONCLUSION: 1. Stable 1.3 cm extra-axial densely calcified mass in the left frontal high convexities consistent with a meningioma. 2. Redemonstration of remote lacunar infarct in the right basal ganglia. 3. No acute intracranial abnormality. . Chest X-Ray 03/21/18 11:53 CONCLUSION: Negative examination. Foot X-Ray 03/21/18 11:59 CONCLUSION: Calcaneal spur. Abdomen/Bladder Ultrasound 03/21/18 16:43 CONCLUSION: 1. Echogenic kidneys characteristic of medical renal disease. No hydronephrosis. No acute findings. Assessment and Plan - Assessment (1) Syncope and collapse Code(s): R55 - Syncope and collapse Status: Acute (2) Anemia Code(s): D64.9 - Anemia, unspecified Status: Acute (3) Acute kidney injury Code(s): N17.9 - Acute kidney failure, unspecified Status: Acute (4) Chronic kidney disease, stage IV (severe) Code(s): N18.4 - Chronic kidney disease, stage 4 (severe) Status: Acute (5) Type 2 diabetes mellitus with diabetic chronic kidney disease Code(s): E11.22 - Type 2 diabetes mellitus with diabetic chronic kidney disease Status: Acute (6) Cirrhosis of liver Code(s): K74.60 - Unspecified cirrhosis of liver Status: Acute (7) Hyperkalemia Code(s): E87.5 - Hyperkalemia Status: Acute - Plan Troponin levels are non-trending, twelve-lead EKG shows no acute abnormalities and 2D echo shows ejection fraction of 60%. Patient is anemic with a hemoglobin of 6.2, continue with transfusion. Syncopal episode is noncardiac related, possibly caused from dehydration and anemia. Nephrology evaluation in progress due to patient's history of chronic kidney disease. Patient positive for occult blood in the stool, GI evaluation in progress. We will continue to follow the patient during her hospitalization and schedule follow-up in our office post discharge. Patient was seen and evaluated by Dr. Trinidad who participated in care, management and decision-making. - Attending Attestation Patient seen and examined. I reviewed and agree with the evaluation and plan as presented. Symptoms likely related to dehydration and anemia. GI evaluation in progress. Continue monitoring, decrease diuresis.
[2018-03-22] MEDS: Insulin Detemir Inj 1,000 UNIT/10 ML Vial SQ SCH (18:30)
--- NOTE | 2018-03-22 18:39 | ECG ---
Date Performed: 03/21/2018 Time Performed: 11:37:10 PTAGE: 62 years EKG: Sinus rhythm BORDERLINE LEFT AXIS DEVIATION MINIMAL VOLTAGE CRITERIA FOR LVH, CONSIDER NORMAL VARIANT BORDERLINE ECG PREVIOUS TRACING 08/19/17 @ 10.33 Since the previous tracing, no significant change noted DOCTOR: Jagdish Rosenberg Interpretating Date/Time 03/22/2018 18:37:45
--- NOTE | 2018-03-22 19:12 | MB ---
cc: Jorden Oneill MD, Ketul R MD Grieper,Chivo Mejia DO DATE: 03/22/2018 REASON FOR CONSULTATION: I am asked to see this patient by Dr. Porter for evaluation of anemia and GI bleeding. HISTORY OF PRESENT ILLNESS: The patient is a pleasant 62-year-old white female who had cholecystectomy done in 08/2017. At that time, the liver appeared abnormal and biopsy revealed moderate steatosis with bridging fibrosis and early cirrhosis and canalicular bile stasis. We suspect she has cirrhosis based on nonalcoholic steatohepatitis. Her serologic workup was negative in the office and her last alpha fetoprotein has also been negative. She has had some low grade hepatic encephalopathy controlled with Xifaxan. An MRCP done this summer revealed cirrhosis and no ductal dilatation. Apparently, the patient presented to emergency room with dizziness and syncope. She denied any bleeding initially; however, after she had a CAT scan done in the hospital, she had several bowel movements and some had red blood. It was not a lot of blood, but enough to turn the toilet bowl red. It dripped into the toilet bowl. She has not been constipated nor has she had diarrhea. No abdominal pain per se. She denies any dysphagia, odynophagia, early satiety, no nausea or vomiting. She has a history of gastric bypass surgery and she is currently eating a regular diet without problems. Hemoglobins have dropped to 6.2 in the hospital. We did not see it in regard to anemia and the GI bleeding. The patient remembers having a colonoscopy about 5-6 years ago and a small polyp was noted, she believes. She does not recall if she had diverticulosis, but she did have hemorrhoids noted. She does not recall what they found on upper endoscopy at that time, or if one was done. PAST MEDICAL HISTORY: Obesity with history of weight loss surgery/gastric bypass, anxiety, GERD, cirrhosis based on nonalcoholic steatohepatitis, back pain, chronic kidney disease, severe, diabetes, hypertension, anemia in the past. Possible peptic ulcer disease. Possible colon polyps with hemorrhoids also. PAST SURGICAL HISTORY: Gastric bypass, section, cholecystectomy, liver biopsy, tonsillectomy. FAMILY HISTORY: Not significant for any colon cancer or colon polyps. SOCIAL HISTORY: She says she has never smoked and no history of alcohol abuse. ALLERGIES: SULFA AND EGGS. MEDICATIONS IN THE HOSPITAL: 1. Plavix, but she did not question why she is on this, but it is on hold. 2. Cymbalta. 3. Ferrous sulfate. 4. Neurontin. 5. Heparin. 6. Levemir 7. Protonix. 8. Xifaxan. REVIEW OF SYSTEMS: GENERAL: No weight loss. CARDIOPULMONARY: No chest pain, palpitations, wheezing, shortness of breath. GASTROINTESTINAL: She denies any heartburn right now. No melena, hematochezia, diarrhea, or constipation. She had rectal bleeding as mentioned above. No fever, chills, or weight loss. CARDIOPULMONARY: No chest pain, palpitations or shortness of breath. Otherwise unremarkable 12-point review of systems. PHYSICAL EXAMINATION: VITAL SIGNS: Blood pressure is 140/73, pulse of 80, respiratory rate of 18, temperature 98.4. GENERAL: She is overweight white female resting comfortably at this time, appears to be in no acute GI distress. HEENT: Her pupils equal, round and reactive to light. No obvious scleral icterus. Oropharyngeal cavity: Dental caries. No Anila lesions. Hearing is intact. NECK: Supple. No thyromegaly or adenopathy. LUNGS: Clear to auscultation. HEART: Regular rate and rhythm. No murmur. ABDOMEN: Soft, nondistended, nontender. No masses. No ascites, or hernias. Scarring was noted. EXTREMITIES: No cyanosis, clubbing or edema. NEUROLOGIC: Cranial nerves 2 through 12 are grossly intact. No gross motor deficits. No asterixis. RECTAL: Exam was not done. EXTREMITIES: No cyanosis, clubbing or edema. SKIN: Warm and dry. LABORATORY DATA: Yesterday, hemoglobin of 8.3, hematocrit 26.1, MCV of 84.6 with a white blood count 7800 . Platelet count 272,000. This morning, hemoglobin was 6.2, hematocrit 18.1, MCV is normal at 81.9. White cell count was 6400, platelet count of 200,000. Her prothrombin time is 10.6, INR 1, PTT of 20.4. BUN was 161 yesterday with creatinine of 6.14, potassium 5.7, (she did receive treatment in this regard). Potassium now at 3.7 with a BUN of 140, creatinine of 5.01. GFR is low at 9. SGOT of 29, SGPT 26, alkaline phosphatase elevated at 173, total bilirubin 0.2. Iron was 48, was slightly low. TIBC at 329, which is normal. Iron saturation slightly low at 14.6. IMPRESSION: 1. Rectal bleeding. She does not describe gross hematochezia, but she describes bleeding from a local phenomena such as hemorrhoids or proctitis. We talked about other differentials including diverticulosis, colon cancer or colon polyps. Whether this is upper gastrointestinal bleed is unclear. 2. Anemia appears to be somewhat iron deficient. Again, I cannot rule out occult GI malignancy, malabsorption, because of gastric bypass, AVMs, etc. 3. Cirrhosis thought to be on the basis of nonalcoholic steatohepatitis. 4. History of gastric bypass. 5. Chronic renal insufficiency, severe. She has not started dialysis. RECOMMENDATIONS: 1. Transfuse as you are doing. 2. Once hemoglobin is better and stabilized, then at that point we can do an upper endoscopy and colonoscopy. Her Plavix has been on hold and will take a few days to get out of her system, so hopefully we can do the exam on Tuesday. 3. Hold iron pills. This will not clear out during the colonoscopy. 4. In regards to upper endoscopy with possible esophageal variceal banding and colonoscopy, we talked about the indications, risks, complications, benefits, limitations, risks of bleeding, perforation, infection, arrhythmias and small possibility of . She understands that having a normal colonoscopy does not exclude colon cancer in the future since not all colon cancers start from colon polyps, some start from flat lesions. She understands the inherent risk/miss rate for malignancy and polyps also. 5. Further recommendations depending on what testing shows. 6. Continue PPI for now. Jorden Oneill MD SPP/sb/do , 03:29 PM , 03:49 PM MTDD
[2018-03-22 21:54] LABS: Hemoglobin 7.9 gm/dL (11.6-15.3)
[2018-03-22] MEDS ORDERED: Acetaminophen 325 MG Tablet PO ONE (23:47)
[2018-03-23] MEDS: Sodium Chloride 0.45 % Inj 1,000 ML IV.CONT SCH ×2 (01:52→22:51)
[2018-03-23 03:18] LABS: Hemoglobin 8.1 gm/dL (11.6-15.3)
--- NOTE | 2018-03-23 08:51 | P.PNGI ---
Subjective Interval history: Patient denies any abdominal pain. Bleeding has slowed downjust a little bit when she wipes her rectum. No nausea, vomiting abdominal pain. She denies any chest pain or palpitations or fever or chills Physical Exam Vital signs: Vital Signs 03/22/18 09:00 03/22/18 11:46 03/22/18 14:43 Temperature 98.3 F 98.4 F Pulse Rate 86 89 88 Respiratory Rate 20 18 Blood Pressure 136/73 140/73 Pulse Oximetry 95 03/22/18 15:49 03/22/18 20:00 03/23/18 00:00 Temperature 98.2 F 98.0 F 98.1 F Pulse Rate 87 92 H 92 H Respiratory Rate 20 16 16 Blood Pressure 157/74 H 173/83 H 186/84 H Pulse Oximetry 98 95 100 03/23/18 04:00 03/23/18 07:53 Temperature 98.0 F 98.1 F Pulse Rate 82 81 Respiratory Rate 16 18 Blood Pressure 151/71 H 146/74 H Pulse Oximetry 98 96 Intake & Output 03/22/18 03/23/18 03/23/18 18:59 06:59 18:59 Intake Total 2110 / 2110 120 / 120 Balance 2110 / 2110 120 / 120 Weight 70.76 kg Intake: IV 1110 / 1110 Sodium Bicarbonate 8.4% Inj 75 1000 / 1000 MEQ In 1/2 Normal Saline Inj 925 ML @ 100 mls/hr IV.CONT . Q10H [facility] Rx#:[id number] Venofer Inj 200 MG In NS Inj 110 / 110 100 ML @ 110 mls/hr IV.SIG ONCE ONE Rx#:[id number] Oral 1000 / 1000 120 / 120 Intake (Blood Product) Amt 0 / 0 Rbc As-3 Leukoreduced Unit 0 / 0 [id number] Other: # Voids 3 Date of Last Bowel Movement 03/22/18 - Constitutional no acute distress - Routine HEENT Exam Eye: Present: PERRL - Routine Neck Exam Present: supple - Routine Respiratory Exam Present: CTA bilaterally - Routine Cardiovascular Exam Present: RRR - Routine Abdominal Exam Present: soft, normoactive bowel sounds. Absent: tenderness, distended, rebound - Routine Extremities Exam Absent: cyanosis - Routine Neurological Exam Present: alert, oriented X3 Results - Labs CBC & Chem 7: 03/23/18 02:56 03/22/18 07:39 Laboratory Results - last 24 hr 03/22/18 03/22/18 03/22/18 10:49 17:52 21:26 Hgb 7.9 L Hct 23.0 L POC Glucose 145 H Blood Type A Positive Blood Type Recheck Required Antibody Screen Negative MTS Gel Crossmatch See Detail Bld Prod Order Comment 03/23/18 02:56 Hgb 8.1 L Hct 24.0 L POC Glucose Blood Type Blood Type Recheck Antibody Screen MTS Gel Crossmatch Bld Prod Order Comment Microbiology 03/22/18 05:00 Stool Stool Occult Blood ([facility]) - Final Hemoccult positive Assessment and Plan - Attending Attestation IMPRESSION: 1. Rectal bleeding. Improved 2. Anemia appears to be somewhat iron deficient. Differential reviewed 3. Cirrhosis thought to be on the basis of nonalcoholic steatohepatitis. 4. History of gastric bypass. 5. Chronic renal insufficiency, severe. She has not started dialysis. RECOMMENDATIONS: 1. Transfuse as you needed 2. She has improved and will plan EGD/colon tomorrow 3. Hold iron pills. This will not clear out during the colonoscopy. 4. In regards to upper endoscopy with possible esophageal variceal banding and colonoscopy, we reviewed the indications, risks, complications, benefits, limitations, risks of bleeding, perforation, infection, arrhythmias and small possibility of . She understands that having a normal colonoscopy does not exclude colon cancer in the future since not all colon cancers start from colon polyps, some start from flat lesions. She understands the inherent risk/miss rate for malignancy and polyps also. 5. Further recommendations depending on what testing shows. 6. Continue PPI for now.
--- NOTE | 2018-03-23 09:42 | P.PN ---
Subjective Interval history: Follow-up for anemia, GI bleed, CKD stage V. Patient reports feeling slightly better after receiving blood transfusion yesterday. She still reports small bowel movements with bright red blood. Denies abdominal pain. Denies any nausea or vomiting. Denies fevers or chills. Denies any other medical complaints at this time. Physical Exam Vital signs: Vital Signs 03/22/18 11:46 03/22/18 14:43 03/22/18 15:49 Temperature 98.3 F 98.4 F 98.2 F Pulse Rate 89 88 87 Respiratory Rate 20 18 20 Blood Pressure 136/73 140/73 157/74 H Pulse Oximetry 95 98 03/22/18 20:00 03/23/18 00:00 03/23/18 04:00 Temperature 98.0 F 98.1 F 98.0 F Pulse Rate 92 H 92 H 82 Respiratory Rate 16 16 16 Blood Pressure 173/83 H 186/84 H 151/71 H Pulse Oximetry 95 100 98 03/23/18 07:53 Temperature 98.1 F Pulse Rate 81 Respiratory Rate 18 Blood Pressure 146/74 H Pulse Oximetry 96 Intake & Output 03/22/18 03/23/18 03/23/18 18:59 06:59 18:59 Intake Total 0 / 2110 120 / 120 Balance 2110 / 2110 120 / 120 Weight 70.76 kg Intake: IV 1110 / 1110 Sodium Bicarbonate 8.4% Inj 75 1000 / 1000 MEQ In 1/2 Normal Saline Inj 925 ML @ 100 mls/hr IV.CONT . Q10H KATELYNN Rx#:[id number] Venofer Inj 200 MG In NS Inj 110 / 110 100 ML @ 110 mls/hr IV.SIG ONCE ONE Rx#:[id number] Oral 1000 / 1000 120 / 120 Intake (Blood Product) Amt 0 / 0 Rbc As-3 Leukoreduced Unit 0 / 0 [id number] Other: # Voids 3 Date of Last Bowel Movement 03/22/18 Narrative: GENERAL: Well-nourished, well-developed pleasant middle-age female patient in [facility]. SKIN: Warm and dry. No rash. HEENT: Normocephalic. Atraumatic. Pupils equal and round. Mucous membranes pink and moist. CARDIOVASCULAR: Regular rate and rhythm. No murmur appreciated. RESPIRATORY: No accessory muscle use. Clear to auscultation. Breath sounds equal bilaterally. GASTROINTESTINAL: Abdomen soft, non-tender, nondistended. Normoactive bowel sounds x4. MUSCULOSKELETAL: No obvious deformities. Extremities without clubbing, cyanosis , or edema. NEUROLOGICAL: Awake and alert. No obvious cranial nerve deficits. Motor grossly within normal limits. Moving all extremities spontaneously. Normal speech. PSYCHIATRIC: Appropriate mood and affect; insight and judgment normal. Results - Labs CBC & Chem 7: 03/23/18 14:04 03/23/18 14:04 Laboratory Results - last 24 hr 03/22/18 03/22/18 03/22/18 10:49 17:52 21:26 Hgb 7.9 L Hct 23.0 L POC Glucose 145 H Blood Type A Positive Blood Type Recheck Required Antibody Screen Negative MTS Gel Crossmatch See Detail Bld Prod Order Comment 03/23/18 02:56 Hgb 8.1 L Hct 24.0 L POC Glucose Blood Type Blood Type Recheck Antibody Screen MTS Gel Crossmatch Bld Prod Order Comment Microbiology 03/22/18 05:00 Stool Stool Occult Blood (KOKI) - Final Hemoccult positive - Imaging Carotid Doppler Study 03/21/18 00:00 CONCLUSION: 1. Right Internal Carotid Artery: Mild visible plaque without hemodynamically significant stenosis. 2. Left Internal Carotid Artery: Mild visible plaque without hemodynamically significant stenosis Head CT 03/21/18 11:52 CONCLUSION: 1. Stable 1.3 cm extra-axial densely calcified mass in the left frontal high convexities consistent with a meningioma. 2. Redemonstration of remote lacunar infarct in the right basal ganglia. 3. No acute intracranial abnormality. . Chest X-Ray 03/21/18 11:53 CONCLUSION: Negative examination. Foot X-Ray 03/21/18 11:59 CONCLUSION: Calcaneal spur. Abdomen/Bladder Ultrasound 03/21/18 16:43 CONCLUSION: 1. Echogenic kidneys characteristic of medical renal disease. No hydronephrosis. No acute findings. Assessment and Plan - Plan 62-year-old female with history of CKD stage V not yet on dialysis, nonalcoholic steatohepatitis, cirrhosis, hypertension, GERD, anxiety/depression , presents with an episode of syncope. Syncope: Suspect multifactorial secondary to dehydration and anemia. -Head CT reviewed, shows stable 1.3 cm calcified mass consistent with meningioma and remote lacunar infarct right basal ganglia, otherwise no acute findings -Carotid ultrasound reviewed, shows mild visible plaque bilaterally without hemodynamically significant stenosis -Orthostatics positive, SBP dropped from 118 lying to 80 upon standing -Hold patient's antihypertensives including carvedilol, Lasix, losartan, nifedipine -Give IV fluid hydration -Echocardiogram unremarkable with EF 60% -Monitor on telemetry -PT consulted, recommends HHC PT -Cardiology consulted, appreciate recommendations -BP much improved, no further syncopal events, still holding antihypertensives however plan to restart slowly as blood pressure continues to improve Acute anemia secondary to GI bleeding with iron deficiency: acute. Patient with history of cirrhosis. No recent EGD/colonoscopy. -Patient with bright red bloody bowel movement during hospitalization -Hemoccult positive -Hemoglobin dropped from 8.3 to 6.2 -Transfuse 1 unit PRBC on 03/22 -Monitor serial H&H, hemoglobin improving, currently 9.1 -Iron studies consistent with iron deficiency, give IV Venofer on 03/22 and 03/23 -Started on Protonix -Consult GI, patient follows with [facility], plan for EGD/ colonoscopy on 03/24 ROZINA on CKD stage V: Acute, likely secondary to dehydration and lasix -Creatinine 6.14 upon arrival, previously around 23 on prior visits -Renal ultrasound showed echogenic kidneys characteristic of medical renal disease; no hydronephrosis; no acute findings -Consult nephrology, appreciate recommendations -Giving gentle IV fluid hydration per nephrology recommendations -Monitor BMP, slowly improving, creatinine 4.11 today Diabetes mellitus with neuropathy: Hemoglobin A1c 7.7 -Sliding scale coverage with Accu-Cheks before meals and at bedtime -Low-dose sliding scale coverage -Continue long-acting insulin with Levemir 36 units at night -Continue patient's gabapentin GERD: Chronic -Continue PPI Rivera/nonalcoholic steatohepatitis/liver cirrhosis: Chronic -Continue on rifaximin twice daily -Holding patient's Lasix with ROZINA, dehydration, and orthostatic hypotension -Consulted GI as above Depression/anxiety -Continue on duloxetine DVT prophylaxis: Teds/SCDs; holding chemical prophylaxis with GI bleed and anemia Discharge Planning: Plan for EGD/colonoscopy on 03/24. Will need clearance from GI and nephrology prior to discharge. PT recommending HHC, however can likely re-evaluate when patient is clinically improved.
[2018-03-23] MEDS: Duloxetine 60 MG DR Capsule PO SCH (09:52)
[2018-03-23] MEDS: Gabapentin 300 MG Capsule PO SCH ×2 (09:52→22:56)
[2018-03-23] MEDS: rifAXIMin 550 MG Tablet PO SCH ×2 (09:53→22:55)
[2018-03-23] MEDS: Sodium Chloride 0.9% 2 ML Flush BID IV.FLUSH SCH ×2 (09:53→22:57)
[2018-03-23] MEDS: PEG 3350/E-Lyte Soln 4000 ML Bottle PO ONE ×2 (09:56→17:30)
[2018-03-23] MEDS ORDERED: Iron Sucrose Inj 100 MG in Sodium Chlor 0.9% Inj 100 ML IV.SIG ONE (10:00)
--- NOTE | 2018-03-23 10:26 | P.PNCA ---
Subjective Interval history: Patient denies any chest pain, pressure, palpitations, dizziness, edema or shortness of breath. Patient states that her dizziness and fatigue have improved greatly. Medications and Allergies Allergies Allergy/AdvReac Type Severity Reaction Status Date / Time egg Allergy Severe Swelling Verified 03/21/18 11:18 Sulfa (Sulfonamide Allergy Severe Swelling Verified 03/21/18 11:18 Antibiotics) Home Medications Medication Instructions Recorded Confirmed Type carvedilol 12.5 mg PO BID 01/07/18 03/21/18 History cholecalciferol (vitamin D3) 1,000 unit PO DAILY 01/07/18 03/21/18 History clopidogrel 75 mg PO DAILY 01/07/18 03/21/18 History ferrous sulfate 1,000 mg PO DAILY 01/07/18 03/21/18 History furosemide 40 mg PO BID 01/07/18 03/21/18 History gabapentin 300 mg PO BID 01/07/18 03/21/18 History insulin glargine [Lantus U-100 36 unit SUB-Q ONCE PM 01/07/18 03/21/18 History Insulin] losartan 50 mg PO BID 01/07/18 03/21/18 History melatonin 5 mg PO HS PRN 01/07/18 03/21/18 History metolazone 5 mg PO DAILY 01/07/18 03/21/18 History nifedipine 90 mg PO DAILY 01/07/18 03/21/18 History omeprazole 40 mg PO DAILY 01/07/18 03/21/18 History rifaximin [Xifaxan] 550 mg PO BID 01/07/18 03/21/18 History duloxetine 60 mg PO DAILY 03/16/18 03/21/18 History insulin aspart U-100 [Novolog 1 unit SUBCUT TID 03/16/18 03/21/18 History U-100 Insulin aspart] tizanidine 4 mg PO DAILY 03/21/18 03/21/18 History Active Medications: Active Medications Clonidine HCl (Catapres) 0.1 mg PO Q6H PRN PRN Reason: SBP>170 or DBP>100 if HR > 65 Last Admin: 03/23/18 01:50 Dose: 0.1 mg Clopidogrel Bisulfate (Plavix) 75 mg PO DAILY [facility] Last Admin: 03/22/18 08:26 Dose: 75 mg Duloxetine HCl (Cymbalta) 60 mg PO DAILY [facility] Last Admin: 03/23/18 09:52 Dose: 60 mg Ferrous Sulfate (Ferosul) 1,000 mg PO DAILY [facility] Gabapentin (Neurontin) 300 mg PO BID [facility] Last Admin: 03/23/18 09:52 Dose: 300 mg Heparin Sodium (Porcine) (Heparin Inj) 5,000 units SQ Q12HR [facility] Last Admin: 03/22/18 08:26 Dose: 5,000 units Sodium Chloride (Ns Inj) 1,000 mls @ 0 mls/hr IV.SIG BOLUS [facility] Sodium Chloride (1/2 Normal Saline Inj) 1,000 mls @ 50 mls/hr IV.CONT .Q20H [facility] Last Admin: 03/23/18 01:52 Dose: Not Given Iron Sucrose 100 mg/ Sodium (Chloride) 105 mls @ 105 mls/hr IV.SIG ONCE ONE Stop: 03/23/18 10:59 Insulin Detemir (Levemir Inj) 36 unit SQ QPM [facility] Last Admin: 03/22/18 18:30 Dose: 36 unit Pantoprazole Sodium (Protonix) 40 mg PO DAILY [facility] Last Admin: 03/23/18 09:52 Dose: 40 mg Rifaximin (Xifaxan) 550 mg PO BID [facility] Last Admin: 03/23/18 09:53 Dose: 550 mg Sodium Chloride (Ns Flush) 2 ml IV.FLUSH BID [facility] Last Admin: 03/23/18 09:53 Dose: 2 ml Sodium Chloride (Ns Flush) 2 ml IV.FLUSH PRN PRN PRN Reason: FLUSH AFTER USING IV ACCESS Vitamin D (Vitamin D3) 1,000 unit PO DAILY [facility] Last Admin: 03/23/18 09:53 Dose: 1,000 unit Physical Exam Vital signs: Vital Signs 03/22/18 11:46 03/22/18 14:43 03/22/18 15:49 Temperature 98.3 F 98.4 F 98.2 F Pulse Rate 89 88 87 Respiratory Rate 20 18 20 Blood Pressure 136/73 140/73 157/74 H Pulse Oximetry 95 98 03/22/18 20:00 03/23/18 00:00 03/23/18 04:00 Temperature 98.0 F 98.1 F 98.0 F Pulse Rate 92 H 92 H 82 Respiratory Rate 16 16 16 Blood Pressure 173/83 H 186/84 H 151/71 H Pulse Oximetry 95 100 98 03/23/18 07:53 Temperature 98.1 F Pulse Rate 81 Respiratory Rate 18 Blood Pressure 146/74 H Pulse Oximetry 96 Intake & Output 03/22/18 03/23/18 03/23/18 18:59 06:59 18:59 Intake Total 2109 120 / 120 Balance 2109 120 / 120 Weight 70.76 kg Intake: IV 1110 / 1110 Sodium Bicarbonate 8.4% Inj 75 1000 / 1000 MEQ In 1/2 Normal Saline Inj 925 ML @ 100 mls/hr IV.CONT . Q10H KATELYNN Rx#:[id number] Venofer Inj 200 MG In NS Inj 110 / 110 100 ML @ 110 mls/hr IV.SIG ONCE ONE Rx#:[id number] Oral 1000 / 1000 120 / 120 Intake (Blood Product) Amt 0 / 0 Rbc As-3 Leukoreduced Unit 0 / 0 [id number] Other: # Voids 3 Date of Last Bowel Movement 03/22/18 - Constitutional no acute distress - Routine HEENT Exam Head: Present: normocephalic Eye: Present: PERRL ENT: Present: mucous membranes moist - Routine Neck Exam Present: full ROM - Routine Respiratory Exam Present: CTA bilaterally - Routine Cardiovascular Exam Present: S1, S2. Absent: murmur, gallop, rubs - Routine Abdominal Exam Present: normoactive bowel sounds - Routine Extremities Exam Present: full ROM, pulses intact, normal capillary refill. Absent: cyanosis, clubbing, edema - Routine Skin Exam Present: intact - Routine Neurological Exam Present: oriented X3 - Detailed Neurological Exam: Coma Scale Eye Opening: Spontaneous Verbal Response: Oriented Motor Response: Obey commands Rohit Coma Scale Total: 15 - Routine Psychiatric Exam Present: normal affect Results 03/23/18 15:48 03/23/18 14:04 Cardiac Enzymes 03/21/18 03/21/18 03/21/18 Range/Units 12:01 12:01 16:30 AST 28 (15-37) U/L Troponin I Less than 0.02 L Less than 0.02 L (0.02-0.05) ng/mL B-Natriuretic Peptide 22 (0-100) pg/mL 03/21/18 03/22/18 Range/Units 16:30 07:39 AST 29 (15-37) U/L Troponin I Less than 0.02 L (0.02-0.05) ng/mL B-Natriuretic Peptide (0-100) pg/mL Coagulation 03/21/18 03/21/18 03/22/18 Range/Units 12:01 12:01 06:00 PT 10.6 10.5 (9.8-11.6) sec APTT 20.4 L (24.3-30.1) sec B-Natriuretic Peptide 22 (0-100) pg/mL CBC 03/21/18 03/22/18 03/22/18 Range/Units 12:01 07:39 21:26 WBC 7.9 6.4 (4.0-11.0) th/mm3 RBC 3.08 L 2.21 L (4.00-5.30) mil/mm3 Hgb 8.3 L 6.2 L* D 7.9 L (11.6-15.3) gm/dL Hct 26.1 L 18.1 L* 23.0 L (35.0-46.0) % Plt Count 273 D 200 (150-450) th/mm3 Neut # (Auto) 5.4 4.2 (1.8-7.7) th/mm3 Lymph # (Auto) 1.4 1.1 (1.0-4.8) th/mm3 Yates # (Auto) 0.4 0.5 (0.0-0.9) th/mm3 Eos # (Auto) 0.5 H 0.5 H (0.0-0.4) th/mm3 Baso # (Auto) 0.1 0.1 (0.0-0.2) th/mm3 03/23/18 Range/Units 02:56 WBC (4.0-11.0) th/mm3 RBC (4.00-5.30) mil/mm3 Hgb 8.1 L (11.6-15.3) gm/dL Hct 24.0 L (35.0-46.0) % Plt Count (150-450) th/mm3 Neut # (Auto) (1.8-7.7) th/mm3 Lymph # (Auto) (1.0-4.8) th/mm3 Yates # (Auto) (0.0-0.9) th/mm3 Eos # (Auto) (0.0-0.4) th/mm3 Baso # (Auto) (0.0-0.2) th/mm3 Comprehensive Metabolic Panel 03/21/18 03/22/18 Range/Units 12:01 07:39 Sodium 132 L 140 (136-145) meq/L Potassium 5.7 H 3.7 D (3.5-5.1) meq/L Chloride 94 L 102 D (98-107) meq/L Carbon Dioxide 21.5 24.6 (21.0-32.0) meq/L BUN 161 H 140 H (7-18) mg/dL Creatinine 6.14 H 5.01 H (0.50-1.00) mg/dL Calcium 9.5 8.5 D (8.5-10.1) mg/dL AST 28 29 (15-37) U/L ALT 31 26 (10-53) U/L Alkaline Phosphatase 218 H 173 H (45-117) U/L Total Protein 7.6 6.7 D (6.4-8.2) g/dL Albumin 3.3 L 3.0 L (3.4-5.0) g/dL Intake and Output 03/22/18 03/23/18 03/23/18 22:59 06:59 14:59 Intake Total 500 / 500 120 / 120 Balance 500 / 500 120 / 120 Intake: Oral 500 / 500 120 / 120 Intake (Blood Product) Amt 0 / 0 Rbc As-3 Leukoreduced Unit 0 / 0 [id number] Other: # Voids 3 Date of Last Bowel Movement 03/22/18 Weight 70.76 kg - Imaging and Cardiology Imaging: Impressions Carotid Doppler Study 03/21/18 00:00 CONCLUSION: 1. Right Internal Carotid Artery: Mild visible plaque without hemodynamically significant stenosis. 2. Left Internal Carotid Artery: Mild visible plaque without hemodynamically significant stenosis Head CT 03/21/18 11:52 CONCLUSION: 1. Stable 1.3 cm extra-axial densely calcified mass in the left frontal high convexities consistent with a meningioma. 2. Redemonstration of remote lacunar infarct in the right basal ganglia. 3. No acute intracranial abnormality. . Chest X-Ray 03/21/18 11:53 CONCLUSION: Negative examination. Foot X-Ray 03/21/18 11:59 CONCLUSION: Calcaneal spur. Abdomen/Bladder Ultrasound 03/21/18 16:43 CONCLUSION: 1. Echogenic kidneys characteristic of medical renal disease. No hydronephrosis. No acute findings. Assessment and Plan - Assessment (1) Syncope and collapse Code(s): R55 - Syncope and collapse Status: Acute (2) Anemia Code(s): D64.9 - Anemia, unspecified Status: Acute (3) Acute kidney injury Code(s): N17.9 - Acute kidney failure, unspecified Status: Acute (4) Chronic kidney disease, stage IV (severe) Code(s): N18.4 - Chronic kidney disease, stage 4 (severe) Status: Acute (5) Type 2 diabetes mellitus with diabetic chronic kidney disease Code(s): E11.22 - Type 2 diabetes mellitus with diabetic chronic kidney disease Status: Acute (6) Cirrhosis of liver Code(s): K74.60 - Unspecified cirrhosis of liver Status: Acute (7) Hyperkalemia Code(s): E87.5 - Hyperkalemia Status: Acute - Plan Syncopal episode is noncardiac related, possibly caused from dehydration and anemia. No new cardiac issues. Patient has significant history of chronic kidney disease, nephrology evaluation in progress. GI evaluation in progress for GI bleed, patient scheduled for colonoscopy tomorrow. We will continue to follow the patient during her hospitalization and schedule follow-up in our office post discharge. Patient was seen and evaluated by Dr. Trinidad who participated in care, management and decision-making. - Attending Attestation Patient seen and examined. I reviewed and agree with the evaluation and plan as presented. No new cardiac issues. GI evaluation in progress, colonoscopy tomorrow.
[2018-03-23 15:06] LABS: Hemoglobin 9.1 gm/dL (11.6-15.3)
[2018-03-23 16:08] LABS: Calcium 8.8 mg/dL (8.5-10.1); Carbon Dioxide 22.5 meq/L (21.0-32.0)
[2018-03-23] MEDS ORDERED: Dextrose 50% in Water 50 ML Vial IV.PUSH PRN (16:36)
[2018-03-23 16:49] LABS: Hematocrit 23.6 % (35.0-46.0)
[2018-03-23] MEDS: Insulin NovoLOG Aspart Correctional Sugar Inj SQ SCH ×2 (19:38→22:56)
--- NOTE | 2018-03-23 19:55 | P.PNNP ---
Subjective Interval history: Renal function has improved. To have colonoscopy tomorrow. Some hematochezia persists. Physical Exam Vital signs: Vital Signs 03/22/18 20:00 03/23/18 00:00 03/23/18 04:00 Temperature 98.0 F 98.1 F 98.0 F Pulse Rate 92 H 92 H 82 Respiratory Rate 16 16 16 Blood Pressure 173/83 H 186/84 H 151/71 H Pulse Oximetry 95 100 98 03/23/18 07:53 03/23/18 11:43 03/23/18 12:00 Temperature 98.1 F 98.1 F 97.3 F L Pulse Rate 81 73 78 Respiratory Rate 18 16 16 Blood Pressure 146/74 H 154/72 H 137/73 Pulse Oximetry 96 92 L 98 03/23/18 16:00 Temperature 97.5 F L Pulse Rate 83 Respiratory Rate 18 Blood Pressure 166/85 H Pulse Oximetry 96 Intake & Output 03/23/18 03/23/18 03/24/18 06:59 18:59 06:59 Intake Total 120 / 120 1350 / 1350 Balance 120 / 120 1350 / 1350 Weight 70.76 kg Intake: IV 1350 / 1350 1/2 Normal Saline Inj 1,000 ML 1000 / 1000 @ 50 mls/hr IV.CONT .Q20H KATELYNN Rx#:[id number] Venofer Inj 100 MG In NS Inj 100 / 100 100 ML @ 105 mls/hr IV.SIG ONCE ONE Rx#:[id number] Oral 120 / 120 Other: # Voids 3 1 Date of Last Bowel Movement 03/22/18 03/22/18 Narrative: GENERAL: patient is alert, oriented. SKIN: Warm and dry. No rash. HEENT: Normocephalic. Atraumatic. Pupils equal and round. Mucous membranes pink and moist. CARDIOVASCULAR: Regular rate and rhythm. No murmur appreciated. RESPIRATORY: No accessory muscle use. Clear to auscultation. Breath sounds equal bilaterally. GASTROINTESTINAL: Abdomen soft, non-tender, nondistended. MUSCULOSKELETAL: No obvious deformities. Extremities without clubbing, cyanosis , or edema. NEUROLOGICAL: moves all extremities, no focal deficits. Assessment and Plan - Assessment (1) Acute kidney injury Code(s): N17.9 - Acute kidney failure, unspecified Status: Acute Plan: The patient was hypotensive, had lightheadedness and dizziness. Was on diuretics at home. It is possible that the patient had developed prerenal azotemia due to intravascular volume depletion. Renal function has improved slightly with IV hydration. Reduce IVF. Avoid nephrotoxic agents. No immediate need for dialysis. (2) Chronic kidney disease, stage IV (severe) Code(s): N18.4 - Chronic kidney disease, stage 4 (severe) Status: Acute Plan: Most likely the patient has diabetic nephropathy, she has proteinuria, most recent lab work before this hospital admissions suggested that she had slipped into stage 5 chronic kidney disease. She is very close to needing dialysis. See above. (3) Type 2 diabetes mellitus with diabetic chronic kidney disease Code(s): E11.22 - Type 2 diabetes mellitus with diabetic chronic kidney disease Status: Acute Plan: The patient has type 2 diabetes, diabetic nephropathy. Maintain blood sugar between 140 and 180 while hospitalized. 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 She has been following with GI. (5) Anemia Code(s): D64.9 - Anemia, unspecified Status: Acute Plan: Acute on chronic. Transfuse as needed. Colonoscopy planned by Dr. Oneill. (6) Hyperkalemia Code(s): E87.5 - Hyperkalemia Status: Acute Plan: Improved, monitor.
[2018-03-23] MEDS: Insulin Detemir Inj 1,000 UNIT/10 ML Vial SQ SCH (20:18)
[2018-03-24] MEDS ORDERED: Sodium Chlor 0.9% Inj 500 ML IV.CONT ONE (05:45)
[2018-03-24] MEDS ORDERED: Chlorhexidine Gluconate 2% 1 Pack (2 Cloths) TOPICAL ONE (05:45)
[2018-03-24 07:22] LABS: Baso # (Auto) 0.1 th/mm3 (0.0-0.2); Eos # (Auto) 0.5 th/mm3 (0.0-0.4); Eos % (Auto) 7.5 % (0.0-4.0); Hematocrit 25.1 % (35.0-46.0); Hemoglobin 8.2 gm/dL (11.6-15.3); Lymph # (Auto) 1.1 th/mm3 (1.0-4.8); Lymph % (Auto) 15.8 % (9.0-44.0); Mean Corpuscular HGB Conc 32.5 % (32.0-36.0); Mean Corpuscular Hemoglobin 27.4 pg (27.0-34.0); Mean Corpuscular Volume 84.3 fL (80.0-100.0); Mean Platelet Volume 8.1 fL (7.0-11.0); Mono # (Auto) 0.6 th/mm3 (0.0-0.9); Mono % (Auto) 8.7 % (0.0-8.0); Neut # (Auto) 4.5 th/mm3 (1.8-7.7); Platelet Count 237 th/mm3 (150-450); Red Blood Count 2.98 mil/mm3 (4.00-5.30); Red Cell Distribution Width 14.3 % (11.6-17.2); White Blood Count 6.7 th/mm3 (4.0-11.0)
[2018-03-24 08:05] LABS: Albumin 3.2 g/dL (3.4-5.0); Calcium 8.5 mg/dL (8.5-10.1); Phosphorus 3.2 mg/dL (2.5-4.9); Potassium 3.7 meq/L (3.5-5.1)
[2018-03-24] MEDS ORDERED: Insulin NovoLIN Regular Correctional Sugar Inj ONE (08:16)
--- NOTE | 2018-03-24 09:13 | GIPROC ---
[facility] [address] [facility]. [facility], [id number] COLONOSCOPY PROCEDURE REPORT EXAM DATE: 03/24/2018 PATIENT NAME: Caitlin Matthews MR #: [id number] BIRTHDATE: 1955 ENDOSCOPIST: Jorden Oneill MD ORDER #: [id number] WOOD BUFFER: Nelson Thomas Pena, Gabriela, and Monse Anderson STATUS: inpatient INDICATIONS: The patient is a 62 yr old female here for a colonoscopy due to rectal bleeding PROCEDURE PERFORMED: Colonoscopy with polypectomy MEDICATIONS: None and Per Anesthesia. PREP QUALITY: poor PREP TYPE:GoLytely ESTIMATED BLOOD LOSS: None CONSENT: The patient understands the risks and benefits of the procedure and understands that these risks include, but are not limited to: sedation, allergic reaction, infection, perforation and/or bleeding. Alternative means of evaluation and treatment include, among others: physical exam, x-rays, and/or surgical intervention. The patient elects to proceed with this endoscopic procedure. medical equipment was checked for proper function. Hand hygiene and appropriate measures for infection prevention was taken. After the risks, benefits and alternatives of the procedure were thoroughly explained, Informed consent was verified, confirmed and timeout was successfully executed by the treatment team. A digital exam revealed no abnormalities of the rectum The Pentax [id number] endoscope was introduced through the anus and advanced to the cecum, which was identified by both the appendix and ileocecal valve. The instrument was then slowly withdrawn as the colon was fully examined. COLON FINDINGS: A smooth sessile polyp measuring 3 mm in size was found in the ascending traverse colon. A polypectomy was performed with a cold snare. The resection was complete and the polyp tissue was completely retrieved. A smooth sessile polyp measuring 5 mm in size was found in the proximal descending colon. A polypectomy was performed with a cold snare. The resection was complete and the polyp tissue was completely retrieved. Mild diverticulosis was noted in the sigmoid colon. Small internal hemorrhoids were found. Retroflexion was performed and was normal The scope was then completely withdrawn from the patient and the procedure terminated. PROCEDURE WITHDRAWAL TIME:7minutes ADVERSE EVENTS: There were no complications. IMPRESSIONS: 1. A sessile polyp was found in the ascending traverse colon; polypectomy was performed with a cold snare 2. A sessile polyp was found in the proximal descending colon; polypectomy was performed with a cold snare 3. Mild diverticulosis was noted in the sigmoid colon 4. Small internal hemorrhoids 5. Retroflexion was performed and was normal 6. Revealed no abnormalities of the rectum RECOMMENDATIONS: 1. Await biopsy results. Biopsy results will not be ready for 7-10 days. If you don't hear from us in two weeks, call our office for results. 2. Repeat Colon as outpt (poor prep) RECALL: Colonoscopy Jorden Oneill MD eSigned: Jorden Oneill MD 03/24/2018 9:12 AM cc: PATIENT NAME: Caitlin Matthews MR#: [id number]
--- NOTE | 2018-03-24 09:24 | GIPROC ---
[facility] [address] [facility]. [facility], [address] EGD PROCEDURE REPORT EXAM DATE: 03/24/2018 PATIENT NAME: Caitlin Matthews MR #: [id number] BIRTHDATE: 1955 ATTENDING: Jorden Oneill MD ORDER #: [id number] MANUFACTURING ENGINEERING PROFESSOR: Nelson Thomas Stienbarger, Terrie, and Bria Guadarrama STATUS: inpatient INDICATIONS: The patient is a 62 yr old female here for an EGD due to anemia and iron deficiency anemia PROCEDURE PERFORMED: EGD w/ biopsy MEDICATIONS: None and Per Anesthesia. TOPICAL ANESTHETIC: none CONSENT: The patient understands the risks and benefits of the procedure and understands that these risks include, but are not limited to: sedation, allergic reaction, infection, perforation and/or bleeding. Alternative means of evaluation and treatment include, among others: physical exam, x-rays, and/or surgical intervention. The patient elects to proceed with this endoscopic procedure. medical equipment was checked for proper function. Hand hygiene and appropriate measures for infection prevention was taken. After the risks, benefits and alternatives of the procedure were thoroughly explained, Informed consent was verified, confirmed and timeout was successfully executed by the treatment team. The patient was anesthetized with topical anesthesia and the Pentax [id number] endoscope was introduced through the mouth and advanced to the proximal jejunum. Retroflexion was performed and was normal The gastroscope was then slowly withdrawn and removed. ESOPHAGUS: The z-line was located 42cm from the incisors. The z-line appeared normal. STOMACH: Gastric bypass noted (GJ). Two large non-bleeding, deep and clean-based ulcers were found at the gastro-jejunal anastamosis. Biopsies were taken at edge of the ulcers and at the center of the ulcers. JEJUNUM: The exam showed no abnormalities in the jejunum. ADVERSE EVENTS: There were no complications. IMPRESSIONS: 1. The z-line was located 42cm from the incisors 2. Gastric bypass noted (GJ) 3. Two large ulcers were found at the gastro-jejunal anastamosis; biopsies were taken 4. The exam showed no abnormalities in the jejunum 5. Retroflexion was performed and was normal RECOMMENDATIONS: 1. Await biopsy results. Biopsy results will not be ready for 7-10 days. If you don't hear from us in two weeks, call our office for biopsy results. 2. Colonoscopy 3. Continue PPI PATIENT CONDITION: stable DISPOSITION: Inpatient REPEAT EXAM: Return 2 months EGD Jorden Oneill MD eSigned: Jorden Oneill MD 03/24/2018 9:23 AM cc: PATIENT NAME: Caitlin Matthews MR#: [id number]
[2018-03-24] MEDS: Duloxetine 60 MG DR Capsule PO SCH (10:08)
[2018-03-24] MEDS: Sodium Chloride 0.9% 2 ML Flush BID IV.FLUSH SCH ×2 (10:08→20:30)
[2018-03-24] MEDS: Gabapentin 300 MG Capsule PO SCH ×2 (10:08→20:26)
--- NOTE | 2018-03-24 11:01 | P.PN ---
Subjective Interval history: Vascular surgery staff- Ms Mello - called me- patient apparently scheduled for AVF creation - requesting for them to be consulted while in house- -will place consult to Dr. Jackie Fried colonosocpy done had some bleeding Physical Exam Vital signs: Vital Signs 03/23/18 11:43 03/23/18 12:00 03/23/18 16:00 Temperature 98.1 F 97.3 F L 97.5 F L Pulse Rate 73 78 83 Respiratory Rate 16 16 18 Blood Pressure 154/72 H 137/73 166/85 H Pulse Oximetry 92 L 98 96 03/23/18 20:00 03/24/18 00:00 03/24/18 04:00 Temperature 97.8 F 97.9 F 98.6 F Pulse Rate 81 91 H 75 Respiratory Rate 18 18 20 Blood Pressure 140/83 131/83 160/91 H Pulse Oximetry 99 94 L 93 L 03/24/18 08:00 03/24/18 09:13 Temperature 98.2 F 97 F L Pulse Rate 79 75 Respiratory Rate 18 18 Blood Pressure 166/99 H 151/73 H Pulse Oximetry 93 L 98 Intake & Output 03/23/18 03/24/18 03/24/18 18:59 06:59 18:59 Intake Total 1350 / 1350 315 / 315 Balance 1350 / 1350 315 / 315 Weight 70 kg Intake: IV 1350 / 1350 105 / 105 1/2 Normal Saline Inj 1,000 ML 1000 / 1000 @ 50 mls/hr IV.CONT .Q20H [facility] Rx#:[id number] Venofer Inj 100 MG In NS Inj 100 / 100 105 / 105 100 ML @ 105 mls/hr IV.SIG ONCE ONE Rx#:[id number] Oral 210 / 210 Other: # Voids 1 3 Date of Last Bowel Movement 03/22/18 03/24/18 03/24/18 Results - Labs CBC & Chem 7: 03/25/18 07:14 03/25/18 07:14 Laboratory Results - last 24 hr 03/23/18 03/23/18 03/23/18 14:04 14:04 15:48 WBC RBC Hgb 9.1 L 8.0 L Hct 27.0 L 23.6 L MCV MCH MCHC RDW Plt Count MPV Neut % (Auto) Lymph % (Auto) [place] % (Auto) Eos % (Auto) Baso % (Auto) Neut # (Auto) Lymph # (Auto) [place] # (Auto) Eos # (Auto) Baso # (Auto) WBC Differential Differential Comment Sodium 138 Potassium 4.0 Chloride 101 Carbon Dioxide 22.5 Anion Gap 15 BUN 91 H Creatinine 4.11 H Estimated GFR 11 L POC Glucose Random Glucose 304 H D Calcium 8.8 Phosphorus Albumin 03/23/18 03/23/18 03/24/18 17:13 20:20 06:44 WBC 6.7 RBC 2.98 L Hgb 8.2 L Hct 25.1 L MCV 84.3 MCH 27.4 MCHC 32.5 RDW 14.3 Plt Count 237 MPV 8.1 Neut % (Auto) 67.0 Lymph % (Auto) 15.8 [place] % (Auto) 8.7 H Eos % (Auto) 7.5 H Baso % (Auto) 1.0 Neut # (Auto) 4.5 Lymph # (Auto) 1.1 [place] # (Auto) 0.6 Eos # (Auto) 0.5 H Baso # (Auto) 0.1 WBC Differential . Differential Comment Auto diff final Sodium Potassium Chloride Carbon Dioxide Anion Gap BUN Creatinine Estimated GFR POC Glucose 238 H 234 H Random Glucose Calcium Phosphorus Albumin 03/24/18 03/24/18 03/24/18 06:44 07:36 08:16 WBC RBC Hgb Hct MCV MCH MCHC RDW Plt Count MPV Neut % (Auto) Lymph % (Auto) [place] % (Auto) Eos % (Auto) Baso % (Auto) Neut # (Auto) Lymph # (Auto) [place] # (Auto) Eos # (Auto) Baso # (Auto) WBC Differential Differential Comment Sodium 139 Potassium 3.7 Chloride 102 Carbon Dioxide 26.0 Anion Gap 11 BUN 69 H Creatinine 3.34 H Estimated GFR 14 L POC Glucose 208 H 188 H Random Glucose 174 H D Calcium 8.5 Phosphorus 3.2 D Albumin 3.2 L Assessment and Plan - Plan - Plan 62-year-old female with history of CKD stage V not yet on dialysis, nonalcoholic steatohepatitis, cirrhosis, hypertension, GERD, anxiety/depression , presents with an episode of syncope. Syncope: Suspect multifactorial secondary to dehydration and anemia. -Head CT reviewed, shows stable 1.3 cm calcified mass consistent with meningioma and remote lacunar infarct right basal ganglia, otherwise no acute findings -Carotid ultrasound reviewed, shows mild visible plaque bilaterally without hemodynamically significant stenosis -Orthostatics positive, SBP dropped from 118 lying to 80 upon standing -Hold patient's antihypertensives including carvedilol, Lasix, losartan, nifedipine -Give IV fluid hydration -Echocardiogram unremarkable with EF 60% -Monitor on telemetry -PT consulted, recommends HHC PT -Cardiology consulted, appreciate recommendations -BP much improved, no further syncopal events, still holding antihypertensives however plan to restart slowly as blood pressure continues to improve Acute anemia secondary to GI bleeding with iron deficiency: acute. Patient with history of cirrhosis. No recent EGD/colonoscopy. for cololonsocpy today -Patient with bright red bloody bowel movement during hospitalization -Hemoccult positive -Hemoglobin dropped from 8.3 to 6.2 -Transfuse 1 unit PRBC on 03/22 -Monitor serial H&H, hemoglobin improving, currently 9.1 -Iron studies consistent with iron deficiency, give IV Venofer on 03/22 and 03/23 -Started on Protonix -Consult GI, patient follows with [facility] ROZINA on CKD stage V: Acute, likely secondary to dehydration and lasix -Creatinine 6.14 upon arrival, previously around 23 on prior visits -Renal ultrasound showed echogenic kidneys characteristic of medical renal disease; no hydronephrosis; no acute findings -Consult nephrology, appreciate recommendations -Giving gentle IV fluid hydration per nephrology recommendations -Monitor BMP, slowly improving, creatinine 4.11 today Diabetes mellitus with neuropathy: Hemoglobin A1c 7.7 -Sliding scale coverage with Accu-Cheks before meals and at bedtime -Low-dose sliding scale coverage -Continue long-acting insulin with Levemir 36 units at night -Continue patient's gabapentin GERD: Chronic -Continue PPI Rivera/nonalcoholic steatohepatitis/liver cirrhosis: Chronic -Continue on rifaximin twice daily -Holding patient's Lasix with ROZINA, dehydration, and orthostatic hypotension -Consulted GI as above Depression/anxiety -Continue on duloxetine DVT prophylaxis: Teds/SCDs; holding chemical prophylaxis with GI bleed and anemia Discharge Planning: Plan for EGD/colonoscopy on 03/24. Will need clearance from GI and nephrology prior to discharge. PT recommending HHC, however can likely re-evaluate when patient is clinically improved.
[2018-03-24] MEDS: Insulin NovoLOG Aspart Correctional Sugar Inj SQ SCH ×4 (12:09→20:28)
[2018-03-24] MEDS: rifAXIMin 550 MG Tablet PO SCH ×2 (12:12→20:27)
--- NOTE | 2018-03-24 15:02 | P.CONVS ---
History of Present Illness Service: vascular surgery Consult date: 03/24/18 Reason for Consult: AV access Primary Care Provider: Thaddeus Maynard MD Chief Complaint: Syncope and weakness and dizziness History of Present Illness: 62 yo female with the PMH of CKD not on HD. She presented to our office for AV access evaluation and was found to be hypotensive. she was transferred to the ER and was noted to have low hg. She was transfused PRBCs and EGD was done and showed PUD. Vascular surgery consulted because patient wants to have her av access done during this hospitalization. She is right handed, denies any CP or SOB Review of Systems All other systems reviewed negative except as stated in HPI [facility] - History History Provided By: Patient, Significant Other - Medical History Medical History: Medical History (Last Reviewed 03/22/18 @ 08:14 by Gianluca Avila) Anxiety Depression GERD (gastroesophageal reflux disease) PETERS (nonalcoholic steatohepatitis) Back injuries CKD (chronic kidney disease) stage 5, GFR less than 15 ml/min Cirrhosis of liver Diabetes HTN (hypertension) - Surgical History Surgical History: Surgical History (Last Reviewed 03/22/18 @ 08:14 by Gianluca Avila) H/O section H/O gastric bypass History of tonsillectomy - Family History Family History: Family History (Last Reviewed 03/22/18 @ 07:19 by Elizabeth Singletary) Other Family history of diabetes mellitus Family history of hypertension - Tobacco History Second Hand Smoke Exposure: No Tobacco Use In Past 30 Days: No Smoking Status: Never smoker - Alcohol History How Often Do You Have a Drink Containing Alcohol: Monthly or less - Substance Use History Substance History: No History of Abuse - Travel History History of Recent Travel: No Recent Travel in the [place] Within the Last 8 Weeks: No Recent Travel Out of the Country Within the Last 8 Weeks: No - Immunization History Tetanus Immunization: <5 Years Tetanus Immunization Year if Known: 2013 Hx Influenza Vaccine This Season: No Medications and Allergies Active Medications: Active Medications Clonidine HCl (Catapres) 0.1 mg PO Q6H PRN PRN Reason: SBP>170 or DBP>100 if HR > 65 Last Admin: 03/23/18 01:50 Dose: 0.1 mg Clopidogrel Bisulfate (Plavix) 75 mg PO DAILY [facility] Last Admin: 03/22/18 08:26 Dose: 75 mg Dextrose (D50w Vial) 50 ml IV.PUSH UNSCH PRN PRN Reason: PER HYPOGLYCEMIA PROTOCOL Duloxetine HCl (Cymbalta) 60 mg PO DAILY [facility] Last Admin: 03/24/18 10:08 Dose: 60 mg Ferrous Sulfate (Ferosul) 1,000 mg PO DAILY [facility] Gabapentin (Neurontin) 300 mg PO BID [facility] Last Admin: 03/24/18 10:08 Dose: 300 mg Glucagon (Glucagon Inj) 1 mg OTHER PRN PRN PRN Reason: for Hypoglycemia Protocol Heparin Sodium (Porcine) (Heparin Inj) 5,000 units SQ Q12HR [facility] Last Admin: 03/22/18 08:26 Dose: 5,000 units Sodium Chloride (Ns Inj) 1,000 mls @ 0 mls/hr IV.SIG BOLUS [facility] Sodium Chloride (1/2 Normal Saline Inj) 1,000 mls @ 50 mls/hr IV.CONT .Q20H [facility] Last Admin: 03/23/18 22:51 Dose: 50 mls/hr Sodium Chloride (Ns Inj) 500 mls @ 30 mls/hr IV.CONT .[id number] ONE Stop: 03/24/18 22:24 Last Admin: 03/24/18 10:06 Dose: Not Given Insulin Aspart (Novolog Insulin Correctional Sugar Inj) 0 unit SQ ACHS [facility]; Protocol Last Admin: 03/24/18 13:28 Dose: 1 unit Insulin Detemir (Levemir Inj) 36 unit SQ QPM [facility] Last Admin: 03/23/18 20:18 Dose: Not Given Pantoprazole Sodium (Protonix) 40 mg PO DAILY [facility] Last Admin: 03/24/18 10:08 Dose: 40 mg Rifaximin (Xifaxan) 550 mg PO BID [facility] Last Admin: 03/24/18 12:12 Dose: 550 mg Sodium Chloride (Ns Flush) 2 ml IV.FLUSH BID [facility] Last Admin: 03/24/18 10:08 Dose: 2 ml Sodium Chloride (Ns Flush) 2 ml IV.FLUSH PRN PRN PRN Reason: FLUSH AFTER USING IV ACCESS Vitamin D (Vitamin D3) 1,000 unit PO DAILY [facility] Last Admin: 03/24/18 10:08 Dose: 1,000 unit Allergies Allergy/AdvReac Type Severity Reaction Status Date / Time egg Allergy Severe Swelling Verified 03/21/18 11:18 Sulfa (Sulfonamide Allergy Severe Swelling Verified 03/21/18 11:18 Antibiotics) Home Medications Medication Instructions Recorded Confirmed Type carvedilol 12.5 mg PO BID 01/07/18 03/21/18 History cholecalciferol (vitamin D3) 1,000 unit PO DAILY 01/07/18 03/21/18 History clopidogrel 75 mg PO DAILY 01/07/18 03/21/18 History ferrous sulfate 1,000 mg PO DAILY 01/07/18 03/21/18 History furosemide 40 mg PO BID 01/07/18 03/21/18 History gabapentin 300 mg PO BID 01/07/18 03/21/18 History insulin glargine [Lantus U-100 36 unit SUB-Q ONCE PM 01/07/18 03/21/18 History Insulin] losartan 50 mg PO BID 01/07/18 03/21/18 History melatonin 5 mg PO HS PRN 01/07/18 03/21/18 History metolazone 5 mg PO DAILY 01/07/18 03/21/18 History nifedipine 90 mg PO DAILY 01/07/18 03/21/18 History omeprazole 40 mg PO DAILY 01/07/18 03/21/18 History rifaximin [Xifaxan] 550 mg PO BID 01/07/18 03/21/18 History duloxetine 60 mg PO DAILY 03/16/18 03/21/18 History insulin aspart U-100 [Novolog 1 unit SUBCUT TID 03/16/18 03/21/18 History U-100 Insulin aspart] tizanidine 4 mg PO DAILY 03/21/18 03/21/18 History ropinirole [Requip] 0.5 PO HS 03/24/18 History Physical Exam Vital Signs / I&O: Vital Signs 03/23/18 16:00 03/23/18 20:00 03/24/18 00:00 Temperature 97.5 F L 97.8 F 97.9 F Pulse Rate 83 81 91 H Respiratory Rate 18 18 18 Blood Pressure 166/85 H 140/83 131/83 Pulse Oximetry 96 99 94 L 03/24/18 04:00 03/24/18 08:00 03/24/18 09:13 Temperature 98.6 F 98.2 F 97 F L Pulse Rate 75 79 75 Respiratory Rate 20 18 18 Blood Pressure 160/91 H 166/99 H 151/73 H Pulse Oximetry 93 L 93 L 98 10/19/18 12:00 Temperature 97.9 F Pulse Rate 69 Respiratory Rate 18 Blood Pressure 173/89 H Pulse Oximetry 94 L Intake & Output 03/23/18 03/24/18 03/24/18 18:59 06:59 18:59 Intake Total 1350 / 1350 315 / 315 200 / 200 Balance 1350 / 1350 315 / 315 200 / 200 Weight 70 kg Intake: IV 1350 / 1350 105 / 105 1/2 Normal Saline Inj 1,000 ML 1000 / 1000 @ 50 mls/hr IV.CONT .Q20H [facility] Rx#:[id number] Venofer Inj 100 MG In NS Inj 100 / 100 105 / 105 100 ML @ 105 mls/hr IV.SIG ONCE ONE Rx#:[id number] Oral 210 / 210 Anesthesia Amount 200 / 200 Other: # Voids 1 3 Date of Last Bowel Movement 03/22/18 03/24/18 03/24/18 Neuro: AAO x 3 Neck: Supple Heart: S1 S2 Abdomen: Soft NT ND Vascular: Palpable radial pulse BL Laboratory Results - last 24 hr 03/23/18 03/23/18 03/23/18 14:04 14:04 15:48 WBC RBC Hgb 9.1 L 8.0 L Hct 27.0 L 23.6 L MCV MCH MCHC RDW Plt Count MPV Neut % (Auto) Lymph % (Auto) [place] % (Auto) Eos % (Auto) Baso % (Auto) Neut # (Auto) Lymph # (Auto) [place] # (Auto) Eos # (Auto) Baso # (Auto) WBC Differential Differential Comment Sodium 138 Potassium 4.0 Chloride 101 Carbon Dioxide 22.5 Anion Gap 15 BUN 91 H Creatinine 4.11 H Estimated GFR 11 L POC Glucose Random Glucose 304 H D Calcium 8.8 Phosphorus Albumin 03/23/18 03/23/18 03/24/18 17:13 20:20 06:44 WBC 6.7 RBC 2.98 L Hgb 8.2 L Hct 25.1 L MCV 84.3 MCH 27.4 MCHC 32.5 RDW 14.3 Plt Count 237 MPV 8.1 Neut % (Auto) 67.0 Lymph % (Auto) 15.8 [place] % (Auto) 8.7 H Eos % (Auto) 7.5 H Baso % (Auto) 1.0 Neut # (Auto) 4.5 Lymph # (Auto) 1.1 [place] # (Auto) 0.6 Eos # (Auto) 0.5 H Baso # (Auto) 0.1 WBC Differential . Differential Comment Auto diff final Sodium Potassium Chloride Carbon Dioxide Anion Gap BUN Creatinine Estimated GFR POC Glucose 238 H 234 H Random Glucose Calcium Phosphorus Albumin 03/24/18 03/24/18 03/24/18 06:44 07:36 08:16 WBC RBC Hgb Hct MCV MCH MCHC RDW Plt Count MPV Neut % (Auto) Lymph % (Auto) [place] % (Auto) Eos % (Auto) Baso % (Auto) Neut # (Auto) Lymph # (Auto) [place] # (Auto) Eos # (Auto) Baso # (Auto) WBC Differential Differential Comment Sodium 139 Potassium 3.7 Chloride 102 Carbon Dioxide 26.0 Anion Gap 11 BUN 69 H Creatinine 3.34 H Estimated GFR 14 L POC Glucose 208 H 188 H Random Glucose 174 H D Calcium 8.5 Phosphorus 3.2 D Albumin 3.2 L 03/24/18 12:30 WBC RBC Hgb Hct MCV MCH MCHC RDW Plt Count MPV Neut % (Auto) Lymph % (Auto) [place] % (Auto) Eos % (Auto) Baso % (Auto) Neut # (Auto) Lymph # (Auto) [place] # (Auto) Eos # (Auto) Baso # (Auto) WBC Differential Differential Comment Sodium Potassium Chloride Carbon Dioxide Anion Gap BUN Creatinine Estimated GFR POC Glucose 175 H Random Glucose Calcium Phosphorus Albumin Assessment and Plan - Plan CKD needing access for HD Will schedule patient for AVF creation for Tuesday Will D/W GI service regarding using of heparin intraoperatively
--- NOTE | 2018-03-24 16:16 | P.PNNP ---
Subjective Interval history: Patient feels better. Had EGD and colonoscopy. EGD revealed 2 anastomotic ulcers and colonoscopy revealed a sessile polyp that was biopsied. No active bleeding. Renal function has improved. There is no immediate need for dialysis. Physical Exam Vital signs: Vital Signs 03/23/18 20:00 03/24/18 00:00 03/24/18 04:00 Temperature 97.8 F 97.9 F 98.6 F Pulse Rate 81 91 H 75 Respiratory Rate Blood Pressure 140/83 131/83 160/91 H Pulse Oximetry 99 94 L 93 L 03/24/18 08:00 03/24/18 09:13 03/24/18 12:00 Temperature 98.2 F 97 F L 97.9 F Pulse Rate 79 75 69 Respiratory Rate Blood Pressure 166/99 H 151/73 H 173/89 H Pulse Oximetry 93 L 98 94 L Intake & Output 03/23/18 03/24/18 03/24/18 18:59 06:59 18:59 Intake Total 1350 / 1350 315 / 315 200 / 200 Balance 1350 / 1350 315 / 315 200 / 200 Weight 70 kg Intake: IV 1350 / 1350 105 / 105 1/2 Normal Saline Inj 1,000 ML 1000 / 1000 @ 50 mls/hr IV.CONT .Q20H [facility] Rx#:[id number] Venofer Inj 100 MG In NS Inj 100 / 100 105 / 105 100 ML @ 105 mls/hr IV.SIG ONCE ONE Rx#:[id number] Oral 210 / 210 Anesthesia Amount 200 / 200 Other: # Voids 1 3 Date of Last Bowel Movement 03/22/18 03/24/18 03/24/18 Narrative: GENERAL: patient is alert, oriented. SKIN: Warm and dry. No rash. HEENT: Normocephalic. Atraumatic. Pupils equal and round. Mucous membranes pink and moist. CARDIOVASCULAR: Regular rate and rhythm. No murmur appreciated. RESPIRATORY: No accessory muscle use. Clear to auscultation. Breath sounds equal bilaterally. GASTROINTESTINAL: Abdomen soft, non-tender, nondistended. MUSCULOSKELETAL: No obvious deformities. Extremities without clubbing, cyanosis , or edema. NEUROLOGICAL: moves all extremities, no focal deficits. Assessment and Plan - Assessment (1) Acute kidney injury Code(s): N17.9 - Acute kidney failure, unspecified Status: Acute Plan: The patient was hypotensive, had lightheadedness and dizziness. Was on diuretics at home. It is possible that the patient had developed prerenal azotemia due to intravascular volume depletion. Renal function has improved with hydration. Stop IVF. Encourage oral intake. At the time of discharge she should be on daily Lasix. (2) Chronic kidney disease, stage IV (severe) Code(s): N18.4 - Chronic kidney disease, stage 4 (severe) Status: Acute Plan: Most likely the patient has diabetic nephropathy, she has proteinuria, she will need dialysis in the near future, but there is no need for dialysis at this time. (3) Type 2 diabetes mellitus with diabetic chronic kidney disease Code(s): E11.22 - Type 2 diabetes mellitus with diabetic chronic kidney disease Status: Acute Plan: The patient has type 2 diabetes, diabetic nephropathy. Maintain blood sugar between 140 and 180 while hospitalized. 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 She has been following with GI. (5) Anemia Code(s): D64.9 - Anemia, unspecified Status: Acute Plan: Acute on chronic. Transfuse as needed. s/p EGD and colonoscopy. (6) Hyperkalemia Code(s): E87.5 - Hyperkalemia Status: Acute Plan: Improved, monitor.
--- NOTE | 2018-03-24 16:21 | P.PNCA ---
Subjective Interval history: Patient denies any chest pain, pressure, palpitations, dizziness, edema or shortness of breath. Patient states that she is feeling better. Medications and Allergies Allergies Allergy/AdvReac Type Severity Reaction Status Date / Time egg Allergy Severe Swelling Verified 03/21/18 11:18 Sulfa (Sulfonamide Allergy Severe Swelling Verified 03/21/18 11:18 Antibiotics) Home Medications Medication Instructions Recorded Confirmed Type carvedilol 12.5 mg PO BID 01/07/18 03/21/18 History cholecalciferol (vitamin D3) 1,000 unit PO DAILY 01/07/18 03/21/18 History clopidogrel 75 mg PO DAILY 01/07/18 03/21/18 History ferrous sulfate 1,000 mg PO DAILY 01/07/18 03/21/18 History furosemide 40 mg PO BID 01/07/18 03/21/18 History gabapentin 300 mg PO BID 01/07/18 03/21/18 History insulin glargine [Lantus U-100 36 unit SUB-Q ONCE PM 01/07/18 03/21/18 History Insulin] losartan 50 mg PO BID 01/07/18 03/21/18 History melatonin 5 mg PO HS PRN 01/07/18 03/21/18 History metolazone 5 mg PO DAILY 01/07/18 03/21/18 History nifedipine 90 mg PO DAILY 01/07/18 03/21/18 History omeprazole 40 mg PO DAILY 01/07/18 03/21/18 History rifaximin [Xifaxan] 550 mg PO BID 01/07/18 03/21/18 History duloxetine 60 mg PO DAILY 03/16/18 03/21/18 History insulin aspart U-100 [Novolog 1 unit SUBCUT TID 03/16/18 03/21/18 History U-100 Insulin aspart] tizanidine 4 mg PO DAILY 03/21/18 03/21/18 History ropinirole [Requip] 0.5 PO HS 03/24/18 History Active Medications: Active Medications Clonidine HCl (Catapres) 0.1 mg PO Q6H PRN PRN Reason: SBP>170 or DBP>100 if HR > 65 Last Admin: 03/23/18 01:50 Dose: 0.1 mg Clopidogrel Bisulfate (Plavix) 75 mg PO DAILY [facility] Last Admin: 03/22/18 08:26 Dose: 75 mg Dextrose (D50w Vial) 50 ml IV.PUSH UNSCH PRN PRN Reason: PER HYPOGLYCEMIA PROTOCOL Duloxetine HCl (Cymbalta) 60 mg PO DAILY [facility] Last Admin: 03/24/18 10:08 Dose: 60 mg Ferrous Sulfate (Ferosul) 1,000 mg PO DAILY [facility] Gabapentin (Neurontin) 300 mg PO BID [facility] Last Admin: 03/24/18 10:08 Dose: 300 mg Glucagon (Glucagon Inj) 1 mg OTHER PRN PRN PRN Reason: for Hypoglycemia Protocol Heparin Sodium (Porcine) (Heparin Inj) 5,000 units SQ Q12HR [facility] Last Admin: 03/22/18 08:26 Dose: 5,000 units Sodium Chloride (Ns Inj) 1,000 mls @ 0 mls/hr IV.SIG BOLUS [facility] Sodium Chloride (Ns Inj) 500 mls @ 30 mls/hr IV.CONT .[id number] ONE Stop: 03/24/18 22:24 Last Admin: 03/24/18 10:06 Dose: Not Given Insulin Aspart (Novolog Insulin Correctional Sugar Inj) 0 unit SQ ACHS [facility]; Protocol Last Admin: 03/24/18 13:28 Dose: 1 unit Insulin Detemir (Levemir Inj) 36 unit SQ QPM [facility] Last Admin: 03/23/18 20:18 Dose: Not Given Pantoprazole Sodium (Protonix) 40 mg PO DAILY [facility] Last Admin: 03/24/18 10:08 Dose: 40 mg Rifaximin (Xifaxan) 550 mg PO BID [facility] Last Admin: 03/24/18 12:12 Dose: 550 mg Sodium Chloride (Ns Flush) 2 ml IV.FLUSH BID [facility] Last Admin: 03/24/18 10:08 Dose: 2 ml Sodium Chloride (Ns Flush) 2 ml IV.FLUSH PRN PRN PRN Reason: FLUSH AFTER USING IV ACCESS Vitamin D (Vitamin D3) 1,000 unit PO DAILY [facility] Last Admin: 03/24/18 10:08 Dose: 1,000 unit Physical Exam Vital signs: Vital Signs 03/23/18 20:00 03/24/18 00:00 03/24/18 04:00 Temperature 97.8 F 97.9 F 98.6 F Pulse Rate 81 91 H 75 Respiratory Rate 18 18 20 Blood Pressure 140/83 131/83 160/91 H Pulse Oximetry 99 94 L 93 L 03/24/18 08:00 03/24/18 09:13 03/24/18 12:00 Temperature 98.2 F 97 F L 97.9 F Pulse Rate 79 75 69 Respiratory Rate 18 18 18 Blood Pressure 166/99 H 151/73 H 173/89 H Pulse Oximetry 93 L 98 94 L Intake & Output 03/23/18 03/24/18 03/24/18 18:59 06:59 18:59 Intake Total 1350 / 1350 315 / 315 200 / 200 Balance 1350 / 1350 315 / 315 200 / 200 Weight 70 kg Intake: IV 1350 / 1350 105 / 105 1/2 Normal Saline Inj 1,000 ML 1000 / 1000 @ 50 mls/hr IV.CONT .Q20H [facility] Rx#:[id number] Venofer Inj 100 MG In NS Inj 100 / 100 105 / 105 100 ML @ 105 mls/hr IV.SIG ONCE ONE Rx#:[id number] Oral 210 / 210 Anesthesia Amount 200 / 200 Other: # Voids 1 3 Date of Last Bowel Movement 03/22/18 03/24/18 03/24/18 - Constitutional no acute distress - Routine HEENT Exam Head: Present: normocephalic Eye: Present: PERRL ENT: Present: mucous membranes moist - Routine Neck Exam Present: full ROM - Routine Respiratory Exam Present: CTA bilaterally - Routine Cardiovascular Exam Present: S1, S2. Absent: murmur, gallop, rubs - Routine Abdominal Exam Present: normoactive bowel sounds - Routine Extremities Exam Present: full ROM, pulses intact, normal capillary refill. Absent: cyanosis, clubbing, edema - Routine Skin Exam Present: intact - Routine Neurological Exam Present: oriented X3 - Detailed Neurological Exam: Coma Scale Eye Opening: Spontaneous Verbal Response: Oriented Motor Response: Obey commands [place] Coma Scale Total: 15 - Routine Psychiatric Exam Present: normal affect Results 03/24/18 06:44 03/24/18 06:44 CBC 03/22/18 03/23/18 03/23/18 Range/Units 21:26 02:56 14:04 WBC (4.0-11.0) th/mm3 RBC (4.00-5.30) mil/mm3 Hgb 7.9 L 8.1 L 9.1 L (11.6-15.3) gm/dL Hct 23.0 L 24.0 L 27.0 L (35.0-46.0) % Plt Count (150-450) th/mm3 Neut # (Auto) (1.8-7.7) th/mm3 Lymph # (Auto) (1.0-4.8) th/mm3 [place] # (Auto) (0.0-0.9) th/mm3 Eos # (Auto) (0.0-0.4) th/mm3 Baso # (Auto) (0.0-0.2) th/mm3 03/23/18 03/24/18 Range/Units 15:48 06:44 WBC 6.7 (4.0-11.0) th/mm3 RBC 2.98 L (4.00-5.30) mil/mm3 Hgb 8.0 L 8.2 L (11.6-15.3) gm/dL Hct 23.6 L 25.1 L (35.0-46.0) % Plt Count 237 (150-450) th/mm3 Neut # (Auto) 4.5 (1.8-7.7) th/mm3 Lymph # (Auto) 1.1 (1.0-4.8) th/mm3 [place] # (Auto) 0.6 (0.0-0.9) th/mm3 Eos # (Auto) 0.5 H (0.0-0.4) th/mm3 Baso # (Auto) 0.1 (0.0-0.2) th/mm3 Comprehensive Metabolic Panel 03/23/18 03/24/18 Range/Units 14:04 06:44 Sodium 138 139 (136-145) meq/L Potassium 4.0 3.7 (3.5-5.1) meq/L Chloride 101 102 (98-107) meq/L Carbon Dioxide 22.5 26.0 (21.0-32.0) meq/L BUN 91 H 69 H (7-18) mg/dL Creatinine 4.11 H 3.34 H (0.50-1.00) mg/dL Calcium 8.8 8.5 (8.5-10.1) mg/dL Albumin 3.2 L (3.4-5.0) g/dL Intake and Output 03/24/18 03/24/18 03/24/18 06:59 14:59 22:59 Intake Total 210 / 210 200 / 200 Balance 210 / 210 200 / 200 Intake: Oral 210 / 210 Anesthesia Amount 200 / 200 Other: # Voids 3 Date of Last Bowel Movement 03/24/18 Weight 70 kg Assessment and Plan - Assessment (1) Syncope and collapse Code(s): R55 - Syncope and collapse Status: Acute (2) Anemia Code(s): D64.9 - Anemia, unspecified Status: Acute (3) Acute kidney injury Code(s): N17.9 - Acute kidney failure, unspecified Status: Acute (4) Chronic kidney disease, stage IV (severe) Code(s): N18.4 - Chronic kidney disease, stage 4 (severe) Status: Acute (5) Type 2 diabetes mellitus with diabetic chronic kidney disease Code(s): E11.22 - Type 2 diabetes mellitus with diabetic chronic kidney disease Status: Acute (6) Cirrhosis of liver Code(s): K74.60 - Unspecified cirrhosis of liver Status: Acute (7) Hyperkalemia Code(s): E87.5 - Hyperkalemia Status: Acute - Plan No new cardiac issues at this time. Syncopal episode possibly related to dehydration and anemia, no evidence of cardiac source. Vascular surgery has been consulted for possible fistula placement due to chronic kidney disease. Colonoscopy performed which showed mild diverticulosis, small internal hemorrhoids and a sessile polyp. Polypectomy performed and sent for biopsy. We will continue to follow the patient during her hospitalization and schedule follow-up in our office post discharge. Patient was seen and evaluated by Dr. Trinidad who participated in care, management and decision-making. - Attending Attestation Patient seen and examined. I reviewed and agree with the evaluation and plan as presented. Continue monitoring. No new cardiac issues. GI eval in progress.
[2018-03-24 17:34] LABS: Baso # (Auto) 0.1 th/mm3 (0.0-0.2); Baso % (Auto) 0.9 % (0.0-2.0); Eos # (Auto) 0.3 th/mm3 (0.0-0.4); Eos % (Auto) 5.6 % (0.0-4.0); Hematocrit 21.8 % (35.0-46.0); Hemoglobin 7.5 gm/dL (11.6-15.3); Lymph # (Auto) 0.7 th/mm3 (1.0-4.8); Lymph % (Auto) 11.3 % (9.0-44.0); Mean Corpuscular HGB Conc 34.3 % (32.0-36.0); Mean Corpuscular Volume 84.4 fL (80.0-100.0); Mean Platelet Volume 8.1 fL (7.0-11.0); Mono # (Auto) 0.4 th/mm3 (0.0-0.9); Neut # (Auto) 4.7 th/mm3 (1.8-7.7); Neut % (Auto) 75.2 % (16.0-70.0); Platelet Count 197 th/mm3 (150-450); Red Blood Count 2.58 mil/mm3 (4.00-5.30); Red Cell Distribution Width 14.3 % (11.6-17.2); White Blood Count 6.3 th/mm3 (4.0-11.0)
[2018-03-24] MEDS: Sodium Chloride 0.45 % Inj 1,000 ML IV.CONT SCH (18:47)
[2018-03-24] MEDS: Insulin Detemir Inj 1,000 UNIT/10 ML Vial SQ SCH (20:28)
[2018-03-24 22:40] LABS: Albumin 2.9 g/dL (3.4-5.0); Calcium 8.5 mg/dL (8.5-10.1); Carbon Dioxide 24.6 meq/L (21.0-32.0); Phosphorus 3.2 mg/dL (2.5-4.9); Potassium 3.7 meq/L (3.5-5.1)
[2018-03-24] MEDS: Melatonin 5 MG Tablet PO PRN (22:56)
[2018-03-25 08:41] LABS: Baso # (Auto) 0.1 th/mm3 (0.0-0.2); Baso % (Auto) 1.1 % (0.0-2.0); Eos # (Auto) 0.6 th/mm3 (0.0-0.4); Eos % (Auto) 8.2 % (0.0-4.0); Hematocrit 24.1 % (35.0-46.0); Hemoglobin 7.9 gm/dL (11.6-15.3); Lymph # (Auto) 1.2 th/mm3 (1.0-4.8); Mean Corpuscular HGB Conc 32.7 % (32.0-36.0); Mean Corpuscular Hemoglobin 27.7 pg (27.0-34.0); Mean Corpuscular Volume 84.9 fL (80.0-100.0); Mean Platelet Volume 7.8 fL (7.0-11.0); Mono # (Auto) 0.5 th/mm3 (0.0-0.9); Mono % (Auto) 7.5 % (0.0-8.0); Neut # (Auto) 4.5 th/mm3 (1.8-7.7); Neut % (Auto) 66.2 % (16.0-70.0); Platelet Count 239 th/mm3 (150-450); Red Blood Count 2.84 mil/mm3 (4.00-5.30); Red Cell Distribution Width 14.3 % (11.6-17.2); White Blood Count 6.9 th/mm3 (4.0-11.0)
[2018-03-25 08:56] LABS: Albumin 2.9 g/dL (3.4-5.0); Calcium 8.7 mg/dL (8.5-10.1); Carbon Dioxide 27.1 meq/L (21.0-32.0); Potassium 3.8 meq/L (3.5-5.1)
[2018-03-25 08:57] LABS: Phosphorus 3.5 mg/dL (2.5-4.9)
[2018-03-25] MEDS: Duloxetine 60 MG DR Capsule PO SCH (09:45)
[2018-03-25] MEDS: rifAXIMin 550 MG Tablet PO SCH ×2 (09:45→21:48)
[2018-03-25] MEDS: Gabapentin 300 MG Capsule PO SCH ×2 (09:45→21:48)
[2018-03-25] MEDS: Sodium Chloride 0.9% 2 ML Flush BID IV.FLUSH SCH ×2 (09:46→21:49)
[2018-03-25] MEDS: Insulin NovoLOG Aspart Correctional Sugar Inj SQ SCH ×3 (09:46→18:17)
--- NOTE | 2018-03-25 12:03 | P.PNGI ---
Subjective Interval history: Had lower GI bleeding yesterday afternoon. No further bleeding or bowel movement since that time. Denies any nausea, vomiting, abdominal pain Physical Exam Vital signs: Vital Signs 03/24/18 12:00 03/24/18 16:00 03/24/18 19:08 Temperature 97.9 F 98.3 F 98.1 F Pulse Rate 69 80 74 Respiratory Rate 18 18 18 Blood Pressure 173/89 H 164/92 H 148/89 H Pulse Oximetry 94 L 93 L 97 03/24/18 20:00 03/25/18 00:00 03/25/18 04:00 Temperature 98 F Pulse Rate 81 81 72 Respiratory Rate 18 Blood Pressure 149/74 H Pulse Oximetry 96 03/25/18 08:00 Temperature 98 F Pulse Rate 61 Respiratory Rate 18 Blood Pressure 170/94 H Pulse Oximetry 99 Intake & Output 03/24/18 03/25/18 03/25/18 18:59 06:59 18:59 Intake Total 1240 / 1240 Output Total 300 / 300 Balance 940 / 940 Intake: IV 800 / 800 1/2 Normal Saline Inj 1,000 ML 800 / 800 @ 50 mls/hr IV.CONT .Q20H [facility] Rx#:[id number] Oral 240 / 240 Anesthesia Amount 200 / 200 Output: Urine 300 / 300 Other: Date of Last Bowel Movement 03/24/18 03/24/18 - Constitutional no acute distress - Routine Neck Exam Present: supple - Routine Cardiovascular Exam Present: RRR - Routine Abdominal Exam Present: soft, normoactive bowel sounds. Absent: tenderness - Routine Extremities Exam Absent: cyanosis - Routine Skin Exam Present: warm - Routine Neurological Exam Present: alert, oriented X3 Results - Labs CBC & Chem 7: 03/25/18 07:14 03/25/18 07:14 Laboratory Results - last 24 hr 03/24/18 03/24/18 03/24/18 12:30 16:52 17:07 WBC 6.3 RBC 2.58 L Hgb 7.5 L Hct 21.8 L MCV 84.4 MCH 29.0 MCHC 34.3 RDW 14.3 Plt Count 197 MPV 8.1 Neut % (Auto) 75.2 H Lymph % (Auto) 11.3 [place] % (Auto) 7.0 Eos % (Auto) 5.6 H Baso % (Auto) 0.9 Neut # (Auto) 4.7 Lymph # (Auto) 0.7 L [place] # (Auto) 0.4 Eos # (Auto) 0.3 Baso # (Auto) 0.1 WBC Differential . Differential Comment Auto diff final Sodium Potassium Chloride Carbon Dioxide Anion Gap BUN Creatinine Estimated GFR POC Glucose 175 H 306 H Random Glucose Calcium Phosphorus Albumin Blood Type Antibody Screen MTS Gel Crossmatch Bld Prod Order Comment 03/24/18 03/24/18 03/25/18 19:48 21:11 07:14 WBC 6.9 RBC 2.84 L Hgb 7.9 L Hct 24.1 L MCV 84.9 MCH 27.7 MCHC 32.7 RDW 14.3 Plt Count 239 MPV 7.8 Neut % (Auto) 66.2 Lymph % (Auto) 17.0 [place] % (Auto) 7.5 Eos % (Auto) 8.2 H Baso % (Auto) 1.1 Neut # (Auto) 4.5 Lymph # (Auto) 1.2 [place] # (Auto) 0.5 Eos # (Auto) 0.6 H Baso # (Auto) 0.1 WBC Differential . Differential Comment Auto diff final Sodium 139 Potassium 3.7 Chloride 103 Carbon Dioxide 24.6 Anion Gap 11 BUN 57 H Creatinine 3.21 H Estimated GFR 15 L POC Glucose 352 H Random Glucose 200 H Calcium 8.5 Phosphorus 3.2 Albumin 2.9 L Blood Type Antibody Screen MTS Gel Crossmatch Bld Prod Order Comment 03/25/18 03/25/18 07:14 07:14 WBC RBC Hgb Hct MCV MCH MCHC RDW Plt Count MPV Neut % (Auto) Lymph % (Auto) [place] % (Auto) Eos % (Auto) Baso % (Auto) Neut # (Auto) Lymph # (Auto) [place] # (Auto) Eos # (Auto) Baso # (Auto) WBC Differential Differential Comment Sodium 142 Potassium 3.8 Chloride 107 Carbon Dioxide 27.1 Anion Gap 8 BUN 55 H Creatinine 3.06 H Estimated GFR 15 L POC Glucose Random Glucose 105 Calcium 8.7 Phosphorus 3.5 Albumin 2.9 L Blood Type A Positive Antibody Screen Negative MTS Gel Crossmatch See Detail Bld Prod Order Comment Assessment and Plan - Attending Attestation IMPRESSION: 1. Rectal bleeding--bleeding last night may have been from hemorrhoids, diverticulosis or possibly even a post polypectomy bleed. She is at increased risk of bleeding because of blood thinners 2. Anemia appears to be somewhat iron deficient. Hemoglobin dropped but now has stabilized 3. Cirrhosis thought to be on the basis of nonalcoholic steatohepatitis. 4. History of gastric bypass. 5. Chronic renal insufficiency, severe. 6. 2 large anastomotic ulcers are noted at the gastrojejunostomybiopsies pending 7. Colonic diverticulosis and internal hemorrhoids noted on colonoscopy 8. Colonic polypsstatus post polypectomy RECOMMENDATIONS: 1. Transfuse as you needed 2. Continue PPI. Add on Carafate. The anastomotic ulcers are sometimes ischemic and the PPIs do not always help 3. Can resume iron pills 4 in light of recent bleedingespecially the possibility of a post polypectomy bleedcontinue clear liquids 5. Continue to hold off on anticoagulation/antiplatelet agents
--- NOTE | 2018-03-25 13:32 | P.PN ---
Subjective Interval history: no complains no nausea vomiting or abdominal pain up and ambulated- bno dizziness no melena or hematochezia BP up Physical Exam Vital signs: Vital Signs 03/24/18 16:00 03/24/18 19:08 03/24/18 20:00 Temperature 98.3 F 98.1 F Pulse Rate 80 74 81 Respiratory Rate 18 18 Blood Pressure 164/92 H 148/89 H Pulse Oximetry 93 L 97 03/25/18 00:00 03/25/18 04:00 03/25/18 08:00 Temperature 98 F 98 F Pulse Rate 81 72 61 Respiratory Rate 18 18 Blood Pressure 149/74 H 170/94 H Pulse Oximetry 96 99 Intake & Output 03/24/18 03/25/18 03/25/18 18:59 06:59 18:59 Intake Total 1240 / 1240 Output Total 300 / 300 Balance 940 / 940 Intake: IV 800 / 800 1/2 Normal Saline Inj 1,000 ML 800 / 800 @ 50 mls/hr IV.CONT .Q20H [facility] Rx#:[id number] Oral 240 / 240 Anesthesia Amount 200 / 200 Output: Urine 300 / 300 Other: Date of Last Bowel Movement 03/24/18 03/24/18 Narrative: GENERAL: patient is alert, oriented. SKIN: Warm and dry. No rash. HEENT: Normocephalic. Atraumatic. Pupils equal and round. Mucous membranes pink and moist. CARDIOVASCULAR: Regular rate and rhythm. No murmur appreciated. RESPIRATORY: No accessory muscle use. Clear to auscultation. Breath sounds equal bilaterally. GASTROINTESTINAL: Abdomen soft, non-tender, nondistended. MUSCULOSKELETAL: No obvious deformities. Extremities without clubbing, cyanosis , or edema. NEUROLOGICAL: moves all extremities, no focal deficits. Results - Labs CBC & Chem 7: 03/25/18 07:14 03/25/18 07:14 Laboratory Results - last 24 hr 03/24/18 03/24/18 03/24/18 16:52 17:07 19:48 WBC 6.3 RBC 2.58 L Hgb 7.5 L Hct 21.8 L MCV 84.4 MCH 29.0 MCHC 34.3 RDW 14.3 Plt Count 197 MPV 8.1 Neut % (Auto) 75.2 H Lymph % (Auto) 11.3 [place] % (Auto) 7.0 Eos % (Auto) 5.6 H Baso % (Auto) 0.9 Neut # (Auto) 4.7 Lymph # (Auto) 0.7 L [place] # (Auto) 0.4 Eos # (Auto) 0.3 Baso # (Auto) 0.1 WBC Differential . Differential Comment Auto diff final Sodium Potassium Chloride Carbon Dioxide Anion Gap BUN Creatinine Estimated GFR POC Glucose 306 H 352 H Random Glucose Calcium Phosphorus Albumin Blood Type Antibody Screen MTS Gel Crossmatch Bld Prod Order Comment 03/24/18 03/25/18 03/25/18 21:11 07:14 07:14 WBC 6.9 RBC 2.84 L Hgb 7.9 L Hct 24.1 L MCV 84.9 MCH 27.7 MCHC 32.7 RDW 14.3 Plt Count 239 MPV 7.8 Neut % (Auto) 66.2 Lymph % (Auto) 17.0 [place] % (Auto) 7.5 Eos % (Auto) 8.2 H Baso % (Auto) 1.1 Neut # (Auto) 4.5 Lymph # (Auto) 1.2 [place] # (Auto) 0.5 Eos # (Auto) 0.6 H Baso # (Auto) 0.1 WBC Differential . Differential Comment Auto diff final Sodium 139 Potassium 3.7 Chloride 103 Carbon Dioxide 24.6 Anion Gap 11 BUN 57 H Creatinine 3.21 H Estimated GFR 15 L POC Glucose Random Glucose 200 H Calcium 8.5 Phosphorus 3.2 Albumin 2.9 L Blood Type A Positive Antibody Screen Negative MTS Gel Crossmatch See Detail Bld Prod Order Comment 03/25/18 07:14 WBC RBC Hgb Hct MCV MCH MCHC RDW Plt Count MPV Neut % (Auto) Lymph % (Auto) [place] % (Auto) Eos % (Auto) Baso % (Auto) Neut # (Auto) Lymph # (Auto) [place] # (Auto) Eos # (Auto) Baso # (Auto) WBC Differential Differential Comment Sodium 142 Potassium 3.8 Chloride 107 Carbon Dioxide 27.1 Anion Gap 8 BUN 55 H Creatinine 3.06 H Estimated GFR 15 L POC Glucose Random Glucose 105 Calcium 8.7 Phosphorus 3.5 Albumin 2.9 L Blood Type Antibody Screen MTS Gel Crossmatch Bld Prod Order Comment - Procedures 03/24- colonosocpy- popyps Assessment and Plan - Plan - Plan 62-year-old female with history of CKD stage V not yet on dialysis, nonalcoholic steatohepatitis, cirrhosis, hypertension, GERD, anxiety/depression , presents with an episode of syncope. Syncope: Suspect multifactorial secondary to dehydration and anemia. -Head CT reviewed, shows stable 1.3 cm calcified mass consistent with meningioma and remote lacunar infarct right basal ganglia, otherwise no acute findings -Carotid ultrasound reviewed, shows mild visible plaque bilaterally without hemodynamically significant stenosis -Orthostatics positive, SBP dropped from 118 lying to 80 upon standing -patient's antihypertensives including carvedilol, Lasix, losartan, nifedipine were- held -Give IV fluid hydration -Echocardiogram unremarkable with EF 60% -Monitor on telemetry -PT consulted, recommends [facility] PT -Cardiology consulted, appreciate recommendations -BP much improved, - reintroduce cardiac meds - will start Coreg 12.5 mg bid and Lasix at 20 mg bid and monitor today 03/25 Acute anemia secondary to GI bleeding with iron deficiency: acute. Patient with history of cirrhosis. No recent EGD/colonoscopy. S/P colonosocpy 03/24- polyps post procedure had some bleeding - resolved - ff by Dr. Oneill H and H stable -Transfuse 1 unit PRBC on 03/22 -Monitor serial H&H, hemoglobin stable -Iron studies consistent with iron deficiency, give IV Venofer on 03/22 and 03/23 -Started on Protonix. Carafete added to regimen ROZINA on CKD stage V: Acute, likely secondary to dehydration and lasix -Creatinine 6.14 upon arrival, previously around 23 on prior visits -Renal ultrasound showed echogenic kidneys characteristic of medical renal disease; no hydronephrosis; no acute findings Nephrology ff Vascular consulted for creation of AVF- will not do this admission- due to GIB- needs to be heparinize for the procedure restart Lasix 20 mg po daily Diabetes mellitus with neuropathy: Hemoglobin A1c 7.7 -Sliding scale coverage with Accu-Cheks before meals and at bedtime -Low-dose sliding scale coverage -Continue long-acting insulin with Levemir 36 units at night -Continue patient's gabapentin GERD: Chronic -Continue PPI Rivera/nonalcoholic steatohepatitis/liver cirrhosis: Chronic -Continue on rifaximin twice daily -Holding patient's Lasix with ROZINA, dehydration, and orthostatic hypotension -Consulted GI as above Depression/anxiety -Continue on duloxetine DVT prophylaxis: Teds/SCDs; holding chemical prophylaxis with GI bleed and anemia Discharge Planning: Will need clearance from GI and nephrology prior to discharge. PT recommending [facility],
--- NOTE | 2018-03-25 14:33 | P.PNCA ---
Subjective Interval history: Patient denies any CP, pressure, palpitations, dizziness, edema or SOB. Patient states that she is feeling much better at this time. Medications and Allergies Allergies Allergy/AdvReac Type Severity Reaction Status Date / Time egg Allergy Severe Swelling Verified 03/21/18 11:18 Sulfa (Sulfonamide Allergy Severe Swelling Verified 03/21/18 11:18 Antibiotics) Home Medications Medication Instructions Recorded Confirmed Type carvedilol 12.5 mg PO BID 01/07/18 03/21/18 History cholecalciferol (vitamin D3) 1,000 unit PO DAILY 01/07/18 03/21/18 History clopidogrel 75 mg PO DAILY 01/07/18 03/21/18 History ferrous sulfate 1,000 mg PO DAILY 01/07/18 03/21/18 History furosemide 40 mg PO BID 01/07/18 03/21/18 History gabapentin 300 mg PO BID 01/07/18 03/21/18 History insulin glargine [Lantus U-100 36 unit SUB-Q ONCE PM 01/07/18 03/21/18 History Insulin] losartan 50 mg PO BID 01/07/18 03/21/18 History melatonin 5 mg PO HS PRN 01/07/18 03/21/18 History metolazone 5 mg PO DAILY 01/07/18 03/21/18 History nifedipine 90 mg PO DAILY 01/07/18 03/21/18 History omeprazole 40 mg PO DAILY 01/07/18 03/21/18 History rifaximin [Xifaxan] 550 mg PO BID 01/07/18 03/21/18 History duloxetine 60 mg PO DAILY 03/16/18 03/21/18 History insulin aspart U-100 [Novolog 1 unit SUBCUT TID 03/16/18 03/21/18 History U-100 Insulin aspart] tizanidine 4 mg PO DAILY 03/21/18 03/21/18 History ropinirole [Requip] 0.5 PO HS 03/24/18 History Active Medications: Active Medications Clonidine HCl (Catapres) 0.1 mg PO Q6H PRN PRN Reason: SBP>170 or DBP>100 if HR > 65 Last Admin: 03/23/18 01:50 Dose: 0.1 mg Clopidogrel Bisulfate (Plavix) 75 mg PO DAILY [facility] Last Admin: 03/22/18 08:26 Dose: 75 mg Dextrose (D50w Vial) 50 ml IV.PUSH UNSCH PRN PRN Reason: PER HYPOGLYCEMIA PROTOCOL Duloxetine HCl (Cymbalta) 60 mg PO DAILY [facility] Last Admin: 03/25/18 09:45 Dose: 60 mg Ferrous Sulfate (Ferosul) 325 mg PO BID [facility] Gabapentin (Neurontin) 300 mg PO BID [facility] Last Admin: 03/25/18 09:45 Dose: 300 mg Glucagon (Glucagon Inj) 1 mg OTHER PRN PRN PRN Reason: for Hypoglycemia Protocol Heparin Sodium (Porcine) (Heparin Inj) 5,000 units SQ Q12HR [facility] Last Admin: 03/22/18 08:26 Dose: 5,000 units Sodium Chloride (Ns Inj) 1,000 mls @ 0 mls/hr IV.SIG BOLUS [facility] Insulin Aspart (Novolog Insulin Correctional Sugar Inj) 0 unit SQ ACHS [facility]; Protocol Last Admin: 03/25/18 13:31 Dose: 3 unit Insulin Detemir (Levemir Inj) 36 unit SQ QPM [facility] Last Admin: 03/24/18 20:28 Dose: 36 unit Melatonin (Melatonin) 5 mg PO HS PRN PRN Reason: INSOMNIA Last Admin: 03/24/18 22:56 Dose: 5 mg Pantoprazole Sodium (Protonix) 40 mg PO DAILY [facility] Last Admin: 03/25/18 09:45 Dose: 40 mg Rifaximin (Xifaxan) 550 mg PO BID [facility] Last Admin: 03/25/18 09:45 Dose: 550 mg Sodium Chloride (Ns Flush) 2 ml IV.FLUSH BID [facility] Last Admin: 03/25/18 09:46 Dose: 2 ml Sodium Chloride (Ns Flush) 2 ml IV.FLUSH PRN PRN PRN Reason: FLUSH AFTER USING IV ACCESS Sucralfate (Carafate) 1 gm PO ACHS [facility] Vitamin D (Vitamin D3) 1,000 unit PO DAILY [facility] Last Admin: 03/25/18 09:45 Dose: 1,000 unit Physical Exam Vital signs: Vital Signs 03/24/18 16:00 03/24/18 19:08 03/24/18 20:00 Temperature 98.3 F 98.1 F Pulse Rate 80 74 81 Respiratory Rate 18 18 Blood Pressure 164/92 H 148/89 H Pulse Oximetry 93 L 97 03/25/18 00:00 03/25/18 04:00 03/25/18 08:00 Temperature 98 F 98 F Pulse Rate 81 72 61 Respiratory Rate 18 18 Blood Pressure 149/74 H 170/94 H Pulse Oximetry 96 99 03/25/18 12:00 Temperature 98 F Pulse Rate 66 Respiratory Rate 18 Blood Pressure 165/88 H Pulse Oximetry 94 L Intake & Output 03/24/18 03/25/18 03/25/18 18:59 06:59 18:59 Intake Total 1240 / 1240 Output Total 300 / 300 Balance 940 / 940 Intake: IV 800 / 800 1/2 Normal Saline Inj 1,000 ML 800 / 800 @ 50 mls/hr IV.CONT .Q20H [facility] Rx#:[id number] Oral 240 / 240 Anesthesia Amount 200 / 200 Output: Urine 300 / 300 Other: Date of Last Bowel Movement 03/24/18 03/24/18 - Constitutional no acute distress - Routine HEENT Exam Head: Present: normocephalic Eye: Present: PERRL ENT: Present: mucous membranes moist - Routine Neck Exam Present: full ROM - Routine Respiratory Exam Present: CTA bilaterally - Routine Cardiovascular Exam Present: S1, S2. Absent: murmur, gallop, rubs - Routine Abdominal Exam Present: normoactive bowel sounds - Routine Extremities Exam Present: full ROM, pulses intact, normal capillary refill. Absent: cyanosis, clubbing, edema - Routine Skin Exam Present: intact - Routine Neurological Exam Present: oriented X3 - Detailed Neurological Exam: Coma Scale Eye Opening: Spontaneous Verbal Response: Oriented Motor Response: Obey commands Rohit Coma Scale Total: 15 - Routine Psychiatric Exam Present: normal affect Results 03/25/18 07:14 03/25/18 07:14 CBC 03/23/18 03/23/18 03/24/18 Range/Units 14:04 15:48 06:44 WBC 6.7 (4.0-11.0) th/mm3 RBC 2.98 L (4.00-5.30) mil/mm3 Hgb 9.1 L 8.0 L 8.2 L (11.6-15.3) gm/dL Hct 27.0 L 23.6 L 25.1 L (35.0-46.0) % Plt Count 237 (150-450) th/mm3 Neut # (Auto) 4.5 (1.8-7.7) th/mm3 Lymph # (Auto) 1.1 (1.0-4.8) th/mm3 [place] # (Auto) 0.6 (0.0-0.9) th/mm3 Eos # (Auto) 0.5 H (0.0-0.4) th/mm3 Baso # (Auto) 0.1 (0.0-0.2) th/mm3 03/24/18 03/25/18 Range/Units 16:52 07:14 WBC 6.3 6.9 (4.0-11.0) th/mm3 RBC 2.58 L 2.84 L (4.00-5.30) mil/mm3 Hgb 7.5 L 7.9 L (11.6-15.3) gm/dL Hct 21.8 L 24.1 L (35.0-46.0) % Plt Count 197 239 (150-450) th/mm3 Neut # (Auto) 4.7 4.5 (1.8-7.7) th/mm3 Lymph # (Auto) 0.7 L 1.2 (1.0-4.8) th/mm3 [place] # (Auto) 0.4 0.5 (0.0-0.9) th/mm3 Eos # (Auto) 0.3 0.6 H (0.0-0.4) th/mm3 Baso # (Auto) 0.1 0.1 (0.0-0.2) th/mm3 Comprehensive Metabolic Panel 03/23/18 03/24/18 03/24/18 Range/Units 14:04 06:44 21:11 Sodium 138 139 139 (136-145) meq/L Potassium 4.0 3.7 3.7 (3.5-5.1) meq/L Chloride 101 102 103 (98-107) meq/L Carbon Dioxide 22.5 26.0 24.6 (21.0-32.0) meq/L BUN 91 H 69 H 57 H (7-18) mg/dL Creatinine 4.11 H 3.34 H 3.21 H (0.50-1.00) mg/dL Calcium 8.8 8.5 8.5 (8.5-10.1) mg/dL Albumin 3.2 L 2.9 L (3.4-5.0) g/dL 03/25/18 Range/Units 07:14 Sodium 142 (136-145) meq/L Potassium 3.8 (3.5-5.1) meq/L Chloride 107 (98-107) meq/L Carbon Dioxide 27.1 (21.0-32.0) meq/L BUN 55 H (7-18) mg/dL Creatinine 3.06 H (0.50-1.00) mg/dL Calcium 8.7 (8.5-10.1) mg/dL Albumin 2.9 L (3.4-5.0) g/dL Intake and Output 03/24/18 03/25/18 03/25/18 22:59 06:59 14:59 Intake Total 1040 / 1040 Output Total 300 / 300 Balance 740 / 740 Intake: IV 800 / 800 1/2 Normal Saline Inj 1,000 ML 800 / 800 @ 50 mls/hr IV.CONT .Q20H [facility] Rx#:[id number] Oral 240 / 240 Output: Urine 300 / 300 Other: Date of Last Bowel Movement 03/24/18 Assessment and Plan - Assessment (1) Syncope and collapse Code(s): R55 - Syncope and collapse Status: Acute (2) Anemia Code(s): D64.9 - Anemia, unspecified Status: Acute (3) Acute kidney injury Code(s): N17.9 - Acute kidney failure, unspecified Status: Acute (4) Chronic kidney disease, stage IV (severe) Code(s): N18.4 - Chronic kidney disease, stage 4 (severe) Status: Acute (5) Type 2 diabetes mellitus with diabetic chronic kidney disease Code(s): E11.22 - Type 2 diabetes mellitus with diabetic chronic kidney disease Status: Acute (6) Cirrhosis of liver Code(s): K74.60 - Unspecified cirrhosis of liver Status: Acute (7) Hyperkalemia Code(s): E87.5 - Hyperkalemia Status: Acute - Plan No new cardiac issues. Patient remains stable from a cardiac standpoint. Continue current cardiac treatment plan. GI evaluation in progress. Vascular surgery will schedule fistula placement as an outpatient. We will continue to follow the patient during her hospitalization and schedule follow-up in our office post discharge. Patient was seen and evaluated by Dr. Trinidad who participated in care, management and decision-making. - Attending Attestation Patient seen and examined. I reviewed and agree with the evaluation and plan as presented. Continue current program as per GI. No new cardiac issues. Will schedule card f/u as outpt.
--- NOTE | 2018-03-25 16:09 | P.PNNP ---
Subjective Interval history: No acute complaints Physical Exam Vital signs: Vital Signs 03/24/18 19:08 03/24/18 20:00 03/25/18 00:00 Temperature 98.1 F Pulse Rate 74 81 81 Respiratory Rate 18 Blood Pressure 148/89 H Pulse Oximetry 97 03/25/18 04:00 03/25/18 08:00 03/25/18 12:00 Temperature 98 F 98 F 98 F Pulse Rate 72 61 66 Respiratory Rate 18 18 18 Blood Pressure 149/74 H 170/94 H 165/88 H Pulse Oximetry 96 99 94 L Intake & Output 03/24/18 03/25/18 03/25/18 18:59 06:59 18:59 Intake Total 1240 / 1240 Output Total 300 / 300 Balance 940 / 940 Intake: IV 800 / 800 1/2 Normal Saline Inj 1,000 ML 800 / 800 @ 50 mls/hr IV.CONT .Q20H [facility] Rx#:[id number] Oral 240 / 240 Anesthesia Amount 200 / 200 Output: Urine 300 / 300 Other: Date of Last Bowel Movement 03/24/18 03/24/18 - Constitutional no acute distress - Routine HEENT Exam Head: Present: normocephalic Eye: Present: EOMI ENT: Present: mucous membranes moist - Routine Neck Exam Present: supple - Routine Respiratory Exam Present: CTA bilaterally - Routine Cardiovascular Exam Present: RRR - Routine Abdominal Exam Present: soft - Routine Exam Perineum Description: Intact - Routine Skin Exam Present: intact - Routine Neurological Exam Present: alert, oriented X3 - Detailed Neurological Exam: Coma Scale Eye Opening: Spontaneous - Routine Psychiatric Exam Present: normal affect Assessment and Plan - Assessment (1) Acute kidney injury Code(s): N17.9 - Acute kidney failure, unspecified Status: Acute Plan: The patient was hypotensive, had lightheadedness and dizziness. Was on diuretics at home. It is possible that the patient had developed prerenal azotemia due to intravascular volume depletion. Renal function has improved with hydration. Creatinine improved from 3.2 -> 3.0 Encourage oral intake. At the time of discharge she should be on daily Lasix. Stable for d/c from renal standpoint. Can follow outpatient with Dr. Shelley. For AVF as an outpatient. (2) Chronic kidney disease, stage IV (severe) Code(s): N18.4 - Chronic kidney disease, stage 4 (severe) Status: Acute Plan: Most likely the patient has diabetic nephropathy, she has proteinuria, she will need dialysis in the near future, but there is no need for dialysis at this time. (3) Type 2 diabetes mellitus with diabetic chronic kidney disease Code(s): E11.22 - Type 2 diabetes mellitus with diabetic chronic kidney disease Status: Acute Plan: The patient has type 2 diabetes, diabetic nephropathy. Maintain blood sugar between 140 and 180 while hospitalized. 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 She has been following with GI. (5) Anemia Code(s): D64.9 - Anemia, unspecified Status: Acute Plan: Acute on chronic. Transfuse as needed. s/p EGD and colonoscopy. (6) Hyperkalemia Code(s): E87.5 - Hyperkalemia Status: Acute Plan: Improved, monitor.
[2018-03-25] MEDS: Furosemide 20 MG Tablet PO SCH (18:14)
[2018-03-25] MEDS: Sucralfate 1 GM Tablet PO SCH ×2 (18:15→21:48)
[2018-03-25] MEDS: Insulin Detemir Inj 1,000 UNIT/10 ML Vial SQ SCH (18:17)
[2018-03-25] MEDS: Ferrous Sulfate 325 MG Tablet PO SCH (21:48)
[2018-03-25] MEDS: Carvedilol 12.5 MG Tablet PO SCH (21:48)
[2018-03-26] MEDS: Insulin NovoLOG Aspart Correctional Sugar Inj SQ SCH ×5 (00:06→22:31)
[2018-03-26] MEDS: Melatonin 5 MG Tablet PO PRN ×2 (00:07→22:31)
[2018-03-26 07:12] LABS: Baso # (Auto) 0.1 th/mm3 (0.0-0.2); Baso % (Auto) 1.3 % (0.0-2.0); Eos # (Auto) 0.6 th/mm3 (0.0-0.4); Eos % (Auto) 8.5 % (0.0-4.0); Hematocrit 22.4 % (35.0-46.0); Hemoglobin 7.4 gm/dL (11.6-15.3); Lymph # (Auto) 1.1 th/mm3 (1.0-4.8); Lymph % (Auto) 17.4 % (9.0-44.0); Mean Corpuscular HGB Conc 33.1 % (32.0-36.0); Mean Corpuscular Hemoglobin 28.4 pg (27.0-34.0); Mean Platelet Volume 7.6 fL (7.0-11.0); Mono # (Auto) 0.5 th/mm3 (0.0-0.9); Neut # (Auto) 4.2 th/mm3 (1.8-7.7); Neut % (Auto) 64.8 % (16.0-70.0); Platelet Count 239 th/mm3 (150-450); Red Blood Count 2.61 mil/mm3 (4.00-5.30); Red Cell Distribution Width 14.1 % (11.6-17.2); White Blood Count 6.5 th/mm3 (4.0-11.0)
[2018-03-26] MEDS: Sucralfate 1 GM Tablet PO SCH ×4 (07:24→21:57)
[2018-03-26 07:26] LABS: Albumin 2.6 g/dL (3.4-5.0); Anion Gap 9 meq/L (5-15); Aspartate Aminotransferase 24 U/L (15-37); Blood Urea Nitrogen 47 mg/dL (7-18); Calcium 8.5 mg/dL (8.5-10.1); Carbon Dioxide 25.7 meq/L (21.0-32.0); Chloride 108 meq/L (98-107); Glomerular Filtration Rate 16 mL/min (>89); Glucose,Random 65 mg/dL (74-106); Potassium 3.9 meq/L (3.5-5.1); Sodium 143 meq/L (136-145)
[2018-03-26 07:27] LABS: Alanine Aminotransferase 24 U/L (10-53)
[2018-03-26 07:30] LABS: Alkaline Phosphatase 208 U/L (45-117); Total Protein 6.4 g/dL (6.4-8.2)
--- NOTE | 2018-03-26 09:03 | P.PNCA ---
Subjective Interval history: Patient denies any CP, pressure, palpitations, dizziness, edema or SOB. Patient states that she feels much better. Medications and Allergies Allergies Allergy/AdvReac Type Severity Reaction Status Date / Time egg Allergy Severe Swelling Verified 03/21/18 11:18 Sulfa (Sulfonamide Allergy Severe Swelling Verified 03/21/18 11:18 Antibiotics) Home Medications Medication Instructions Recorded Confirmed Type carvedilol 12.5 mg PO BID 01/07/18 03/21/18 History cholecalciferol (vitamin D3) 1,000 unit PO DAILY 01/07/18 03/21/18 History clopidogrel 75 mg PO DAILY 01/07/18 03/21/18 History ferrous sulfate 1,000 mg PO DAILY 01/07/18 03/21/18 History furosemide 40 mg PO BID 01/07/18 03/21/18 History gabapentin 300 mg PO BID 01/07/18 03/21/18 History insulin glargine [Lantus U-100 36 unit SUB-Q ONCE PM 01/07/18 03/21/18 History Insulin] losartan 50 mg PO BID 01/07/18 03/21/18 History melatonin 5 mg PO HS PRN 01/07/18 03/21/18 History metolazone 5 mg PO DAILY 01/07/18 03/21/18 History nifedipine 90 mg PO DAILY 01/07/18 03/21/18 History omeprazole 40 mg PO DAILY 01/07/18 03/21/18 History rifaximin [Xifaxan] 550 mg PO BID 01/07/18 03/21/18 History duloxetine 60 mg PO DAILY 03/16/18 03/21/18 History insulin aspart U-100 [Novolog 1 unit SUBCUT TID 03/16/18 03/21/18 History U-100 Insulin aspart] tizanidine 4 mg PO DAILY 03/21/18 03/21/18 History ropinirole [Requip] 0.5 PO HS 03/24/18 History Active Medications: Active Medications Carvedilol (Coreg) 12.5 mg PO BID [facility] Last Admin: 03/25/18 21:48 Dose: 12.5 mg Clonidine HCl (Catapres) 0.1 mg PO Q6H PRN PRN Reason: SBP>170 or DBP>100 if HR > 65 Last Admin: 03/25/18 18:14 Dose: 0.1 mg Clopidogrel Bisulfate (Plavix) 75 mg PO DAILY [facility] Last Admin: 03/22/18 08:26 Dose: 75 mg Dextrose (D50w Vial) 50 ml IV.PUSH UNSCH PRN PRN Reason: PER HYPOGLYCEMIA PROTOCOL Duloxetine HCl (Cymbalta) 60 mg PO DAILY [facility] Last Admin: 03/25/18 09:45 Dose: 60 mg Ferrous Sulfate (Ferosul) 325 mg PO BID [facility] Last Admin: 03/25/18 21:48 Dose: 325 mg Furosemide (Lasix) 20 mg PO BID@0900,1800 [facility] Last Admin: 03/25/18 18:14 Dose: 20 mg Gabapentin (Neurontin) 300 mg PO BID [facility] Last Admin: 03/25/18 21:48 Dose: 300 mg Glucagon (Glucagon Inj) 1 mg OTHER PRN PRN PRN Reason: for Hypoglycemia Protocol Heparin Sodium (Porcine) (Heparin Inj) 5,000 units SQ Q12HR [facility] Last Admin: 03/22/18 08:26 Dose: 5,000 units Sodium Chloride (Ns Inj) 1,000 mls @ 0 mls/hr IV.SIG BOLUS [facility] Insulin Aspart (Novolog Insulin Correctional Sugar Inj) 0 unit SQ ACHS [facility]; Protocol Last Admin: 03/26/18 07:27 Dose: Not Given Insulin Detemir (Levemir Inj) 36 unit SQ QPM [facility] Last Admin: 03/25/18 18:17 Dose: 36 unit Melatonin (Melatonin) 5 mg PO HS PRN PRN Reason: INSOMNIA Last Admin: 03/26/18 00:07 Dose: 5 mg Pantoprazole Sodium (Protonix) 40 mg PO DAILY [facility] Last Admin: 03/25/18 09:45 Dose: 40 mg Rifaximin (Xifaxan) 550 mg PO BID [facility] Last Admin: 03/25/18 21:48 Dose: 550 mg Sodium Chloride (Ns Flush) 2 ml IV.FLUSH BID [facility] Last Admin: 03/25/18 21:49 Dose: 2 ml Sodium Chloride (Ns Flush) 2 ml IV.FLUSH PRN PRN PRN Reason: FLUSH AFTER USING IV ACCESS Sucralfate (Carafate) 1 gm PO ACHS [facility] Last Admin: 03/26/18 07:24 Dose: 1 gm Vitamin D (Vitamin D3) 1,000 unit PO DAILY [facility] Last Admin: 03/25/18 09:45 Dose: 1,000 unit Physical Exam Vital signs: Vital Signs 03/25/18 12:00 03/25/18 16:00 03/25/18 18:00 Temperature 98 F 97.7 F Pulse Rate 77 73 66 Respiratory Rate 18 18 Blood Pressure 165/88 H 177/93 H Pulse Oximetry 94 L 95 03/25/18 20:00 03/26/18 00:00 03/26/18 04:00 Temperature 98.0 F 98.1 F 98.1 F Pulse Rate 64 55 L 56 L Respiratory Rate 18 18 18 Blood Pressure 143/91 H 145/92 H 125/78 Pulse Oximetry 95 97 97 03/26/18 08:00 Temperature 98 F Pulse Rate 58 L Respiratory Rate 18 Blood Pressure 131/86 Pulse Oximetry 99 Intake & Output 03/25/18 03/26/18 03/26/18 18:59 06:59 18:59 Intake Total 560 / 560 Balance 560 / 560 Weight 67.4 kg Intake: Oral 560 / 560 Other 0 / 0 Other: # Voids 4 4 Date of Last Bowel Movement 03/24/18 03/24/18 - Constitutional no acute distress - Routine HEENT Exam Head: Present: normocephalic Eye: Present: PERRL ENT: Present: mucous membranes moist - Routine Neck Exam Present: full ROM - Routine Respiratory Exam Present: CTA bilaterally - Routine Cardiovascular Exam Present: S1, S2, bradycardia. Absent: murmur, gallop - Routine Abdominal Exam Present: normoactive bowel sounds - Routine Extremities Exam Present: full ROM, pulses intact, normal capillary refill. Absent: cyanosis, clubbing, edema - Routine Skin Exam Present: intact - Routine Neurological Exam Present: oriented X3 - Detailed Neurological Exam: Coma Scale Eye Opening: Spontaneous Verbal Response: Oriented Motor Response: Obey commands Rohit Coma Scale Total: 15 - Routine Psychiatric Exam Present: normal affect Results 03/26/18 06:00 03/26/18 06:00 Cardiac Enzymes 03/26/18 Range/Units 06:00 AST 24 (15-37) U/L CBC 03/24/18 03/25/18 03/26/18 Range/Units 16:52 07:14 06:00 WBC 6.3 6.9 6.5 (4.0-11.0) th/mm3 RBC 2.58 L 2.84 L 2.61 L (4.00-5.30) mil/mm3 Hgb 7.5 L 7.9 L 7.4 L (11.6-15.3) gm/dL Hct 21.8 L 24.1 L 22.4 L (35.0-46.0) % Plt Count 197 239 239 (150-450) th/mm3 Neut # (Auto) 4.7 4.5 4.2 (1.8-7.7) th/mm3 Lymph # (Auto) 0.7 L 1.2 1.1 (1.0-4.8) th/mm3 [place] # (Auto) 0.4 0.5 0.5 (0.0-0.9) th/mm3 Eos # (Auto) 0.3 0.6 H 0.6 H (0.0-0.4) th/mm3 Baso # (Auto) 0.1 0.1 0.1 (0.0-0.2) th/mm3 Comprehensive Metabolic Panel 03/24/18 03/25/18 03/26/18 Range/Units 21:11 07:14 06:00 Sodium 139 142 143 (136-145) meq/L Potassium 3.7 3.8 3.9 (3.5-5.1) meq/L Chloride 103 107 108 H (98-107) meq/L Carbon Dioxide 24.6 27.1 25.7 (21.0-32.0) meq/L BUN 57 H 55 H 47 H (7-18) mg/dL Creatinine 3.21 H 3.06 H 2.89 H (0.50-1.00) mg/dL Calcium 8.5 8.7 8.5 (8.5-10.1) mg/dL AST 24 (15-37) U/L ALT 24 (10-53) U/L Alkaline Phosphatase 208 H (45-117) U/L Total Protein 6.4 (6.4-8.2) g/dL Albumin 2.9 L 2.9 L 2.6 L (3.4-5.0) g/dL Intake and Output 03/25/18 03/26/18 03/26/18 22:59 06:59 14:59 Intake Total 560 / 560 Balance 560 / 560 Intake: Oral 560 / 560 Other 0 / 0 Other: # Voids 4 4 Date of Last Bowel Movement 03/24/18 Weight 67.4 kg Assessment and Plan - Assessment (1) Syncope and collapse Code(s): R55 - Syncope and collapse Status: Acute (2) Anemia Code(s): D64.9 - Anemia, unspecified Status: Acute (3) Acute kidney injury Code(s): N17.9 - Acute kidney failure, unspecified Status: Acute (4) Chronic kidney disease, stage IV (severe) Code(s): N18.4 - Chronic kidney disease, stage 4 (severe) Status: Acute (5) Type 2 diabetes mellitus with diabetic chronic kidney disease Code(s): E11.22 - Type 2 diabetes mellitus with diabetic chronic kidney disease Status: Acute (6) Cirrhosis of liver Code(s): K74.60 - Unspecified cirrhosis of liver Status: Acute (7) Hyperkalemia Code(s): E87.5 - Hyperkalemia Status: Acute - Plan Patient remains stable from cardiac standpoint. No recurrent symptoms. Shunt placement by vascular surgery once cleared by GI. Patient cleared for discharge from a cardiac standpoint. Patient to follow up in our office after discharge. Patient was seen and evaluated by Dr. Trinidad who participated in care, management and decision-making. - Attending Attestation Patient seen and examined. I reviewed and agree with the evaluation and plan as presented. She remains stable from cardiac standpoint. DC home. Will schedule f/ u in our office after discharge.
--- NOTE | 2018-03-26 09:07 | P.PN ---
Subjective Interval history: awake and alert earlier - BS 80- relative hypoglycemic sensation up and ambulating no melena or hematochezia tolerating clear liquids Physical Exam Vital signs: Vital Signs 03/25/18 12:00 03/25/18 16:00 03/25/18 18:00 Temperature 98 F 97.7 F Pulse Rate 77 73 66 Respiratory Rate 18 18 Blood Pressure 165/88 H 177/93 H Pulse Oximetry 94 L 95 03/25/18 20:00 03/26/18 00:00 03/26/18 04:00 Temperature 98.0 F 98.1 F 98.1 F Pulse Rate 64 55 L 56 L Respiratory Rate 18 18 18 Blood Pressure 143/91 H 145/92 H 125/78 Pulse Oximetry 95 97 97 03/26/18 08:00 Temperature 98 F Pulse Rate 58 L Respiratory Rate 18 Blood Pressure 131/86 Pulse Oximetry 99 Intake & Output 03/25/18 03/26/18 03/26/18 18:59 06:59 18:59 Intake Total 560 / 560 Balance 560 / 560 Weight 67.4 kg Intake: Oral 560 / 560 Other 0 / 0 Other: # Voids 4 4 Date of Last Bowel Movement 03/24/18 03/24/18 Narrative: GENERAL: patient is alert, oriented. SKIN: Warm and dry. No rash. HEENT: Normocephalic. Atraumatic. Pupils equal and round. Mucous membranes pink and moist. CARDIOVASCULAR: Regular rate and rhythm. No murmur appreciated. RESPIRATORY: No accessory muscle use. Clear to auscultation. Breath sounds equal bilaterally. GASTROINTESTINAL: Abdomen soft, non-tender, nondistended. MUSCULOSKELETAL: No obvious deformities. Extremities without clubbing, cyanosis , or edema. NEUROLOGICAL: moves all extremities, no focal deficits. 5/5 all extremities Results - Labs CBC & Chem 7: 03/26/18 06:00 03/26/18 06:00 Laboratory Results - last 24 hr 03/25/18 03/25/18 03/26/18 07:14 22:12 06:00 WBC 6.5 RBC 2.61 L Hgb 7.4 L Hct 22.4 L MCV 86.0 MCH 28.4 MCHC 33.1 RDW 14.1 Plt Count 239 MPV 7.6 Neut % (Auto) 64.8 Lymph % (Auto) 17.4 [place] % (Auto) 8.0 Eos % (Auto) 8.5 H Baso % (Auto) 1.3 Neut # (Auto) 4.2 Lymph # (Auto) 1.1 [place] # (Auto) 0.5 Eos # (Auto) 0.6 H Baso # (Auto) 0.1 WBC Differential . Differential Comment Auto diff final Sodium Potassium Chloride Carbon Dioxide Anion Gap BUN Creatinine Estimated GFR POC Glucose 237 H Random Glucose Calcium Total Bilirubin AST ALT Alkaline Phosphatase Total Protein Albumin Blood Type A Positive Antibody Screen Negative MTS Gel Crossmatch See Detail Bld Prod Order Comment 03/26/18 06:00 WBC RBC Hgb Hct MCV MCH MCHC RDW Plt Count MPV Neut % (Auto) Lymph % (Auto) [place] % (Auto) Eos % (Auto) Baso % (Auto) Neut # (Auto) Lymph # (Auto) [place] # (Auto) Eos # (Auto) Baso # (Auto) WBC Differential Differential Comment Sodium 143 Potassium 3.9 Chloride 108 H Carbon Dioxide 25.7 Anion Gap 9 BUN 47 H Creatinine 2.89 H Estimated GFR 16 L POC Glucose Random Glucose 65 L Calcium 8.5 Total Bilirubin 0.3 AST 24 ALT 24 Alkaline Phosphatase 208 H Total Protein 6.4 Albumin 2.6 L Blood Type Antibody Screen MTS Gel Crossmatch Bld Prod Order Comment - Procedures 03/24- colonosocpy- popyps Assessment and Plan - Plan - Plan 62-year-old female with history of CKD stage V not yet on dialysis, nonalcoholic steatohepatitis, cirrhosis, hypertension, GERD, anxiety/depression , presents with an episode of syncope. Syncope: Suspect multifactorial secondary to dehydration and anemia. -Head CT reviewed, shows stable 1.3 cm calcified mass consistent with meningioma and remote lacunar infarct right basal ganglia, otherwise no acute findings -Carotid ultrasound reviewed, shows mild visible plaque bilaterally without hemodynamically significant stenosis -Orthostatics positive, SBP dropped from 118 lying to 80 upon standing -patient's antihypertensives including carvedilol, Lasix, losartan, nifedipine were- held -Echocardiogram unremarkable with EF 60% -Monitor on telemetry -PT consulted, recommends [facility] PT -Cardiology consulted, appreciate recommendations -BP much improved, - reintroduce cardiac meds -on Coreg 12.5 mg bid and Lasix at 20 mg bid and monitor- 03/25 Acute anemia secondary to GI bleeding with iron deficiency: acute. Patient with history of cirrhosis. No recent EGD/colonoscopy. S/P colonosocpy 03/24- polyps slight drop in H and H this am post procedure had some bleeding - resolved - ff by Dr. Oneill -Transfuse 1 unit PRBC on 03/22 -Monitor serial H&H, - H and H dropped a little to 7.4 -Iron studies consistent with iron deficiency, give IV Venofer on 03/22 and 03/23 -Started on Protonix. Carafete added to regimen started FeS04 325 mg po bid d/w GI- give 1 unit RBC today advance diet montior H and h explained to patient cotnineu to hold Plavix- at elast for 15 days ROZINA on CKD stage V: Acute, likely secondary to dehydration and lasix -Creatinine 6.14 upon arrival, previously around 23 on prior visits -Renal ultrasound showed echogenic kidneys characteristic of medical renal disease; no hydronephrosis; no acute findings Nephrology ff Vascular consulted for creation of AVF- will not do this admission- due to GIB- needs to be heparinize for the procedure restarted Lasix 20 mg po daily Diabetes mellitus with neuropathy: Hemoglobin A1c 7.7- erratic sugar readings -Sliding scale coverage with Accu-Cheks before meals and at bedtime -Low-dose sliding scale coverage -Continue long-acting insulin with Levemir 36 units at night -Continue patient's gabapentin GERD: Chronic -Continue PPI Rivera/nonalcoholic steatohepatitis/liver cirrhosis: Chronic -Continue on rifaximin twice daily - GI as above Depression/anxiety -Continue on duloxetine DVT prophylaxis: Teds/SCDs; holding chemical prophylaxis with GI bleed and anemia Discharge Planning: Will need clearance from GI and nephrology prior to discharge. PT recommending HHC,
[2018-03-26] MEDS: Gabapentin 300 MG Capsule PO SCH ×2 (09:54→21:56)
[2018-03-26] MEDS: Carvedilol 12.5 MG Tablet PO SCH ×2 (09:55→21:56)
[2018-03-26] MEDS: Ferrous Sulfate 325 MG Tablet PO SCH ×2 (09:55→21:56)
[2018-03-26] MEDS: rifAXIMin 550 MG Tablet PO SCH ×2 (09:55→21:56)
[2018-03-26] MEDS: Furosemide 20 MG Tablet PO SCH ×2 (09:55→17:51)
[2018-03-26] MEDS: Duloxetine 60 MG DR Capsule PO SCH (09:55)
[2018-03-26] MEDS: Sodium Chloride 0.9% 2 ML Flush BID IV.FLUSH SCH ×2 (09:58→21:57)
--- NOTE | 2018-03-26 10:23 | P.DCO ---
- Physical Therapy Order: Evaluate and treat, Improve ambulation - Home Health Nursing Order: Medical education, Signs/symptoms of disease process, Diabetic education , CHF education, Nursing assessment with vital signs - Case Management Consult Yes - Certification I have seen patient Caitlin Matthews on 03/26/18. My clinical findings support the need for the requested home health care services because: Patient has SOB, Need for psychosocial assistance I certify that my clinical findings support that this patient is homebound because: Poor cardiac reserve
--- NOTE | 2018-03-26 14:57 | P.PNGI ---
Subjective Interval history: Patient feeling better. She is passing gas but has not had a bowel movement today. No more lower GI bleeding. Her diet was advanced and she tolerated her mashed potatoes without problems. Physical Exam Vital signs: Vital Signs 03/25/18 16:00 03/25/18 18:00 03/25/18 20:00 Temperature 97.7 F 98.0 F Pulse Rate 73 66 64 Respiratory Rate 18 18 Blood Pressure 177/93 H 143/91 H Pulse Oximetry 95 95 03/26/18 00:00 03/26/18 04:00 03/26/18 08:00 Temperature 98.1 F 98.1 F 98 F Pulse Rate 55 L 56 L 58 L Respiratory Rate 18 18 18 Blood Pressure 145/92 H 125/78 131/86 Pulse Oximetry 97 97 99 03/26/18 10:28 03/26/18 10:38 03/26/18 10:45 Temperature 98.0 F 98.0 F 97.8 F Pulse Rate 56 L 57 L 54 L Respiratory Rate 20 20 Blood Pressure 125/85 125/85 132/87 Pulse Oximetry 94 L 95 03/26/18 12:00 Temperature 98.1 F Pulse Rate 55 L Respiratory Rate 18 Blood Pressure 139/91 H Pulse Oximetry 98 Intake & Output 03/25/18 03/26/18 03/26/18 18:59 06:59 18:59 Intake Total 560 / 560 0 / 0 Balance 560 / 560 0 / 0 Weight 67.4 kg Intake: Oral 560 / 560 Other 0 / 0 Intake (Blood Product) Amt 0 / 0 Rbc As-3 Leukoreduced Unit 0 / 0 [id number] Other: # Voids 4 4 Date of Last Bowel Movement 03/24/18 03/24/18 03/24/18 - Constitutional no acute distress - Routine Neck Exam Present: supple - Routine Abdominal Exam Present: soft, normoactive bowel sounds. Absent: tenderness, distended - Routine Extremities Exam Absent: cyanosis - Routine Skin Exam Present: warm - Routine Neurological Exam Present: alert, oriented X3 Results - Labs CBC & Chem 7: 03/26/18 06:00 03/26/18 06:00 Laboratory Results - last 24 hr 03/22/18 03/25/18 03/25/18 10:49 07:14 22:12 WBC RBC Hgb Hct MCV MCH MCHC RDW Plt Count MPV Neut % (Auto) Lymph % (Auto) [place] % (Auto) Eos % (Auto) Baso % (Auto) Neut # (Auto) Lymph # (Auto) [place] # (Auto) Eos # (Auto) Baso # (Auto) WBC Differential Differential Comment Sodium Potassium Chloride Carbon Dioxide Anion Gap BUN Creatinine Estimated GFR POC Glucose 237 H Random Glucose Calcium Total Bilirubin AST ALT Alkaline Phosphatase Total Protein Albumin Blood Type A Positive Antibody Screen Negative MTS Gel Crossmatch See Detail See Detail Bld Prod Order Comment 03/26/18 03/26/18 06:00 06:00 WBC 6.5 RBC 2.61 L Hgb 7.4 L Hct 22.4 L MCV 86.0 MCH 28.4 MCHC 33.1 RDW 14.1 Plt Count 239 MPV 7.6 Neut % (Auto) 64.8 Lymph % (Auto) 17.4 [place] % (Auto) 8.0 Eos % (Auto) 8.5 H Baso % (Auto) 1.3 Neut # (Auto) 4.2 Lymph # (Auto) 1.1 [place] # (Auto) 0.5 Eos # (Auto) 0.6 H Baso # (Auto) 0.1 WBC Differential . Differential Comment Auto diff final Sodium 143 Potassium 3.9 Chloride 108 H Carbon Dioxide 25.7 Anion Gap 9 BUN 47 H Creatinine 2.89 H Estimated GFR 16 L POC Glucose Random Glucose 65 L Calcium 8.5 Total Bilirubin 0.3 AST 24 ALT 24 Alkaline Phosphatase 208 H Total Protein 6.4 Albumin 2.6 L Blood Type Antibody Screen MTS Gel Crossmatch Bld Prod Order Comment - Procedures 03/24- colonosocpy- popyps Assessment and Plan - Attending Attestation IMPRESSION: 1. Rectal bleeding--no more rectal bleeding. The initial bleeding might of been hemorrhoids/diverticulosis. The recurrent bleeding may have been a post polypectomy bleedexacerbated by latent effects of her Plavix 2. Anemia appears to be somewhat iron deficient. Hemoglobin dropped slightly. Patient to get blood today 3. Cirrhosis thought to be on the basis of nonalcoholic steatohepatitis. No gastric or esophageal varices were noted 4. History of gastric bypass. 5. Chronic renal insufficiency, severe. 6. 2 large anastomotic ulcers are noted at the gastrojejunostomybiopsies pending 7. Colonic diverticulosis and internal hemorrhoids noted on colonoscopy 8. Colonic polypsstatus post polypectomy RECOMMENDATIONS: 1. Transfuse as you needed 2. Continue PPI and Carafate. The anastomotic ulcers are sometimes ischemic and the PPIs do not always help 4. Continue current diet 5. Continue to hold off on anticoagulation/antiplatelet agents
--- NOTE | 2018-03-26 15:03 | P.PNNP ---
Subjective Interval history: feeling better today Physical Exam Vital signs: Vital Signs 03/25/18 16:00 03/25/18 18:00 03/25/18 20:00 Temperature 97.7 F 98.0 F Pulse Rate 73 66 64 Respiratory Rate 18 18 Blood Pressure 177/93 H 143/91 H Pulse Oximetry 95 95 03/26/18 00:00 03/26/18 04:00 03/26/18 08:00 Temperature 98.1 F 98.1 F 98 F Pulse Rate 55 L 56 L 58 L Respiratory Rate 18 18 18 Blood Pressure 145/92 H 125/78 131/86 Pulse Oximetry 97 97 99 03/26/18 10:28 03/26/18 10:38 03/26/18 10:45 Temperature 98.0 F 98.0 F 97.8 F Pulse Rate 56 L 57 L 54 L Respiratory Rate 20 20 Blood Pressure 125/85 125/85 132/87 Pulse Oximetry 94 L 95 03/26/18 12:00 Temperature 98.1 F Pulse Rate 55 L Respiratory Rate 18 Blood Pressure 139/91 H Pulse Oximetry 98 Intake & Output 03/25/18 03/26/18 03/26/18 18:59 06:59 18:59 Intake Total 560 / 560 0 / 0 Balance 560 / 560 0 / 0 Weight 67.4 kg Intake: Oral 560 / 560 Other 0 / 0 Intake (Blood Product) Amt 0 / 0 Rbc As-3 Leukoreduced Unit 0 / 0 [id number] Other: # Voids 4 4 Date of Last Bowel Movement 03/24/18 03/24/18 03/24/18 - Constitutional no acute distress - Routine HEENT Exam Head: Present: normocephalic Eye: Present: EOMI ENT: Present: mucous membranes moist - Routine Neck Exam Present: supple - Routine Respiratory Exam Present: CTA bilaterally - Routine Cardiovascular Exam Present: RRR - Routine Abdominal Exam Present: soft - Routine Skin Exam Present: intact - Routine Neurological Exam Present: alert, oriented X3 - Detailed Neurological Exam: Coma Scale Eye Opening: Spontaneous - Routine Psychiatric Exam Present: normal affect Assessment and Plan - Assessment (1) Acute kidney injury Code(s): N17.9 - Acute kidney failure, unspecified Status: Acute Plan: The patient was hypotensive, had lightheadedness and dizziness. Was on diuretics at home. It is possible that the patient had developed prerenal azotemia due to intravascular volume depletion. Renal function has improved with hydration. Creatinine improved from 3.2 -> 3.0 -> 2.89 Encourage oral intake. At the time of discharge she should be on daily Lasix. Stable for d/c from renal standpoint. Can follow outpatient with Dr. Shelley. For AVF as an outpatient. (2) Chronic kidney disease, stage IV (severe) Code(s): N18.4 - Chronic kidney disease, stage 4 (severe) Status: Acute Plan: Most likely the patient has diabetic nephropathy, she has proteinuria, she will need dialysis in the near future, but there is no need for dialysis at this time. (3) Type 2 diabetes mellitus with diabetic chronic kidney disease Code(s): E11.22 - Type 2 diabetes mellitus with diabetic chronic kidney disease Status: Acute Plan: The patient has type 2 diabetes, diabetic nephropathy. Maintain blood sugar between 140 and 180 while hospitalized. 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 She has been following with GI. (5) Anemia Code(s): D64.9 - Anemia, unspecified Status: Acute Plan: Acute on chronic. Transfuse as needed. s/p EGD and colonoscopy. (6) Hyperkalemia Code(s): E87.5 - Hyperkalemia Status: Acute Plan: Improved, monitor.
[2018-03-26] MEDS: Insulin Detemir Inj 1,000 UNIT/10 ML Vial SQ SCH (18:48)
[2018-03-27 07:27] LABS: Baso # (Auto) 0.1 th/mm3 (0.0-0.2); Baso % (Auto) 1.1 % (0.0-2.0); Eos # (Auto) 0.7 th/mm3 (0.0-0.4); Eos % (Auto) 9.9 % (0.0-4.0); Hematocrit 28.2 % (35.0-46.0); Hemoglobin 9.4 gm/dL (11.6-15.3); Lymph # (Auto) 1.1 th/mm3 (1.0-4.8); Mean Corpuscular HGB Conc 33.2 % (32.0-36.0); Mean Corpuscular Hemoglobin 28.4 pg (27.0-34.0); Mean Corpuscular Volume 85.5 fL (80.0-100.0); Mean Platelet Volume 7.7 fL (7.0-11.0); Mono # (Auto) 0.5 th/mm3 (0.0-0.9); Mono % (Auto) 7.1 % (0.0-8.0); Neut # (Auto) 4.4 th/mm3 (1.8-7.7); Neut % (Auto) 65.9 % (16.0-70.0); Platelet Count 250 th/mm3 (150-450); Red Cell Distribution Width 15.1 % (11.6-17.2); White Blood Count 6.7 th/mm3 (4.0-11.0)
[2018-03-27 07:54] LABS: Albumin 2.8 g/dL (3.4-5.0); Anion Gap 8 meq/L (5-15); Aspartate Aminotransferase 35 U/L (15-37); Blood Urea Nitrogen 48 mg/dL (7-18); Calcium 8.7 mg/dL (8.5-10.1); Carbon Dioxide 28.1 meq/L (21.0-32.0); Chloride 105 meq/L (98-107); Glomerular Filtration Rate 15 mL/min (>89); Glucose,Random 75 mg/dL (74-106); Potassium 4.3 meq/L (3.5-5.1); Sodium 141 meq/L (136-145)
[2018-03-27 07:55] LABS: Alanine Aminotransferase 28 U/L (10-53)
[2018-03-27 08:02] LABS: Alkaline Phosphatase 237 U/L (45-117); Total Protein 6.6 g/dL (6.4-8.2)
[2018-03-27] MEDS: rifAXIMin 550 MG Tablet PO SCH (08:58)
[2018-03-27] MEDS: Gabapentin 300 MG Capsule PO SCH (08:58)
[2018-03-27] MEDS: Ferrous Sulfate 325 MG Tablet PO SCH (08:58)
[2018-03-27] MEDS: Carvedilol 12.5 MG Tablet PO SCH (08:58)
[2018-03-27] MEDS: Duloxetine 60 MG DR Capsule PO SCH (08:58)
[2018-03-27] MEDS: Sucralfate 1 GM Tablet PO SCH ×2 (08:59→11:34)
[2018-03-27] MEDS: Sodium Chloride 0.9% 2 ML Flush BID IV.FLUSH SCH (08:59)
[2018-03-27] MEDS: Insulin NovoLOG Aspart Correctional Sugar Inj SQ SCH ×2 (09:03→18:09)
[2018-03-27] MEDS: Furosemide 20 MG Tablet PO SCH (09:05)
[2018-03-27 09:41] VITALS: BP 107/63; PULSE 58; RESP 16; TEMP 98; O2SAT 97
--- NOTE | 2018-03-27 09:59 | P.PN ---
Subjective Interval history: feels great no complains up and ambulating- no dizziness no reported melena or hematochezia Physical Exam Vital signs: Vital Signs 03/26/18 10:28 03/26/18 10:38 03/26/18 10:45 Temperature 98.0 F 98.0 F 97.8 F Pulse Rate 56 L 57 L 54 L Respiratory Rate 20 20 Blood Pressure 125/85 125/85 132/87 Pulse Oximetry 94 L 95 03/26/18 12:00 03/26/18 16:00 03/26/18 16:15 Temperature 98.1 F 98.2 F Pulse Rate 79 54 L 53 L Respiratory Rate 18 18 Blood Pressure 139/91 H 180/90 H Pulse Oximetry 98 99 03/26/18 20:00 03/27/18 00:00 03/27/18 04:00 Temperature 98.5 F 98.1 F 98.0 F Pulse Rate 56 L 59 L 50 L Respiratory Rate 18 18 18 Blood Pressure 199/99 H 148/85 H 137/80 Pulse Oximetry 98 97 98 03/27/18 08:00 03/27/18 09:40 Temperature 98 F Pulse Rate 51 L 58 L Respiratory Rate 16 Blood Pressure 117/69 107/63 Pulse Oximetry 97 Intake & Output 03/26/18 03/27/18 03/27/18 18:59 06:59 18:59 Intake Total 480 / 480 Balance 480 / 480 Weight 67.6 kg Intake: Oral 480 / 480 Intake (Blood Product) Amt 0 / 0 Rbc As-3 Leukoreduced Unit 0 / 0 [id number] Other: # Voids 4 3 Date of Last Bowel Movement 03/24/18 03/24/18 Narrative: GENERAL: patient is alert, oriented. SKIN: Warm and dry. No rash. HEENT: Normocephalic. Atraumatic. Pupils equal and round. Mucous membranes pink and moist. CARDIOVASCULAR: Regular rate and rhythm. No murmur appreciated. RESPIRATORY: No accessory muscle use. Clear to auscultation. Breath sounds equal bilaterally. GASTROINTESTINAL: Abdomen soft, non-tender, nondistended. MUSCULOSKELETAL: No obvious deformities. Extremities without clubbing, cyanosis , or edema. NEUROLOGICAL: moves all extremities, no focal deficits. 5/5 all extremities Results - Labs CBC & Chem 7: 03/27/18 05:34 03/27/18 05:34 Laboratory Results - last 24 hr 03/22/18 03/25/18 03/26/18 10:49 07:14 22:11 WBC RBC Hgb Hct MCV MCH MCHC RDW Plt Count MPV Neut % (Auto) Lymph % (Auto) [place] % (Auto) Eos % (Auto) Baso % (Auto) Neut # (Auto) Lymph # (Auto) [place] # (Auto) Eos # (Auto) Baso # (Auto) WBC Differential Differential Comment Sodium Potassium Chloride Carbon Dioxide Anion Gap BUN Creatinine Estimated GFR POC Glucose 193 H Random Glucose Calcium Total Bilirubin AST ALT Alkaline Phosphatase Total Protein Albumin Blood Type A Positive Antibody Screen Negative MTS Gel Crossmatch See Detail See Detail Bld Prod Order Comment 03/27/18 03/27/18 03/27/18 05:34 05:34 09:02 WBC 6.7 RBC 3.30 L Hgb 9.4 L D Hct 28.2 L MCV 85.5 MCH 28.4 MCHC 33.2 RDW 15.1 Plt Count 250 MPV 7.7 Neut % (Auto) 65.9 Lymph % (Auto) 16.0 [place] % (Auto) 7.1 Eos % (Auto) 9.9 H Baso % (Auto) 1.1 Neut # (Auto) 4.4 Lymph # (Auto) 1.1 [place] # (Auto) 0.5 Eos # (Auto) 0.7 H Baso # (Auto) 0.1 WBC Differential . Differential Comment Auto diff final Sodium 141 Potassium 4.3 Chloride 105 Carbon Dioxide 28.1 Anion Gap 8 BUN 48 H Creatinine 3.12 H Estimated GFR 15 L POC Glucose 74 Random Glucose 75 Calcium 8.7 Total Bilirubin 0.4 AST 35 ALT 28 Alkaline Phosphatase 237 H Total Protein 6.6 Albumin 2.8 L Blood Type Antibody Screen MTS Gel Crossmatch Bld Prod Order Comment - Procedures 03/24- colonosocpy- popyps Assessment and Plan - Plan - Plan 62-year-old female with history of CKD stage V not yet on dialysis, nonalcoholic steatohepatitis, cirrhosis, hypertension, GERD, anxiety/depression , presents with an episode of syncope. Syncope: Suspect multifactorial secondary to dehydration and anemia. -Head CT reviewed, shows stable 1.3 cm calcified mass consistent with meningioma and remote lacunar infarct right basal ganglia, otherwise no acute findings -Carotid ultrasound reviewed, shows mild visible plaque bilaterally without hemodynamically significant stenosis -Orthostatics positive, SBP dropped from 118 lying to 80 upon standing -patient's antihypertensives including carvedilol, Lasix, losartan, nifedipine were- held -Echocardiogram unremarkable with EF 60% -Monitor on telemetry -PT consulted, recommends [facility] PT -Cardiology consulted, appreciate recommendations -BP much improved, - reintroduce cardiac meds -on Coreg 12.5 mg bid and Lasix at 20 mg bid and monitor- 03/25 Acute anemia secondary to GI bleeding with iron deficiency: acute. Patient with history of cirrhosis. No recent EGD/colonoscopy. S/P colonosocpy 03/24- polyps S/P 1 units 03/26- H and H up- patient feeling better post procedure had some bleeding - resolved - ff by Dr. Oneill -Transfuse 1 unit PRBC on 03/22 -Monitor serial H&H, - H and H dropped a little to 7.4 -Iron studies consistent with iron deficiency, give IV Venofer on 03/22 and 03/23 -Started on Protonix. Carafete added to regimen started FeS04 325 mg po bid d/w GI- give 1 unit RBC today advance diet montior H and h explained to patient cotnineu to hold Plavix- at elast for 10 days ROZINA on CKD stage V: Acute, likely secondary to dehydration and lasix -Creatinine 6.14 upon arrival, previously around 23 on prior visits -Renal ultrasound showed echogenic kidneys characteristic of medical renal disease; no hydronephrosis; no acute findings Nephrology ff Vascular consulted for creation of AVF- will not do this admission- due to GIB- needs to be heparinize for the procedure restarted Lasix 20 mg po daily Diabetes mellitus with neuropathy: Hemoglobin A1c 7.7- erratic sugar readings -Sliding scale coverage with Accu-Cheks before meals and at bedtime -Low-dose sliding scale coverage -Continue long-acting insulin with Levemir 36 units at night -Continue patient's gabapentin GERD: Chronic -Continue PPI Rivera/nonalcoholic steatohepatitis/liver cirrhosis: Chronic -Continue on rifaximin twice daily - GI as above Depression/anxiety -Continue on duloxetine DVT prophylaxis: Teds/SCDs; holding chemical prophylaxis with GI bleed and anemia Discharge Planning: DC home today OP ff up with [facility] OP ff up with nephrology OP ff up with PCP- for DM management
--- NOTE | 2018-03-27 10:09 | P.DS ---
Date of admission: 03/22/18 12:40 Primary care physician: Thaddeus Maynard MD Attending physician on discharge: Jodee Cruz Anticipated date of discharge: 03/27/18 Brief History from admission: Patient is a 62-year-old female with a known history of end-stage renal disease not on hemodialysis or peritoneal dialysis yet, diabetes mellitus , history of nonalcoholic liver cirrhosis with Rivera, hypertension, who presented to the emergency room today for evaluation of dizziness as well as syncope. Patient reports that over the past couple days she has had at least 5 syncopal episodes. Patient reports that she is not sure if she had loss of conscious during the syncopal episodes but she does report waking up on the floor and not remembering what happened. Patient reports along with her syncopal episode she has had some dizziness. Reports that her blood pressure is also been labile. She reports that she used to be on at least 3 blood pressure medications, and her blood pressures always been lower than normal. Currently only taking 2 of her medications and did not take any of her blood pressure medications today. Denies any chest pain or shortness of breath, not feeling right. Patient did take Plavix daily as an anticoagulant. She reports that last night around 2 AM she found herself passed out on the ground. She reports that she was unsure how she got there in the first place. Reports that she had 2 more syncopal episodes today. She has had this reports of loss of consciousness, and feeling faint and collapsed. No real prodromal events that she can remember. None of these were witnessed. She worse during exertion and standing up. Denies any injuries. Other reported symptoms included lightheadedness and questionable vertigo and weakness Patient update on day of discharge: afebrile, up and ambulating no chest pain DS: Medications - Discharge Medications Prescriptions: ferrous sulfate [FeroSul] 325 mg PO BID 90 Days #180 tab sucralfate 1 gm PO ACHS 30 Days tab DS: Summary Hospital Course: 62-year-old female with history of CKD stage V not yet on dialysis, nonalcoholic steatohepatitis, cirrhosis, hypertension, GERD, anxiety/depression , presents with an episode of syncope. Syncope: Suspect multifactorial secondary to dehydration and anemia. -Head CT reviewed, shows stable 1.3 cm calcified mass consistent with meningioma and remote lacunar infarct right basal ganglia, otherwise no acute findings -Carotid ultrasound reviewed, shows mild visible plaque bilaterally without hemodynamically significant stenosis -Orthostatics positive, SBP dropped from 118 lying to 80 upon standing -patient's antihypertensives including carvedilol, Lasix, losartan, nifedipine were- held -Echocardiogram unremarkable with EF 60% -Monitor on telemetry -PT consulted, recommends [facility] PT -Cardiology consulted, appreciate recommendations -BP much improved, - reintroduce cardiac meds -on Coreg 12.5 mg bid and Lasix at 20 mg bid and monitor- 03/25 Acute anemia secondary to GI bleeding with iron deficiency: acute. Patient with history of cirrhosis. No recent EGD/colonoscopy. S/P colonosocpy 03/24- polyps S/P 1 units 03/26- H and H up- patient feeling better post procedure had some bleeding - resolved - ff by Dr. Oneill -Transfuse 1 unit PRBC on 03/22 -Monitor serial H&H, - H and H dropped a little to 7.4 -Iron studies consistent with iron deficiency, give IV Venofer on 03/22 and 03/23 -Started on Protonix. Carafete added to regimen started FeS04 325 mg po bid d/w GI- give 1 unit RBC today advance diet montior H and h explained to patient cotnineu to hold Plavix- at elast for 10 days ROZINA on CKD stage V: Acute, likely secondary to dehydration and lasix -Creatinine 6.14 upon arrival, previously around 23 on prior visits -Renal ultrasound showed echogenic kidneys characteristic of medical renal disease; no hydronephrosis; no acute findings Nephrology ff Vascular consulted for creation of AVF- will not do this admission- due to GIB- needs to be heparinize for the procedure restarted Lasix 20 mg po daily Diabetes mellitus with neuropathy: Hemoglobin A1c 7.7- erratic sugar readings -Sliding scale coverage with Accu-Cheks before meals and at bedtime -Low-dose sliding scale coverage -Continue long-acting insulin with Levemir 36 units at night -Continue patient's gabapentin GERD: Chronic -Continue PPI Rivera/nonalcoholic steatohepatitis/liver cirrhosis: Chronic -Continue on rifaximin twice daily - GI as above Depression/anxiety -Continue on duloxetine DVT prophylaxis: Teds/SCDs; holding chemical prophylaxis with GI bleed and anemia Discharge Planning: DC home today OP ff up with [facility] OP ff up with nephrology OP ff up with PCP- for DM management - Time Spent with Patient Total time spent providing and/or coordinating discharge services: Less than 30 minutes Exam Vital signs: Vital Signs 03/26/18 10:28 03/26/18 10:38 03/26/18 10:45 Temperature 98.0 F 98.0 F 97.8 F Pulse Rate 56 L 57 L 54 L Respiratory Rate 20 20 Blood Pressure 125/85 125/85 132/87 Pulse Oximetry 94 L 95 03/26/18 12:00 03/26/18 16:00 03/26/18 16:15 Temperature 98.1 F 98.2 F Pulse Rate 79 54 L 53 L Respiratory Rate 18 18 Blood Pressure 139/91 H 180/90 H Pulse Oximetry 98 99 03/26/18 20:00 03/27/18 00:00 03/27/18 04:00 Temperature 98.5 F 98.1 F 98.0 F Pulse Rate 56 L 59 L 50 L Respiratory Rate 18 18 18 Blood Pressure 199/99 H 148/85 H 137/80 Pulse Oximetry 98 97 98 03/27/18 08:00 03/27/18 09:40 Temperature 98 F Pulse Rate 51 L 58 L Respiratory Rate 16 Blood Pressure 117/69 107/63 Pulse Oximetry 97 Intake & Output 03/26/18 03/27/18 03/27/18 18:59 06:59 18:59 Intake Total 480 / 480 Balance 480 / 480 Weight 67.6 kg Intake: Oral 480 / 480 Intake (Blood Product) Amt 0 / 0 Rbc As-3 Leukoreduced Unit 0 / 0 [id number] Other: # Voids 4 3 Date of Last Bowel Movement 03/24/18 03/24/18 Narrative: GENERAL: patient is alert, oriented. SKIN: Warm and dry. No rash. HEENT: Normocephalic. Atraumatic. Pupils equal and round. Mucous membranes pink and moist. CARDIOVASCULAR: Regular rate and rhythm. No murmur appreciated. RESPIRATORY: No accessory muscle use. Clear to auscultation. Breath sounds equal bilaterally. GASTROINTESTINAL: Abdomen soft, non-tender, nondistended. MUSCULOSKELETAL: No obvious deformities. Extremities without clubbing, cyanosis , or edema. NEUROLOGICAL: moves all extremities, no focal deficits. 5/5 all extremities Results Procedures completed during hospitalization: 03/24- colonosocpy- popyps Pending studies at discharge: Pending at discharge 03/24/18 10:16 Surgical [PTH] Routine Labs on day of discharge: Labs from last 24 hours 03/27/18 03/27/18 03/27/18 09:02 05:34 05:34 WBC 6.7 RBC 3.30 L Hgb 9.4 L D Hct 28.2 L MCV 85.5 MCH 28.4 MCHC 33.2 RDW 15.1 Plt Count 250 MPV 7.7 Neut % (Auto) 65.9 Lymph % (Auto) 16.0 [place] % (Auto) 7.1 Eos % (Auto) 9.9 H Baso % (Auto) 1.1 Neut # (Auto) 4.4 Lymph # (Auto) 1.1 [place] # (Auto) 0.5 Eos # (Auto) 0.7 H Baso # (Auto) 0.1 WBC Differential . Differential Comment Auto diff final Sodium 141 Potassium 4.3 Chloride 105 Carbon Dioxide 28.1 Anion Gap 8 BUN 48 H Creatinine 3.12 H Estimated GFR 15 L POC Glucose 74 Random Glucose 75 Calcium 8.7 Total Bilirubin 0.4 AST 35 ALT 28 Alkaline Phosphatase 237 H Total Protein 6.6 Albumin 2.8 L Blood Type Antibody Screen MTS Gel Crossmatch Bld Prod Order Comment 03/26/18 03/25/18 03/22/18 22:11 07:14 10:49 WBC RBC Hgb Hct MCV MCH MCHC RDW Plt Count MPV Neut % (Auto) Lymph % (Auto) [place] % (Auto) Eos % (Auto) Baso % (Auto) Neut # (Auto) Lymph # (Auto) [place] # (Auto) Eos # (Auto) Baso # (Auto) WBC Differential Differential Comment Sodium Potassium Chloride Carbon Dioxide Anion Gap BUN Creatinine Estimated GFR POC Glucose 193 H Random Glucose Calcium Total Bilirubin AST ALT Alkaline Phosphatase Total Protein Albumin Blood Type A Positive Antibody Screen Negative MTS Gel Crossmatch See Detail See Detail Bld Prod Order Comment - Impressions ITS Impressions Carotid Doppler Study 03/21/18 00:00 CONCLUSION: 1. Right Internal Carotid Artery: Mild visible plaque without hemodynamically significant stenosis. 2. Left Internal Carotid Artery: Mild visible plaque without hemodynamically significant stenosis Head CT 03/21/18 11:52 CONCLUSION: 1. Stable 1.3 cm extra-axial densely calcified mass in the left frontal high convexities consistent with a meningioma. 2. Redemonstration of remote lacunar infarct in the right basal ganglia. 3. No acute intracranial abnormality. . Chest X-Ray 03/21/18 11:53 CONCLUSION: Negative examination. Foot X-Ray 03/21/18 11:59 CONCLUSION: Calcaneal spur. Abdomen/Bladder Ultrasound 03/21/18 16:43 CONCLUSION: 1. Echogenic kidneys characteristic of medical renal disease. No hydronephrosis. No acute findings. Discharge Plan - Discharge Disposition Patient Disposition: /Home Health Service - Discharge Condition Condition: Stable - Discharge Order Discharge Orders: Discharge Order (Routine); Ordered 03/27/18 Ordered By: Jodee Cruz - Discharge Details Anticipated Discharge Date: 03/27/18 - Physicians Team Primary Care Provider: Thaddeus Maynard Attending Provider: Jodee Cruz Other Providers: Yolanda Trinidad MD ; Mj Shelley MD ; Jorden Oneill MD ; Alverto Watson MD ; [facility]
--- NOTE | 2018-03-27 10:47 | P.PNNP ---
Subjective Interval history: patient is doing well overall, clinically stable. To be discharged today. Physical Exam Vital signs: Vital Signs 03/26/18 12:00 03/26/18 16:00 03/26/18 16:15 Temperature 98.1 F 98.2 F Pulse Rate 79 54 L 53 L Respiratory Rate 18 18 Blood Pressure 139/91 H 180/90 H Pulse Oximetry 98 99 03/26/18 20:00 03/27/18 00:00 03/27/18 04:00 Temperature 98.5 F 98.1 F 98.0 F Pulse Rate 56 L 59 L 50 L Respiratory Rate 18 18 18 Blood Pressure 199/99 H 148/85 H 137/80 Pulse Oximetry 98 97 98 03/27/18 08:00 03/27/18 09:40 Temperature 98 F Pulse Rate 51 L 58 L Respiratory Rate 16 Blood Pressure 117/69 107/63 Pulse Oximetry 97 Intake & Output 03/26/18 03/27/18 03/27/18 18:59 06:59 18:59 Intake Total 480 / 480 Balance 480 / 480 Weight 67.6 kg Intake: Oral 480 / 480 Intake (Blood Product) Amt 0 / 0 Rbc As-3 Leukoreduced Unit 0 / 0 [id number] Other: # Voids 4 3 Date of Last Bowel Movement 03/24/18 03/24/18 Narrative: GENERAL: patient is alert, oriented. SKIN: Warm and dry. No rash. HEENT: Normocephalic. Atraumatic. Pupils equal and round. Mucous membranes pink and moist. CARDIOVASCULAR: Regular rate and rhythm. No murmur appreciated. RESPIRATORY: No accessory muscle use. Clear to auscultation. Breath sounds equal bilaterally. GASTROINTESTINAL: Abdomen soft, non-tender, nondistended. MUSCULOSKELETAL: No obvious deformities. Extremities without clubbing, cyanosis , or edema. NEUROLOGICAL: moves all extremities, no focal deficits. 5/5 all extremities Assessment and Plan - Assessment (1) Acute kidney injury Code(s): N17.9 - Acute kidney failure, unspecified Status: Acute Plan: The patient was hypotensive, had lightheadedness and dizziness. Was on diuretics at home. It is possible that the patient had developed prerenal azotemia due to intravascular volume depletion. Renal function has improved with hydration. At the time of discharge she should be on daily Lasix. Stable for d/c from renal standpoint. I will follow her in my CKD clinic. For AVF as an outpatient. (2) Chronic kidney disease, stage IV (severe) Code(s): N18.4 - Chronic kidney disease, stage 4 (severe) Status: Acute Plan: Most likely the patient has diabetic nephropathy, she has proteinuria, she will need dialysis in the near future, but there is no need for dialysis at this time. (3) Type 2 diabetes mellitus with diabetic chronic kidney disease Code(s): E11.22 - Type 2 diabetes mellitus with diabetic chronic kidney disease Status: Acute Plan: The patient has type 2 diabetes, diabetic nephropathy. Maintain blood sugar between 140 and 180 while hospitalized. 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 She has been following with GI. (5) Anemia Code(s): D64.9 - Anemia, unspecified Status: Acute Plan: Acute on chronic. Transfuse as needed. s/p EGD and colonoscopy. (6) Hyperkalemia Code(s): E87.5 - Hyperkalemia Status: Acute Plan: Improved, monitor.
--- NOTE | 2018-03-27 11:11 | P.PNGI ---
Subjective Interval history: Patient seen prior to discharge. had a bowel movement without blood. No nausea, vomiting or significant abdominal pain. hemoglobin 9.4. Patient ready to go home she states. Physical Exam Vital signs: Vital Signs 03/26/18 12:00 03/26/18 16:00 03/26/18 16:15 Temperature 98.1 F 98.2 F Pulse Rate 79 54 L 53 L Respiratory Rate 18 18 Blood Pressure 139/91 H 180/90 H Pulse Oximetry 98 99 03/26/18 20:00 03/27/18 00:00 03/27/18 04:00 Temperature 98.5 F 98.1 F 98.0 F Pulse Rate 56 L 59 L 50 L Respiratory Rate 18 18 18 Blood Pressure 199/99 H 148/85 H 137/80 Pulse Oximetry 98 97 98 03/27/18 08:00 03/27/18 09:40 Temperature 98 F Pulse Rate 51 L 58 L Respiratory Rate 16 Blood Pressure 117/69 107/63 Pulse Oximetry 97 Intake & Output 03/26/18 03/27/18 03/27/18 18:59 06:59 18:59 Intake Total 480 / 480 Balance 480 / 480 Weight 67.6 kg Intake: Oral 480 / 480 Intake (Blood Product) Amt 0 / 0 Rbc As-3 Leukoreduced Unit 0 / 0 [id number] Other: # Voids 4 3 Date of Last Bowel Movement 03/24/18 03/24/18 - Constitutional no acute distress - Routine Neck Exam Present: supple - Routine Abdominal Exam Present: soft, normoactive bowel sounds. Absent: tenderness - Routine Extremities Exam Absent: clubbing - Routine Neurological Exam Present: alert, oriented X3 Results - Labs CBC & Chem 7: 03/27/18 05:34 03/27/18 05:34 Laboratory Results - last 24 hr 03/25/18 03/26/18 03/27/18 07:14 22:11 05:34 WBC 6.7 RBC 3.30 L Hgb 9.4 L D Hct 28.2 L MCV 85.5 MCH 28.4 MCHC 33.2 RDW 15.1 Plt Count 250 MPV 7.7 Neut % (Auto) 65.9 Lymph % (Auto) 16.0 [place] % (Auto) 7.1 Eos % (Auto) 9.9 H Baso % (Auto) 1.1 Neut # (Auto) 4.4 Lymph # (Auto) 1.1 [place] # (Auto) 0.5 Eos # (Auto) 0.7 H Baso # (Auto) 0.1 WBC Differential . Differential Comment Auto diff final Sodium Potassium Chloride Carbon Dioxide Anion Gap BUN Creatinine Estimated GFR POC Glucose 193 H Random Glucose Calcium Total Bilirubin AST ALT Alkaline Phosphatase Total Protein Albumin MTS Gel Crossmatch See Detail 03/27/18 03/27/18 05:34 09:02 WBC RBC Hgb Hct MCV MCH MCHC RDW Plt Count MPV Neut % (Auto) Lymph % (Auto) [place] % (Auto) Eos % (Auto) Baso % (Auto) Neut # (Auto) Lymph # (Auto) [place] # (Auto) Eos # (Auto) Baso # (Auto) WBC Differential Differential Comment Sodium 141 Potassium 4.3 Chloride 105 Carbon Dioxide 28.1 Anion Gap 8 BUN 48 H Creatinine 3.12 H Estimated GFR 15 L POC Glucose 74 Random Glucose 75 Calcium 8.7 Total Bilirubin 0.4 AST 35 ALT 28 Alkaline Phosphatase 237 H Total Protein 6.6 Albumin 2.8 L MTS Gel Crossmatch - Procedures 03/24- colonosocpy- popyps Assessment and Plan - Attending Attestation IMPRESSION: 1. Rectal bleeding-- resolved 2. Anemia appears to be somewhat iron deficient. better this morning 3. Cirrhosis thought to be on the basis of nonalcoholic steatohepatitis. No gastric or esophageal varices were noted 4. History of gastric bypass. 5. Chronic renal insufficiency, severe. 6. 2 large anastomotic ulcers are noted at the gastrojejunostomybiopsies pending 7. Colonic diverticulosis and internal hemorrhoids noted on colonoscopy 8. Colonic polypsstatus post polypectomy RECOMMENDATIONS: 1. restart Plavix after about 10 days. Patient understands risk of being off Plavix however I do not want her to bleed 2. Continue PPI and Carafate. The anastomotic ulcers are sometimes ischemic and the PPIs do not always help 4. Continue current diet 5. follow-up with us with Dr. Lee Ann Casanova as an outpatient to arrange a follow-up upper endoscopy in 2 months to assess healing of these anastomotic ulcer ulcers. Patient will need an earlier colonoscopy since the preparation was not best. Still awaiting pathology
--- NOTE | 2018-03-27 12:52 | P.PNCA ---
Subjective Interval history: Patient sitting in the chair dressed and getting discharge. Patient denies any CP, pressure, palpitations, dizziness, edema or SOB. Medications and Allergies Active Medications: Active Medications Carvedilol (Coreg) 12.5 mg PO BID [facility] Last Admin: 03/27/18 08:58 Dose: 12.5 mg Clonidine HCl (Catapres) 0.1 mg PO Q6H PRN PRN Reason: SBP>170 or DBP>100 if HR > 65 Last Admin: 03/26/18 17:51 Dose: 0.1 mg Clopidogrel Bisulfate (Plavix) 75 mg PO DAILY [facility] Last Admin: 03/22/18 08:26 Dose: 75 mg Dextrose (D50w Vial) 50 ml IV.PUSH UNSCH PRN PRN Reason: PER HYPOGLYCEMIA PROTOCOL Duloxetine HCl (Cymbalta) 60 mg PO DAILY [facility] Last Admin: 03/27/18 08:58 Dose: 60 mg Ferrous Sulfate (Ferosul) 325 mg PO BID [facility] Last Admin: 03/27/18 08:58 Dose: 325 mg Furosemide (Lasix) 20 mg PO BID@0900,1800 [facility] Last Admin: 03/27/18 09:05 Dose: 20 mg Gabapentin (Neurontin) 300 mg PO BID [facility] Last Admin: 03/27/18 08:58 Dose: 300 mg Glucagon (Glucagon Inj) 1 mg OTHER PRN PRN PRN Reason: for Hypoglycemia Protocol Heparin Sodium (Porcine) (Heparin Inj) 5,000 units SQ Q12HR [facility] Last Admin: 03/22/18 08:26 Dose: 5,000 units Sodium Chloride (Ns Inj) 1,000 mls @ 0 mls/hr IV.SIG BOLUS [facility] Insulin Aspart (Novolog Insulin Correctional Sugar Inj) 0 unit SQ ACHS [facility]; Protocol Last Admin: 03/27/18 09:03 Dose: Not Given Insulin Detemir (Levemir Inj) 36 unit SQ QPM [facility] Last Admin: 03/26/18 18:48 Dose: 36 unit Melatonin (Melatonin) 5 mg PO HS PRN PRN Reason: INSOMNIA Last Admin: 03/26/18 22:31 Dose: 5 mg Pantoprazole Sodium (Protonix) 40 mg PO DAILY [facility] Last Admin: 03/27/18 08:58 Dose: 40 mg Rifaximin (Xifaxan) 550 mg PO BID [facility] Last Admin: 03/27/18 08:58 Dose: 550 mg Sodium Chloride (Ns Flush) 2 ml IV.FLUSH BID [facility] Last Admin: 03/27/18 08:59 Dose: 2 ml Sodium Chloride (Ns Flush) 2 ml IV.FLUSH PRN PRN PRN Reason: FLUSH AFTER USING IV ACCESS Sucralfate (Carafate) 1 gm PO ACHS [facility] Last Admin: 03/27/18 11:34 Dose: 1 gm Vitamin D (Vitamin D3) 1,000 unit PO DAILY [facility] Last Admin: 03/27/18 08:58 Dose: 1,000 unit Allergies Allergy/AdvReac Type Severity Reaction Status Date / Time egg Allergy Severe Swelling Verified 03/21/18 11:18 Sulfa (Sulfonamide Allergy Severe Swelling Verified 03/21/18 11:18 Antibiotics) Home Medications Medication Instructions Recorded Confirmed Type carvedilol 12.5 mg PO BID 01/07/18 03/21/18 History cholecalciferol (vitamin D3) 1,000 unit PO DAILY 01/07/18 03/21/18 History gabapentin 300 mg PO BID 01/07/18 03/21/18 History insulin glargine [Lantus U-100 36 unit SUB-Q ONCE PM 01/07/18 03/21/18 History Insulin] melatonin 5 mg PO HS PRN 01/07/18 03/21/18 History omeprazole 40 mg PO DAILY 01/07/18 03/21/18 History rifaximin [Xifaxan] 550 mg PO BID 01/07/18 03/21/18 History duloxetine 60 mg PO DAILY 03/16/18 03/21/18 History insulin aspart U-100 [Novolog 1 unit SUBCUT TID 03/16/18 03/21/18 History U-100 Insulin aspart] ropinirole [Requip] 0.5 PO HS 03/24/18 History Physical Exam Vital signs: Vital Signs 03/26/18 16:00 03/26/18 16:15 03/26/18 20:00 Temperature 98.2 F 98.5 F Pulse Rate 54 L 53 L 56 L Respiratory Rate 18 18 Blood Pressure 180/90 H 199/99 H Pulse Oximetry 99 98 03/27/18 00:00 03/27/18 04:00 03/27/18 08:00 Temperature 98.1 F 98.0 F 98 F Pulse Rate 59 L 50 L 51 L Respiratory Rate 18 18 16 Blood Pressure 148/85 H 137/80 117/69 Pulse Oximetry 97 98 97 03/27/18 09:40 Temperature Pulse Rate 58 L Respiratory Rate Blood Pressure 107/63 Pulse Oximetry Intake & Output 03/26/18 03/27/18 03/27/18 18:59 06:59 18:59 Intake Total 480 / 480 Balance 480 / 480 Weight 67.6 kg Intake: Oral 480 / 480 Intake (Blood Product) Amt 0 / 0 Rbc As-3 Leukoreduced Unit 0 / 0 [id number] Other: # Voids 4 3 Date of Last Bowel Movement 03/24/18 03/24/18 - Constitutional no acute distress - Routine HEENT Exam Head: Present: normocephalic Eye: Present: PERRL ENT: Present: mucous membranes moist - Routine Neck Exam Present: full ROM - Routine Respiratory Exam Present: CTA bilaterally - Routine Cardiovascular Exam Present: S1, S2. Absent: murmur, gallop, rubs - Routine Abdominal Exam Present: normoactive bowel sounds - Routine Extremities Exam Present: full ROM, pulses intact, normal capillary refill. Absent: cyanosis, clubbing, edema - Routine Skin Exam Present: intact - Routine Neurological Exam Present: oriented X3 - Detailed Neurological Exam: Coma Scale Eye Opening: Spontaneous Verbal Response: Oriented Motor Response: Obey commands Rohit Coma Scale Total: 15 - Routine Psychiatric Exam Present: normal affect Results 03/27/18 05:34 03/27/18 05:34 Cardiac Enzymes 03/26/18 03/27/18 Range/Units 06:00 05:34 AST 24 35 (15-37) U/L CBC 03/26/18 03/27/18 Range/Units 06:00 05:34 WBC 6.5 6.7 (4.0-11.0) th/mm3 RBC 2.61 L 3.30 L (4.00-5.30) mil/mm3 Hgb 7.4 L 9.4 L D (11.6-15.3) gm/dL Hct 22.4 L 28.2 L (35.0-46.0) % Plt Count 239 250 (150-450) th/mm3 Neut # (Auto) 4.2 4.4 (1.8-7.7) th/mm3 Lymph # (Auto) 1.1 1.1 (1.0-4.8) th/mm3 [place] # (Auto) 0.5 0.5 (0.0-0.9) th/mm3 Eos # (Auto) 0.6 H 0.7 H (0.0-0.4) th/mm3 Baso # (Auto) 0.1 0.1 (0.0-0.2) th/mm3 Comprehensive Metabolic Panel 03/26/18 03/27/18 Range/Units 06:00 05:34 Sodium 143 141 (136-145) meq/L Potassium 3.9 4.3 (3.5-5.1) meq/L Chloride 108 H 105 (98-107) meq/L Carbon Dioxide 25.7 28.1 (21.0-32.0) meq/L BUN 47 H 48 H (7-18) mg/dL Creatinine 2.89 H 3.12 H (0.50-1.00) mg/dL Calcium 8.5 8.7 (8.5-10.1) mg/dL AST 24 35 (15-37) U/L ALT 24 28 (10-53) U/L Alkaline Phosphatase 208 H 237 H (45-117) U/L Total Protein 6.4 6.6 (6.4-8.2) g/dL Albumin 2.6 L 2.8 L (3.4-5.0) g/dL Intake and Output 03/26/18 03/27/18 03/27/18 22:59 06:59 14:59 Intake Total 480 / 480 Balance 480 / 480 Intake: Oral 480 / 480 Other: # Voids 4 3 Date of Last Bowel Movement 03/24/18 Weight 67.6 kg Assessment and Plan - Assessment (1) Syncope and collapse Code(s): R55 - Syncope and collapse Status: Acute (2) Anemia Code(s): D64.9 - Anemia, unspecified Status: Acute (3) Acute kidney injury Code(s): N17.9 - Acute kidney failure, unspecified Status: Acute (4) Chronic kidney disease, stage IV (severe) Code(s): N18.4 - Chronic kidney disease, stage 4 (severe) Status: Acute (5) Type 2 diabetes mellitus with diabetic chronic kidney disease Code(s): E11.22 - Type 2 diabetes mellitus with diabetic chronic kidney disease Status: Acute (6) Cirrhosis of liver Code(s): K74.60 - Unspecified cirrhosis of liver Status: Acute (7) Hyperkalemia Code(s): E87.5 - Hyperkalemia Status: Acute - Plan Patient getting discharged at this time. Patient cleared from a cardiac standpoint. We will follow up with patient in office in 1-2 weeks. Patient was seen and evaluated by Dr. Trinidad who participated in care, management and decision-making.
== END 2018-03-27 12:56 | disposition home health service (06) ==
LOC: NEPC 11:07 → INTOOBSV 16:12 → NEDA 16:12 → NEPHCDU 17:43 → N04 03-23 12:40
PROVIDERS: ADMIT Internal Medicine; ATTEND Internal Medicine
PROC: COLONOS (2018-03-24 08:17)
PROC: PANENDO (2018-03-24 08:17)